=== PATIENT | female | born 1930 | race Caucasian/White ===

== ENCOUNTER 2017-10-27 12:26 | Inpatient (IN) | payer OTHER ==
--- NOTE | 2017-10-27 12:28 | PDOC ---
History of Present Illness <Olive López - Last Filed: 10/27/17 14:45> - General History Source: Patient, Family Exam Limitations: No Limitations - History of Present Illness Initial Comments: 87 yo F history atrial fibrillation, ischemic colitis, chronic abdominal pain for the past few months presents with diarrhea, abd pain. She has been following up with Dr. Velazquez as an outpatient for the pain. She has had poor appetite and weight loss with her symptoms. Denies fever, nausea, vomiting. She had an MRI last week that was reportedly unremarkable. As part of her workup, she was scheduled for CT today, she drank barium contrast last night. She has been having diarrhea since then and was feeling weak, presented to ED. She did not get her study this morning. She has abdominal pain that is consistent with her chronic pain. <Fatoumata Tan - Last Filed: 10/27/17 18:27> - General Chief Complaint: Pain Stated Complaint: ABDOMINAL PAIN Time Seen by Provider: 10/27/17 12:27 Past History <Olive López - Last Filed: 10/27/17 14:45> - Past Medical History Dementia: Yes Diabetes: Yes GI Disorders: (bleeding ulcers) HTN: Yes Hypercholesterolemia: Yes - Surgical History Cholecystectomy: Yes - Suicide/Smoking/Psychosocial Hx Smoking History: Never smoked Hx Alcohol Use: No Drug/Substance Use Hx: No Substance Use Type: Alcohol <Fatoumata Tan - Last Filed: 10/27/17 18:27> - Past Medical History Allergies/Adverse Reactions: Allergies Allergy/AdvReac Type Severity Reaction Status Date / Time No Known Allergies Allergy Verified 10/27/17 12:33 Home Medications: Ambulatory Orders Amlodipine Besylate [Norvasc -] 5 mg PO DAILY #30 tablet 05/19/17 Apixaban [Eliquis -] 2.5 mg PO BID #60 tablet 05/19/17 Atenolol [Tenormin -] 50 mg PO DAILY #30 tablet 05/19/17 Donepezil HCl [Aricept -] 10 mg PO DAILY #30 tablet 05/19/17 Furosemide [Lasix -] 40 mg PO DAILY #30 tablet 05/19/17 Insulin (Levemir) [Levemir Flexpen -] 6 units SQ DAILY #1 pen 05/19/17 Levothyroxine [Synthroid -] 25 mcg PO DAILY@0700 #30 tablet 05/19/17 [place]-3 Acid Ethyl Esters [Lovaza -] 2 gm PO BID@1000,1700 #60 cap 05/19/17 Pantoprazole Sodium [Protonix -] 40 mg PO DAILY@0700 #30 tablet.ec 05/19/17 Insulin Aspart [Novolog Flexpen] 5 unit SQ TID #30 insuln.pen 05/20/17 Lisinopril 10 mg PO DAILY #30 tablet 05/20/17 Nateglinide [Starlix (Nf)] 60 mg PO DAILY 10/27/17 Review of Systems - Review of Systems Able to Perform ROS?: Yes Comments:: GENERAL/CONSTITUTIONAL: No fever or chills. +Weakness. HEAD, EYES, EARS, NOSE AND THROAT: No change in vision. No ear pain or discharge. No sore throat. CARDIOVASCULAR: No chest pain or shortness of breath. RESPIRATORY: No cough, wheezing, or hemoptysis. GASTROINTESTINAL: No nausea, vomiting, or constipation. +Diarrhea. GENITOURINARY: No dysuria, frequency, or change in urination. MUSCULOSKELETAL: No joint or muscle swelling or pain. No neck or back pain. SKIN: No rash NEUROLOGIC: No headache, vertigo, loss of consciousness, or change in strength/ sensation. ENDOCRINE: No increased thirst. No abnormal weight change. HEMATOLOGIC/LYMPHATIC: No anemia, easy bleeding, or history of blood clots. ALLERGIC/IMMUNOLOGIC: No hives or skin allergy. <Fatoumata Tan - Last Filed: 10/27/17 18:27> *Physical Exam - Vital Signs Last Vital Signs Temp Pulse Resp BP Pulse Ox 94.2 F L 118 H 16 124/56 100 10/27/17 13:30 10/27/17 14:31 10/27/17 14:31 10/27/17 14:31 10/27/17 14:31 <Olive López - Last Filed: 10/27/17 14:45> - Physical Exam Comments: GENERAL: Awake, alert, and fully oriented, in no acute distress HEAD: No signs of trauma EYES: PERRLA, EOMI, sclera anicteric, conjunctiva clear ENT: Auricles normal inspection, hearing grossly normal, nares patent, oropharynx clear without exudates. Moist mucosa NECK: Normal ROM, supple, no lymphadenopathy, JVD, or masses LUNGS: Breath sounds equal, clear to auscultation bilaterally. No wheezes, and no crackles HEART: Regular rate and rhythm, normal S1 and S2, no murmurs, rubs or gallops ABDOMEN: Soft, nontender, normoactive bowel sounds. No guarding, no rebound. No masses EXTREMITIES: Normal range of motion, no edema. No clubbing or cyanosis. No cords, erythema, or tenderness NEUROLOGICAL: Cranial nerves II through XII grossly intact. Normal speech, normal gait SKIN: Warm, Dry, normal turgor, no rashes or lesions noted. <Fatoumata Tan - Last Filed: 10/27/17 18:27> ED Treatment Course - LABORATORY CBC & Chemistry Diagram: 10/27/17 13:02 10/27/17 13:02 - ADDITIONAL ORDERS Additional order review: Laboratory Results 10/27/17 10/27/17 10/27/17 14:37 13:02 13:02 PT with INR INR PTT (Actin FS) VBG pH POC VBG pCO2 POC VBG pO2 Mixed VBG HCO3 Sodium Potassium Chloride Carbon Dioxide Anion Gap BUN Creatinine Creat Clearance w eGFR POC Glucometer Random Glucose Lactic Acid Calcium Total Bilirubin AST ALT Alkaline Phosphatase Creatine Kinase 24 L Troponin I < 0.03 Total Protein Albumin Stool Occult Blood Positive 10/27/17 10/27/17 10/27/17 13:02 13:02 13:02 PT with INR INR PTT (Actin FS) VBG pH 7.23 L* POC VBG pCO2 40.3 POC VBG pO2 28.0 Mixed VBG HCO3 16.2 L Sodium 120 L* Potassium 4.5 Chloride 89 L Carbon Dioxide 15 L Anion Gap 16 BUN 74 H Creatinine 2.8 H Creat Clearance w eGFR 16.06 POC Glucometer Random Glucose 344 H* Lactic Acid 2.9 H* Calcium 9.0 Total Bilirubin 0.6 AST 21 ALT 13 Alkaline Phosphatase 56 Creatine Kinase Troponin I Total Protein 7.4 Albumin 3.7 Stool Occult Blood 10/27/17 10/27/17 13:02 12:50 PT with INR 13.4 H INR 1.20 PTT (Actin FS) 30.0 VBG pH POC VBG pCO2 POC VBG pO2 Mixed VBG HCO3 Sodium Potassium Chloride Carbon Dioxide Anion Gap BUN Creatinine Creat Clearance w eGFR POC Glucometer [phone] Random Glucose Lactic Acid Calcium Total Bilirubin AST ALT Alkaline Phosphatase Creatine Kinase Troponin I Total Protein Albumin Stool Occult Blood 10/27/17 10/27/17 13:02 12:50 RBC 3.23 L MCV 87.5 MCHC 35.7 RDW 13.4 MPV 7.7 Neutrophils % 83.9 H Lymphocytes % 13.9 Monocytes % 1.7 L Eosinophils % 0.3 Basophils % 0.2 POC Glucometer [phone] - Medications Given in the ED: ED Medications Discontinued Medications Generic Name Dose Route Start Last Admin Trade Name Fresven PRN Reason Stop Dose Admin Insulin Human Regular 6 units 10/27/17 13:01 10/27/17 13:12 Novolin R Vial *For Ivpush Or Iv Drip Only* SQ 10/27/17 13:02 6 units ONCE ONE Administration <Olive López - Last Filed: 10/27/17 14:45> - LABORATORY CBC & Chemistry Diagram: 10/27/17 17:30 10/27/17 17:30 <Fatoumata Tan - Last Filed: 10/27/17 18:27> Medical Decision Making - Medical Decision Making 10/27/17 14:[address] Velazquez at 2:34pm Documentation prepared by Olive López, acting as medical voucher clerk for Fatoumata Tan MD. <Olive López - Last Filed: 10/27/17 14:45> - Critical Care Time Total Critical Care Time (minutes): 90 Critical Care Statement: The care of this patient involved high complexity decision making to prevent further life threatening deterioration of the patient 's condition and/or to evaluate & treat vital organ system(s) failure or risk of failure. - Medical Decision Making 10/27/17 14:05 Case d/w Dr. Allen, as he has seen patient in the past. She is noted to have hyponatremia on labs, appears fluid depleted. Recommended 1L NSS. 10/27/17 14:29 CT and CMP results d/w family. I will contact Dr. Velazquez for more information, as patient had imaging 1 week ago, not at this hospital. 10/27/17 15:01 Case d/w Dr. Velazquez, recommended consultation with surgery. I will contact surgeon environmental sampler. 10/27/17 15:12 Case d/w Dr. Conde, environmental sampler for surgery. Recommended ICU admission, abx, and IV fluids. If patient does not improve will require laparotomy and possible bowel resection. I discussed with family, who refused transfer to [facility] ICU. They are requesting transfer either to [facility] or [place] at this time. 10/27/17 15:16 Dr. Velazquez called back to discuss with family via phone. 10/27/17 16:36 Multiple conversations with the family, as both hospitals they requested do not accept transfers without an accepting physician. They requested time to discuss amongst themselves again- they were considering C. Nursing equipment maintenance supervisor Katerina came to bedside to discuss with them as well. At this time they accept transfer to [facility]. 10/27/17 18:26 Pt is comfortable in bed, appears better than prior evaluation. Her temp has normalized. Awaiting EMS pickup for ICU transfer. <Fatoumata Tan - Last Filed: 10/27/17 18:27> *DC/Admit/Observation/Transfer <Olive López - Last Filed: 10/27/17 14:45> - Discharge Dispostion Admit: Yes <Fatoumata Tan - Last Filed: 10/27/17 18:27> Diagnosis at time of Disposition: Hyponatremia, Ischemic colitis Sepsis Qualifiers: Sepsis type: sepsis due to unspecified organism Qualified Code(s): A41.9 - Sepsis, unspecified organism - Discharge Dispostion Condition at time of disposition: Critical
[2017-10-27] MEDS ORDERED: INSULIN REGULAR HUMAN 100 UNITS/ML *VIAL SQ ONE (13:01)
[2017-10-27] MEDS ORDERED: INSULIN REGULAR HUMAN 100 UNITS/ML *VIAL ONE (13:08)
[2017-10-27 13:23] LABS: BASO % 0.2 % (0-2.0); EOS % 0.3 % (0-4.5); HEMATOCRIT 28.3 % (32.4-45.2); HEMOGLOBIN 10.1 GM/dl (10.7-15.3); LYMPH % 13.9 % (8-40); MCH 31.2 pg (25.7-33.7); MCHC 35.7 g/dl (32.0-36.0); MEAN CELL VOLUME 87.5 fl (80-96); MEAN PLT VOLUME 7.7 fl (7.5-11.1); MONO % 1.7 % (3.8-10.2); NEUT % 83.9 % (42.8-82.8); PLATELET COUNT 316 K/MM3 (134-434); RBC 3.23 M/mm3 (3.60-5.2); RDW 13.4 % (11.6-15.6); WHITE BLOOD COUNT 8.1 K/mm3 (4.0-10.8)
[2017-10-27 13:38] LABS: ALBUMIN 3.7 g/dl (3.5-5.0); ALK PHOS 56 U/L (32-92); ANION GAP 16 (8-16); BILIRUBIN,TOTAL 0.6 mg/dl (0.2-1.0); BLOOD UREA NITROGEN 74 mg/dl (7-18); CHLORIDE 89 mmol/L (98-107); CO2 15 mmol/L (22-28); CREATININE 2.8 mg/dl (0.6-1.3); POTASSIUM 4.5 mmol/L (3.5-5.1); SGOT/AST 21 U/L (10-42); SGPT/ALT 13 U/L (10-40); TOT PROT 7.4 g/dl (6.4-8.3)
[2017-10-27 13:45] LABS: GLUCOSE,RANDOM 344 mg/dl (74-106)
[2017-10-27 13:46] LABS: SODIUM 120 mmol/L (136-145)
[2017-10-27 14:11] LABS: VENOUS PC02 40.3 mmHg (38-52)
[2017-10-27 14:12] LABS: VENOUS PH 7.23 (7.32-7.42)
[2017-10-27 14:15] LABS: INR 1.2 (0.82-1.09); PROTHROMBIN TIME (PATIENT) 13.4 SEC (10.2-13.0)
[2017-10-27] MEDS ORDERED: SODIUM CHLORIDE 1,000 ML IV SCH ×2 (14:15→22:15)
[2017-10-27] MEDS ORDERED: dilTIAZem HCL 50 MG/10 ML - 10 ML VIAL IVPUSH ONE (14:34)
[2017-10-27] MEDS ORDERED: dilTIAZem HCL 50 MG/10 ML - 10 ML VIAL ONE (14:40)
[2017-10-27] MEDS ORDERED: PIPERACILLIN/TAZOB 3.375 GM 3.375 GM in DEXTROSE 5%-WATER - 50 ML IVPB ONE ×2 (14:42→21:00)
[2017-10-27] MEDS ORDERED: PIPERACILLIN/TAZOBACTAM 3.375 GM VIAL IVPB ONE ×2 (14:49→21:55)
[2017-10-27] MEDS ORDERED: ONDANSETRON 4 MG/2 ML VIAL IVPUSH ONE ×2 (15:21→18:27)
[2017-10-27] MEDS ORDERED: ONDANSETRON 4 MG/2 ML VIAL ONE ×2 (15:29→18:36)
[2017-10-27 17:46] LABS: HEMATOCRIT 28.3 % (32.4-45.2); HEMOGLOBIN 10.1 GM/dl (10.7-15.3); MCH 30.9 pg (25.7-33.7); MCHC 35.6 g/dl (32.0-36.0); MEAN CELL VOLUME 86.9 fl (80-96); MEAN PLT VOLUME 7.2 fl (7.5-11.1); PLATELET COUNT 304 K/MM3 (134-434); RBC 3.26 M/mm3 (3.60-5.2); RDW 13.2 % (11.6-15.6); WHITE BLOOD COUNT 11.9 K/mm3 (4.0-10.8)
[2017-10-27 18:00] LABS: ALBUMIN 3.3 g/dl (3.5-5.0); ALK PHOS 52 U/L (32-92); ANION GAP 11 (8-16); BLOOD UREA NITROGEN 75 mg/dl (7-18); CALCIUM 8.6 mg/dl (8.4-10.2); CHLORIDE 93 mmol/L (98-107); CO2 18 mmol/L (22-28); CREATININE 2.6 mg/dl (0.6-1.3); GLUCOSE,RANDOM 211 mg/dl (74-106); POTASSIUM 4.1 mmol/L (3.5-5.1); SGOT/AST 22 U/L (10-42); SGPT/ALT 14 U/L (10-40); TOT PROT 6.8 g/dl (6.4-8.3)
[2017-10-27 18:03] LABS: SODIUM 122 mmol/L (136-145)
[2017-10-27 18:08] LABS: BILIRUBIN,TOTAL 0.6 mg/dl (0.2-1.0)
[2017-10-27 18:42] LABS: PLATELET ESTIMATE ADEQUATE
--- NOTE | 2017-10-27 19:09 | CONSULT ---
Consult - text type - Consultation Consultation Note: Renal Consult for Hyponatremia and GABY on CKD This is a 87 year old woman with PMhx of CKD Stage 4 (baseline Cr 1.8-2), AFib on Eliquis, Hypertension, Hypothyrodism who presented with complaints of abd pain and diarrhea and found to have possible ischemic colitis and GABY and Na of 122. Pt has been having poor oral intake and abd pain for several weeks. She had loose stools after taking a bowel prep or oral contrast for C T scan. Pt has been on diuretics for management of LE edema. PMhx: as above Allergies: NKDA Famialy Hx: NC social Hx: No T/A/D ROS: NO fever, chills, SOB, chest pain, + N/V Home Medications Medication Instructions Recorded Amlodipine Besylate [Norvasc -] 5 mg PO DAILY #30 tablet 05/19/17 Apixaban [Eliquis -] 2.5 mg PO BID #60 tablet 05/19/17 Atenolol [Tenormin -] 50 mg PO DAILY #30 tablet 05/19/17 Donepezil HCl [Aricept -] 10 mg PO DAILY #30 tablet 05/19/17 Furosemide [Lasix -] 40 mg PO DAILY #30 tablet 05/19/17 Insulin (Levemir) [Levemir Flexpen 6 units SQ DAILY #1 pen 05/19/17 -] Levothyroxine [Synthroid -] 25 mcg PO DAILY@0700 #30 tablet 05/19/17 [place]-3 Acid Ethyl Esters [Lovaza 2 gm PO BID@1000,1700 #60 cap 05/19/17 -] Pantoprazole Sodium [Protonix -] 40 mg PO DAILY@0700 #30 tablet.ec 05/19/17 Insulin Aspart [Novolog Flexpen] 5 unit SQ TID #30 insuln.pen 05/20/17 Lisinopril 10 mg PO DAILY #30 tablet 05/20/17 Nateglinide [Starlix (Nf)] 60 mg PO DAILY 10/27/17 Vital Signs Temperature 98.3 F 10/27/17 18:40 Pulse Rate 107 H 10/27/17 18:40 Respiratory Rate 16 10/27/17 18:40 Blood Pressure 118/76 10/27/17 18:40 O2 Sat by Pulse Oximetry (%) 100 10/27/17 18:40 NAD, awake and alert Dry MM, No JVD, Neck supple RRR, No M/R CTA, no rales or wheeze soft, + tenderness No LE edema, clubbing or cyanosis CBC, BMP 10/27/17 17:30 10/27/17 17:30 Current Medications Sodium Chloride (Normal Saline -) 1,000 mls @ 100 mls/hr IV ASDIR YANN Last Admin: 10/27/17 14:15 Dose: 100 mls/hr Piperacillin Sod/Tazobactam (Sod 3.375 gm/ Dextrose) 50 mls @ 100 mls/hr IVPB ONCE ONE PRN Reason: Protocol Stop: 10/27/17 21:29 87 year old woman with PMhx of CKD Stage 4 (baseline Cr 1.8-2), AFib on Eliquis , Hypertension, Hypothyrodism who presented with complaints of abd pain and diarrhea and found to have possible ischemic colitis and GABY and Na of 122. #Hypovolemic Hyponatremia #GABY on CKD stage 4 #Ischemic Colitis #Metabolic aciodosis/Lactic acidosis #Anemia #Afib on Eliquis no indication for hypertonic saline at this time Continue isotonic saline at 100cc per hour monitor serum Na Q6h with goal of correction less then 10 in 24 hours avoid hypotonic IVF infusions Hold all diuretics at this time Keep MAP> 65 Trend BUN/cr and electrolytes GI and surgical evalulation for ischemic colitis Trend Hgb, no acute indication for transfusion Thank you will follow Refugio Allen DO
[2017-10-27 19:25] LABS: PH,URINE 5.5 (4.5-8); URINE APPEARANCE Clear; URINE BILIRUBIN Negative (NEGATIVE); URINE BLOOD Negative (NEGATIVE); URINE COLOR YELLOW; URINE GLUCOSE (UA) Negative (NEGATIVE); URINE KETONE Negative (NEGATIVE); URINE LEUK ESTERASE 1+ (NEGATIVE); URINE NITRITE Negative (NEGATIVE); URINE PROTEIN 1+ (NEGATIVE); URINE UROBILINOGEN 0.2 (0.2-1.0)
[2017-10-27 19:59] LABS: URINE CREATININE 81.6 mg/dL (20-320)
[2017-10-27] MEDS ORDERED: ONDANSETRON 4 MG/2 ML VIAL IVPUSH PRN (21:26)
--- NOTE | 2017-10-27 21:30 | CONSULT ---
Consult Consult Specialty:: Pulm/CCM Referred by:: Hospitalist Reason for Consultation:: hypovolemic hyponatermia, abd pain, colitis, lactic acidosis - History of Present Illness Chief Complaint: abd pain, nausea, diarrhea History of Present Illness: HPI: This is an 87 yo woman w/ CAD, HTN, hypothyroid, afib on xarelto, DM, CKD ( stage 4) with abdominal pain with associated weight loss and decreased PO intake over the last 3 months who was being worked up by Dr. Velazquez (GI). She had a recent MRI showed moderate abdominal atherosclerotic disease. She was to undergo a CTAP today and drank her barium bowel prep but developed increasing abd pain, nausea and diarrhea. She presented to [place] ED and underwent CTAP showing an extensive amount of air/gas is seen within the peripheral branches of the left and right portal veins with concentric wall thickening involving the length of the transverse colon as well as the ascending colon consistent with colitis. In the ED her labs were notable for hypovolemia hyponatremia, lactic acidosis (2.9) and GABY (SCr: 2.8). Surgery was consulted, no acute surgical intervention. IV fluids given. Zosyn started. Lactate down trending. 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 Cardio/Vascular: Yes: AFIB, HTN, Hyperlipdemia Gastrointestinal: Yes: Peptic Ulcer Disease Endocrine: Yes: Diabetes Mellitus, Hypothyroidism - Past Surgical History Past Surgical History: Yes: Cataract Removal, Cholecystectomy (open) - Alcohol/Substance Use Hx Alcohol Use: No - Smoking History Smoking history: Never smoked Home Medications - Allergies Allergies/Adverse Reactions: Allergies Allergy/AdvReac Type Severity Reaction Status Date / Time No Known Allergies Allergy Verified 10/27/17 12:33 - Home Medications Home Medications: Ambulatory Orders Amlodipine Besylate [Norvasc -] 5 mg PO DAILY #30 tablet 05/19/17 Apixaban [Eliquis -] 2.5 mg PO BID #60 tablet 05/19/17 Atenolol [Tenormin -] 50 mg PO DAILY #30 tablet 05/19/17 Donepezil HCl [Aricept -] 10 mg PO DAILY #30 tablet 05/19/17 Furosemide [Lasix -] 40 mg PO DAILY #30 tablet 05/19/17 Insulin (Levemir) [Levemir Flexpen -] 6 units SQ DAILY #1 pen 05/19/17 Levothyroxine [Synthroid -] 25 mcg PO DAILY@0700 #30 tablet 05/19/17 [place]-3 Acid Ethyl Esters [Lovaza -] 2 gm PO BID@1000,1700 #60 cap 05/19/17 Pantoprazole Sodium [Protonix -] 40 mg PO DAILY@0700 #30 tablet.ec 05/19/17 Insulin Aspart [Novolog Flexpen] 5 unit SQ TID #30 insuln.pen 05/20/17 Lisinopril 10 mg PO DAILY #30 tablet 05/20/17 Nateglinide [Starlix (Nf)] 60 mg PO DAILY 10/27/17 Family Disease History - Family Disease History Family Disease History: Diabetes: Brother (3 brothers, : 1 w/ prostate cancer, 1 w/ complications from asbestosis ), Son (2 sons: healthy), Other: Father ( 80's: unclear cause), Mother ( in 40's: heart problems), Brother, Son, Daughter (1, has hereditary angioedema) Review of Systems - Review of Systems Constitutional: reports: Loss of Appetite, Unintentional Wgt. Loss Gastrointestinal: reports: Abdominal Pain, Bloating, Diarrhea, Indigestion, Nausea Physical Exam Vital Signs: Vital Signs Temperature 98.3 F 10/27/17 18:40 Pulse Rate 107 H 10/27/17 18:40 Respiratory Rate 16 10/27/17 18:40 Blood Pressure 118/76 10/27/17 18:40 O2 Sat by Pulse Oximetry (%) 100 10/27/17 18:40 Constitutional: Yes: No Distress, Calm Eyes: Yes: EOM Intact HENT: Yes: Atraumatic Neck: Yes: Trachea Midline Cardiovascular: Yes: Regular Rate and Rhythm, S1, S2 Respiratory: Yes: CTA Bilaterally Gastrointestinal: Yes: Soft, Tenderness (RUQ tenderness to palp) Edema: No Integumentary: Yes: Tenting Neurological: Yes: Alert Labs: CBC, BMP 10/27/17 17:30 10/27/17 17:30 Stool study: Pending CTAP: Extensive amount of air/gas is seen within the peripheral branches of the left and right portal veins. In comparison to a previous CT study of 05/10/2017 interval note is also made of interval development of concentric wall thickening involving the length of the transverse colon as well as the ascending colon consistent with colitis. There is no definite associated or mural air or air/gas gas within the mesenteric vasculature. No pericolonic edema or fluid accumulation is seen Imaging - Results Chest X-ray: Report Reviewed, Image Reviewed Cat Scan: Report Reviewed, Image Reviewed Problem List - Problems (1) Colitis Code(s): K52.9 - NONINFECTIVE GASTROENTERITIS AND COLITIS, UNSPECIFIED (2) Hyponatremia Code(s): E87.1 - HYPO-OSMOLALITY AND HYPONATREMIA (3) GABY (acute kidney injury) Code(s): N17.9 - ACUTE KIDNEY FAILURE, UNSPECIFIED (4) Acute on chronic kidney failure Code(s): N17.9 - ACUTE KIDNEY FAILURE, UNSPECIFIED; N18.9 - CHRONIC KIDNEY DISEASE, UNSPECIFIED Qualifiers: Chronic kidney disease stage: stage 3 (moderate) (5) CKD (chronic kidney disease) stage 4, GFR 15-29 ml/min Code(s): N18.4 - CHRONIC KIDNEY DISEASE, STAGE 4 (SEVERE) (6) Diarrhea Code(s): R19.7 - DIARRHEA, UNSPECIFIED (7) Type 2 diabetes mellitus Code(s): E11.9 - TYPE 2 DIABETES MELLITUS WITHOUT COMPLICATIONS Qualifiers: Diabetes mellitus terminal operations manager insulin use: without terminal operations manager use Diabetes mellitus complication status: with kidney complications Diabetes mellitus complication detail: with chronic kidney disease Assessment/Plan a/p: 87 yo woman with afib, DM, CKD (stage 4), chronic abdominal pain with nausea, decreased po intake c/f gastroparesis and now with hypovolemic hyponatremia, acute abd pain and colitis c/f low flow state in a elderly woman with dehydrated with known atherosclerotic disease +/- abdominal sepsis. -IV fluids w/ slow correction of Na goal 8-10 Meq over next 24hrs -frequent BMPs -renal following -renal dose medications -trend lactate -surgery to follow -rate control, currently in NSR -GI to follow -glucose control -ABX for abdominal sepsis, c/f GI translocation in setting of colitis -pain control -PPI (renal dose) -zofran for nausea -simethicone for gas -no UFH given xarelto -cont ICU monitoring tonight, if lactate and sodium correct can likely got to floor in AM Jesus ACNP Pulm/CCM CCT: 45m
[2017-10-27] MEDS ORDERED: SIMETHICONE 80 MG TAB.CHEW (FP) PO PRN (21:34)
--- NOTE | 2017-10-27 21:40 | HP ---
CHIEF COMPLAINT: Abdominal Pain, Diarrhea PCP: Dr. Carlie Garay HISTORY OF PRESENT ILLNESS: 87 y/o woman from home PMH Ischemic Colitis, Chronic Abdominal Pain (for the past few months), Dementia, CKD Stage 4, Afib (on Eliquis), HTN, Hypothyroid. Who presents to the [place] ED with diarrhea, abdominal pain, and weakness. She has been following up with Dr. Velazquez as an outpatient for the pain. She has had poor appetite and weight loss with her symptoms. Denies fever, nausea, vomiting. She had an MRI last week that was reportedly unremarkable. As part of her workup, she was scheduled for CT today, she drank barium contrast last night. Patient was transferred to [facility] ICU secondary to Severe Hyponatremia, ? Ischemic Colitis. Patient's son was at bedside, provided the above. ER course was notable for: (1) CTAP- extensive portal venous air/gas accumulation is noted, interval development of colitis involving the transverse and ascending segments of the colon. ? Ischemic etiology given the portal venous air/gas accumulation. (2) Na 120 (3) Lactic Acid 2.9~ 1.3 post fluid resuscitation Recent Travel: None PAST MEDICAL HISTORY: See HPI PAST SURGICAL HISTORY: Cataract Removal Open Cholecystectomy Social History: Smoking: Never Alcohol: None Drugs: None Lives with spouse, daughter 3-family dwelling Family History: Non contributory Allergies No Known Allergies Allergy (Verified 10/27/17 12:33) HOME MEDICATIONS: Home Medications Medication Instructions Recorded Amlodipine Besylate [Norvasc -] 5 mg PO DAILY #30 tablet 05/19/17 Apixaban [Eliquis -] 2.5 mg PO BID #60 tablet 05/19/17 Atenolol [Tenormin -] 50 mg PO DAILY #30 tablet 05/19/17 Donepezil HCl [Aricept -] 10 mg PO DAILY #30 tablet 05/19/17 Furosemide [Lasix -] 40 mg PO DAILY #30 tablet 05/19/17 Insulin (Levemir) [Levemir Flexpen 6 units SQ DAILY #1 pen 05/19/17 -] Levothyroxine [Synthroid -] 25 mcg PO DAILY@0700 #30 tablet 05/19/17 Lisco-3 Acid Ethyl Esters [Lovaza 2 gm PO BID@1000,1700 #60 cap 05/19/17 -] Pantoprazole Sodium [Protonix -] 40 mg PO DAILY@0700 #30 tablet.ec 05/19/17 Insulin Aspart [Novolog Flexpen] 5 unit SQ TID #30 insuln.pen 05/20/17 Lisinopril 10 mg PO DAILY #30 tablet 05/20/17 Nateglinide [Starlix (Nf)] 60 mg PO DAILY 10/27/17 REVIEW OF SYSTEMS CONSTITUTIONAL: Absent: fever, chills, diaphoresis, generalized weakness, malaise, loss of appetite, weight change HEENT: Absent: rhinorrhea, nasal congestion, throat pain, throat swelling, difficulty swallowing, mouth swelling, ear pain, eye pain, visual changes CARDIOVASCULAR: Absent: chest pain, syncope, palpitations, irregular heart rate, lightheadedness , peripheral edema RESPIRATORY: Absent: cough, shortness of breath, dyspnea with exertion, orthopnea, wheezing, stridor, hemoptysis GASTROINTESTINAL: abdominal pain, vomiting, diarrhea Absent: abdominal distension, nausea, constipation, melena, hematochezia GENITOURINARY: Absent: dysuria, frequency, urgency, hesitancy, hematuria, flank pain, genital pain MUSCULOSKELETAL: Absent: myalgia, arthralgia, joint swelling, back pain, neck pain SKIN: Absent: rash, itching, pallor HEMATOLOGIC/IMMUNOLOGIC: Absent: easy bleeding, easy bruising, lymphadenopathy, frequent infections ENDOCRINE: Absent: unexplained weight gain, unexplained weight loss, heat intolerance, cold intolerance NEUROLOGIC: Absent: headache, focal weakness or paresthesias, dizziness, unsteady gait, seizure, mental status changes, bladder or bowel incontinence PSYCHIATRIC: Absent: anxiety, depression, suicidal or homicidal ideation, hallucinations. PHYSICAL EXAMINATION Vital Signs - 24 hr 10/27/17 10/27/17 10/27/17 12:27 13:30 14:31 Temperature 93.7 F L 94.2 F L Pulse Rate 56 L Pulse Rate [ 62 118 H Apical] Respiratory 16 18 16 Rate Blood Pressure 140/52 Blood Pressure 141/39 124/56 [Arm] O2 Sat by Pulse 100 100 100 Oximetry (%) 10/27/17 10/27/17 10/27/17 14:47 15:17 15:37 Temperature 97.3 F L 97.6 F Pulse Rate Pulse Rate [ 78 82 71 Apical] Respiratory 18 Rate Blood Pressure Blood Pressure 136/40 158/69 [Arm] O2 Sat by Pulse 100 100 100 Oximetry (%) 10/27/17 10/27/17 10/27/17 16:19 17:20 18:40 Temperature 98 F 98 F 98.3 F Pulse Rate 75 Pulse Rate [ 61 107 H Apical] Respiratory 16 16 16 Rate Blood Pressure 142/41 Blood Pressure 118/76 [Arm] O2 Sat by Pulse 100 100 Oximetry (%) 10/27/17 21:15 Temperature 98.1 F Pulse Rate 74 Pulse Rate [ Apical] Respiratory 18 Rate Blood Pressure 173/48 Blood Pressure [Arm] O2 Sat by Pulse Oximetry (%) GENERAL: Awake, alert to name, person only, in no acute distress. HEAD: Normal with no signs of trauma. EYES: Pupils equal, round and reactive to light, sclera anicteric, conjunctiva clear. No lid lag. EARS, NOSE, THROAT: Ears normal, nares patent, oropharynx clear without exudates. Dry mucous membranes. NECK: Normal range of motion, supple without lymphadenopathy, JVD, or masses. LUNGS: Breath sounds equal, clear to auscultation bilaterally. No wheezes, and no crackles. No accessory muscle use. HEART: Regular rate and rhythm, normal S1 and S2 without murmur, rub or gallop. ABDOMEN: Soft, +Epigastric tenderness, not distended, hyperactive bowel sounds, no guarding, no rebound, no masses. No hepatomegaly or splenomegaly. MUSCULOSKELETAL: Normal range of motion at all joints. No bony deformities or tenderness. No CVA tenderness. UPPER EXTREMITIES: 2+ pulses, warm, well-perfused. No cyanosis. No clubbing. No peripheral edema. LOWER EXTREMITIES: 2+ pulses, warm, well-perfused. No calf tenderness. No peripheral edema. NEUROLOGICAL: Cranial nerves II-XII intact. Normal speech. Gait not observed. PSYCHIATRIC: Cooperative. Good eye contact. Appropriate mood and affect. SKIN: Warm, dry, normal turgor, no rashes or lesions noted, normal capillary refill. Laboratory Results - last 24 hr 10/27/17 10/27/17 10/27/17 12:50 13:02 13:02 WBC 8.1 RBC 3.23 L Hgb 10.1 L Hct 28.3 L MCV 87.5 MCH 31.2 MCHC 35.7 RDW 13.4 Plt Count 316 MPV 7.7 Neutrophils % 83.9 H Neutrophils % (Manual) Band Neutrophils % Lymphocytes % 13.9 Lymphocytes % (Manual) Monocytes % 1.7 L Eosinophils % 0.3 Basophils % 0.2 Platelet Estimate PT with INR 13.4 H INR 1.20 PTT (Actin FS) 30.0 VBG pH POC VBG pCO2 POC VBG pO2 Mixed VBG HCO3 Sodium Potassium Chloride Carbon Dioxide Anion Gap BUN Creatinine Creat Clearance w eGFR POC Glucometer [phone] Random Glucose Lactic Acid Calcium Total Bilirubin AST ALT Alkaline Phosphatase Creatine Kinase Troponin I Total Protein Albumin TSH Urine Color Urine Appearance Urine pH Ur Specific [place] Urine Protein Urine Glucose (UA) Urine Ketones Urine Blood Urine Nitrite Urine Bilirubin Urine Urobilinogen Ur Leukocyte Esterase Ur Random Sodium Urine Creatinine Stool Occult Blood 10/27/17 10/27/17 10/27/17 13:02 13:02 13:02 WBC RBC Hgb Hct MCV MCH MCHC RDW Plt Count MPV Neutrophils % Neutrophils % (Manual) Band Neutrophils % Lymphocytes % Lymphocytes % (Manual) Monocytes % Eosinophils % Basophils % Platelet Estimate PT with INR INR PTT (Actin FS) VBG pH 7.23 L* POC VBG pCO2 40.3 POC VBG pO2 28.0 Mixed VBG HCO3 16.2 L Sodium 120 L* Potassium 4.5 Chloride 89 L Carbon Dioxide 15 L Anion Gap 16 BUN 74 H Creatinine 2.8 H Creat Clearance w eGFR 16.06 POC Glucometer Random Glucose 344 H* Lactic Acid 2.9 H* Calcium 9.0 Total Bilirubin 0.6 AST 21 ALT 13 Alkaline Phosphatase 56 Creatine Kinase Troponin I Total Protein 7.4 Albumin 3.7 TSH 2.28 Urine Color Urine Appearance Urine pH Ur Specific [place] Urine Protein Urine Glucose (UA) Urine Ketones Urine Blood Urine Nitrite Urine Bilirubin Urine Urobilinogen Ur Leukocyte Esterase Ur Random Sodium Urine Creatinine Stool Occult Blood 10/27/17 10/27/17 10/27/17 13:02 13:02 14:37 WBC RBC Hgb Hct MCV MCH MCHC RDW Plt Count MPV Neutrophils % Neutrophils % (Manual) Band Neutrophils % Lymphocytes % Lymphocytes % (Manual) Monocytes % Eosinophils % Basophils % Platelet Estimate PT with INR INR PTT (Actin FS) VBG pH POC VBG pCO2 POC VBG pO2 Mixed VBG HCO3 Sodium Potassium Chloride Carbon Dioxide Anion Gap BUN Creatinine Creat Clearance w eGFR POC Glucometer Random Glucose Lactic Acid Calcium Total Bilirubin AST ALT Alkaline Phosphatase Creatine Kinase 24 L Troponin I < 0.03 Total Protein Albumin TSH Urine Color Urine Appearance Urine pH Ur Specific [place] Urine Protein Urine Glucose (UA) Urine Ketones Urine Blood Urine Nitrite Urine Bilirubin Urine Urobilinogen Ur Leukocyte Esterase Ur Random Sodium Urine Creatinine Stool Occult Blood Positive 10/27/17 10/27/17 10/27/17 17:30 17:30 17:30 WBC 11.9 H D RBC 3.26 L Hgb 10.1 L Hct 28.3 L MCV 86.9 MCH 30.9 MCHC 35.6 RDW 13.2 Plt Count 304 MPV 7.2 L Neutrophils % No Result Required. Neutrophils % (Manual) 94.0 H* Band Neutrophils % 1.0 Lymphocytes % No Result Required. Lymphocytes % (Manual) 4.0 L Monocytes % Eosinophils % Basophils % Platelet Estimate Adequate PT with INR INR PTT (Actin FS) VBG pH POC VBG pCO2 POC VBG pO2 Mixed VBG HCO3 Sodium 122 L* Potassium 4.1 Chloride 93 L Carbon Dioxide 18 L Anion Gap 11 BUN 75 H Creatinine 2.6 H Creat Clearance w eGFR 17.49 POC Glucometer Random Glucose 211 H D Lactic Acid 1.3 Calcium 8.6 Total Bilirubin 0.6 AST 22 ALT 14 Alkaline Phosphatase 52 Creatine Kinase Troponin I Total Protein 6.8 Albumin 3.3 L TSH Urine Color Urine Appearance Urine pH Ur Specific [place] Urine Protein Urine Glucose (UA) Urine Ketones Urine Blood Urine Nitrite Urine Bilirubin Urine Urobilinogen Ur Leukocyte Esterase Ur Random Sodium Urine Creatinine Stool Occult Blood 10/27/17 10/27/17 18:42 18:42 WBC RBC Hgb Hct MCV MCH MCHC RDW Plt Count MPV Neutrophils % Neutrophils % (Manual) Band Neutrophils % Lymphocytes % Lymphocytes % (Manual) Monocytes % Eosinophils % Basophils % Platelet Estimate PT with INR INR PTT (Actin FS) VBG pH POC VBG pCO2 POC VBG pO2 Mixed VBG HCO3 Sodium Potassium Chloride Carbon Dioxide Anion Gap BUN Creatinine Creat Clearance w eGFR POC Glucometer Random Glucose Lactic Acid Calcium Total Bilirubin AST ALT Alkaline Phosphatase Creatine Kinase Troponin I Total Protein Albumin TSH Urine Color Yellow Urine Appearance Clear Urine pH 5.5 Ur Specific [place] 1.010 Urine Protein 1+ H Urine Glucose (UA) Negative Urine Ketones Negative Urine Blood Negative Urine Nitrite Negative Urine Bilirubin Negative Urine Urobilinogen 0.2 Ur Leukocyte Esterase 1+ H Ur Random Sodium < 12 L Urine Creatinine 81.6 Stool Occult Blood ASSESSMENT/PLAN: 87 y/o woman with PMH CKD Stage 4, afib (on Eliquis), Hypertension, Hypothyroid. Admitted to ICU Severe Hyponatremia, Ischemic Colitis GABY on CKD Stage 4. Problems: 1. Severe Hypovolemic/Hyponatremia 2. Sepsis 3. Ischemic Colitis 4. GABY on CKD Stage 4 5. Metabolic Acidosis 6. Lactic Acidosis 7. Afib 8. Anemia Plan: 1. Severe Hypovolemic/Hyponatremia- Likely secondary to diuretic use vs gastrointestinal losses- NS bolus given in ED, Nephrology following, Continue NS @100ml/hr, Serum Na Q6h, Na goal correct < 10 in 24hrs. Hold diuretics, Maintain MAP > 65, Seizure Precautions, Fall Precautions. Continue cardiac monitoring 2. Severe Sepsis- Likely secondary Ischemic Colitis, Severe Sepsis Criteria met - T- 93.7, P 50, LA 2.9, Martha-83. BUN 74, Blood Cultures-pending, Urine Culture- pending, Zosyn, Flagyl given in ED, will continue Appreciate ID consult, Monitor CBC, BMP, continue cardiac monitoring, monitor urine output 3. Ischemic Colitis- Will admit to ICU, CTAP reviewed, Surgeon consulted by ED, who will follow, Zosyn given in ED, will continue, Appreciate ID consult, NPO, Pain Mgmt, Monitor vitals, Monitor CBC, BMP 4. GABY on CKD Stage 4- Nephrology following, will continue to monitor and treat with interventions accordingly 5. Metabolic Acidosis- likely secondary to GI losses, Continue to replete, monitor vitals, monitor BMP 6. Lactic Acidosis- secondary to Ischemic Colitis, fluid resuscitation given in ED, LA- corrected- 1.3, 7. Afib- given Cardizem in ED, now rate controlled, EKG reviewed 8. Anemia- stable, will transfuse if Hgb < 7.0 9. FEN- NS@100ml/hr, Replete lytes, NPO 10. DVT ppx- Heparin SQ Code Status: Full Code, HCP Dispo: Requires Inpatient Care Problem List - Problem (1) Hyponatremia Code(s): E87.1 - HYPO-OSMOLALITY AND HYPONATREMIA (2) Severe sepsis Code(s): A41.9 - SEPSIS, UNSPECIFIED ORGANISM; R65.20 - SEVERE SEPSIS WITHOUT SEPTIC SHOCK (3) Ischemic colitis Code(s): K55.9 - VASCULAR DISORDER OF INTESTINE, UNSPECIFIED (4) Acute on chronic kidney failure Code(s): N17.9 - ACUTE KIDNEY FAILURE, UNSPECIFIED; N18.9 - CHRONIC KIDNEY DISEASE, UNSPECIFIED Qualifiers: Chronic kidney disease stage: stage 3 (moderate) (5) Anemia Code(s): D64.9 - ANEMIA, UNSPECIFIED Qualifiers: Anemia type: unspecified type Qualified Code(s): D64.9 - Anemia, unspecified (6) CHF (congestive heart failure) Code(s): I50.9 - HEART FAILURE, UNSPECIFIED Qualifiers: Qualified Code(s): I50.33 - Acute on chronic diastolic (congestive) heart failure (7) Dementia Code(s): F03.90 - UNSPECIFIED DEMENTIA WITHOUT BEHAVIORAL DISTURBANCE (8) CKD (chronic kidney disease) stage 4, GFR 15-29 ml/min Code(s): N18.4 - CHRONIC KIDNEY DISEASE, STAGE 4 (SEVERE) (9) Hyperlipidemia Code(s): E78.5 - HYPERLIPIDEMIA, UNSPECIFIED Qualifiers: Hyperlipidemia type: pure hypercholesterolemia Qualified Code(s): E78.00 - Pure hypercholesterolemia, unspecified (10) Hypothyroidism Code(s): E03.9 - HYPOTHYROIDISM, UNSPECIFIED Qualifiers: Hypothyroidism type: unspecified Qualified Code(s): E03.9 - Hypothyroidism , unspecified (11) Microcytic hypochromic anemia Code(s): D50.9 - IRON DEFICIENCY ANEMIA, UNSPECIFIED (12) Type 2 diabetes mellitus Code(s): E11.9 - TYPE 2 DIABETES MELLITUS WITHOUT COMPLICATIONS Qualifiers: 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 - New Patient This patient is new to me today: Yes Date on this admission: 10/27/17 - Critical Care Critical Care patient: Yes Total Critical Care Time (in minutes): 45 Critical Care Statement: The care of this patient involved high complexity decision making to prevent further life threatening deterioration of the patient 's condition and/or to evaluate & treat vital organ system(s) failure or risk of failure. Hospitalist Screening - Colonoscopy Questionnaire Colonoscopy Questionnaire: Colonoscopy Questionnaire - Patient: 50 - 75 years old and never had a screening colonoscopy: Unknown History of colon or rectal polyps, or CA: Unknown History of IBD, Crohn's disease or UC: Unknown History of abdominal radiation therapy as a child: Unknown - Relative: 1 with colon or rectal CA, or polyps at age 60 or younger: Unknown Colon or rectal CA diagnosed at age 45 or younger: Unknown Multiple relatives with colon or rectal CA: Unknown - Outcome: Screening Result: Negative Screen
[2017-10-27] MEDS ORDERED: FAMOTIDINE 20 MG/50 ML IVPB 20 MG/50 ML MG IVPB SCH (21:45)
[2017-10-27] MEDS ORDERED: DEXTROSE 5%-WATER - 50 ML IVPB ONE (21:56)
[2017-10-27 21:59] LABS: ANION GAP 12 (8-16); BLOOD UREA NITROGEN 78 mg/dL (7-18); CALCIUM 8.7 mg/dL (8.5-10.1); CHLORIDE 97 mmol/L (98-107); CO2 18 mmol/L (21-32); CREATININE 2.6 mg/dL (0.55-1.02); GLUCOSE,RANDOM 181 mg/dL (74-106); POTASSIUM 4.5 mmol/L (3.5-5.1); SODIUM 127 mmol/L (136-145)
[2017-10-27 21:59] LABS: URINE PROTEIN 40 mg/dl
[2017-10-27] MEDS ORDERED: CHLORHEXIDINE GLUCONATE 4% CLEANSER FOR DECOLONIZATION TP SCH (22:00)
[2017-10-27] MEDS: MUPIROCIN 2% TOPICAL OINTMENT FOR DECOLONIZATION NS SCH (22:03)
[2017-10-27 22:19] LABS: EPI CELLS FEW /HPF; URINE BACTERIA FEW /hpf (NEGATIVE); URINE RBC 0-2 /hpf (0-3)
[2017-10-27] MEDS ORDERED: ACETAMINOPHEN 1000 MG/100 ML VIAL (NON FORMULARY) IVPB ONE (22:30)
[2017-10-28] MEDS ORDERED: PIPERACILLIN/TAZOBACTAM 2.25 GM VIAL IVPB ONE ×2 (01:08→12:30)
[2017-10-28] MEDS ORDERED: DEXTROSE 5%-WATER - 50 ML IVPB ONE ×2 (01:08→12:30)
[2017-10-28] MEDS ORDERED: PIPERACILLIN/TAZOB 2.25 GM 2.25 GM in DEXTROSE 5%-WATER - 50 ML IVPB ONE (02:00)
[2017-10-28] MEDS ORDERED: PIPERACILLIN/TAZOB 2.25 GM 2.25 GM in DEXTROSE 5%-WATER - 50 ML IVPB SCH ×2 (02:00→11:30)
[2017-10-28 04:23] VITALS: BMI 21.4
[2017-10-28 06:47] LABS: HEMATOCRIT 27.4 % (32.4-45.2); HEMOGLOBIN 9.6 GM/dL (10.7-15.3); MCH 30.6 pg (25.7-33.7); MCHC 35.2 g/dl (32.0-36.0); MEAN PLT VOLUME 8.2 fl (7.5-11.1); PLATELET COUNT 285 K/MM3 (134-434); RBC 3.15 M/mm3 (3.60-5.2); RDW 14.3 % (11.6-15.6); WHITE BLOOD COUNT 20.1 K/mm3 (4.0-10.0)
[2017-10-28 07:44] LABS: CHLORIDE 97 mmol/L (98-107); POTASSIUM 4.5 mmol/L (3.5-5.1); SODIUM 128 mmol/L (136-145)
[2017-10-28 07:53] LABS: ALBUMIN 2.9 g/dl (3.4-5.0); ALK PHOS 53 U/L (45-117); ANION GAP 13 (8-16); BILIRUBIN,TOTAL 0.5 mg/dL (0.2-1.0); BLOOD UREA NITROGEN 71 mg/dL (7-18); CALCIUM 8.2 mg/dL (8.5-10.1); CO2 18 mmol/L (21-32); CREATININE 2.8 mg/dL (0.55-1.02); GLUCOSE,RANDOM 228 mg/dL (74-106); MAGNESIUM 1.8 mg/dL (1.8-2.4); PHOSPHOROUS 5.7 mg/dL (2.5-4.9); SGOT/AST 22 U/L (15-37); SGPT/ALT 15 U/L (12-78); TOT PROT 6.5 g/dl (6.4-8.2)
[2017-10-28 09:38] LABS: LDH 190 U/L (84-246)
[2017-10-28] MEDS: MUPIROCIN 2% TOPICAL OINTMENT FOR DECOLONIZATION NS SCH (10:00)
--- NOTE | 2017-10-28 10:28 | PN ---
Progress Note, Physician Chief Complaint: Events noted Pt examined son at bedside pt looks weak As per son, she has been having chronic abdominal pain -- even since last admission but worse for the last few weeks-- poor po intake has been burping for long time, nausea+ Had seen her GI outpt-- DR Velazquez and had MRI and multiple tests per son which were not remarkable. Diarrhea for about a week. - Current Medication List Current Medications: Active Medications Chlorhexidine Gluconate (Hibiclens For Decolonization -) 1 applic TP HS [facility] Last Admin: 10/27/17 22:03 Dose: 1 applic Famotidine/Sodium Chloride (Pepcid 20 Mg Premixed Ivpb -) 20 mg in 50 mls @ 100 mls/hr IVPB Q2D [facility] Last Admin: 10/27/17 22:02 Dose: 100 mls/hr Piperacillin Sod/Tazobactam (Sod 2.25 gm/ Dextrose) 50 mls @ 100 mls/hr IVPB Q8H-IV YANN PRN Reason: Protocol Sodium Chloride (Normal Saline -) 1,000 mls @ 50 mls/hr IV ASDIR [facility] Last Admin: 10/28/17 05:27 Dose: 50 mls/hr Mupirocin (Bactroban Ointment (For Decolonization) -) 1 applic NS BID [facility] Stop: 11/01/17 21:59 Last Admin: 10/27/17 22:03 Dose: 1 applic Ondansetron HCl (Zofran Injection) 4 mg IVPUSH Q4H PRN PRN Reason: NAUSEA AND/OR VOMITING Last Admin: 10/27/17 22:04 Dose: 4 mg Simethicone (Mylicon -) 80 mg PO Q6H PRN PRN Reason: GAS Last Admin: 10/27/17 22:04 Dose: 80 mg - Objective Vital Signs: Vital Signs Temperature 98.5 F 10/28/17 03:29 Pulse Rate 64 10/28/17 08:00 Respiratory Rate 13 10/28/17 08:00 Blood Pressure 152/38 10/28/17 08:00 O2 Sat by Pulse Oximetry (%) 100 10/28/17 09:00 Constitutional: Yes: Moderate Distress Cardiovascular: Yes: Regular Rate and Rhythm Respiratory: Yes: Diminished Gastrointestinal: Yes: Normal Bowel Sounds, Soft, Tenderness (generalized) Edema: No Psychiatric: Yes: Alert Labs: CBC, BMP 10/28/17 05:45 10/28/17 05:45 INR, PTT INR 1.20 (0.82-1.09) 10/27/17 13:02 Assessment/Plan A/P Ischemic colitis Sepsis Afib Hyponatremia Acute renal failure -- Leucocytosis -- keep NPO -- iv fluids -- Appreciate ID and renal eval -- Surgery eval pending --- iv antibiotics -- pain control with Morphine
[2017-10-28 10:50] LABS: ACANTHOCYTES 0; ANISOCYTOSIS 0; HELMET CELLS 0; HOWELL-JOLLY BODIES 0; MACROCYTOSIS 0; OVALOCYTE 0; PLATELET ESTIMATE NORMAL; ROULEAU 0; SICKELED CELLS 0; TARGET CELLS 0; TEAR DROP CELLS 0; TOXIC GRANULATION 0
--- NOTE | 2017-10-28 11:19 | PN ---
Progress Note (short form) - Note Progress Note: ID Consult dictated Probable ischemic colitis R/O sepsis secondary to GI source Leukocytosis Lactic acidosis Renal failure Hyponatremia Await sepsis workup Empiric zosyn/flagyl/ vancomycin, adjusted for renal failure Surgical evaluation Discussed with son at bedside Prognosis guarded Critical care time 45min
[2017-10-28] MEDS ORDERED: SODIUM CHLORIDE 1,000 ML IV SCH ×2 (11:22→19:08)
--- NOTE | 2017-10-28 11:28 | PN ---
Progress Note (short form) - Note Progress Note: Renal follow up for GABY on CKD Pt seen and examined at the bedside awake and alert continues to have abdominal pain no hypotension making urine on IVF BP stable Vital Signs Temperature 98.3 F 10/28/17 10:00 Pulse Rate 65 10/28/17 10:00 Respiratory Rate 14 10/28/17 10:00 Blood Pressure 152/35 10/28/17 10:00 O2 Sat by Pulse Oximetry (%) 100 10/28/17 09:00 Intake & Output 10/25/17 10/26/17 10/27/17 10/28/17 23:59 23:59 23:59 23:59 Intake Total 500 1000 Output Total 300 Balance 200 1000 Weight 54.431 kg 53.07 kg NAD, awake and alert RRR, No M/R CTA, no rales or wheeze soft, + tenderness No LE edema, clubbing or cyanosis CBC, BMP 10/28/17 05:45 10/28/17 05:45 Current Medications Chlorhexidine Gluconate (Hibiclens For Decolonization -) 1 applic TP HS [facility] Last Admin: 10/27/17 22:03 Dose: 1 applic Famotidine/Sodium Chloride (Pepcid 20 Mg Premixed Ivpb -) 20 mg in 50 mls @ 100 mls/hr IVPB Q2D YANN Last Admin: 10/27/17 22:02 Dose: 100 mls/hr Piperacillin Sod/Tazobactam (Sod 2.25 gm/ Dextrose) 50 mls @ 100 mls/hr IVPB Q8H-IV YANN PRN Reason: Protocol Piperacillin Sod/Tazobactam (Sod 2.25 gm/ Dextrose) 50 mls @ 100 mls/hr IVPB Q8H-IV YANN Stop: 10/29/17 02:29 Sodium Chloride (Normal Saline -) 1,000 mls @ 100 mls/hr IV ASDIR YANN Mupirocin (Bactroban Ointment (For Decolonization) -) 1 applic NS BID [facility] Stop: 11/01/17 21:59 Last Admin: 10/27/17 22:03 Dose: 1 applic Ondansetron HCl (Zofran Injection) 4 mg IVPUSH Q4H PRN PRN Reason: NAUSEA AND/OR VOMITING Last Admin: 10/27/17 22:04 Dose: 4 mg Simethicone (Mylicon -) 80 mg PO Q6H PRN PRN Reason: GAS Last Admin: 10/27/17 22:04 Dose: 80 mg 87 year old woman with PMhx of CKD Stage 4 (baseline Cr 1.8-2), AFib on Eliquis , Hypertension, Hypothyrodism who presented with complaints of abd pain and diarrhea and found to have possible ischemic colitis and GABY and Na of 122. #Hypovolemic Hyponatremia #GABY on CKD stage 4 #Ischemic Colitis/Gas in Portal circulation #Metabolic acidosis/Lactic acidosis #Anemia #Afib on Eliquis #Hyperphosphatemia Serum Na is improving with isotonic saline, goal is to have Na around ~130 Continue isotonic saline with monitoring of respiratory status Renal function essentially unchanged at this time but making urine and no acute indication for [employer] Surgical evalulation Continue Abx as per ID Lactic acidosis is improved, BP stable Trend Phos levels, no indication for binder at this time as pt is NPO Refugio Allen DO
[2017-10-28] MEDS ORDERED: VANCOMYCIN 1,000 MG in DEXTROSE 5%-WATER - 250 ML IVPB ONE (12:00)
--- NOTE | 2017-10-28 12:02 | PN ---
Progress Note (short form) - Note Progress Note: surgery pt seen and examined. full consult dictated. 87f with cad, afib, anticoagulated, ckd, pvd, dm, severe dementia admitted for weight loss, diarrhea , portal venous gas, and colitis of transverse and ascending colon. Pt treated with zosyn abx with normalization of lactic acid and increase in wbc. Pt has remained afebrile with stable vital signs and voiding in a bedside side toilet without output being recorded. on exam the abd is soft, nd, moderate upper abd tenderness Plan- clinically ischemic colitis > infectious colitis. lactic acid resolved and pt appears stable despite expected rise in wbc. Pt is a very poor candidate for surgery and that would entail laparotomy with colectomy and ileostomy. Pt would be at risk of renal failure and failure to thrive. Recommend cont medical management. cont iv abx. maximize cardiac output. record urine output. It patient decompensates can consider surgery but family would also consider comfort measures. Prognosis guarded.
--- NOTE | 2017-10-28 12:09 | CONS ---
DATE OF CONSULTATION: HISTORY: The patient is an 87-year-old female with a history of atrial fibrillation on Xarelto, diabetes mellitus, and dementia on Aricept evaluated for possible sepsis. The patient was admitted to the hospital on October 27, 2017. History was obtained from the chart as well as the patient's son who was present at the time of the examination. She has had complaints of abdominal pain, which has been worsening over the last several days. She had presented to [facility] Emergency Room with complaints of abdominal pain, generalized weakness, anorexia, and diarrhea. She had a weight loss reported in the recent past. She was seen as an outpatient by Dr. Velazquez for her gastrointestinal complaints. According to the son, an MRI of the abdomen was performed as an outpatient and was unremarkable. As part of her workup, she was scheduled for a CAT scan on the abdomen and pelvis on the day of admission. She drank the oral contrast, and symptoms markedly worsened. She was evaluated at [facility] and was transferred to the intensive care unit at the [facility] with worsening abdominal pain. A CAT scan of the abdomen and pelvis revealed thickening of the transverse and ascending colon consistent with ischemic colitis as well as air in the left and right portal veins. Initial evaluation showed a markedly elevated white blood cell count, lactic acidosis, acute renal failure, and hyponatremia. She was empirically treated with Zosyn. At the present time, she is awake. She complains of diffuse abdominal pain. She has been belching. She has had loose bowel movements, which have been reported as guaiac positive. No reports of vomiting or aniceto red blood, hematemesis, aniceto blood per rectum. No reported fever or chills. PAST MEDICAL HISTORY: Positive for atrial fibrillation on Xarelto, history of abdominal pain syndrome, coronary artery disease, peptic ulcer disease, hypertension, hyperlipidemia, chronic kidney disease, diabetes mellitus, dementia, hypothyroidism. PAST SURGICAL HISTORY: Status post cholecystectomy and cataract surgery. ALLERGIES: No known allergies. MEDICATIONS: Lovaza, Protonix, Norvasc, Eliquis, atenolol, Aricept, Lasix, Levemir, Synthroid, lisinopril. SOCIAL HISTORY: She lives at home with family members. She is Malay speaking. Nonsmoker, nondrinker. SYSTEMS REVIEW: Neurologic: No loss of consciousness, seizure activity, focal weakness. Cardiac: Negative chest pain or palpitations. Respiratory: Negative cough or sputum production. Gastrointestinal: As per HPI. Genitourinary: Negative for urinary tract infection. LABORATORY DATA: White count 20.1 with left shift, hematocrit 27.4, platelet count 285, BUN 71, creatinine 2.8 sodium 128. Urinalysis: 10-20 white cells. CAT scan as described. Lactic acid level on admission 2.9. Cultures pending. PHYSICAL EXAMINATION: General: She is awake. She is in no acute distress. Vital Signs: Temperature 98.5, blood pressure 152/58, pulse 64 and regular, respirations 18 per minute. HEENT: Sclerae anicteric. Heart: Sounds S1, S2. No murmur. Lungs: Clear. Diminished breath sounds at the bases. Abdomen: Positive bowel sounds. Abdomen is soft. There is mild, diffuse tenderness more marked on the right paraumbilical area. No mass, rebound, or rigidity. Extremities: Negative for edema. IMPRESSION: 1. Probable ischemic colitis. 2. Possible sepsis secondary to gastrointestinal source. 3. Marked leukocytosis. 4. Lactic acid. 5. Renal failure. 6. Hyponatremia. 7. Diabetes mellitus. PLAN: Await culture results. Empiric antibiotic coverage with Zosyn, Flagyl, and vancomycin adjusted for renal failure. IV fluid hydration. Surgical evaluation. Prognosis is guarded. Case was discussed with the patient's son present at the time of the examination. Critical care time 45 minutes. Thank you for the referral. EV BRIGGS M.D. [id number]
--- NOTE | 2017-10-28 13:29 | PN ---
Physical Exam: SUBJECTIVE: Patient seen and examined in ICU. Patient reports that her pain level is about the same. Denies fevers, chills. Localizes pain on her right side. OBJECTIVE: Vital Signs Period Temp Pulse Resp BP Sys/Thompson Pulse Ox Last 24 Hr 94.2 F-98.5 F 61-118 13-18 118-173/34-76 100-100 GENERAL: The patient is awake, alert, in no acute distress. HEAD: Normal with no signs of trauma. EYES: PERRL, extraocular movements intact, sclera anicteric, conjunctiva clear. No ptosis. NECK: Trachea midline, full range of motion, supple. LUNGS: Breath sounds equal, clear to auscultation bilaterally, no wheezes, no crackles, no accessory muscle use. HEART: Regular rate and rhythm, S1, S2 without murmur, rub or gallop. ABDOMEN: Soft, tender diffusely, more on right EXTREMITIES: 2+ pulses, warm, well-perfused, no edema. NEUROLOGICAL: Cranial nerves II through XII grossly intact. Normal speech SKIN: Warm, dry, normal turgor, no rashes or lesions noted Laboratory Results - last 24 hr 10/27/17 10/27/17 10/27/17 12:50 13:02 13:02 WBC 8.1 RBC 3.23 L Hgb 10.1 L Hct 28.3 L MCV 87.5 MCH 31.2 MCHC 35.7 RDW 13.4 Plt Count 316 MPV 7.7 Neutrophils % 83.9 H Neutrophils % (Manual) Band Neutrophils % Lymphocytes % 13.9 Lymphocytes % (Manual) Monocytes % 1.7 L Monocytes % (Manual) Eosinophils % 0.3 Eosinophils % (Manual) Basophils % 0.2 Basophils % (Manual) Myelocytes % (Man) Promyelocytes % (Man) Blast Cells % (Manual) Nucleated RBC % Metamyelocytes Hypochromia Toxic Granulation Dohle Bodies Platelet Estimate Polychromasia Poikilocytosis Basophilic Stippling Anisocytosis Microcytosis Macrocytosis Spherocytes Sickle Cells Target Cells Tear Drop Cells Ovalocytes Stomatocytes Helmet Cells [place] Bodies [place] Rings [place] Cells Acanthocytes (Spur) Rouleaux Fragmented RBCs Schistocytes PT with INR 13.4 H INR 1.20 PTT (Actin FS) 30.0 VBG pH POC VBG pCO2 POC VBG pO2 Mixed VBG HCO3 Sodium Potassium Chloride Carbon Dioxide Anion Gap BUN Creatinine Creat Clearance w eGFR POC Glucometer [phone] Random Glucose Lactic Acid Calcium Phosphorus Magnesium Total Bilirubin AST ALT Alkaline Phosphatase LD Total Creatine Kinase Troponin I Total Protein Albumin TSH Urine Color Urine Appearance Urine pH Ur Specific [place] Urine Protein Urine Glucose (UA) Urine Ketones Urine Blood Urine Nitrite Urine Bilirubin Urine Urobilinogen Ur Leukocyte Esterase Urine RBC Urine WBC Ur Epithelial Cells Urine Bacteria Ur Random Sodium Urine Creatinine Stool Occult Blood 10/27/17 10/27/17 10/27/17 13:02 13:02 13:02 WBC RBC Hgb Hct MCV MCH MCHC RDW Plt Count MPV Neutrophils % Neutrophils % (Manual) Band Neutrophils % Lymphocytes % Lymphocytes % (Manual) Monocytes % Monocytes % (Manual) Eosinophils % Eosinophils % (Manual) Basophils % Basophils % (Manual) Myelocytes % (Man) Promyelocytes % (Man) Blast Cells % (Manual) Nucleated RBC % Metamyelocytes Hypochromia Toxic Granulation Dohle Bodies Platelet Estimate Polychromasia Poikilocytosis Basophilic Stippling Anisocytosis Microcytosis Macrocytosis Spherocytes Sickle Cells Target Cells Tear Drop Cells Ovalocytes Stomatocytes Helmet Cells [place] Bodies [place] Cells Acanthocytes (Spur) Rouleaux Fragmented RBCs Schistocytes PT with INR INR PTT (Actin FS) VBG pH 7.23 L* POC VBG pCO2 40.3 POC VBG pO2 28.0 Mixed VBG HCO3 16.2 L Sodium 120 L* Potassium 4.5 Chloride 89 L Carbon Dioxide 15 L Anion Gap 16 BUN 74 H Creatinine 2.8 H Creat Clearance w eGFR 16.06 POC Glucometer Random Glucose 344 H* Lactic Acid 2.9 H* Calcium 9.0 Phosphorus Magnesium Total Bilirubin 0.6 AST 21 ALT 13 Alkaline Phosphatase 56 LD Total Creatine Kinase Troponin I Total Protein 7.4 Albumin 3.7 TSH 2.28 Urine Color Urine Appearance Urine pH Ur Specific [place] Urine Protein Urine Glucose (UA) Urine Ketones Urine Blood Urine Nitrite Urine Bilirubin Urine Urobilinogen Ur Leukocyte Esterase Urine RBC Urine WBC Ur Epithelial Cells Urine Bacteria Ur Random Sodium Urine Creatinine Stool Occult Blood 10/27/17 10/27/17 10/27/17 13:02 13:02 14:37 WBC RBC Hgb Hct MCV MCH MCHC RDW Plt Count MPV Neutrophils % Neutrophils % (Manual) Band Neutrophils % Lymphocytes % Lymphocytes % (Manual) Monocytes % Monocytes % (Manual) Eosinophils % Eosinophils % (Manual) Basophils % Basophils % (Manual) Myelocytes % (Man) Promyelocytes % (Man) Blast Cells % (Manual) Nucleated RBC % Metamyelocytes Hypochromia Toxic Granulation Dohle Bodies Platelet Estimate Polychromasia Poikilocytosis Basophilic Stippling Anisocytosis Microcytosis Macrocytosis Spherocytes Sickle Cells Target Cells Tear Drop Cells Ovalocytes Stomatocytes Helmet Cells [place] Bodies [place] Cells Acanthocytes (Spur) Rouleaux Fragmented RBCs Schistocytes PT with INR INR PTT (Actin FS) VBG pH POC VBG pCO2 POC VBG pO2 Mixed VBG HCO3 Sodium Potassium Chloride Carbon Dioxide Anion Gap BUN Creatinine Creat Clearance w eGFR POC Glucometer Random Glucose Lactic Acid Calcium Phosphorus Magnesium Total Bilirubin AST ALT Alkaline Phosphatase LD Total Creatine Kinase 24 L Troponin I < 0.03 Total Protein Albumin TSH Urine Color Urine Appearance Urine pH Ur Specific [place] Urine Protein Urine Glucose (UA) Urine Ketones Urine Blood Urine Nitrite Urine Bilirubin Urine Urobilinogen Ur Leukocyte Esterase Urine RBC Urine WBC Ur Epithelial Cells Urine Bacteria Ur Random Sodium Urine Creatinine Stool Occult Blood Positive 10/27/17 10/27/17 10/27/17 17:30 17:30 17:30 WBC 11.9 H D RBC 3.26 L Hgb 10.1 L Hct 28.3 L MCV 86.9 MCH 30.9 MCHC 35.6 RDW 13.2 Plt Count 304 MPV 7.2 L Neutrophils % No Result Required. Neutrophils % (Manual) 94.0 H* Band Neutrophils % 1.0 Lymphocytes % No Result Required. Lymphocytes % (Manual) 4.0 L Monocytes % Monocytes % (Manual) Eosinophils % Eosinophils % (Manual) Basophils % Basophils % (Manual) Myelocytes % (Man) Promyelocytes % (Man) Blast Cells % (Manual) Nucleated RBC % Metamyelocytes Hypochromia Toxic Granulation Dohle Bodies Platelet Estimate Adequate Polychromasia Poikilocytosis Basophilic Stippling Anisocytosis Microcytosis Macrocytosis Spherocytes Sickle Cells Target Cells Tear Drop Cells Ovalocytes Stomatocytes Helmet Cells [place] Bodies [place] Rings [place] Cells Acanthocytes (Spur) Rouleaux Fragmented RBCs Schistocytes PT with INR INR PTT (Actin FS) VBG pH POC VBG pCO2 POC VBG pO2 Mixed VBG HCO3 Sodium 122 L* Potassium 4.1 Chloride 93 L Carbon Dioxide 18 L Anion Gap 11 BUN 75 H Creatinine 2.6 H Creat Clearance w eGFR 17.49 POC Glucometer Random Glucose 211 H D Lactic Acid 1.3 Calcium 8.6 Phosphorus Magnesium Total Bilirubin 0.6 AST 22 ALT 14 Alkaline Phosphatase 52 LD Total Creatine Kinase Troponin I Total Protein 6.8 Albumin 3.3 L TSH Urine Color Urine Appearance Urine pH Ur Specific [place] Urine Protein Urine Glucose (UA) Urine Ketones Urine Blood Urine Nitrite Urine Bilirubin Urine Urobilinogen Ur Leukocyte Esterase Urine RBC Urine WBC Ur Epithelial Cells Urine Bacteria Ur Random Sodium Urine Creatinine Stool Occult Blood 10/27/17 10/27/17 10/27/17 18:42 18:42 20:45 WBC RBC Hgb Hct MCV MCH MCHC RDW Plt Count MPV Neutrophils % Neutrophils % (Manual) Band Neutrophils % Lymphocytes % Lymphocytes % (Manual) Monocytes % Monocytes % (Manual) Eosinophils % Eosinophils % (Manual) Basophils % Basophils % (Manual) Myelocytes % (Man) Promyelocytes % (Man) Blast Cells % (Manual) Nucleated RBC % Metamyelocytes Hypochromia Toxic Granulation Dohle Bodies Platelet Estimate Polychromasia Poikilocytosis Basophilic Stippling Anisocytosis Microcytosis Macrocytosis Spherocytes Sickle Cells Target Cells Tear Drop Cells Ovalocytes Stomatocytes Helmet Cells [place] Bodies [place] Cells Acanthocytes (Spur) Rouleaux Fragmented RBCs Schistocytes PT with INR INR PTT (Actin FS) VBG pH POC VBG pCO2 POC VBG pO2 Mixed VBG HCO3 Sodium 127 L Potassium 4.5 Chloride 97 L Carbon Dioxide 18 L Anion Gap 12 BUN 78 H Creatinine 2.6 H Creat Clearance w eGFR POC Glucometer Random Glucose 181 H Lactic Acid Calcium 8.7 Phosphorus Magnesium Total Bilirubin AST ALT Alkaline Phosphatase LD Total Creatine Kinase Troponin I Total Protein Albumin TSH Urine Color Yellow Urine Appearance Clear Urine pH 5.5 Ur Specific [place] 1.010 Urine Protein 1+ H 40 Urine Glucose (UA) Negative Urine Ketones Negative Urine Blood Negative Urine Nitrite Negative Urine Bilirubin Negative Urine Urobilinogen 0.2 Ur Leukocyte Esterase 1+ H Urine RBC 0-2 Urine WBC 10-20 Ur Epithelial Cells Few Urine Bacteria Few Ur Random Sodium < 12 L Urine Creatinine 81.6 Stool Occult Blood 10/27/17 10/28/17 10/28/17 20:45 05:45 05:45 WBC 20.1 H D RBC 3.15 L D Hgb 9.6 L Hct 27.4 L MCV 87.0 MCH 30.6 D MCHC 35.2 RDW 14.3 D Plt Count 285 D MPV 8.2 Neutrophils % No Result Required. Neutrophils % (Manual) 86.5 H Band Neutrophils % 7.3 Lymphocytes % No Result Required. Lymphocytes % (Manual) 1.0 L Monocytes % Monocytes % (Manual) 5 Eosinophils % Eosinophils % (Manual) 0.0 Basophils % Basophils % (Manual) 0.0 Myelocytes % (Man) 0 Promyelocytes % (Man) 0 Blast Cells % (Manual) 0 Nucleated RBC % 0 Metamyelocytes 0 Hypochromia 0 Toxic Granulation 0 Dohle Bodies 0 Platelet Estimate Normal Polychromasia 0 Poikilocytosis 0 Basophilic Stippling 0 Anisocytosis 0 Microcytosis 0 Macrocytosis 0 Spherocytes 0 Sickle Cells 0 Target Cells 0 Tear Drop Cells 0 Ovalocytes 0 Stomatocytes 0 Helmet Cells 0 [place] Bodies 0 [place] Rings 0 [place] Cells 0 Acanthocytes (Spur) 0 Rouleaux 0 Fragmented RBCs 0 Schistocytes 0 PT with INR INR PTT (Actin FS) VBG pH POC VBG pCO2 POC VBG pO2 Mixed VBG HCO3 Sodium 128 L Potassium 4.5 Chloride 97 L Carbon Dioxide 18 L Anion Gap 13 BUN 71 H Creatinine 2.8 H Creat Clearance w eGFR 16.06 POC Glucometer Random Glucose 228 H Lactic Acid 1.3 Calcium 8.2 L Phosphorus 5.7 H Magnesium 1.8 Total Bilirubin 0.5 D AST 22 ALT 15 Alkaline Phosphatase 53 LD Total 190 Creatine Kinase 21 L Troponin I Total Protein 6.5 Albumin 2.9 L TSH Urine Color Urine Appearance Urine pH Ur Specific [place] Urine Protein Urine Glucose (UA) Urine Ketones Urine Blood Urine Nitrite Urine Bilirubin Urine Urobilinogen Ur Leukocyte Esterase Urine RBC Urine WBC Ur Epithelial Cells Urine Bacteria Ur Random Sodium Urine Creatinine Stool Occult Blood 10/28/17 10/28/17 10/28/17 05:45 05:45 11:02 WBC RBC Hgb Hct MCV MCH MCHC RDW Plt Count MPV Neutrophils % Neutrophils % (Manual) Band Neutrophils % Lymphocytes % Lymphocytes % (Manual) Monocytes % Monocytes % (Manual) Eosinophils % Eosinophils % (Manual) Basophils % Basophils % (Manual) Myelocytes % (Man) Promyelocytes % (Man) Blast Cells % (Manual) Nucleated RBC % Metamyelocytes Hypochromia Toxic Granulation Dohle Bodies Platelet Estimate Polychromasia Poikilocytosis Basophilic Stippling Anisocytosis Microcytosis Macrocytosis Spherocytes Sickle Cells Target Cells Tear Drop Cells Ovalocytes Stomatocytes Helmet Cells [place] Bodies [place] Rings [place] Cells Acanthocytes (Spur) Rouleaux Fragmented RBCs Schistocytes PT with INR INR PTT (Actin FS) VBG pH POC VBG pCO2 POC VBG pO2 Mixed VBG HCO3 Sodium Potassium Chloride Carbon Dioxide Anion Gap BUN Creatinine Creat Clearance w eGFR POC Glucometer [phone] Random Glucose Lactic Acid 1.8 Calcium Phosphorus Magnesium Total Bilirubin AST ALT Alkaline Phosphatase LD Total Cancelled Creatine Kinase Cancelled Troponin I Total Protein Albumin TSH Urine Color Urine Appearance Urine pH Ur Specific [place] Urine Protein Urine Glucose (UA) Urine Ketones Urine Blood Urine Nitrite Urine Bilirubin Urine Urobilinogen Ur Leukocyte Esterase Urine RBC Urine WBC Ur Epithelial Cells Urine Bacteria Ur Random Sodium Urine Creatinine Stool Occult Blood Active Medications Generic Name Dose Route Start Last Admin Trade Name Freq PRN Reason Stop Dose Admin Chlorhexidine Gluconate 1 applic 10/27/17 22:00 10/27/17 22:03 Hibiclens For Decolonization - TP 1 applic HS YANN Administration Famotidine/Sodium Chloride 20 mg in 50 mls @ 100 mls/hr 10/27/17 21:45 22:02 Pepcid 20 Mg Premixed Ivpb - IVPB 100 mls/hr Q2D YANN Administration Sodium Chloride 1,000 mls @ 100 mls/hr 10/28/17 11:22 10/28/17 12:38 Normal Saline - IV 100 mls/hr ASDIR YANN Administration Piperacillin Sod/Tazobactam 50 mls @ 100 mls/hr 10/28/17 11:30 10/28/17 12:38 Sod 2.25 gm/ Dextrose IVPB 100 mls/hr Q8H-IV YANN Administration Protocol Metronidazole 500 mg in 100 mls @ 100 mls/hr 10/28/17 11:30 10/28/17 12:39 Flagyl 500mg Premixed Ivpb - IVPB 100 mls/hr Q8H-IV YANN Administration Vancomycin HCl 1,000 mg/ 250 mls @ 166.667 mls/hr 04/19/18 12:00 10/28/17 12: 39 Dextrose IVPB 10/28/17 13:29 166.667 mls/hr ONCE ONE Administration Insulin Aspart 1 vial 10/28/17 16:30 Novolog Vial Sliding Scale - SQ TIDAC [facility] Protocol Mupirocin 1 applic 10/27/17 22:00 10/28/17 10:00 Bactroban Ointment (For Decolonization) - NS 11/01/17 21:59 1 applic BID YANN Administration Ondansetron HCl 4 mg 10/27/17 21:26 10/27/17 22:04 Zofran Injection IVPUSH 4 mg Q4H PRN Administration NAUSEA AND/OR VOMITING Simethicone 80 mg 10/27/17 21:34 10/27/17 22:04 Mylicon - PO 80 mg Q6H PRN Administration GAS ASSESSMENT/PLAN: 87F with history of afib on eliquis, ischemic colitis, chronic abdominal pain, hyponatremia here today with ischemic colitis. GI #Ischemic colitis - CT shows colitis with air in portal venous system - Family deferring surgery at this time - Will cover with ABx per ID (Vanc/Zosyn/Flagyl) - Holding anticoagulation - Lactate cleared, white count rising - Surgery/GI on board, not going to OR at this point, poor surgical candidate - NPO, will continue fluids, pain control, zofran - Pepcid Renal #CKD and hypovolemic hyponatremia - Cr 2.6, elevated on prior admissions - Renal on board, appreciate reqs - Goal is sodium 130, continue giving NS Endo #DM - ISS Dispo - Full code - Further ICU monitoring Visit type - Emergency Visit Emergency Visit: Yes ED Registration Date: 10/27/17 Care time: The patient presented to the Emergency Department on the above date and was hospitalized for further evaluation of their emergent condition. - New Patient This patient is new to me today: Yes Date on this admission: 10/28/17 - Critical Care Critical Care patient: Yes Total Critical Care Time (in minutes): 35 Critical Care Statement: The care of this patient involved high complexity decision making to prevent further life threatening deterioration of the patient 's condition and/or to evaluate & treat vital organ system(s) failure or risk of failure.
--- NOTE | 2017-10-28 13:38 | PN ---
Teaching Attending Note Name of Resident: Steve Francisco ATTENDING PHYSICIAN STATEMENT I saw and evaluated the patient. I reviewed the resident's note and discussed the case with the resident. I agree with the resident's findings and plan as documented. SUBJECTIVE: Patient seen and examined in the ICU. Awake and alert. Records some increase in abdominal pain. Denies CP or SOB. No pressors. Intake & Output 10/25/17 10/26/17 10/27/17 10/28/17 23:59 23:59 23:59 23:59 Intake Total 500 1000 Output Total 300 Balance 200 1000 Weight 120 lb 117 lb Last Vital Signs Temp Pulse Resp BP Pulse Ox 98.3 F 65 14 152/35 100 10/28/17 10:00 10/28/17 10:00 10/28/17 10:00 10/28/17 10:00 10/28/17 09:00 Active Medications Chlorhexidine Gluconate (Hibiclens For Decolonization -) 1 applic TP [facility] Last Admin: 10/27/17 22:03 Dose: 1 applic Famotidine/Sodium Chloride (Pepcid 20 Mg Premixed Ivpb -) 20 mg in 50 mls @ 100 mls/hr IVPB Q2D YANN Last Admin: 10/27/17 22:02 Dose: 100 mls/hr Sodium Chloride (Normal Saline -) 1,000 mls @ 100 mls/hr IV ASDIR YANN Last Admin: 10/28/17 12:38 Dose: 100 mls/hr Piperacillin Sod/Tazobactam (Sod 2.25 gm/ Dextrose) 50 mls @ 100 mls/hr IVPB Q8H-IV YANN PRN Reason: Protocol Last Admin: 10/28/17 12:38 Dose: 100 mls/hr Metronidazole (Flagyl 500mg Premixed Ivpb -) 500 mg in 100 mls @ 100 mls/hr IVPB Q8H-IV YANN Last Admin: 10/28/17 12:39 Dose: 100 mls/hr Insulin Aspart (Novolog Vial Sliding Scale -) 1 vial SQ TIDAC YANN PRN Reason: Protocol Mupirocin (Bactroban Ointment (For Decolonization) -) 1 applic NS BID YANN Stop: 11/01/17 21:59 Last Admin: 10/28/17 10:00 Dose: 1 applic Ondansetron HCl (Zofran Injection) 4 mg IVPUSH Q4H PRN PRN Reason: NAUSEA AND/OR VOMITING Last Admin: 10/27/17 22:04 Dose: 4 mg Simethicone (Mylicon -) 80 mg PO Q6H PRN PRN Reason: GAS Last Admin: 10/27/17 22:04 Dose: 80 mg Constitutional: Yes: Mildly uncomfortable due to pain Eyes: Yes: EOM Intact HENT: Yes: Atraumatic Neck: Yes: Trachea Midline Cardiovascular: Yes: Regular Rate and Rhythm, S1, S2 Respiratory: Yes: CTA Bilaterally Gastrointestinal: Yes: Soft, (+) diffuse Tenderness especially in the RUQ Edema: No Integumentary: Yes: Tenting Neurological: Yes: Alert Labs: Laboratory Results - last 24 hr 10/27/17 10/27/17 10/27/17 13:02 13:02 13:02 WBC 8.1 RBC 3.23 L Hgb 10.1 L Hct 28.3 L MCV 87.5 MCH 31.2 MCHC 35.7 RDW 13.4 Plt Count 316 MPV 7.7 Neutrophils % 83.9 H Neutrophils % (Manual) Band Neutrophils % Lymphocytes % 13.9 Lymphocytes % (Manual) Monocytes % 1.7 L Monocytes % (Manual) Eosinophils % 0.3 Eosinophils % (Manual) Basophils % 0.2 Basophils % (Manual) Myelocytes % (Man) Promyelocytes % (Man) Blast Cells % (Manual) Nucleated RBC % Metamyelocytes Hypochromia Toxic Granulation Dohle Bodies Platelet Estimate Polychromasia Poikilocytosis Basophilic Stippling Anisocytosis Microcytosis Macrocytosis Spherocytes Sickle Cells Target Cells Tear Drop Cells Ovalocytes Stomatocytes Helmet Cells Castro-Ignacio Bodies [place] Rings Mora Cells Acanthocytes (Spur) Rouleaux Fragmented RBCs Schistocytes PT with INR 13.4 H INR 1.20 PTT (Actin FS) 30.0 VBG pH 7.23 L* POC VBG pCO2 40.3 POC VBG pO2 28.0 Mixed VBG HCO3 16.2 L Sodium Potassium Chloride Carbon Dioxide Anion Gap BUN Creatinine Creat Clearance w eGFR POC Glucometer Random Glucose Lactic Acid Calcium Phosphorus Magnesium Total Bilirubin AST ALT Alkaline Phosphatase LD Total Creatine Kinase Troponin I Total Protein Albumin TSH Urine Color Urine Appearance Urine pH Ur Specific [place] Urine Protein Urine Glucose (UA) Urine Ketones Urine Blood Urine Nitrite Urine Bilirubin Urine Urobilinogen Ur Leukocyte Esterase Urine RBC Urine WBC Ur Epithelial Cells Urine Bacteria Ur Random Sodium Urine Creatinine Stool Occult Blood 10/27/17 10/27/17 10/27/17 13:02 13:02 13:02 WBC RBC Hgb Hct MCV MCH MCHC RDW Plt Count MPV Neutrophils % Neutrophils % (Manual) Band Neutrophils % Lymphocytes % Lymphocytes % (Manual) Monocytes % Monocytes % (Manual) Eosinophils % Eosinophils % (Manual) Basophils % Basophils % (Manual) Myelocytes % (Man) Promyelocytes % (Man) Blast Cells % (Manual) Nucleated RBC % Metamyelocytes Hypochromia Toxic Granulation Dohle Bodies Platelet Estimate Polychromasia Poikilocytosis Basophilic Stippling Anisocytosis Microcytosis Macrocytosis Spherocytes Sickle Cells Target Cells Tear Drop Cells Ovalocytes Stomatocytes Helmet Cells [place] Bodies [place] Rings Mora Cells Acanthocytes (Spur) Rouleaux Fragmented RBCs Schistocytes PT with INR INR PTT (Actin FS) VBG pH POC VBG pCO2 POC VBG pO2 Mixed VBG HCO3 Sodium 120 L* Potassium 4.5 Chloride 89 L Carbon Dioxide 15 L Anion Gap 16 BUN 74 H Creatinine 2.8 H Creat Clearance w eGFR 16.06 POC Glucometer Random Glucose 344 H* Lactic Acid 2.9 H* Calcium 9.0 Phosphorus Magnesium Total Bilirubin 0.6 AST 21 ALT 13 Alkaline Phosphatase 56 LD Total Creatine Kinase Troponin I < 0.03 Total Protein 7.4 Albumin 3.7 TSH 2.28 Urine Color Urine Appearance Urine pH Ur Specific [place] Urine Protein Urine Glucose (UA) Urine Ketones Urine Blood Urine Nitrite Urine Bilirubin Urine Urobilinogen Ur Leukocyte Esterase Urine RBC Urine WBC Ur Epithelial Cells Urine Bacteria Ur Random Sodium Urine Creatinine Stool Occult Blood 10/27/17 10/27/17 10/27/17 13:02 14:37 17:30 WBC RBC Hgb Hct MCV MCH MCHC RDW Plt Count MPV Neutrophils % Neutrophils % (Manual) Band Neutrophils % Lymphocytes % Lymphocytes % (Manual) Monocytes % Monocytes % (Manual) Eosinophils % Eosinophils % (Manual) Basophils % Basophils % (Manual) Myelocytes % (Man) Promyelocytes % (Man) Blast Cells % (Manual) Nucleated RBC % Metamyelocytes Hypochromia Toxic Granulation Dohle Bodies Platelet Estimate Polychromasia Poikilocytosis Basophilic Stippling Anisocytosis Microcytosis Macrocytosis Spherocytes Sickle Cells Target Cells Tear Drop Cells Ovalocytes Stomatocytes Helmet Cells [place] Bodies [place] Rings Only Cells Acanthocytes (Spur) Rouleaux Fragmented RBCs Schistocytes PT with INR INR PTT (Actin FS) VBG pH POC VBG pCO2 POC VBG pO2 Mixed VBG HCO3 Sodium Potassium Chloride Carbon Dioxide Anion Gap BUN Creatinine Creat Clearance w eGFR POC Glucometer Random Glucose Lactic Acid 1.3 Calcium Phosphorus Magnesium Total Bilirubin AST ALT Alkaline Phosphatase LD Total Creatine Kinase 24 L Troponin I Total Protein Albumin TSH Urine Color Urine Appearance Urine pH Ur Specific [place] Urine Protein Urine Glucose (UA) Urine Ketones Urine Blood Urine Nitrite Urine Bilirubin Urine Urobilinogen Ur Leukocyte Esterase Urine RBC Urine WBC Ur Epithelial Cells Urine Bacteria Ur Random Sodium Urine Creatinine Stool Occult Blood Positive 10/27/17 10/27/17 10/27/17 17:30 17:30 18:42 WBC 11.9 H D RBC 3.26 L Hgb 10.1 L Hct 28.3 L MCV 86.9 MCH 30.9 MCHC 35.6 RDW 13.2 Plt Count 304 MPV 7.2 L Neutrophils % No Result Required. Neutrophils % (Manual) 94.0 H* Band Neutrophils % 1.0 Lymphocytes % No Result Required. Lymphocytes % (Manual) 4.0 L Monocytes % Monocytes % (Manual) Eosinophils % Eosinophils % (Manual) Basophils % Basophils % (Manual) Myelocytes % (Man) Promyelocytes % (Man) Blast Cells % (Manual) Nucleated RBC % Metamyelocytes Hypochromia Toxic Granulation Dohle Bodies Platelet Estimate Adequate Polychromasia Poikilocytosis Basophilic Stippling Anisocytosis Microcytosis Macrocytosis Spherocytes Sickle Cells Target Cells Tear Drop Cells Ovalocytes Stomatocytes Helmet Cells [place] Bodies [place] Rings Only Cells Acanthocytes (Spur) Rouleaux Fragmented RBCs Schistocytes PT with INR INR PTT (Actin FS) VBG pH POC VBG pCO2 POC VBG pO2 Mixed VBG HCO3 Sodium 122 L* Potassium 4.1 Chloride 93 L Carbon Dioxide 18 L Anion Gap 11 BUN 75 H Creatinine 2.6 H Creat Clearance w eGFR 17.49 POC Glucometer Random Glucose 211 H D Lactic Acid Calcium 8.6 Phosphorus Magnesium Total Bilirubin 0.6 AST 22 ALT 14 Alkaline Phosphatase 52 LD Total Creatine Kinase Troponin I Total Protein 6.8 Albumin 3.3 L TSH Urine Color Yellow Urine Appearance Clear Urine pH 5.5 Ur Specific [place] 1.010 Urine Protein 1+ H Urine Glucose (UA) Negative Urine Ketones Negative Urine Blood Negative Urine Nitrite Negative Urine Bilirubin Negative Urine Urobilinogen 0.2 Ur Leukocyte Esterase 1+ H Urine RBC 0-2 Urine WBC 10-20 Ur Epithelial Cells Few Urine Bacteria Few Ur Random Sodium Urine Creatinine Stool Occult Blood 10/27/17 10/27/17 10/27/17 18:42 20:45 20:45 WBC RBC Hgb Hct MCV MCH MCHC RDW Plt Count MPV Neutrophils % Neutrophils % (Manual) Band Neutrophils % Lymphocytes % Lymphocytes % (Manual) Monocytes % Monocytes % (Manual) Eosinophils % Eosinophils % (Manual) Basophils % Basophils % (Manual) Myelocytes % (Man) Promyelocytes % (Man) Blast Cells % (Manual) Nucleated RBC % Metamyelocytes Hypochromia Toxic Granulation Dohle Bodies Platelet Estimate Polychromasia Poikilocytosis Basophilic Stippling Anisocytosis Microcytosis Macrocytosis Spherocytes Sickle Cells Target Cells Tear Drop Cells Ovalocytes Stomatocytes Helmet Cells [place] Bodies [place] Rings Mora Cells Acanthocytes (Spur) Rouleaux Fragmented RBCs Schistocytes PT with INR INR PTT (Actin FS) VBG pH POC VBG pCO2 POC VBG pO2 Mixed VBG HCO3 Sodium 127 L Potassium 4.5 Chloride 97 L Carbon Dioxide 18 L Anion Gap 12 BUN 78 H Creatinine 2.6 H Creat Clearance w eGFR POC Glucometer Random Glucose 181 H Lactic Acid 1.3 Calcium 8.7 Phosphorus Magnesium Total Bilirubin AST ALT Alkaline Phosphatase LD Total Creatine Kinase Troponin I Total Protein Albumin TSH Urine Color Urine Appearance Urine pH Ur Specific [place] Urine Protein 40 Urine Glucose (UA) Urine Ketones Urine Blood Urine Nitrite Urine Bilirubin Urine Urobilinogen Ur Leukocyte Esterase Urine RBC Urine WBC Ur Epithelial Cells Urine Bacteria Ur Random Sodium < 12 L Urine Creatinine 81.6 Stool Occult Blood 10/28/17 10/28/17 10/28/17 05:45 05:45 05:45 WBC 20.1 H D RBC 3.15 L D Hgb 9.6 L Hct 27.4 L MCV 87.0 MCH 30.6 D MCHC 35.2 RDW 14.3 D Plt Count 285 D MPV 8.2 Neutrophils % No Result Required. Neutrophils % (Manual) 86.5 H Band Neutrophils % 7.3 Lymphocytes % No Result Required. Lymphocytes % (Manual) 1.0 L Monocytes % Monocytes % (Manual) 5 Eosinophils % Eosinophils % (Manual) 0.0 Basophils % Basophils % (Manual) 0.0 Myelocytes % (Man) 0 Promyelocytes % (Man) 0 Blast Cells % (Manual) 0 Nucleated RBC % 0 Metamyelocytes 0 Hypochromia 0 Toxic Granulation 0 Dohle Bodies 0 Platelet Estimate Normal Polychromasia 0 Poikilocytosis 0 Basophilic Stippling 0 Anisocytosis 0 Microcytosis 0 Macrocytosis 0 Spherocytes 0 Sickle Cells 0 Target Cells 0 Tear Drop Cells 0 Ovalocytes 0 Stomatocytes 0 Helmet Cells 0 [place] Bodies 0 [place] Rings 0 Only Cells 0 Acanthocytes (Spur) 0 Rouleaux 0 Fragmented RBCs 0 Schistocytes 0 PT with INR INR PTT (Actin FS) VBG pH POC VBG pCO2 POC VBG pO2 Mixed VBG HCO3 Sodium 128 L Potassium 4.5 Chloride 97 L Carbon Dioxide 18 L Anion Gap 13 BUN 71 H Creatinine 2.8 H Creat Clearance w eGFR 16.06 POC Glucometer Random Glucose 228 H Lactic Acid 1.8 Calcium 8.2 L Phosphorus 5.7 H Magnesium 1.8 Total Bilirubin 0.5 D AST 22 ALT 15 Alkaline Phosphatase 53 LD Total 190 Creatine Kinase 21 L Troponin I Total Protein 6.5 Albumin 2.9 L TSH Urine Color Urine Appearance Urine pH Ur Specific [place] Urine Protein Urine Glucose (UA) Urine Ketones Urine Blood Urine Nitrite Urine Bilirubin Urine Urobilinogen Ur Leukocyte Esterase Urine RBC Urine WBC Ur Epithelial Cells Urine Bacteria Ur Random Sodium Urine Creatinine Stool Occult Blood 10/28/17 10/28/17 05:45 11:02 WBC RBC Hgb Hct MCV MCH MCHC RDW Plt Count MPV Neutrophils % Neutrophils % (Manual) Band Neutrophils % Lymphocytes % Lymphocytes % (Manual) Monocytes % Monocytes % (Manual) Eosinophils % Eosinophils % (Manual) Basophils % Basophils % (Manual) Myelocytes % (Man) Promyelocytes % (Man) Blast Cells % (Manual) Nucleated RBC % Metamyelocytes Hypochromia Toxic Granulation Dohle Bodies Platelet Estimate Polychromasia Poikilocytosis Basophilic Stippling Anisocytosis Microcytosis Macrocytosis Spherocytes Sickle Cells Target Cells Tear Drop Cells Ovalocytes Stomatocytes Helmet Cells [place] Bodies [place] Rings [place] Cells Acanthocytes (Spur) Rouleaux Fragmented RBCs Schistocytes PT with INR INR PTT (Actin FS) VBG pH POC VBG pCO2 POC VBG pO2 Mixed VBG HCO3 Sodium Potassium Chloride Carbon Dioxide Anion Gap BUN Creatinine Creat Clearance w eGFR POC Glucometer [phone] Random Glucose Lactic Acid Calcium Phosphorus Magnesium Total Bilirubin AST ALT Alkaline Phosphatase LD Total Cancelled Creatine Kinase Cancelled Troponin I Total Protein Albumin TSH Urine Color Urine Appearance Urine pH Ur Specific [place] Urine Protein Urine Glucose (UA) Urine Ketones Urine Blood Urine Nitrite Urine Bilirubin Urine Urobilinogen Ur Leukocyte Esterase Urine RBC Urine WBC Ur Epithelial Cells Urine Bacteria Ur Random Sodium Urine Creatinine Stool Occult Blood Problem List - Problems (1) Colitis Code(s): K52.9 - NONINFECTIVE GASTROENTERITIS AND COLITIS, UNSPECIFIED (2) Hyponatremia Code(s): E87.1 - HYPO-OSMOLALITY AND HYPONATREMIA (3) GABY (acute kidney injury) Code(s): N17.9 - ACUTE KIDNEY FAILURE, UNSPECIFIED (4) Acute on chronic kidney failure Code(s): N17.9 - ACUTE KIDNEY FAILURE, UNSPECIFIED; N18.9 - CHRONIC KIDNEY DISEASE, UNSPECIFIED Qualifiers: Chronic kidney disease stage: stage 3 (moderate) (5) CKD (chronic kidney disease) stage 4, GFR 15-29 ml/min Code(s): N18.4 - CHRONIC KIDNEY DISEASE, STAGE 4 (SEVERE) (6) Diarrhea Code(s): R19.7 - DIARRHEA, UNSPECIFIED (7) Type 2 diabetes mellitus Code(s): E11.9 - TYPE 2 DIABETES MELLITUS WITHOUT COMPLICATIONS Qualifiers: Diabetes mellitus exterminator insulin use: without intermediate use Diabetes mellitus complication status: with kidney complications Diabetes mellitus complication detail: with chronic kidney disease Assessment/Plan IV fluids w/ slow correction of Na goal 8-10 Meq over next 24hrs Surgical evaluation noted O2 as needed Pain control ABX coverage Hold NOAC and can use IV Heparin if needed Family still deciding on GOC Dr Harper Critical care time spent in reviewing chart, evaluating patient and formulating plan - 36 minutes.
[2017-10-28 15:24] LABS: ANION GAP 13 (8-16); BLOOD UREA NITROGEN 65 mg/dL (7-18); CALCIUM 8.6 mg/dL (8.5-10.1); CHLORIDE 102 mmol/L (98-107); CO2 18 mmol/L (21-32); CREATININE 2.6 mg/dL (0.55-1.02); GLUCOSE,RANDOM 208 mg/dL (74-106); SODIUM 133 mmol/L (136-145)
--- NOTE | 2017-10-28 15:52 | CONS ---
DATE OF CONSULTATION: 10/28/2017 REQUESTED PHYSICIAN: Emergency room physician. The patient was subsequently transferred from the [place] Emergency Room to the [facility] Intensive Care Unit. REASON FOR CONSULTATION: Ischemic colitis and portal venous gas. BRIEF HISTORY: This is an 87-year-old female with multiple medical problems including coronary artery disease, atrial fibrillation on full anticoagulation, diabetes, chronic kidney disease, peripheral vascular disease, and hyperlipidemia. She presents with weight loss, diarrhea of several months, and decreased p.o. intake. She was noted to be lethargic with a low-grade fever and had a CAT scan of her abdomen and pelvis, which showed portal venous gas and likely ischemic colitis of the ascending and transverse colon. She had a minimally evaluated lactic acid, which returned to normal with IV hydration. She was admitted to the intensive care unit, started on IV antibiotics, and hydrated. Overnight, she has remained atrial fibrillation with normal vitals. Her urine output has not been recorded, but she is voiding into a bedside toilet. She still complains of abdominal pain. She has continued to have diarrhea as well. Her white blood cell count has climbed overnight from 11.9 to 20.1. PAST MEDICAL HISTORY: As stated in HPI. PAST SURGICAL HISTORY: Includes an open cholecystectomy and cataract surgery. SOCIAL HISTORY: Negative for alcohol. Negative for tobacco. ALLERGIES: She has no known drug allergies. FAMILY HISTORY: Significant for a brother with prostate cancer. MEDICATIONS: Her medications at home have been reviewed. They include Protonix, lisinopril, Norvasc, Tenormin, Aricept, Lasix, and Xarelto. REVIEW OF SYSTEMS: Difficult to obtain because of her dementia. General: She denies fatigue. Cardiac: She denies chest pain. Respiratory: Denies shortness of breath. Gastrointestinal: Admits to pain. Genitourinary: Denies dysuria. Musculoskeletal: Denies joint pain. Psychiatric: Denies anxiety or depression. PHYSICAL EXAMINATION: General: This is a thin 87-year-old female in no distress. Vital Signs: She is afebrile. Her heart rate is 65. Her blood pressure is 152/35. Her oxygen saturation is 100%. HEENT: Her head is normocephalic. Sclerae anicteric. Neck: Supple. Chest: Clear. Abdomen: Soft. It is nondistended. She has well-healed surgical scars. She has no obvious hernias. She has moderate tenderness in the upper abdomen; however, there is no guarding. Extremities: Trace edema. LABORATORY DATA: White blood cell count 20.1. Her coagulation profile is normal, but she is anticoagulated on Eliquis. Her lactic acid is normal. Her sodium is low at 128. Her BUN 71, creatinine 2.8. Stool cultures are pending. IMAGING: As stated in HPI. ASSESSMENT: This is an 87-year-old female with advanced dementia and multiple medical problems including cardiac and renal disease who presents with abdominal pain, diarrhea, portal venous gas, and likely colitis of her right and transverse colon. Clinically, I suspect this is ischemic colitis with likely a low-flow state on top of pre-existing atherosclerotic disease. PLAN: She is currently being managed medically with IV antibiotic and hydration. Would maximize the hydration. Would record urine output. Her ejection fraction has been reviewed and is over 60%. She also has mild pulmonary hypertension as well as lead aortic stenosis, but she should be able to tolerate more fluid. At this point, she does not have peritoneal findings, and she appears to be relatively clinically stable. Operative management would include a laparotomy, a partial colectomy with an ileostomy. The patient will likely have a very poor outcome from this surgery as this would likely push her into full renal failure requiring dialysis. She also would need to be likely managed in a alf for her ostomy. Since the patient has multiple medical problems and advanced dementia, the family is currently considering how aggressive they would wish to be. At this point, the medical management appears to be reasonable and with some success as her lactic acid has come down to normal, and her vitals are stable, and she has no fever. If she decompensates, however, and if she is felt to be a candidate for surgery, we will then further address this with the family. At this point, would treated medically for ischemic colitis, which usually has a good outcome. Overall, her prognosis is guarded. DO ARNOLDO YOUNGBLOOD/[id number]
[2017-10-28] MEDS ORDERED: INSULIN SLIDING SCALE (NOVOLOG) 1 VIAL SQ SCH (16:30)
[2017-10-28] MEDS ORDERED: ONDANSETRON 4 MG/2 ML VIAL IVPUSH PRN (21:19)
[2017-10-28] MEDS: SODIUM CHLORIDE 1,000 ML IV SCH (21:30)
[2017-10-28] MEDS ORDERED: MUPIROCIN 2% TOPICAL OINTMENT FOR DECOLONIZATION NS SCH (22:00)
[2017-10-28] MEDS: SIMETHICONE 80 MG TAB.CHEW (FP) PO PRN (22:11)
--- NOTE | 2017-10-28 22:11 | CON.GI ---
Consult Consult Specialty:: Gastroenterology Referred by:: Dr. Radha Aguilar Reason for Consultation:: Colitis - History of Present Illness Chief Complaint: Abdominal pain and diarrhea History of Present Illness: 87F is admitted after drinking CT contrast which aggravated her pain and diarrhea. Her CT scan revealed gas in the portal vein. She had lactic acidosis and has a rising WBC. Her pain has sunsided since she has been kept NPO. She is known to our team for her 04/27 admission when I did a colonoscopy on 05/17/17 which revealed universal diverticulosis and ischemic appearing colitis in the distal transverse colon. Biopsies did not support ischemic colitis. C diff and stool cultures were negative. Renal insufficiency precluded angiography. She is on Eliquis for atrial fibrillation. Echo revealed good LV function. MRI in revealed pancreatic cysts and the possibility of IPMNs. Her daughters informs me that Swathi has chronic abdominal pain, flatulence and belching aggravated by eating. She also has chronic loose stools but no bleeding. She has been eating minimally due to the pain and has been losing weight. She is followed by Dr. Velazquez who ordered the CT scan that ked to this hospitalization. - History Source History Provided By: Patient, Family Member Limitations to Obtaining History: Language Barrier - Past Medical History PEDIATRIC PHYSICAL THERAPIST: Yes: Dementia Cardio/Vascular: Yes: AFIB, HTN, Hyperlipdemia, Mitral Insufficiency, Pulmonary Hypertension Gastrointestinal: Yes: Diverticulosis, GERD, Peptic Ulcer Disease, Other ( ischemic colitis 04/27) Hepatobiliary: Yes: Cholecystitis (s/p open cholecystectomy) Renal/: Yes: Renal Inusuff Heme/Onc: Yes: Anemia Endocrine: Yes: Diabetes Mellitus, Hypothyroidism - Past Surgical History Past Surgical History: Yes: Cataract Removal, Cholecystectomy (open), Colonoscopy - Alcohol/Substance Use Hx Alcohol Use: No - Smoking History Smoking history: Never smoked - Social History Usual Living Arrangement: With Child ADL: Family Assistance Place of : Other ([place]) History of Recent Travel: Yes ([place] 11/25) Home Medications - Allergies Allergies/Adverse Reactions: Allergies Allergy/AdvReac Type Severity Reaction Status Date / Time No Known Allergies Allergy Verified 10/27/17 12:33 - Home Medications Home Medications: Ambulatory Orders Amlodipine Besylate [Norvasc -] 5 mg PO DAILY #30 tablet 05/19/17 Apixaban [Eliquis -] 2.5 mg PO BID #60 tablet 05/19/17 Atenolol [Tenormin -] 50 mg PO DAILY #30 tablet 05/19/17 Donepezil HCl [Aricept -] 10 mg PO DAILY #30 tablet 05/19/17 Furosemide [Lasix -] 40 mg PO DAILY #30 tablet 05/19/17 Insulin (Levemir) [Levemir Flexpen -] 6 units SQ DAILY #1 pen 05/19/17 Levothyroxine [Synthroid -] 25 mcg PO DAILY@0700 #30 tablet 05/19/17 Avoca-3 Acid Ethyl Esters [Lovaza -] 2 gm PO BID@1000,1700 #60 cap 05/19/17 Pantoprazole Sodium [Protonix -] 40 mg PO DAILY@0700 #30 tablet.ec 05/19/17 Insulin Aspart [Novolog Flexpen] 5 unit SQ TID #30 insuln.pen 05/20/17 Lisinopril 10 mg PO DAILY #30 tablet 05/20/17 Nateglinide [Starlix (Nf)] 60 mg PO DAILY 10/27/17 Family Disease History - Family Disease History Family Disease History: Diabetes: Brother (3 brothers, : 1 w/ prostate cancer, 1 w/ complications from asbestosis ), Son (2 sons: healthy), Other: Father ( 80's: unclear cause), Mother ( in 40's: heart problems), Brother, Son, Daughter (1, has hereditary angioedema) Review of Systems Unable to obtain ROS, reason: language barrier Physical Exam-GI Vital Signs: Vital Signs Temperature 98.8 F 10/28/17 19:56 Pulse Rate 71 10/28/17 19:56 Respiratory Rate 20 10/28/17 20:03 Blood Pressure 128/76 10/28/17 19:56 O2 Sat by Pulse Oximetry (%) 100 10/28/17 20:03 CBC,CMP WBC 20.1 K/mm3 (4.0-10.0) H D 10/28/17 05:45 RBC 3.15 M/mm3 (3.60-5.2) L D 10/28/17 05:45 Hgb 9.6 GM/dL (10.7-15.3) L 10/28/17 05:45 Hct 27.4 % (32.4-45.2) L 10/28/17 05:45 MCV 87.0 fl (80-96) 10/28/17 05:45 MCH 30.6 pg (25.7-33.7) D 10/28/17 05:45 MCHC 35.2 g/dl (32.0-36.0) 10/28/17 05:45 RDW 14.3 % (11.6-15.6) D 10/28/17 05:45 Plt Count 285 K/MM3 (134-434) D 10/28/17 05:45 MPV 8.2 fl (7.5-11.1) 10/28/17 05:45 Neutrophils % No Result Required. 10/28/17 05:45 Neutrophils % (Manual) 86.5 % (42.8-82.8) H 10/28/17 05:45 Band Neutrophils % 7.3 % 10/28/17 05:45 Lymphocytes % No Result Required. 10/28/17 05:45 Lymphocytes % (Manual) 1.0 % (8-40) L 10/28/17 05:45 Monocytes % 1.7 % (3.8-10.2) L 10/27/17 13:02 Monocytes % (Manual) 5 % (3.8-10.2) 10/28/17 05:45 Eosinophils % 0.3 % (0-4.5) 10/27/17 13:02 Eosinophils % (Manual) 0.0 % (0-4.5) 10/28/17 05:45 Basophils % 0.2 % (0-2.0) 10/27/17 13:02 Basophils % (Manual) 0.0 % (0-2.0) 10/28/17 05:45 Myelocytes % (Man) 0 % (0-2) 10/28/17 05:45 Promyelocytes % (Man) 0 % (0-2) 10/28/17 05:45 Blast Cells % (Manual) 0 % (0-0) 10/28/17 05:45 Nucleated RBC % 0 % (0-0) 10/28/17 05:45 Metamyelocytes 0 % (0-2) 10/28/17 05:45 Hypochromia 0 10/28/17 05:45 Toxic Granulation 0 10/28/17 05:45 Dohle Bodies 0 10/28/17 05:45 Platelet Estimate Normal 10/28/17 05:45 Polychromasia 0 10/28/17 05:45 Poikilocytosis 0 10/28/17 05:45 Basophilic Stippling 0 10/28/17 05:45 Anisocytosis 0 10/28/17 05:45 Microcytosis 0 10/28/17 05:45 Macrocytosis 0 10/28/17 05:45 Spherocytes 0 10/28/17 05:45 Sickle Cells 0 10/28/17 05:45 Target Cells 0 10/28/17 05:45 Tear Drop Cells 0 10/28/17 05:45 Ovalocytes 0 10/28/17 05:45 Stomatocytes 0 10/28/17 05:45 Helmet Cells 0 10/28/17 05:45 [place] Bodies 0 10/28/17 05:45 [place] Rings 0 10/28/17 05:45 [place] Cells 0 10/28/17 05:45 Acanthocytes (Spur) 0 10/28/17 05:45 Rouleaux 0 10/28/17 05:45 Fragmented RBCs 0 10/28/17 05:45 Schistocytes 0 10/28/17 05:45 Sodium 133 mmol/L (136-145) L 10/28/17 14:15 Potassium 4.0 mmol/L (3.5-5.1) 10/28/17 14:15 Chloride 102 mmol/L (98-107) 10/28/17 14:15 Carbon Dioxide 18 mmol/L (21-32) L 10/28/17 14:15 Anion Gap 13 (8-16) 10/28/17 14:15 BUN 65 mg/dL (7-18) H 10/28/17 14:15 Creatinine 2.6 mg/dL (0.55-1.02) H 10/28/17 14:15 Creat Clearance w eGFR 16.06 (>60) 10/28/17 05:45 POC Glucometer 281.02629 UNITS (80-120) 10/28/17 15:34 Random Glucose 208 mg/dL (74-106) H 10/28/17 14:15 Lactic Acid 1.8 mmol/L (0.0-2.0) 10/28/17 05:45 Calcium 8.6 mg/dL (8.5-10.1) 10/28/17 14:15 Phosphorus 5.7 mg/dL (2.5-4.9) H 10/28/17 05:45 Magnesium 1.8 mg/dL (1.8-2.4) 10/28/17 05:45 Total Bilirubin 0.5 mg/dL (0.2-1.0) D 10/28/17 05:45 AST 22 U/L (15-37) 10/28/17 05:45 ALT 15 U/L (12-78) 10/28/17 05:45 Alkaline Phosphatase 53 U/L (45-117) 10/28/17 05:45 LD Total 190 U/L (84-246) 10/28/17 05:45 Creatine Kinase 21 IU/L (26-192) L 10/28/17 05:45 Troponin I < 0.03 ng/ml (0.00-0.06) 10/27/17 13:02 Total Protein 6.5 g/dl (6.4-8.2) 10/28/17 05:45 Albumin 2.9 g/dl (3.4-5.0) L 10/28/17 05:45 TSH 2.28 uIU/ml (0.358-3.74) 10/27/17 13:02 Current Medications Generic Name Dose Route Start Last Admin Trade Name Freq PRN Reason Stop Dose Admin Metronidazole 500 mg in 100 mls @ 100 mls/hr 10/29/17 02:00 Flagyl 500mg Premixed Ivpb - IVPB Q8H-IV YANN Famotidine/Sodium Chloride 20 mg in 50 mls @ 100 mls/hr 10/29/17 10:00 Pepcid 20 Mg Premixed Ivpb - IVPB Q2D YANN Sodium Chloride 1,000 mls @ 75 mls/hr 10/28/17 21:19 Normal Saline - IV ASDIR YANN Piperacillin Sod/Tazobactam 50 mls @ 100 mls/hr 10/29/17 02:00 Sod 2.25 gm/ Dextrose IVPB Q8H-IV YANN Protocol Insulin Aspart 1 vial 10/29/17 07:00 Novolog Vial Sliding Scale - SQ TIDAC [facility] Protocol Ondansetron HCl 4 mg 10/28/17 21:19 Zofran Injection IVPUSH Q4H PRN NAUSEA AND/OR VOMITING Simethicone 80 mg 10/28/17 21:19 10/28/17 22:11 Mylicon - PO 80 mg Q6H PRN Administration GAS Constitutional: Yes: Calm Eyes: Yes: Conjunctiva Clear HENT: Yes: Atraumatic Neck: Yes: Trachea Midline Cardiovascular: Yes: Regular Rate and Rhythm Respiratory: Yes: CTA Bilaterally Gastrointestinal Inspection: Yes: Scars (healed oblique RUQ incision) ...Auscultate: Yes: Hypoactive Bowel Sounds ...Palpate: Yes: Soft, Tenderness (right and periumbilical tenderness but no rebound) ...Percussion: Yes: Tympanitic ...Rectal Exam: Yes: Guaiac Positive (loose brown guaiaic positive stool) Edema: No Neurological: Yes: Lethargy Labs: CBC, BMP 10/28/17 05:45 10/28/17 14:15 INR, PTT INR 1.20 (0.82-1.09) 10/27/17 13:02 Imaging - Results Cat Scan: Report Reviewed ( Study Date: 27-Oct-2017 13:49 Rylan Newell Name: SWATHI HAMLIN DEPARTMENT OF RADIOLOGY Phys: Fatoumata Tan MD : [id number] Age: 87 Sex: F [facility] Acct: [id number] Loc: [address] Exam Date: 10/27/17 Status: [facility] [place] [address] Unit Number: [id number] EXAM#: TYPE/EXAM: RESULT: [id number] CT/ ABDOMEN PELVIS CT W/O CONTR Abdomen and pelvis CT (without contrast) CLINICAL INFORMATION: abdominal pain Multiplanar imaging was performed. Intravenous contrast was not administered. Oral contrast was administered. Extensive amount of air/gas is seen within the peripheral branches of the left and right portal veins. In comparison to a previous CT study of 05/10/2017 interval note is also made of interval development of concentric wall thickening involving the length of the transverse colon as well as the ascending colon consistent with colitis. There is no definite associated or mural air or air/ gas gas within the mesenteric vasculature. No pericolonic edema or fluid accumulation is seen. No evidence of pneumoperitoneum, free intraperitoneal fluid, abscess or bowel obstruction. Colonic diverticulosis is seen without evidence of acute diverticulitis. The appendix is visualized and demonstrates no discrete abnormality. No gross small bowel pathology is identified. Status post cholecystectomy as on the prior study. There is slight common bile duct dilatation with a 0.7 cm also without definite interval change. No gross intraductal calculus is visualized. 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 Stable bilateral adrenal gland enlargement which may be on the basis of nodular hyperplasia versus subcentimeter adenomas. The spleen , pancreas, and kidneys demonstrate no obvious noncontrast pathology. There is no aortic aneurysm. Small to moderate hiatal hernia. No definite pelvic pathology is identified. In comparison to the 2017 CT study interval resolution of a very small amount of free fluid is seen within the abdomen and pelvis as well as interval resolution of small bilateral pleural effusions and bilateral flank subcutaneous edema. Cardiomegaly is again noted. The visualized osseous structures demonstrate no obvious CT evidence of acute abnormality. Diffuse osteoporosis. IMPRESSION: Extensive portal venous air/gas accumulation is noted. Also, in comparison to a prior CT study of 05/10/2017, interval development of colitis is seen involving the transverse and ascending segments of the colon - ? ischemic etiology given the described portal venous air/gas accumulation. The remainder of the study demonstrates no definite interval change with multiple chronic findings as discussed above. 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 This is occurring despite Eliquis. There may also be a component of autonomic neuropathy causing diabetic gastroparesis and perhaps diabetic diarrhea. I have discussed this with the daughter and advised multiple small meals in the future, perhaps initially with baby food and/or Ensure. 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 Agree with empiric acid blockade as she is at risk for stress gastritis bleeding. Code(s): R10.9 - UNSPECIFIED ABDOMINAL PAIN (2) Ischemic colitis Assessment/Plan: Given the previous episode of ischemic colitis and now the appearance of portal venous gas and right half of the colon CT changes ischemic colitis appears to be the most likely possibility. C diff colitis has already been excluded. I agree with Dr Conde's position that surgery would be done as a last resort given Swathi's condition and discussed this with her daughter. Continue antibiotics and bowel rest Code(s): K55.9 - VASCULAR DISORDER OF INTESTINE, UNSPECIFIED
[2017-10-29] MEDS ORDERED: PIPERACILLIN/TAZOBACTAM 2.25 GM VIAL IVPB ONE ×3 (00:58→18:46)
[2017-10-29] MEDS ORDERED: DEXTROSE 5%-WATER - 50 ML IVPB ONE ×3 (00:58→18:46)
[2017-10-29] MEDS: PIPERACILLIN/TAZOB 2.25 GM 2.25 GM in DEXTROSE 5%-WATER - 50 ML IVPB SCH ×3 (01:18→18:49)
[2017-10-29] MEDS: INSULIN SLIDING SCALE (NOVOLOG) 1 VIAL SQ SCH ×3 (06:42→16:31)
[2017-10-29 08:34] LABS: BASO % 0.2 % (0-2.0); HEMATOCRIT 22.6 % (32.4-45.2); HEMOGLOBIN 7.9 GM/dL (10.7-15.3); LYMPH % 5.8 % (8-40); MCH 30.4 pg (25.7-33.7); MEAN CELL VOLUME 86.9 fl (80-96); MEAN PLT VOLUME 7.8 fl (7.5-11.1); MONO % 2.8 % (3.8-10.2); NEUT % 91.2 % (42.8-82.8); PLATELET COUNT 214 K/MM3 (134-434); RDW 14.6 % (11.6-15.6); WHITE BLOOD COUNT 17.4 K/mm3 (4.0-10.0)
[2017-10-29 09:10] LABS: ALBUMIN 2.4 g/dl (3.4-5.0); ANION GAP 13 (8-16); BLOOD UREA NITROGEN 61 mg/dL (7-18); CALCIUM 8.2 mg/dL (8.5-10.1); CHLORIDE 105 mmol/L (98-107); CO2 18 mmol/L (21-32); CREATININE 2.5 mg/dL (0.55-1.02); GLUCOSE,RANDOM 160 mg/dL (74-106); MAGNESIUM 2.1 mg/dL (1.8-2.4); PHOSPHOROUS 3.6 mg/dL (2.5-4.9); POTASSIUM 3.6 mmol/L (3.5-5.1); SGOT/AST 15 U/L (15-37); SGPT/ALT 13 U/L (12-78); SODIUM 136 mmol/L (136-145)
[2017-10-29 09:12] LABS: ALK PHOS 48 U/L (45-117); BILIRUBIN,TOTAL 0.5 mg/dL (0.2-1.0); TOT PROT 5.7 g/dl (6.4-8.2)
[2017-10-29] MEDS ORDERED: FAMOTIDINE 20 MG/50 ML IVPB 20 MG/50 ML MG IVPB SCH (10:00)
[2017-10-29] MEDS ORDERED: PIPERACILLIN/TAZOB 2.25 GM 2.25 GM in DEXTROSE 5%-WATER - 50 ML IVPB SCH (10:00)
[2017-10-29] MEDS: PANTOPRAZOLE 40 MG TABLET (FP) PO SCH ×2 (10:13→22:43)
--- NOTE | 2017-10-29 10:27 | PN ---
Physical Exam: SUBJECTIVE: Patient seen and examined at the bedside. Spoke to patient's daughter in detail about the POC, labs and goals. Reassured daughter as she appears to be overwhelmed with her mother in the hospital. She reports that her mother is usually independent, and lives upstairs from her. Her mother often c/o of dizziness and is checked on frequently by her family. I reviewed why her mom was here, the specialist group who is caring for her mom and the current lab work. Daughter verbalized understanding and I encouraged her to reach out to either me or the primary RN for any concerns she may have. Family wants to be made aware and updated of any and all tests, treatments, labs and further POC daily. OBJECTIVE: h/h trending down, may be dilutional but will recheck with a.m. labs. NPO since 10/27/2017, may need IV nutrition if remains NPO Vital Signs Period Temp Pulse Resp BP Sys/Thompson Pulse Ox Last 24 Hr 98.1 F-98.8 F 62-72 18-20 111-160/40-76 98-100 GENERAL: The patient slept throughout the entire exam, arousable to tactile stimuli, reacted when i touched her abdomen HEAD: Normal with no signs of trauma. EYES: PERRL, extraocular movements intact, sclera anicteric, conjunctiva clear. No ptosis. ENT: Ears normal, nares patent, oropharynx clear without exudates, moist mucous membranes. NECK: Trachea midline, full range of motion, supple. LUNGS: Breath sounds equal anteriorly HEART: Regular rate and rhythm, hx of afib, on eliquis ABDOMEN: soft, tender on light palpation, remains NPO EXTREMITIES: 2+ pulses, warm, well-perfused, no edema. NEUROLOGICAL: Cranial nerves II through XII grossly intact. Normal speech, gait not observed. PSYCH: Normal mood, normal affect. SKIN: Warm, dry, normal turgor, no rashes or lesions noted Laboratory Results - last 24 hr 10/28/17 10/28/17 10/28/17 05:45 11:02 14:15 WBC RBC Hgb Hct MCV MCH MCHC RDW Plt Count MPV Neutrophils % Neutrophils % (Manual) 86.5 H Band Neutrophils % 7.3 Lymphocytes % Lymphocytes % (Manual) 1.0 L Monocytes % Monocytes % (Manual) 5 Eosinophils % Eosinophils % (Manual) 0.0 Basophils % Basophils % (Manual) 0.0 Myelocytes % (Man) 0 Promyelocytes % (Man) 0 Blast Cells % (Manual) 0 Nucleated RBC % 0 Metamyelocytes 0 Hypochromia 0 Toxic Granulation 0 Dohle Bodies 0 Platelet Estimate Normal Polychromasia 0 Poikilocytosis 0 Basophilic Stippling 0 Anisocytosis 0 Microcytosis 0 Macrocytosis 0 Spherocytes 0 Sickle Cells 0 Target Cells 0 Tear Drop Cells 0 Ovalocytes 0 Stomatocytes 0 Helmet Cells 0 [place] Bodies 0 [place] Rings 0 [place] Cells 0 Acanthocytes (Spur) 0 Rouleaux 0 Fragmented RBCs 0 Schistocytes 0 Retic Count Sodium 133 L Potassium 4.0 Chloride 102 Carbon Dioxide 18 L Anion Gap 13 BUN 65 H Creatinine 2.6 H Creat Clearance w eGFR POC Glucometer 252.26044 Random Glucose 208 H Lactic Acid Calcium 8.6 Phosphorus Magnesium Ferritin Total Bilirubin AST ALT Alkaline Phosphatase C-Reactive Protein Total Protein Albumin Total Amylase Lipase 10/28/17 10/29/17 10/29/17 15:34 05:16 07:47 WBC 17.4 H RBC 2.60 L Hgb 7.9 L D Hct 22.6 L D MCV 86.9 MCH 30.4 MCHC 35.0 RDW 14.6 Plt Count 214 D MPV 7.8 Neutrophils % 91.2 H Neutrophils % (Manual) Band Neutrophils % Lymphocytes % 5.8 L D Lymphocytes % (Manual) Monocytes % 2.8 L Monocytes % (Manual) Eosinophils % 0.0 D Eosinophils % (Manual) Basophils % 0.2 Basophils % (Manual) Myelocytes % (Man) Promyelocytes % (Man) Blast Cells % (Manual) Nucleated RBC % Metamyelocytes Hypochromia Toxic Granulation [place]oh[place] Bodies Platelet Estimate Polychromasia Poikilocytosis Basophilic Stippling Anisocytosis Microcytosis Macrocytosis Spherocytes Sickle Cells Target Cells Tear Drop Cells Ovalocytes Stomatocytes Helmet Cells [place] Bodies [place] Rings [place] Cells Acanthocytes (Spur) Rouleaux Fragmented RBCs Schistocytes Retic Count Sodium Potassium Chloride Carbon Dioxide Anion Gap BUN Creatinine Creat Clearance w eGFR POC Glucometer 281.87527 167 Random Glucose Lactic Acid Calcium Phosphorus Magnesium Ferritin Total Bilirubin AST ALT Alkaline Phosphatase C-Reactive Protein Total Protein Albumin Total Amylase Lipase 10/29/17 10/29/17 10/29/17 07:47 07:47 07:47 WBC RBC Hgb Hct MCV MCH MCHC RDW Plt Count MPV Neutrophils % Neutrophils % (Manual) Band Neutrophils % Lymphocytes % Lymphocytes % (Manual) Monocytes % Monocytes % (Manual) Eosinophils % Eosinophils % (Manual) Basophils % Basophils % (Manual) Myelocytes % (Man) Promyelocytes % (Man) Blast Cells % (Manual) Nucleated RBC % Metamyelocytes Hypochromia Toxic Granulation [place]ohle Bodies Platelet Estimate Polychromasia Poikilocytosis Basophilic Stippling Anisocytosis Microcytosis Macrocytosis Spherocytes Sickle Cells Target Cells Tear Drop Cells Ovalocytes Stomatocytes Helmet Cells [place] Bodies [place] Rings [place] Cells Acanthocytes (Spur) Rouleaux Fragmented RBCs Schistocytes Retic Count Sodium 136 Potassium 3.6 Chloride 105 Carbon Dioxide 18 L Anion Gap 13 BUN 61 H Creatinine 2.5 H Creat Clearance w eGFR 18.30 POC Glucometer Random Glucose 160 H Lactic Acid 0.9 Calcium 8.2 L Phosphorus 3.6 Magnesium 2.1 Ferritin 136.642 Total Bilirubin 0.5 AST 15 ALT 13 Alkaline Phosphatase 48 C-Reactive Protein 21.5 H Total Protein 5.7 L Albumin 2.4 L Total Amylase 85 Lipase 95 10/29/17 07:47 WBC RBC Hgb Hct MCV MCH MCHC RDW Plt Count MPV Neutrophils % Neutrophils % (Manual) Band Neutrophils % Lymphocytes % Lymphocytes % (Manual) Monocytes % Monocytes % (Manual) Eosinophils % Eosinophils % (Manual) Basophils % Basophils % (Manual) Myelocytes % (Man) Promyelocytes % (Man) Blast Cells % (Manual) Nucleated RBC % Metamyelocytes Hypochromia Toxic Granulation [place]oh[place] Bodies Platelet Estimate Polychromasia Poikilocytosis Basophilic Stippling Anisocytosis Microcytosis Macrocytosis Spherocytes Sickle Cells Target Cells Tear Drop Cells Ovalocytes Stomatocytes Helmet Cells [place] Bodies [place] Rings [place] Cells Acanthocytes (Spur) Rouleaux Fragmented RBCs Schistocytes Retic Count 1.73 H Sodium Potassium Chloride Carbon Dioxide Anion Gap BUN Creatinine Creat Clearance w eGFR POC Glucometer Random Glucose Lactic Acid Calcium Phosphorus Magnesium Ferritin Total Bilirubin AST ALT Alkaline Phosphatase C-Reactive Protein Total Protein Albumin Total Amylase Lipase Active Medications Generic Name Dose Route Start Last Admin Trade Name Freq PRN Reason Stop Dose Admin Metronidazole 500 mg in 100 mls @ 100 mls/hr 10/29/17 02:00 10/29/17 10:11 Flagyl 500mg Premixed Ivpb - IVPB 100 mls/hr Q8H-IV YANN Administration Sodium Chloride 1,000 mls @ 75 mls/hr 10/28/17 21:19 10/28/17 21:30 Normal Saline - IV 75 mls/hr ASDIR YANN Administration Piperacillin Sod/Tazobactam 50 mls @ 100 mls/hr 10/29/17 02:00 10/29/17 01:18 Sod 2.25 gm/ Dextrose IVPB 100 mls/hr Q8H-IV YANN Administration Protocol Insulin Aspart 1 vial 10/29/17 07:00 10/29/17 06:42 Novolog Vial Sliding Scale - SQ Not Given TIDAC YANN Protocol Ondansetron HCl 4 mg 10/28/17 21:19 Zofran Injection IVPUSH Q4H PRN NAUSEA AND/OR VOMITING Pantoprazole Sodium 40 mg 10/29/17 10:00 10/29/17 10:13 Protonix - PO 40 mg BID YANN Administration Simethicone 80 mg 10/28/17 21:19 10/28/17 22:11 Mylicon - PO 80 mg Q6H PRN Administration GAS ASSESSMENT/PLAN: Patient is a 87 year old niuean speaking female with a significant past medical history of ischemic colitis, chronic abdominal pain, dementia, CKD Stage 4, atril fibrilation (on Eliquis), hypertension and hyypothyroidism. Patient was transferred to [place] from [place] for severe hyponatremia and ischemic colitis. GI: Ischemic colitis Bowel rest On Flagyl IV, Zosyn q8 GI following Chronic abdominal pain, improving RUQ pain persists, but overall feels better started on clears by GI Neuro: Dementia, chronic At baseline Renal: CKD Stage 4 Followed by renal during hospitalization Renal dose meds Avoid nephrotoxins Monitor intake and output Hyponatremia, resolved Improved with IVF 120>136 Renal following Card: Atril fibrilation (on Eliquis) Patient is rate controlled with Atenolol Hypertension, chronic Controlled on Norvasc Hyypothyroidism, chronic Anemia Iron studies pending Monitor CBC F.E.N. Fludis: NS @ 75cc/hr Electrolytes: monitor with daily labs Nutrition: clears, advance as per GI: Prophy: GI: Protonix BID DVT: On Eliquis Visit type - Emergency Visit Emergency Visit: Yes ED Registration Date: 10/27/17 Care time: The patient presented to the Emergency Department on the above date and was hospitalized for further evaluation of their emergent condition. - New Patient This patient is new to me today: Yes Date on this admission: 10/30/17 - Critical Care Critical Care patient: No - Discharge Referral Referred to [facility] Med P.C.: No
--- NOTE | 2017-10-29 12:27 | CON.CARD ---
Consult Consult Specialty:: Cardiology Referred by:: Hospitalist Medicine Reason for Consultation:: Pre-operative cardiovascular exam - History of Present Illness Chief Complaint: Abd pain History of Present Illness: 87-year-old female with h/o DM, chol, HTN, hypothyroidism, PUD, dementia, rate- controlled afib, CKD, PAD admitted for weight loss, diarrhea, portal venous gas , and colitis of transverse and ascending colon likely ischemic etiology. Pt treated with zosyn abx with normalization of lactic acid and ileukocytosis, relative reports abd pain with food ingestion suspicious of intestinal angina. 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: Dementia Cardio/Vascular: Yes: AFIB, HTN, Hyperlipdemia, Mitral Insufficiency, Pulmonary Hypertension Gastrointestinal: Yes: Diverticulosis, GERD, Peptic Ulcer Disease, Other ( ischemic colitis 04/27) Hepatobiliary: Yes: Cholecystitis (s/p open cholecystectomy) Renal/: Yes: Renal Inusuff Endocrine: Yes: Diabetes Mellitus, Hypothyroidism - Past Surgical History Past Surgical History: Yes: Cataract Removal, Cholecystectomy (open), Colonoscopy - Alcohol/Substance Use Hx Alcohol Use: No - Smoking History Smoking history: Never smoked - Social History Usual Living Arrangement: With Child ADL: Family Assistance History of Recent Travel: Yes ([place] 11/25) Home Medications - Allergies Allergies/Adverse Reactions: Allergies Allergy/AdvReac Type Severity Reaction Status Date / Time No Known Allergies Allergy Verified 10/27/17 12:33 - Home Medications Home Medications: Ambulatory Orders Amlodipine Besylate [Norvasc -] 5 mg PO DAILY #30 tablet 05/19/17 Apixaban [Eliquis -] 2.5 mg PO BID #60 tablet 05/19/17 Atenolol [Tenormin -] 50 mg PO DAILY #30 tablet 05/19/17 Donepezil HCl [Aricept -] 10 mg PO DAILY #30 tablet 05/19/17 Furosemide [Lasix -] 40 mg PO DAILY #30 tablet 05/19/17 Insulin (Levemir) [Levemir Flexpen -] 6 units SQ DAILY #1 pen 05/19/17 Levothyroxine [Synthroid -] 25 mcg PO DAILY@0700 #30 tablet 05/19/17 Burdick-3 Acid Ethyl Esters [Lovaza -] 2 gm PO BID@1000,1700 #60 cap 05/19/17 Pantoprazole Sodium [Protonix -] 40 mg PO DAILY@0700 #30 tablet.ec 05/19/17 Insulin Aspart [Novolog Flexpen] 5 unit SQ TID #30 insuln.pen 05/20/17 Lisinopril 10 mg PO DAILY #30 tablet 05/20/17 Nateglinide [Starlix (Nf)] 60 mg PO DAILY 10/27/17 Family Disease History - Family Disease History Family Disease History: Diabetes: Brother (3 brothers, : 1 w/ prostate cancer, 1 w/ complications from asbestosis ), Son (2 sons: healthy), Other: Father ( 80's: unclear cause), Mother ( in 40's: heart problems), Brother, Son, Daughter (1, has hereditary angioedema) Vital Signs: Vital Signs Temperature 98.7 F 10/29/17 10:00 Pulse Rate 62 10/29/17 10:00 Respiratory Rate 18 10/29/17 10:00 Blood Pressure 111/46 10/29/17 10:00 O2 Sat by Pulse Oximetry (%) 97 10/29/17 09:00 - Other Data Labs, Other Data: CBC, BMP 10/29/17 07:47 10/29/17 07:47 INR, PTT INR 1.20 (0.82-1.09) 10/27/17 13:02 Imaging - Results Cat Scan: Report Reviewed ( ( Study Date: 27-Oct-2017 13:49 Rylan Newell Name: [facility] OF RADIOLOGY Phys: Fatoumata Tan MD : [id number] Age: 87 Sex: F [facility] Acct: [id number] Loc: [address] Exam Date: 10/27/17 Status: REG [place] [id number] Unit Number: [id number] EXAM#: TYPE/EXAM: RESULT: [id number] CT/ ABDOMEN PELVIS CT W/O CONTR Abdomen and pelvis CT (without contrast) CLINICAL INFORMATION: abdominal pain Multiplanar imaging was performed. Intravenous contrast was not administered. Oral contrast was administered. Extensive amount of air/gas is seen within the peripheral branches of the left and right portal veins. In comparison to a previous CT study of 05/10/2017 interval note is also made of interval development of concentric wall thickening involving the length of the transverse colon as well as the ascending colon consistent with colitis. There is no definite associated or mural air or air/ gas gas within the mesenteric vasculature. No pericolonic edema or fluid accumulation is seen. No evidence of pneumoperitoneum, free intraperitoneal fluid, abscess or bowel obstruction. Colonic diverticulosis is seen without evidence of acute diverticulitis. The appendix is visualized and demonstrates no discrete abnormality. No gross small bowel pathology is identified. Status post cholecystectomy as on the prior study. There is slight common bile duct dilatation with a 0.7 cm also without definite interval change. No gross intraductal calculus is visualized. 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 Stable bilateral adrenal gland enlargement which may be on the basis of nodular hyperplasia versus subcentimeter adenomas. The spleen , pancreas, and kidneys demonstrate no obvious noncontrast pathology. There is no aortic aneurysm. Small to moderate hiatal hernia. No definite pelvic pathology is identified. In comparison to the 2017 CT study interval resolution of a very small amount of free fluid is seen within the abdomen and pelvis as well as interval resolution of small bilateral pleural effusions and bilateral flank subcutaneous edema. Cardiomegaly is again noted. The visualized osseous structures demonstrate no obvious CT evidence of acute abnormality. Diffuse osteoporosis. IMPRESSION: Extensive portal venous air/gas accumulation is noted. Also, in comparison to a prior CT study of 05/10/2017, interval development of colitis is seen involving the transverse and ascending segments of the colon - ? ischemic etiology given the described portal venous air/gas accumulation. The remainder of the study demonstrates no definite interval change with multiple chronic findings as discussed above. Reported By: Brenden Lou MD 10/27/17 1518 Fatoumata Tan Technologist: Wei Landry Transcribed Date/Time: 1518 Manager Program Management: Brenden Lou Printed Date/Time: By: Signed by: Brenden Lou Signed on: 27-Oct-2017 15:20)) Assessment/Plan 05/11/2017 Echo: Normal LV size and fxn, mod MR, TR, mild AR 1. Ischemic colitis, mesenteric ischemia with intestinal angina 2. Persistent atrial fibrillation on A/C with NOAC's/Eliquis [id number] score of 5, rate controlled 2. 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 Diastolic LV dysfunction with chronic class I-II NYHA classification LV failure, compensated/euvolemic 4. HTN/HCVD 5. DM 6. Hypercholesterolemia 7. Hypothyroidism 8. Dementia/Organic brain syndrome 9. Gastroenteritis resolved, history of PUD 10. Acute on chronic kidney injury improved 11. Hyponatremia, improved 12. Abnormal LFT's, improving 13. Anemia PLAN: 1. GI and surgery input appreciated, plan for conservative management with bowel rest, hydration, antibiotics, eventual oral resumption with small frequent meals Continue Atenolol 50 qd and titrate dosage for rate control 2. Continue Norvasc 5 qd and Lovaza 2 bid 3. Continue lisinopril 20 qd given renal function recovery 4. Continue to hold statin pending LFT recovery 5. Continue Eliquis 2.5 bid (age > 80 and Creatinine > 1.5) and GI prophylaxis 6. Lasix 40 qd with caution and close monitoring of renal function and electrolytes Amlodipine Besylate [Norvasc -] 5 mg PO DAILY #30 tablet 05/19/17 Apixaban [Eliquis -] 2.5 mg PO BID #60 tablet 05/19/17 Atenolol [Tenormin -] 50 mg PO DAILY #30 tablet 05/19/17 Donepezil HCl [Aricept -] 10 mg PO DAILY #30 tablet 05/19/17 Furosemide [Lasix -] 40 mg PO DAILY #30 tablet 05/19/17 Insulin (Levemir) [Levemir Flexpen -] 6 units SQ DAILY #1 pen 05/19/17 Levothyroxine [Synthroid -] 25 mcg PO DAILY@0700 #30 tablet 05/19/17 Burdick-3 Acid Ethyl Esters [Lovaza -] 2 gm PO BID@1000,1700 #60 cap 05/19/17 Pantoprazole Sodium [Protonix -] 40 mg PO DAILY@0700 #30 tablet.ec 05/19/17 Insulin Aspart [Novolog Flexpen] 5 unit SQ TID #30 insuln.pen 05/20/17 Lisinopril 10 mg PO DAILY #30 tablet 05/20/17 Nateglinide [Starlix (Nf)] 60 mg PO DAILY 10/27/17 on exam the abd is soft, nd, moderate upper abd tenderness Plan- clinically ischemic colitis > infectious colitis. lactic acid resolved and pt appears stable despite expected rise in wbc. Pt is a very poor candidate for surgery and that would entail laparotomy with colectomy and ileostomy. Pt would be at risk of renal failure and failure to thrive. Recommend cont medical management. cont iv abx. maximize cardiac output. record urine output. It patient decompensates can consider surgery but family would also consider comfort measures. Prognosis guarded.
[2017-10-29] MEDS: SODIUM CHLORIDE 1,000 ML IV SCH (16:08)
--- NOTE | 2017-10-29 16:22 | PN ---
GI Progress Note Subjective: GI NOte: Swathi's sons are at her bedside. They served as my interpreters. She has less pain today and it is concentrated in the RUQ. A greenish diarrhea persists. Her Hb is down to 7.9. IV access is a problem. No vomiting. Has very dry mouth. - Objective Vital Signs: Vital Signs Temperature 97.9 F 10/29/17 15:08 Pulse Rate 82 10/29/17 15:08 Respiratory Rate 18 10/29/17 15:08 Blood Pressure 115/41 10/29/17 15:08 O2 Sat by Pulse Oximetry (%) 97 10/29/17 09:00 Laboratory Tests 10/29/17 10/29/17 07:47 07:47 WBC 17.4 H Hgb 7.9 L D Hct 22.6 L D Retic Count 1.73 H Constitutional: Calm Gastrointestinal Inspection: Yes: Distention ...Auscultate: Yes: Hypoactive Bowel Sounds ...Palpate: Yes: Soft, Tenderness (RUQ tenderness, nontender other areas, no peritoneal signs) Labs: CBC, BMP 10/29/17 07:47 10/29/17 07:47 INR, PTT INR 1.20 (0.82-1.09) 10/27/17 13:02 Problem List - Problems (1) Abdominal pain Code(s): R10.9 - UNSPECIFIED ABDOMINAL PAIN (2) Ischemic colitis Assessment/Plan: WBC has come down a bit. Will try clear liquids. I explained to her sons that Swathi is still critically ill and will need a more sophisticated IV access. Case discussed with Dr. Ragland. Code(s): K55.9 - VASCULAR DISORDER OF INTESTINE, UNSPECIFIED
--- NOTE | 2017-10-29 16:29 | PN ---
Progress Note (short form) - Note Progress Note: awake and alert nonbloody greenyellow no blood- 2 small bms denies abdominal pain Vital Signs Period Temp Pulse Resp BP Sys/Thmopson Pulse Ox Last 24 Hr 97.9 F-98.8 F 62-82 18-20 111-128/40-76 97-100 cor-rrr lungs clear abd soft, right sided abdominal pain to palpation ext no edema CBC, BMP 10/29/17 07:47 10/29/17 07:47 Current Medications Metronidazole (Flagyl 500mg Premixed Ivpb -) 500 mg in 100 mls @ 100 mls/hr IVPB Q8H-IV YANN Last Admin: 10/29/17 10:11 Dose: 100 mls/hr Sodium Chloride (Normal Saline -) 1,000 mls @ 75 mls/hr IV ASDIR YANN Last Admin: 10/29/17 16:08 Dose: 75 mls/hr Piperacillin Sod/Tazobactam (Sod 2.25 gm/ Dextrose) 50 mls @ 100 mls/hr IVPB Q8H-IV YANN PRN Reason: Protocol Last Admin: 10/29/17 11:05 Dose: 100 mls/hr Insulin Aspart (Novolog Vial Sliding Scale -) 1 vial SQ TIDAC YANN PRN Reason: Protocol Last Admin: 10/29/17 11:53 Dose: Not Given Ondansetron HCl (Zofran Injection) 4 mg IVPUSH Q4H PRN PRN Reason: NAUSEA AND/OR VOMITING Pantoprazole Sodium (Protonix -) 40 mg PO BID YANN Last Admin: 10/29/17 10:13 Dose: 40 mg Simethicone (Mylicon -) 80 mg PO Q6H PRN PRN Reason: GAS Last Admin: 10/28/17 22:11 Dose: 80 mg Microbiology 10/27/17 13:02 Blood - Peripheral Venous Blood Culture - Preliminary NO GROWTH OBTAINED AFTER 48 HOURS, INCUBATION TO CONTINUE FOR 3 DAYS. 10/27/17 13:02 Blood - Peripheral Venous Blood Culture - Preliminary NO GROWTH OBTAINED AFTER 48 HOURS, INCUBATION TO CONTINUE FOR 3 DAYS. 10/27/17 14:37 Stool Salmonella/Shigella Culture - Preliminary NO ENTERIC PATHOGENS, 24 HOURS, ON PRIMARY PLATES 10/27/17 14:37 Stool Yersinia Culture - Preliminary NO ENTERIC PATHOGENS, 24 HOURS, ON PRIMARY PLATES 10/27/17 14:37 Stool Vibrio Culture - Final NO GROWTH OF VIBRIO SPECIES OBTAINED 10/27/17 14:37 Stool Escherichia coli 0157 Culture - Final NO GROWTH OF E COLI 0157 OBTAINED 10/27/17 18:42 Urine - Urine Clean Catch Urine Culture - Final NO GROWTH OBTAINED 10/28/17 08:30 Stool Clostridium difficile Antigen (LUCIANO) - Final 10/28/17 08:30 Stool Clostridium difficile Toxin Assay - Final a/p abdominal pain/icemic colitis continue zosyn/flagyl CKD overall prognosis poor
[2017-10-29] MEDS ORDERED: PT OWN MED DRAWER 7, Y5N ONE ×2 (19:02→21:02)
[2017-10-29] MEDS: APIXABAN 2.5 MG TABLET PO SCH (22:43)
[2017-10-30] MEDS ORDERED: PT OWN MED DRAWER 7, Y5N ONE ×3 (02:32→21:13)
[2017-10-30] MEDS: PIPERACILLIN/TAZOB 2.25 GM 2.25 GM in DEXTROSE 5%-WATER - 50 ML IVPB SCH ×3 (03:40→17:16)
[2017-10-30] MEDS: INSULIN SLIDING SCALE (NOVOLOG) 1 VIAL SQ SCH ×3 (07:00→17:19)
[2017-10-30] MEDS: LEVOTHYROXINE NA 25 MCG TABLET (FP) PO SCH (07:00)
[2017-10-30 08:16] LABS: BASO % 0.3 % (0-2.0); EOS % 0.3 % (0-4.5); HEMATOCRIT 21.3 % (32.4-45.2); HEMOGLOBIN 7.4 GM/dL (10.7-15.3); LYMPH % 11.2 % (8-40); MCH 30.5 pg (25.7-33.7); MCHC 34.9 g/dl (32.0-36.0); MEAN CELL VOLUME 87.4 fl (80-96); MEAN PLT VOLUME 7.7 fl (7.5-11.1); MONO % 3.2 % (3.8-10.2); PLATELET COUNT 189 K/MM3 (134-434); RBC 2.44 M/mm3 (3.60-5.2); RDW 14.9 % (11.6-15.6); WHITE BLOOD COUNT 13.1 K/mm3 (4.0-10.0)
[2017-10-30 08:19] LABS: SERUM IRON SATURATION 5 % (15-55); TOTAL IRON BINDING CAPACITY 219 ug/dL (250-450); UIBC 209 ug/dL (118-369)
--- NOTE | 2017-10-30 08:50 | EKG ---
Test Reason : Blood Pressure : / mmHG Vent. Rate : 057 BPM Atrial Rate : 057 BPM P-R Int : 270 ms QRS Dur : 104 ms QT Int : 512 ms P-R-T Axes : 051 -03 008 degrees QTc Int : 498 ms SINUS BRADYCARDIA WITH 1ST DEGREE A-V BLOCK NONSPECIFIC ST ABNORMALITY PROLONGED QT ABNORMAL ECG WHEN COMPARED WITH ECG OF 08-MAY-2017 15:45, SINUS RHYTHM HAS REPLACED ATRIAL FIBRILLATION T WAVE INVERSION LESS EVIDENT IN INFERIOR LEADS T WAVE INVERSION LESS EVIDENT IN ANTEROLATERAL LEADS Confirmed by CHAVO CURTIS, CATY ([id number]) on 10/30/2017 8:50:22 AM Referred By: DAYANNA BARAJAS Confirmed By:CATY TONY MD
--- NOTE | 2017-10-30 09:13 | PN ---
Progress Note (short form) - Note Progress Note: awake and alert oob in chair feels comfortable reports less abdominal pain +bm this am- no gross blood noted Vital Signs Period Temp Pulse Resp BP Sys/Thompson Pulse Ox Last 24 Hr 97.6 F-98.7 F 62-82 18-19 111-138/41-66 97-100 cor-rrr lungs decreased bs at bases abd soft,nt-minimal abd pain to palpation +BS ext no edema CBC, BMP 10/30/17 07:45 chemistries pending Microbiology 10/27/17 13:02 Blood - Peripheral Venous Blood Culture - Preliminary NO GROWTH OBTAINED AFTER 48 HOURS, INCUBATION TO CONTINUE FOR 3 DAYS. 10/27/17 13:02 Blood - Peripheral Venous Blood Culture - Preliminary NO GROWTH OBTAINED AFTER 48 HOURS, INCUBATION TO CONTINUE FOR 3 DAYS. 10/27/17 14:37 Stool Salmonella/Shigella Culture - Preliminary NO ENTERIC PATHOGENS, 24 HOURS, ON PRIMARY PLATES 10/27/17 14:37 Stool Yersinia Culture - Preliminary NO ENTERIC PATHOGENS, 24 HOURS, ON PRIMARY PLATES 10/27/17 14:37 Stool Vibrio Culture - Final NO GROWTH OF VIBRIO SPECIES OBTAINED 10/27/17 14:37 Stool Escherichia coli 0157 Culture - Final NO GROWTH OF E COLI 0157 OBTAINED 10/27/17 18:42 Urine - Urine Clean Catch Urine Culture - Final NO GROWTH OBTAINED 10/28/17 08:30 Stool Clostridium difficile Antigen (LUCIANO) - Final 10/28/17 08:30 Stool Clostridium difficile Toxin Assay - Final cdiff negative a/p abdominal pain/ischemic colitis continue zosyn/flagyl CKD d/w family at bedside overall prognosis poor
[2017-10-30 09:29] LABS: ALBUMIN 2.2 g/dl (3.4-5.0); ALK PHOS 42 U/L (45-117); ANION GAP 13 (8-16); BILIRUBIN,TOTAL 0.4 mg/dL (0.2-1.0); BLOOD UREA NITROGEN 57 mg/dL (7-18); CALCIUM 7.9 mg/dL (8.5-10.1); CHLORIDE 114 mmol/L (98-107); CO2 15 mmol/L (21-32); CREATININE 2.4 mg/dL (0.55-1.02); GLUCOSE,RANDOM 128 mg/dL (74-106); MAGNESIUM 2.2 mg/dL (1.8-2.4); POTASSIUM 3.4 mmol/L (3.5-5.1); SGOT/AST 11 U/L (15-37); SGPT/ALT 9 U/L (12-78); SODIUM 142 mmol/L (136-145); TOT PROT 5.3 g/dl (6.4-8.2)
[2017-10-30] MEDS ORDERED: LISINOPRIL 10 MG TABLET (FP) PO SCH (10:00)
[2017-10-30] MEDS: SODIUM CHLORIDE 1,000 ML IV SCH (10:04)
[2017-10-30] MEDS ORDERED: PIPERACILLIN/TAZOBACTAM 2.25 GM VIAL IVPB ONE ×2 (10:20→16:57)
[2017-10-30] MEDS ORDERED: DEXTROSE 5%-WATER - 50 ML IVPB ONE ×2 (10:20→16:58)
[2017-10-30] MEDS: amLODIPine BESYLATE 5 MG TABLET (FP) PO SCH (10:24)
[2017-10-30] MEDS: MULTIVITAMINS (DAILY MVI) TABLET (FP) PO SCH (10:24)
[2017-10-30] MEDS: ATENOLOL 25 MG TABLET (FP) PO SCH (10:24)
[2017-10-30] MEDS: OMEGA-3 ACID ETHYL ESTERS (FATTY-ACIDS) 1 GM CAPSULE (FP) PO SCH ×2 (10:24→17:15)
[2017-10-30] MEDS: APIXABAN 2.5 MG TABLET PO SCH ×2 (10:24→21:54)
[2017-10-30] MEDS: PANTOPRAZOLE 40 MG TABLET (FP) PO SCH ×2 (10:24→21:54)
[2017-10-30] MEDS: SODIUM BICARBONATE 650 MG TABLET PO SCH ×2 (10:45→21:54)
--- NOTE | 2017-10-30 11:02 | PN ---
Progress Note (short form) - Note Progress Note: Renal follow up for GABY on CKD Pt seen and examined at the bedside no acute complaints no sob, chest pain had a loose BM but no blood Vital Signs Temperature 97.9 F 10/30/17 08:00 Pulse Rate 66 10/30/17 08:00 Respiratory Rate 18 10/30/17 08:00 Blood Pressure 133/46 10/30/17 08:00 O2 Sat by Pulse Oximetry (%) 100 10/30/17 08:36 Intake & Output 10/27/17 10/28/17 10/29/17 10/30/17 23:59 23:59 23:59 23:59 Intake Total 500 2650 2150 1050 Output Total 300 Balance 200 2650 2150 1050 Weight 54.431 kg 53.07 kg NAD, awake and alert RRR, No M/R CTA, no rales or wheeze soft, + tenderness No LE edema, clubbing or cyanosis CBC, BMP 10/30/17 07:45 10/30/17 07:45 Current Medications Amlodipine Besylate (Norvasc -) 5 mg PO DAILY [facility] Last Admin: 10/30/17 10:24 Dose: 5 mg Apixaban (Eliquis -) 2.5 mg PO BID [facility] Last Admin: 10/30/17 10:24 Dose: 2.5 mg Atenolol (Tenormin -) 25 mg PO DAILY [facility] Last Admin: 10/30/17 10:24 Dose: 25 mg Donepezil HCl (Aricept -) 10 mg PO [facility] Metronidazole (Flagyl 500mg Premixed Ivpb -) 500 mg in 100 mls @ 100 mls/hr IVPB Q8H-IV YANN Last Admin: 10/30/17 10:23 Dose: 100 mls/hr Piperacillin Sod/Tazobactam (Sod 2.25 gm/ Dextrose) 50 mls @ 100 mls/hr IVPB Q8H-IV YANN PRN Reason: Protocol Last Admin: 10/30/17 10:23 Dose: 100 mls/hr Dextrose/Sodium Chloride (D5-1/2ns+40 Meq Kcl -) 40 meq in 1,000 mls @ 60 mls/ hr IV ASDIR [facility] Insulin Aspart (Novolog Vial Sliding Scale -) 1 vial SQ TIDAC [facility] PRN Reason: Protocol Last Admin: 10/30/17 07:00 Dose: Not Given Levothyroxine Sodium (Synthroid -) 25 mcg PO DAILY@0700 [facility] Last Admin: 10/30/17 07:00 Dose: 25 mcg Multivitamins/Minerals/Vitamin C (Tab-A-Vit -) 1 tab PO DAILY [facility] Last Admin: 10/30/17 10:24 Dose: 1 tab Adhlb-2-Wpji Ethyl Esters (Lovaza -) 2 gm PO BID@1000,1700 [facility] Last Admin: 10/30/17 10:24 Dose: 2 gm Ondansetron HCl (Zofran Injection) 4 mg IVPUSH Q4H PRN PRN Reason: NAUSEA AND/OR VOMITING Pantoprazole Sodium (Protonix -) 40 mg PO BID [facility] Last Admin: 10/30/17 10:24 Dose: 40 mg Simethicone (Mylicon -) 80 mg PO Q6H PRN PRN Reason: GAS Last Admin: 10/28/17 22:11 Dose: 80 mg Sodium Bicarbonate (Sodium Bicarbonate -) 650 mg PO BID [facility] Last Admin: 10/30/17 10:45 Dose: 650 mg 87 year old woman with PMhx of CKD Stage 4 (baseline Cr 1.8-2), AFib on Eliquis , Hypertension, Hypothyrodism who presented with complaints of abd pain and diarrhea and found to have possible ischemic colitis and GABY and Na of 122. #Hypovolemic Hyponatremia #GABY on CKD stage 4 #Ischemic Colitis/Gas in Portal circulation #Metabolic acidosis/Lactic acidosis #Anemia #Afib on Eliquis #Hyperphosphatemia Renal function slowly improving toward baseline serum na is improved and stable Change IVF to D5 1/2 NS with KCL as pt with worsening metabolic acidosis and serum na is now > 140 start sodium bicarbonate PO BID lactic acidosis is resolved continue Abx as per ID conservative care as per GI and General Surgery Refugio Allen DO
--- NOTE | 2017-10-30 11:05 | PN ---
Physical Exam: SUBJECTIVE: Patient seen and examined with her family in attendance. Patient is belarusian speaking only and tells me that she feels better today. She is sitting in the chair and is more comfortable. Slept the entire night. 3 loose brown BMs today Patient, son and daughter are in agreement on receiving 1 unit of prbc. She has received a unit of blood 05/2017 and tolerated it well. Advised family that it would be a good idea, if patient sees a dry wall sprayer for her anemia, they are in agreement. Tolerating her clear liquid diet, no nausea or vomiting, abdomen less tender. OBJECTIVE: for 1 unit of prbc today, continue PT and close monitoring of intake and output Vital Signs Period Temp Pulse Resp BP Sys/Thompson Pulse Ox Last 24 Hr 97.6 F-98.1 F 63-82 18-19 111-138/41-66 97-100 GENERAL: Awake and alert, sitting in recliner, smiling. states she feels better , and her abdominal pain is improved. Having mild pain on LLQ, RUQ pain no longer there. HEAD: Normal with no signs of trauma. EYES: PERRL, extraocular movements intact, sclera anicteric, conjunctiva clear. No ptosis. ENT: Ears normal, nares patent, oropharynx clear without exudates, moist mucous membranes. NECK: Trachea midline, full range of motion, supple. LUNGS: Breath sounds equal anteriorly, clear HEART: Regular rate and rhythm, hx of afib, on eliquis ABDOMEN: soft, tender on light palpation, now on clears EXTREMITIES:no edema. NEUROLOGICAL: Normal speech, gait not observed. PSYCH: Normal mood, normal affect. SKIN: Warm, dry, normal turgor, no rashes or lesions noted Laboratory Results - last 24 hr 10/27/17 10/29/17 10/30/17 15:40 07:47 06:53 WBC RBC Hgb Hct MCV MCH MCHC RDW Plt Count MPV Neutrophils % Lymphocytes % Monocytes % Eosinophils % Basophils % Sodium Potassium Chloride Carbon Dioxide Anion Gap BUN Creatinine Creat Clearance w eGFR POC Glucometer 137 Random Glucose Calcium Magnesium Iron 10 L TIBC 219 L Iron Saturation 5 L Total Bilirubin AST ALT Alkaline Phosphatase C-Reactive Protein Total Protein Albumin Stool Pancreat Elastase Cancelled Stool O & P Wet [place] Permanent Slide Final report Crossmatch 10/30/17 10/30/17 10/30/17 07:45 07:45 07:45 WBC 13.1 H RBC 2.44 L Hgb 7.4 L Hct 21.3 L MCV 87.4 MCH 30.5 MCHC 34.9 RDW 14.9 Plt Count 189 MPV 7.7 Neutrophils % 85.0 H Lymphocytes % 11.2 D Monocytes % 3.2 L Eosinophils % 0.3 D Basophils % 0.3 Sodium 142 Potassium 3.4 L Chloride 114 H Carbon Dioxide 15 L Anion Gap 13 BUN 57 H Creatinine 2.4 H Creat Clearance w eGFR 19.19 POC Glucometer Random Glucose 128 H Calcium 7.9 L Magnesium 2.2 Cancelled Iron TIBC Iron Saturation Total Bilirubin 0.4 AST 11 L ALT 9 L Alkaline Phosphatase 42 L C-Reactive Protein 17.8 H Total Protein 5.3 L Albumin 2.2 L Stool Pancreat Elastase Stool O & P Wet [place] Permanent Slide Crossmatch 10/30/17 10:35 WBC RBC Hgb Hct MCV MCH MCHC RDW Plt Count MPV Neutrophils % Lymphocytes % Monocytes % Eosinophils % Basophils % Sodium Potassium Chloride Carbon Dioxide Anion Gap BUN Creatinine Creat Clearance w eGFR POC Glucometer Random Glucose Calcium Magnesium Iron TIBC Iron Saturation Total Bilirubin AST ALT Alkaline Phosphatase C-Reactive Protein Total Protein Albumin Stool Pancreat Elastase Stool O & P Wet [place] Permanent Slide Crossmatch See Detail Active Medications Generic Name Dose Route Start Last Admin Trade Name Freq PRN Reason Stop Dose Admin Amlodipine Besylate 5 mg 10/30/17 10:00 10/30/17 10:24 Norvasc - PO 5 mg DAILY YANN Administration Apixaban 2.5 mg 10/29/17 22:00 10/30/17 10:24 Eliquis - PO 2.5 mg BID YANN Administration Atenolol 25 mg 10/30/17 10:00 10/30/17 10:24 Tenormin - PO 25 mg DAILY YANN Administration Donepezil HCl 10 mg 10/30/17 22:00 Aricept - PO HS YANN Metronidazole 500 mg in 100 mls @ 100 mls/hr 10/29/17 02:00 10/30/17 10:23 Flagyl 500mg Premixed Ivpb - IVPB 100 mls/hr Q8H-IV YANN Administration Piperacillin Sod/Tazobactam 50 mls @ 100 mls/hr 10/29/17 02:00 10/30/17 10:23 Sod 2.25 gm/ Dextrose IVPB 100 mls/hr Q8H-IV YANN Administration Protocol Dextrose/Sodium Chloride 40 meq in 1,000 mls @ 60 mls/hr 10/30/17 10:30 D5-1/2ns+40 Meq Kcl - IV ASDIR YANN Insulin Aspart 1 vial 10/29/17 07:00 10/30/17 07:00 Novolog Vial Sliding Scale - SQ Not Given TIDAC [facility] Protocol Levothyroxine Sodium 25 mcg 10/30/17 07:00 10/30/17 07:00 Synthroid - PO 25 mcg DAILY@0700 YANN Administration Multivitamins/Minerals/Vitamin C 1 tab 10/30/17 10:00 10/30/17 10:24 Tab-A-Vit - PO 1 tab DAILY YANN Administration Javyv-0-Ipgh Ethyl Esters 2 gm 10/30/17 10:00 10/30/17 10:24 Lovaza - PO 2 gm BID@1000,1700 YANN Administration Ondansetron HCl 4 mg 10/28/17 21:19 Zofran Injection IVPUSH Q4H PRN NAUSEA AND/OR VOMITING Pantoprazole Sodium 40 mg 10/29/17 10:00 10/30/17 10:24 Protonix - PO 40 mg BID YANN Administration Simethicone 80 mg 10/28/17 21:19 10/28/17 22:11 Mylicon - PO 80 mg Q6H PRN Administration GAS Sodium Bicarbonate 650 mg 10/30/17 10:30 10/30/17 10:45 Sodium Bicarbonate - PO 650 mg BID YANN Administration ASSESSMENT/PLAN: Patient is a 87 year old belarusian speaking female with a significant past medical history of ischemic colitis, chronic abdominal pain, dementia, CKD Stage 4, atrial fibrillation (on Eliquis), hypertension and hyypothyroidism. Patient was transferred to [place] from [place] for severe hyponatremia and probable ischemic colitis. GI: Ischemic colitis On Flagyl IV, Zosyn q8 Started on clears Seen by surgery, no surgical interventions planned GI following Chronic abdominal pain, improving RUQ no longer present, mild LLQ pain started on clears by GI and she seems to be tolerating it Neuro: Dementia, chronic On Aricept At baseline Renal: CKD Stage 4 Followed by renal during hospitalization Renal dose meds Avoid nephrotoxins Monitor intake and output Hyponatremia, resolved Improved with IVF 120>142 Renal following, IVF changed Mild hypokalemia @ 3.4 Will monitor counts, repeat tomorrow On d5 1/2 with 40meq Card: Atril fibrilation (on Eliquis) Patient is rate controlled with Atenolol On Eliquis Hypertension, chronic Controlled on Norvasc, atenolol Hyypothyroidism, chronic On Synthroid Heme: Anemia of chronic disease Iron studies reviewed For 1 unit of prbc today, repeat blood work tomorrow hematology consult beneficial and has seen patient on prior admission On discharge will need referral Patient states she feels mildly weak but has improved F.E.N. Fludis: NS @ 75cc/hr Electrolytes: monitor with daily labs Nutrition: clears, advance as per GI: Prophy: GI: Protonix BID DVT: On Eliquis Visit type - Emergency Visit Emergency Visit: Yes ED Registration Date: 10/27/17 Care time: The patient presented to the Emergency Department on the above date and was hospitalized for further evaluation of their emergent condition. - New Patient This patient is new to me today: No - Critical Care Critical Care patient: No - Discharge Referral Referred to [facility] Med P.C.: No
[2017-10-30] MEDS: D5-1/2NS+40 MEQ KCL - 40 MEQ/1,000 ML INFUS.BAG IV SCH (11:37)
--- NOTE | 2017-10-30 13:31 | PN ---
Progress Note (short form) - Note Progress Note: Chief Complaint: Events noted, notes reviewed, sitting in a recliner, continues to report persistent abdominal pain, denies any chest pain or dyspnea History of Present Illness: Seen and examined. Events noted, notes reviewed, sitting in a recliner, continues to report persistent abdominal pain, denies any chest pain or dyspnea Echocardiography 05/11/2017 revealed normal LV systolic function, left atrial dilatation, moderate MR and TR with RVSP between 30-40 mmHg - Current Medication List Current Medications Amlodipine Besylate (Norvasc -) 5 mg PO DAILY [facility] Last Admin: 10/30/17 10:24 Dose: 5 mg Apixaban (Eliquis -) 2.5 mg PO BID [facility] Last Admin: 10/30/17 10:24 Dose: 2.5 mg Atenolol (Tenormin -) 25 mg PO DAILY [facility] Last Admin: 10/30/17 10:24 Dose: 25 mg Donepezil HCl (Aricept -) 10 mg PO [facility] Metronidazole (Flagyl 500mg Premixed Ivpb -) 500 mg in 100 mls @ 100 mls/hr IVPB Q8H-IV [facility] Last Admin: 10/30/17 10:23 Dose: 100 mls/hr Piperacillin Sod/Tazobactam (Sod 2.25 gm/ Dextrose) 50 mls @ 100 mls/hr IVPB Q8H-IV [facility] PRN Reason: Protocol Last Admin: 10/30/17 10:23 Dose: 100 mls/hr Dextrose/Sodium Chloride (D5-1/2ns+40 Meq Kcl -) 40 meq in 1,000 mls @ 60 mls/ hr IV ASDIR [facility] Last Admin: 10/30/17 11:37 Dose: 60 mls/hr Insulin Aspart (Novolog Vial Sliding Scale -) 1 vial SQ TIDAC [facility] PRN Reason: Protocol Last Admin: 10/30/17 11:25 Dose: 8 unit Levothyroxine Sodium (Synthroid -) 25 mcg PO DAILY@0700 [facility] Last Admin: 10/30/17 07:00 Dose: 25 mcg Multivitamins/Minerals/Vitamin C (Tab-A-Vit -) 1 tab PO DAILY [facility] Last Admin: 10/30/17 10:24 Dose: 1 tab Ahzsu-9-Dabt Ethyl Esters (Lovaza -) 2 gm PO BID@1000,1700 [facility] Last Admin: 10/30/17 10:24 Dose: 2 gm Ondansetron HCl (Zofran Injection) 4 mg IVPUSH Q4H PRN PRN Reason: NAUSEA AND/OR VOMITING Pantoprazole Sodium (Protonix -) 40 mg PO BID [facility] Last Admin: 10/30/17 10:24 Dose: 40 mg Simethicone (Mylicon -) 80 mg PO Q6H PRN PRN Reason: GAS Last Admin: 10/28/17 22:11 Dose: 80 mg Sodium Bicarbonate (Sodium Bicarbonate -) 650 mg PO BID [facility] Last Admin: 10/30/17 10:45 Dose: 650 mg - Objective Vital Signs: Last Vital Signs Temp Pulse Resp BP Pulse Ox 97.9 F 66 18 133/46 100 10/30/17 08:00 10/30/17 08:00 10/30/17 08:00 10/30/17 08:00 10/30/17 08:36 Intake & Output 10/27/17 10/28/17 10/29/17 10/30/17 23:59 23:59 23:59 23:59 Intake Total 500 2650 2150 1050 Output Total 300 Balance 200 2650 2150 1050 Weight 120 lb 117 lb Neck: Supple Negative JVD No Bruit Cardiovascular: S1 S2 Irregularly Irregular Grade 1-2/6 Systolic Ejection Murmur Respiratory: Diminished at the Bases Gastrointestinal: Soft Tenderness Diffuse Normal Bowel Sounds Ext: No Edema Labs: CBC, BMP 10/30/17 07:45 10/30/17 07:45 Hepatic Panel Total Bilirubin 0.4 mg/dL (0.2-1.0) 10/30/17 07:45 AST 11 U/L (15-37) L 10/30/17 07:45 ALT 9 U/L (12-78) L 10/30/17 07:45 Alkaline Phosphatase 42 U/L (45-117) L 10/30/17 07:45 Albumin 2.2 g/dl (3.4-5.0) L 10/30/17 07:45 Assessment/Plan ASSESSMENT: 1. Ischemic colitis, mesenteric ischemia with intestinal angina for conseravitve medical management 2. Persistent atrial fibrillation on A/C with NOAC's/Eliquis [id number] score of 5, rate controlled 3. 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 Diastolic LV dysfunction with chronic class I-II NYHA classification LV failure, compensated/euvolemic 5. HTN/HCVD 6. DM 7. Hypercholesterolemia 8. Hypothyroidism 9. Dementia/Organic brain syndrome 10. Acute on chronic kidney injury 11. Hypokalemia 12. Anemia PLAN: 1. Continue Atenolol 2. Continue Norvasc 3. Recommend resumption of ACEI/ARBS if not contraindicated, pending renal function recovery 4. Continue Eliquis at the above noted dosage (age > 80 and Creatinine > 1.5) 5. Antibiotics as per the primary team 6. Transfusion to maintain hemoglobin equal or greater than 8.0 German Miranda M.D.
[2017-10-30] MEDS: ACETAMINOPHEN 325 MG TABLET (FP) PO PRN (17:15)
[2017-10-30] MEDS: DONEPEZIL HCL 10 MG TABLET (FP) PO SCH (21:54)
[2017-10-31] MEDS ORDERED: PIPERACILLIN/TAZOBACTAM 2.25 GM VIAL IVPB ONE ×3 (01:16→17:54)
[2017-10-31] MEDS ORDERED: DEXTROSE 5%-WATER - 50 ML IVPB ONE ×3 (01:17→17:55)
[2017-10-31] MEDS: PIPERACILLIN/TAZOB 2.25 GM 2.25 GM in DEXTROSE 5%-WATER - 50 ML IVPB SCH ×3 (01:21→18:04)
[2017-10-31] MEDS: ACETAMINOPHEN 325 MG TABLET (FP) PO PRN ×2 (02:12→20:34)
[2017-10-31] MEDS ORDERED: PT OWN MED DRAWER 7, Y5N ONE ×4 (06:01→21:07)
[2017-10-31] MEDS: INSULIN SLIDING SCALE (NOVOLOG) 1 VIAL SQ SCH ×3 (06:30→17:02)
[2017-10-31] MEDS: LEVOTHYROXINE NA 25 MCG TABLET (FP) PO SCH (06:33)
[2017-10-31 08:08] LABS: BASO % 0.5 % (0-2.0); EOS % 1.1 % (0-4.5); HEMATOCRIT 25.5 % (32.4-45.2); LYMPH % 14.2 % (8-40); MCH 30.7 pg (25.7-33.7); MCHC 35.5 g/dl (32.0-36.0); MEAN CELL VOLUME 86.5 fl (80-96); NEUT % 81.2 % (42.8-82.8); PLATELET COUNT 209 K/MM3 (134-434); RBC 2.94 M/mm3 (3.60-5.2); RDW 14.2 % (11.6-15.6); WHITE BLOOD COUNT 9.8 K/mm3 (4.0-10.0)
[2017-10-31] MEDS: SIMETHICONE 80 MG TAB.CHEW (FP) PO PRN ×2 (08:39→18:07)
[2017-10-31 08:40] LABS: ALBUMIN 2.1 g/dl (3.4-5.0); ANION GAP 11 (8-16); BLOOD UREA NITROGEN 39 mg/dL (7-18); CALCIUM 7.5 mg/dL (8.5-10.1); CHLORIDE 111 mmol/L (98-107); CO2 15 mmol/L (21-32); GLUCOSE,RANDOM 217 mg/dL (74-106); MAGNESIUM 1.9 mg/dL (1.8-2.4); POTASSIUM 3.2 mmol/L (3.5-5.1); SODIUM 137 mmol/L (136-145)
[2017-10-31 08:44] LABS: ALK PHOS 39 U/L (45-117); BILIRUBIN,TOTAL 0.4 mg/dL (0.2-1.0); CREATININE 2.1 mg/dL (0.55-1.02); PHOSPHOROUS 1.3 mg/dL (2.5-4.9); SGOT/AST 8 U/L (15-37); SGPT/ALT 7 U/L (12-78)
[2017-10-31] MEDS ORDERED: POTASSIUM PHOSPHATE 30 MM in DEXTROSE 5%-WATER - 500 ML IVPB ONE (09:22)
[2017-10-31] MEDS: ATENOLOL 25 MG TABLET (FP) PO SCH (09:56)
[2017-10-31] MEDS: APIXABAN 2.5 MG TABLET PO SCH ×2 (09:56→21:12)
[2017-10-31] MEDS: PANTOPRAZOLE 40 MG TABLET (FP) PO SCH ×2 (09:56→21:12)
[2017-10-31] MEDS: amLODIPine BESYLATE 5 MG TABLET (FP) PO SCH (09:56)
[2017-10-31] MEDS: OMEGA-3 ACID ETHYL ESTERS (FATTY-ACIDS) 1 GM CAPSULE (FP) PO SCH ×2 (09:56→17:02)
[2017-10-31] MEDS: SODIUM BICARBONATE 650 MG TABLET PO SCH ×2 (09:56→21:12)
[2017-10-31] MEDS: MULTIVITAMINS (DAILY MVI) TABLET (FP) PO SCH (09:56)
[2017-10-31] MEDS: D5-1/2NS+40 MEQ KCL - 40 MEQ/1,000 ML INFUS.BAG IV SCH (09:57)
--- NOTE | 2017-10-31 10:35 | PN ---
Progress Note (short form) - Note Progress Note: Chief Complaint: Events noted, notes reviewed, sitting in a recliner, continues to report persistent abdominal pain and belching, denies any chest pain or dyspnea History of Present Illness: Seen and examined. Events noted, notes reviewed, sitting in a recliner, continues to report persistent abdominal pain and belching, denies any chest pain or dyspnea Echocardiography 05/11/2017 revealed normal LV systolic function, left atrial dilatation, moderate MR and TR with RVSP between 30-40 mmHg - Current Medication List Current Medications Acetaminophen (Tylenol -) 650 mg PO Q6H PRN PRN Reason: PAIN LEVEL 6-10 Last Admin: 10/31/17 02:12 Dose: 650 mg Amlodipine Besylate (Norvasc -) 5 mg PO DAILY [facility] Last Admin: 10/31/17 09:56 Dose: 5 mg Apixaban (Eliquis -) 2.5 mg PO BID [facility] Last Admin: 10/31/17 09:56 Dose: 2.5 mg Atenolol (Tenormin -) 25 mg PO DAILY [facility] Last Admin: 10/31/17 09:56 Dose: 25 mg Donepezil HCl (Aricept -) 10 mg PO HS [facility] Last Admin: 10/30/17 21:54 Dose: 10 mg Metronidazole (Flagyl 500mg Premixed Ivpb -) 500 mg in 100 mls @ 100 mls/hr IVPB Q8H-IV YANN Last Admin: 10/31/17 09:56 Dose: 100 mls/hr Piperacillin Sod/Tazobactam (Sod 2.25 gm/ Dextrose) 50 mls @ 100 mls/hr IVPB Q8H-IV YANN PRN Reason: Protocol Last Admin: 10/31/17 01:21 Dose: 100 mls/hr Dextrose/Sodium Chloride (D5-1/2ns+40 Meq Kcl -) 40 meq in 1,000 mls @ 60 mls/ hr IV ASDIR [facility] Last Admin: 10/31/17 09:57 Dose: 60 mls/hr Potassium Phosphate 30 mm/ (Dextrose) 510 mls @ 85 mls/hr IVPB ONCE ONE Stop: 10/31/17 15:21 Insulin Aspart (Novolog Vial Sliding Scale -) 1 vial SQ TIDAC [facility] PRN Reason: Protocol Last Admin: 10/31/17 06:30 Dose: 4 unit Levothyroxine Sodium (Synthroid -) 25 mcg PO DAILY@0700 [facility] Last Admin: 10/31/17 06:33 Dose: 25 mcg Multivitamins/Minerals/Vitamin C (Tab-A-Vit -) 1 tab PO DAILY [facility] Last Admin: 10/31/17 09:56 Dose: 1 tab Evmwk-3-Zgza Ethyl Esters (Lovaza -) 2 gm PO BID@1000,1700 [facility] Last Admin: 10/31/17 09:56 Dose: 2 gm Ondansetron HCl (Zofran Injection) 4 mg IVPUSH Q4H PRN PRN Reason: NAUSEA AND/OR VOMITING Pantoprazole Sodium (Protonix -) 40 mg PO BID [facility] Last Admin: 10/31/17 09:56 Dose: 40 mg Simethicone (Mylicon -) 80 mg PO Q6H PRN PRN Reason: GAS Last Admin: 10/31/17 08:39 Dose: 80 mg Sodium Bicarbonate (Sodium Bicarbonate -) 650 mg PO BID [facility] Last Admin: 10/31/17 09:56 Dose: 650 mg - Objective Vital Signs: Last Vital Signs Temp Pulse Resp BP Pulse Ox 97.3 F L 71 18 136/78 100 10/31/17 08:00 10/31/17 08:00 10/31/17 08:00 10/31/17 08:00 10/30/17 21:00 Intake & Output 10/28/17 10/29/17 10/30/17 10/31/17 23:59 23:59 23:59 23:59 Intake Total 2650 2150 3185 870 Balance 2650 2150 3185 870 Weight 117 lb Neck: Supple Negative JVD No Bruit Cardiovascular: S1 S2 Irregularly Irregular Grade 1-2/6 Systolic Ejection Murmur Respiratory: Diminished at the Bases Gastrointestinal: Soft Tenderness Diffuse Normal Bowel Sounds Ext: No Edema Labs: CBC, BMP 10/31/17 07:15 10/31/17 07:15 Hepatic Panel Total Bilirubin 0.4 mg/dL (0.2-1.0) 10/31/17 07:15 AST 8 U/L (15-37) L 10/31/17 07:15 ALT 7 U/L (12-78) L 10/31/17 07:15 Alkaline Phosphatase 39 U/L (45-117) L 10/31/17 07:15 Albumin 2.1 g/dl (3.4-5.0) L 10/31/17 07:15 INR, PTT INR 1.20 (0.82-1.09) 10/27/17 13:02 Assessment/Plan ASSESSMENT: 1. Ischemic colitis, mesenteric ischemia with intestinal angina for conservative medical management 2. Persistent atrial fibrillation on A/C with NOAC's/Eliquis [id number] score of 5, rate controlled 3. 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 Diastolic LV dysfunction with chronic class I-II NYHA classification LV failure, compensated/euvolemic 5. HTN/HCVD 6. DM 7. Hypercholesterolemia 8. Hypothyroidism 9. Dementia/Organic brain syndrome 10. Acute on chronic kidney injury 11. Hypokalemia 12. Anemia PLAN: 1. Continue Atenolol 2. Continue Norvasc 3. As outlined recommend resumption of ACEI/ARBS if not contraindicated, pending renal function recovery 4. Continue Eliquis at the above noted dosage (age > 80 and Creatinine > 1.5) 5. Antibiotics as per the primary team 6. Transfusion to maintain hemoglobin equal or greater than 8.0 Care was discussed in detail with patient's daughter who was at the bedside German Miranda M.D.
[2017-10-31] MEDS ORDERED: INSULIN (NOVOLOG) ASPART 100 UNITS/ML 10ML VIAL ONE (11:12)
--- NOTE | 2017-10-31 13:14 | PN ---
Physical Exam: SUBJECTIVE: Patient seen and examined OBJECTIVE: Vital Signs Period Temp Pulse Resp BP Sys/Thompson Pulse Ox Last 24 Hr 97.3 F-98.2 F 63-71 18-20 128-148/49-89 100 GENERAL: The patient is awake, alert, and fully oriented, in no acute distress. HEAD: Normal with no signs of trauma. EYES: PERRL, extraocular movements intact, sclera anicteric, conjunctiva clear. No ptosis. ENT: Ears normal, nares patent, oropharynx clear without exudates, moist mucous membranes. NECK: Trachea midline, full range of motion, supple. LUNGS: Breath sounds equal, clear to auscultation bilaterally, no wheezes, no crackles, no accessory muscle use. HEART: Regular rate and rhythm, S1, S2 without murmur, rub or gallop. ABDOMEN: Soft, nontender, nondistended, normoactive bowel sounds, no guarding, no rebound, no hepatosplenomegaly, no masses. EXTREMITIES: 2+ pulses, warm, well-perfused, no edema. NEUROLOGICAL: Cranial nerves II through XII grossly intact. Normal speech, gait not observed. PSYCH: Normal mood, normal affect. SKIN: Warm, dry, normal turgor, no rashes or lesions noted Laboratory Results - last 24 hr 10/30/17 10/31/17 10/31/17 17:18 06:29 07:15 WBC 9.8 RBC 2.94 L D Hgb 9.0 L D Hct 25.5 L D MCV 86.5 MCH 30.7 MCHC 35.5 RDW 14.2 Plt Count 209 MPV 8.0 Neutrophils % 81.2 Lymphocytes % 14.2 D Monocytes % 3.0 L Eosinophils % 1.1 D Basophils % 0.5 Sodium Potassium Chloride Carbon Dioxide Anion Gap BUN Creatinine Creat Clearance w eGFR POC Glucometer 194 246 Random Glucose Calcium Phosphorus Magnesium Total Bilirubin AST ALT Alkaline Phosphatase Total Protein Albumin 10/31/17 10/31/17 07:15 11:46 WBC RBC Hgb Hct MCV MCH MCHC RDW Plt Count MPV Neutrophils % Lymphocytes % Monocytes % Eosinophils % Basophils % Sodium 137 Potassium 3.2 L Chloride 111 H Carbon Dioxide 15 L Anion Gap 11 BUN 39 H Creatinine 2.1 H Creat Clearance w eGFR 22.38 POC Glucometer 254 Random Glucose 217 H Calcium 7.5 L Phosphorus 1.3 L Magnesium 1.9 Total Bilirubin 0.4 AST 8 L ALT 7 L Alkaline Phosphatase 39 L Total Protein 5.0 L Albumin 2.1 L Active Medications Generic Name Dose Route Start Last Admin Trade Name Antolin PRN Reason Stop Dose Admin Acetaminophen 650 mg 10/30/17 16:15 10/31/17 02:12 Tylenol - PO 650 mg Q6H PRN Administration PAIN LEVEL 6-10 Amlodipine Besylate 5 mg 10/30/17 10:00 10/31/17 09:56 Norvasc - PO 5 mg DAILY YANN Administration Apixaban 2.5 mg 10/29/17 22:00 10/31/17 09:56 Eliquis - PO 2.5 mg BID YANN Administration Atenolol 25 mg 10/30/17 10:00 10/31/17 09:56 Tenormin - PO 25 mg DAILY YANN Administration Donepezil HCl 10 mg 10/30/17 22:00 10/30/17 21:54 Aricept - PO 10 mg HS YANN Administration Metronidazole 500 mg in 100 mls @ 100 mls/hr 10/29/17 02:00 10/31/17 09:56 Flagyl 500mg Premixed Ivpb - IVPB 100 mls/hr Q8H-IV YANN Administration Piperacillin Sod/Tazobactam 50 mls @ 100 mls/hr 10/29/17 02:00 10/31/17 11:00 Sod 2.25 gm/ Dextrose IVPB 100 mls/hr Q8H-IV YANN Administration Protocol Dextrose/Sodium Chloride 40 meq in 1,000 mls @ 60 mls/hr 10/30/17 10:30 10/31 09:57 D5-1/2ns+40 Meq Kcl - IV 60 mls/hr ASDIR YANN Administration Potassium Phosphate 30 mm/ 510 mls @ 85 mls/hr 10/31/17 09:22 10/31/17 11:49 Dextrose IVPB 10/31/17 15:21 85 mls/hr ONCE ONE Administration Insulin Aspart 1 vial 10/29/17 07:00 10/31/17 11:49 Novolog Vial Sliding Scale - SQ 6 unit TIDAC YANN Administration Protocol Levothyroxine Sodium 25 mcg 10/30/17 07:00 10/31/17 06:33 Synthroid - PO 25 mcg DAILY@0700 YANN Administration Multivitamins/Minerals/Vitamin C 1 tab 10/30/17 10:00 10/31/17 09:56 Tab-A-Vit - PO 1 tab DAILY [facility]NN Administration Eznan-6-Wxbq Ethyl Esters 2 gm 10/30/17 10:00 10/31/17 09:56 Lovaza - PO 2 gm BID@1000,1700 YANN Administration Ondansetron HCl 4 mg 10/28/17 21:19 Zofran Injection IVPUSH Q4H PRN NAUSEA AND/OR VOMITING Pantoprazole Sodium 40 mg 10/29/17 10:00 10/31/17 09:56 Protonix - PO 40 mg BID YANN Administration Simethicone 80 mg 10/28/17 21:19 10/31/17 08:39 Mylicon - PO 80 mg Q6H PRN Administration GAS Sodium Bicarbonate 650 mg 10/30/17 10:30 10/31/17 09:56 Sodium Bicarbonate - PO 650 mg BID YANN Administration ASSESSMENT/PLAN:
--- NOTE | 2017-10-31 13:21 | PN ---
Physical Exam: SUBJECTIVE: Patient seen and examined at the bedside. OBJECTIVE: Feels better today, family at bedside. Sitting in recliner s/p 1 unit of prbc Vital Signs Period Temp Pulse Resp BP Sys/Thompson Pulse Ox Last 24 Hr 97.3 F-98.2 F 63-71 18-20 128-148/49-89 100 GENERAL: Awake and alert, sitting in recliner, smiling. states she feels better , and her abdominal pain is improved. Having mild pain on LLQ, RUQ pain no longer there. HEAD: Normal with no signs of trauma. EYES: PERRL, extraocular movements intact, sclera anicteric, conjunctiva clear. No ptosis. ENT: Ears normal, nares patent, oropharynx clear without exudates, moist mucous membranes. NECK: Trachea midline, full range of motion, supple. LUNGS: Breath sounds equal anteriorly, clear HEART: Regular rate and rhythm, hx of afib, on eliquis ABDOMEN: soft, tender on light palpation, now on clears EXTREMITIES:no edema. NEUROLOGICAL: Normal speech, gait not observed. PSYCH: Normal mood, normal affect. SKIN: Warm, dry, normal turgor, no rashes or lesions noted Laboratory Results - last 24 hr 10/30/17 10/31/17 10/31/17 17:18 06:29 07:15 WBC 9.8 RBC 2.94 L D Hgb 9.0 L D Hct 25.5 L D MCV 86.5 MCH 30.7 MCHC 35.5 RDW 14.2 Plt Count 209 MPV 8.0 Neutrophils % 81.2 Lymphocytes % 14.2 D Monocytes % 3.0 L Eosinophils % 1.1 D Basophils % 0.5 Sodium Potassium Chloride Carbon Dioxide Anion Gap BUN Creatinine Creat Clearance w eGFR POC Glucometer 194 246 Random Glucose Calcium Phosphorus Magnesium Total Bilirubin AST ALT Alkaline Phosphatase Total Protein Albumin 10/31/17 10/31/17 07:15 11:46 WBC RBC Hgb Hct MCV MCH MCHC RDW Plt Count MPV Neutrophils % Lymphocytes % Monocytes % Eosinophils % Basophils % Sodium 137 Potassium 3.2 L Chloride 111 H Carbon Dioxide 15 L Anion Gap 11 BUN 39 H Creatinine 2.1 H Creat Clearance w eGFR 22.38 POC Glucometer 254 Random Glucose 217 H Calcium 7.5 L Phosphorus 1.3 L Magnesium 1.9 Total Bilirubin 0.4 AST 8 L ALT 7 L Alkaline Phosphatase 39 L Total Protein 5.0 L Albumin 2.1 L Active Medications Generic Name Dose Route Start Last Admin Trade Name Freq PRN Reason Stop Dose Admin Acetaminophen 650 mg 10/30/17 16:15 10/31/17 02:12 Tylenol - PO 650 mg Q6H PRN Administration PAIN LEVEL 6-10 Amlodipine Besylate 5 mg 10/30/17 10:00 10/31/17 09:56 Norvasc - PO 5 mg DAILY YANN Administration Apixaban 2.5 mg 10/29/17 22:00 10/31/17 09:56 Eliquis - PO 2.5 mg BID YANN Administration Atenolol 25 mg 10/30/17 10:00 10/31/17 09:56 Tenormin - PO 25 mg DAILY YANN Administration Donepezil HCl 10 mg 10/30/17 22:00 10/30/17 21:54 Aricept - PO 10 mg HS YANN Administration Metronidazole 500 mg in 100 mls @ 100 mls/hr 10/29/17 02:00 10/31/17 09:56 Flagyl 500mg Premixed Ivpb - IVPB 100 mls/hr Q8H-IV YANN Administration Piperacillin Sod/Tazobactam 50 mls @ 100 mls/hr 10/29/17 02:00 10/31/17 11:00 Sod 2.25 gm/ Dextrose IVPB 100 mls/hr Q8H-IV YANN Administration Protocol Dextrose/Sodium Chloride 40 meq in 1,000 mls @ 60 mls/hr 10/30/17 10:30 10/31 09:57 D5-1/2ns+40 Meq Kcl - IV 60 mls/hr ASDIR YANN Administration Potassium Phosphate 30 mm/ 510 mls @ 85 mls/hr 10/31/17 09:22 10/31/17 11:49 Dextrose IVPB 10/31/17 15:21 85 mls/hr ONCE ONE Administration Insulin Aspart 1 vial 10/29/17 07:00 10/31/17 11:49 Novolog Vial Sliding Scale - SQ 6 unit TIDAC YANN Administration Protocol Levothyroxine Sodium 25 mcg 10/30/17 07:00 10/31/17 06:33 Synthroid - PO 25 mcg DAILY@0700 YANN Administration Multivitamins/Minerals/Vitamin C 1 tab 10/30/17 10:00 04/22/18 09:56 Tab-A-Vit - PO 1 tab DAILY YANN Administration [id number]-8-[id number] Ethyl Esters 2 gm 10/30/17 10:00 10/31/17 09:56 Lovaza - PO 2 gm BID@1000,1700 YANN Administration Ondansetron HCl 4 mg 10/28/17 21:19 Zofran Injection IVPUSH Q4H PRN NAUSEA AND/OR VOMITING Pantoprazole Sodium 40 mg 10/29/17 10:00 10/31/17 09:56 Protonix - PO 40 mg BID YANN Administration Simethicone 80 mg 10/28/17 21:19 10/31/17 08:39 Mylicon - PO 80 mg Q6H PRN Administration GAS Sodium Bicarbonate 650 mg 10/30/17 10:30 10/31/17 09:56 Sodium Bicarbonate - PO 650 mg BID YANN Administration ASSESSMENT/PLAN: Patient is a 87 year old kyrgyz speaking female with a significant past medical history of ischemic colitis, chronic abdominal pain, dementia, CKD Stage 4, atrial fibrillation (on Eliquis), hypertension and hyypothyroidism. Patient was transferred to [place] from [place] for severe hyponatremia and probable ischemic colitis. GI: Ischemic colitis, likely as per GI On Flagyl IV, Zosyn q8 per ID Started on clears, tolerating it, but does not like the bland food Seen by surgery, no surgical interventions planned, family aware GI following Chronic abdominal pain, improving RUQ no longer present, mild LLQ pain started on clears by GI and she seems to be tolerating it + loose stools Neuro: Dementia, chronic On Aricept, At baseline Renal: CKD Stage 4 Followed by renal during hospitalization Renal dose meds Avoid nephrotoxins Monitor intake and output Hyponatremia, resolved Mild hypokalemia @ 3.4 Will monitor counts, repeat tomorrow On d5 07/13 with 40meq Card: Atril fibrilation (on Eliquis) Patient is rate controlled with Atenolol Hypertension, chronic Controlled on Norvasc, atenolol Hyypothyroidism, chronic On Synthroid HLD, on Lovaza Heme: Anemia of chronic disease Iron studies reviewed s/p 1 unit of prbc on 10/30 with with good improvement Heme consulted for continued care Patient states she feels mildly weak but has improved since admission F.E.N. Fludis: d5 1/2 with 40meq Electrolytes: monitor with daily labs Nutrition: clears, advance as per GI: Prophy: GI: Protonix BID DVT: On Eliquis Visit type - Emergency Visit Emergency Visit: Yes ED Registration Date: 10/27/17 Care time: The patient presented to the Emergency Department on the above date and was hospitalized for further evaluation of their emergent condition. - New Patient This patient is new to me today: No - Critical Care Critical Care patient: No - Discharge Referral Referred to [facility] Med P.C.: No
--- NOTE | 2017-10-31 14:54 | PN ---
Progress Note, Physician History of Present Illness: OOB in chair Still with intermittant abdominal pain No c/o fever/ chills + loose BMs WBC improved Blood, stool c/s (-) - Current Medication List Current Medications: Active Medications Acetaminophen (Tylenol -) 650 mg PO Q6H PRN PRN Reason: PAIN LEVEL 6-10 Last Admin: 10/31/17 02:12 Dose: 650 mg Amlodipine Besylate (Norvasc -) 5 mg PO DAILY [facility] [place] [place] Last Admin: 10/31/17 09:56 Dose: 5 mg Apixaban (Eliquis -) 2.5 mg PO BID [facility] Last Admin: 10/31/17 09:56 Dose: 2.5 mg Atenolol (Tenormin -) 25 mg PO DAILY [facility] Last Admin: 10/31/17 09:56 Dose: 25 mg Donepezil HCl (Aricept -) 10 mg PO HS [facility] [place] Last Admin: 10/30/17 21:54 Dose: 10 mg Metronidazole (Flagyl 500mg Premixed Ivpb -) 500 mg in 100 mls @ 100 mls/hr IVPB Q8H-IV [facility] [place] Last Admin: 10/31/17 09:56 Dose: 100 mls/hr Piperacillin Sod/Tazobactam (Sod 2.25 gm/ Dextrose) 50 mls @ 100 mls/hr IVPB Q8H-IV [facility] [place] PRN Reason: Protocol Last Admin: 10/31/17 11:00 Dose: 100 mls/hr Dextrose/Sodium Chloride (D5-1/2ns+40 Meq Kcl -) 40 meq in 1,000 mls @ 60 mls/ hr IV ASDIR [facility] [place] Last Admin: 10/31/17 09:57 Dose: 60 mls/hr Potassium Phosphate 30 mm/ (Dextrose) 510 mls @ 85 mls/hr IVPB ONCE ONE Stop: 10/31/17 15:21 Last Admin: 10/31/17 11:49 Dose: 85 mls/hr Insulin Aspart (Novolog Vial Sliding Scale -) 1 vial SQ TIDAC [facility] [place] PRN Reason: Protocol Last Admin: 10/31/17 11:49 Dose: 6 unit Levothyroxine Sodium (Synthroid -) 25 mcg PO DAILY@0700 [facility] [place] Last Admin: 10/31/17 06:33 Dose: 25 mcg Multivitamins/Minerals/Vitamin C (Tab-A-Vit -) 1 tab PO DAILY [facility] [place] [place] Last Admin: 10/31/17 09:56 Dose: 1 tab [id number]-[id number] Ethyl Esters (Lovaza -) 2 gm PO BID@1000,1700 [facility] [place] [place] Last Admin: 10/31/17 09:56 Dose: 2 gm Ondansetron HCl (Zofran Injection) 4 mg IVPUSH Q4H PRN PRN Reason: NAUSEA AND/OR VOMITING Pantoprazole Sodium (Protonix -) 40 mg PO BID [facility] [place] [place] Last Admin: 10/31/17 09:56 Dose: 40 mg Simethicone (Mylicon -) 80 mg PO Q6H PRN PRN Reason: GAS Last Admin: 10/31/17 08:39 Dose: 80 mg Sodium Bicarbonate (Sodium Bicarbonate -) 650 mg PO BID [facility] [place] [place] Last Admin: 10/31/17 09:56 Dose: 650 mg - Objective Vital Signs: Vital Signs Temperature 97.9 F 10/31/17 14:00 Pulse Rate 61 10/31/17 14:00 Respiratory Rate 17 10/31/17 14:00 Blood Pressure 138/50 10/31/17 14:00 O2 Sat by Pulse Oximetry (%) 100 10/30/17 21:00 Constitutional: Yes: No Distress Cardiovascular: Yes: Regular Rate and Rhythm, S1, S2 Respiratory: Yes: Diminished Gastrointestinal: Yes: Normal Bowel Sounds, Soft, Tenderness, Other (+ L sided abdominal tenderness) Labs: CBC, BMP 10/31/17 07:15 10/31/17 07:15 INR, PTT INR 1.20 (0.82-1.09) 10/27/17 13:02 Assessment/Plan Ischemic colitis Leukocytosis- improved Azotemia- improved Continue empiric zosyn/ flagyl
--- NOTE | 2017-10-31 17:10 | PN ---
GI Progress Note Subjective: GI F/U FOR DR ALMANZA PT IS MUCH IMPROVED STILL SOME SLIGHT HYPOGASTRIC PAIN TOLERATING LIQUIDS NO N/V/F/C/S HAVING SOME LOOSE STOOLS NO BLEEDING/ NO BRBPR SHE IS OOB----> IN CHAIR - Objective Vital Signs: Vital Signs Temperature 97.9 F 10/31/17 14:00 Pulse Rate 61 10/31/17 14:00 Respiratory Rate 17 10/31/17 14:00 Blood Pressure 138/50 10/31/17 14:00 O2 Sat by Pulse Oximetry (%) 100 10/30/17 21:00 Constitutional: No Distress, Calm Eyes: Yes: WNL (+BS HEARD; SLIGHTLY HYPOACTIVE MILD DIFFUSE TENDERNESS TO DEEP PALPATION NOT HARD AND NOT VERY DISTENDED) Labs: CBC, BMP 10/31/17 07:15 10/31/17 07:15 INR, PTT INR 1.20 (0.82-1.09) 10/27/17 13:02 Assessment/Plan 87F ADMIT WITH ISCHEMIC COLITIS APPEARS TO BE RESPONDING TO CONSERVATIVE ABX RX CLINICALLY AND BIOCHEMICALLY ON ABX TOLERAITNG LIQUID DIET ADVANCE DIET SLOWLY TOLERATED F/U LABS SUPPORTIVE CARE
[2017-10-31] MEDS: DONEPEZIL HCL 10 MG TABLET (FP) PO SCH (21:12)
[2017-11-01] MEDS ORDERED: ACETAMINOPHEN 325 MG TABLET (FP) PO ONE (00:11)
[2017-11-01] MEDS: SIMETHICONE 80 MG TAB.CHEW (FP) PO PRN ×2 (00:19→06:54)
[2017-11-01] MEDS ORDERED: DEXTROSE 5%-WATER - 50 ML IVPB ONE ×3 (00:59→17:07)
[2017-11-01] MEDS ORDERED: PIPERACILLIN/TAZOBACTAM 2.25 GM VIAL IVPB ONE ×3 (00:59→17:06)
[2017-11-01] MEDS: PIPERACILLIN/TAZOB 2.25 GM 2.25 GM in DEXTROSE 5%-WATER - 50 ML IVPB SCH ×3 (01:06→17:32)
[2017-11-01] MEDS: LEVOTHYROXINE NA 25 MCG TABLET (FP) PO SCH (06:35)
[2017-11-01] MEDS: INSULIN SLIDING SCALE (NOVOLOG) 1 VIAL SQ SCH ×4 (06:35→21:24)
[2017-11-01] MEDS ORDERED: INSULIN (NOVOLOG) ASPART 100 UNITS/ML 10ML VIAL ONE (07:01)
[2017-11-01] MEDS: ACETAMINOPHEN 325 MG TABLET (FP) PO PRN (09:01)
[2017-11-01] MEDS: D5-1/2NS+40 MEQ KCL - 40 MEQ/1,000 ML INFUS.BAG IV SCH ×2 (10:00→17:58)
[2017-11-01] MEDS ORDERED: PT OWN MED DRAWER 7, Y5N ONE ×2 (10:04→20:42)
[2017-11-01 10:09] LABS: BASO % 0.4 % (0-2.0); EOS % 0.8 % (0-4.5); HEMATOCRIT 30.8 % (32.4-45.2); HEMOGLOBIN 10.6 GM/dL (10.7-15.3); LYMPH % 8.5 % (8-40); MCH 30.1 pg (25.7-33.7); MCHC 34.5 g/dl (32.0-36.0); MEAN CELL VOLUME 87.3 fl (80-96); MEAN PLT VOLUME 7.8 fl (7.5-11.1); MONO % 4.8 % (3.8-10.2); NEUT % 85.5 % (42.8-82.8); PLATELET COUNT 252 K/MM3 (134-434); RBC 3.52 M/mm3 (3.60-5.2); RDW 14.9 % (11.6-15.6); WHITE BLOOD COUNT 11.2 K/mm3 (4.0-10.0)
[2017-11-01] MEDS: ATENOLOL 25 MG TABLET (FP) PO SCH (10:13)
[2017-11-01] MEDS: APIXABAN 2.5 MG TABLET PO SCH ×2 (10:13→21:00)
[2017-11-01] MEDS: OMEGA-3 ACID ETHYL ESTERS (FATTY-ACIDS) 1 GM CAPSULE (FP) PO SCH ×2 (10:13→17:31)
[2017-11-01] MEDS: SODIUM BICARBONATE 650 MG TABLET PO SCH ×2 (10:13→21:00)
[2017-11-01] MEDS: PANTOPRAZOLE 40 MG TABLET (FP) PO SCH ×2 (10:13→21:00)
[2017-11-01] MEDS: MULTIVITAMINS (DAILY MVI) TABLET (FP) PO SCH (10:13)
[2017-11-01] MEDS: amLODIPine BESYLATE 5 MG TABLET (FP) PO SCH (10:13)
[2017-11-01 10:36] LABS: ALBUMIN 2.1 g/dl (3.4-5.0); ALK PHOS 40 U/L (45-117); ANION GAP 7 (8-16); BILIRUBIN,TOTAL 0.4 mg/dL (0.2-1.0); BLOOD UREA NITROGEN 29 mg/dL (7-18); CALCIUM 7.3 mg/dL (8.5-10.1); CHLORIDE 109 mmol/L (98-107); CO2 19 mmol/L (21-32); CREATININE 1.9 mg/dL (0.55-1.02); GLUCOSE,RANDOM 194 mg/dL (74-106); MAGNESIUM 1.5 mg/dL (1.8-2.4); POTASSIUM 3.6 mmol/L (3.5-5.1); SGOT/AST 8 U/L (15-37); SGPT/ALT 7 U/L (12-78); SODIUM 135 mmol/L (136-145); TOT PROT 5.1 g/dl (6.4-8.2)
[2017-11-01] MEDS ORDERED: MAGNESIUM SULF 50% (8.12 MEQ/2 ML-1 GM VIAL) IVPB ONE (10:42)
--- NOTE | 2017-11-01 11:57 | PN ---
Progress Note, Physician History of Present Illness: Abd pain improving, tolerating clear liquid diet, denies hematochezia. - Current Medication List Current Medications: Active Medications Acetaminophen (Tylenol -) 650 mg PO Q6H PRN PRN Reason: PAIN LEVEL 6-10 Last Admin: 11/01/17 09:01 Dose: 650 mg Amlodipine Besylate (Norvasc -) 5 mg PO DAILY [facility] Last Admin: 11/01/17 10:13 Dose: 5 mg Apixaban (Eliquis -) 2.5 mg PO BID [facility] Last Admin: 11/01/17 10:13 Dose: 2.5 mg Atenolol (Tenormin -) 25 mg PO DAILY [facility] Last Admin: 11/01/17 10:13 Dose: 25 mg Donepezil HCl (Aricept -) 10 mg PO HS [facility] Last Admin: 10/31/17 21:12 Dose: 10 mg Metronidazole (Flagyl 500mg Premixed Ivpb -) 500 mg in 100 mls @ 100 mls/hr IVPB Q8H-IV [facility] Last Admin: 11/01/17 10:12 Dose: 100 mls/hr Piperacillin Sod/Tazobactam (Sod 2.25 gm/ Dextrose) 50 mls @ 100 mls/hr IVPB Q8H-IV YANN PRN Reason: Protocol Last Admin: 11/01/17 10:12 Dose: 100 mls/hr Dextrose/Sodium Chloride (D5-1/2ns+40 Meq Kcl -) 40 meq in 1,000 mls @ 60 mls/ hr IV ASDIR [facility] Last Admin: 10/31/17 09:57 Dose: 60 mls/hr Magnesium Sulfate (Magnesium Sulf 2 G/50 Ml Bag) 2 gm in 50 mls @ 50 mls/hr IVPB ONCE ONE Stop: 11/01/17 12:59 Insulin Aspart (Novolog Vial Sliding Scale -) 1 vial SQ TIDAC [facility] PRN Reason: Protocol Last Admin: 11/01/17 06:35 Dose: 4 unit Levothyroxine Sodium (Synthroid -) 25 mcg PO DAILY@0700 [facility] Last Admin: 11/01/17 06:35 Dose: 25 mcg Multivitamins/Minerals/Vitamin C (Tab-A-Vit -) 1 tab PO DAILY [facility] Last Admin: 11/01/17 10:13 Dose: 1 tab Pvfkz-2-Oxez Ethyl Esters (Lovaza -) 2 gm PO BID@1000,1700 [facility] Last Admin: 11/01/17 10:13 Dose: 2 gm Ondansetron HCl (Zofran Injection) 4 mg IVPUSH Q4H PRN PRN Reason: NAUSEA AND/OR VOMITING Pantoprazole Sodium (Protonix -) 40 mg PO BID [facility] Last Admin: 11/01/17 10:13 Dose: 40 mg Simethicone (Mylicon -) 80 mg PO Q6H PRN PRN Reason: GAS Last Admin: 11/01/17 06:54 Dose: 80 mg Sodium Bicarbonate (Sodium Bicarbonate -) 650 mg PO BID [facility] Last Admin: 11/01/17 10:13 Dose: 650 mg - Objective Vital Signs: Vital Signs Temperature 97.6 F 11/01/17 08:00 Pulse Rate 73 11/01/17 08:00 Respiratory Rate 18 11/01/17 08:00 Blood Pressure 145/55 11/01/17 08:00 O2 Sat by Pulse Oximetry (%) 100 10/31/17 20:05 Constitutional: Yes: No Distress, Calm, Thin Neck: Yes: Supple Cardiovascular: Yes: Pulse Irregular Respiratory: Yes: Regular, Diminished Gastrointestinal: Yes: Soft, Hypoactive Bowel Sounds Edema: No Labs: CBC, BMP 11/01/17 10:00 11/01/17 10:00 INR, PTT INR 1.20 (0.82-1.09) 10/27/17 13:02 Problem List - Problems (1) Ischemic colitis Code(s): K55.9 - VASCULAR DISORDER OF INTESTINE, UNSPECIFIED (2) Acute on chronic kidney failure Code(s): N17.9 - ACUTE KIDNEY FAILURE, UNSPECIFIED; N18.9 - CHRONIC KIDNEY DISEASE, UNSPECIFIED Qualifiers: Chronic kidney disease stage: stage 3 (moderate) (3) Anemia due to GI blood loss Code(s): D50.0 - IRON DEFICIENCY ANEMIA SECONDARY TO BLOOD LOSS (CHRONIC) (4) Hyperlipidemia Code(s): E78.5 - HYPERLIPIDEMIA, UNSPECIFIED Qualifiers: Hyperlipidemia type: pure hypercholesterolemia Qualified Code(s): E78.00 - Pure hypercholesterolemia, unspecified (5) Hypertensive cardiomegaly without heart failure Code(s): I11.9 - HYPERTENSIVE HEART DISEASE WITHOUT HEART FAILURE (6) Hypothyroidism Code(s): E03.9 - HYPOTHYROIDISM, UNSPECIFIED Qualifiers: Hypothyroidism type: unspecified Qualified Code(s): E03.9 - Hypothyroidism , unspecified (7) New onset a-fib Code(s): I48.91 - UNSPECIFIED ATRIAL FIBRILLATION (8) Type 2 diabetes mellitus Code(s): E11.9 - TYPE 2 DIABETES MELLITUS WITHOUT COMPLICATIONS Qualifiers: Diabetes mellitus termite control service representative insulin use: without termite control service representative use Diabetes mellitus complication status: with kidney complications Diabetes mellitus complication detail: with chronic kidney disease Assessment/Plan 05/11/2017 Echo: Normal LV size and fxn, mod MR, TR, mild AR 1. Ischemic colitis, mesenteric ischemia with intestinal angina for conservative medical management 2. Persistent atrial fibrillation on A/C with NOAC's/Eliquis [id number] score of 5, rate controlled 3. 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 Diastolic LV dysfunction with chronic class I-II NYHA classification LV failure, compensated/euvolemic 5. HTN/HCVD 6. DM 7. Hypercholesterolemia 8. Hypothyroidism 9. Dementia/Organic brain syndrome 10. Acute on chronic kidney injury 11. Anemia PLAN: 1. Continue Atenolol 25 qd, Norvasc 5 qd and Lovaza 2 bid 2. As outlined recommend resumption of ACEI/ARBS if not contraindicated, pending renal function recovery 3. Continue Eliquis 2.5 bid at the above noted dosage (age > 80 and Creatinine > 1.5) 4. Empiric zosyn/ flagyl course as per ID, slowly advance diet as tolerated 5. Transfusion to maintain hemoglobin equal or greater than 8.0
[2017-11-01] MEDS ORDERED: MAGNESIUM SULFATE IN WATER 2 GM/50 ML IVPB IVPB ONE (12:00)
--- NOTE | 2017-11-01 13:56 | PN ---
Physical Exam: SUBJECTIVE: Patient seen and examined. Both sons at the bedside. OBJECTIVE: On discharge patient will need Visiting Nurse Service to continue monitoring patient's (1) intake and output (2) provide physical therapy and encourage ambulation (3) routine weekly bloodwork at least for 2 weeks until patient is able to see her PCP. Will advance diet to full liquids with zofran before meals. Still having LLQ discomfort after meals. Will schedule tylenol to see if it helps Vital Signs Period Temp Pulse Resp BP Sys/Thompson Pulse Ox Last 24 Hr 97.6 F-98.5 F 61-73 17-20 129-146/50-58 99-100 GENERAL: Awake and alert, sitting in recliner, smiling. states she feels better , and her abdominal pain is improved - but intermittent LLQ pain Having mild pain on LLQ, RUQ pain no longer there. HEAD: Normal with no signs of trauma. EYES: PERRL, extraocular movements intact, sclera anicteric, conjunctiva clear. No ptosis. ENT: Ears normal, nares patent, oropharynx clear without exudates, moist mucous membranes. NECK: Trachea midline, full range of motion, supple. LUNGS: Breath sounds equal anteriorly, clear HEART: Regular rate and rhythm, hx of afib, on eliquis ABDOMEN: soft, tender on light palpation, now on clears EXTREMITIES:no edema. NEUROLOGICAL: Normal speech, gait not observed. PSYCH: Normal mood, normal affect. SKIN: Warm, dry, normal turgor, no rashes or lesions noted Laboratory Results - last 24 hr 10/31/17 11/01/17 11/01/17 17:04 05:48 10:00 WBC 11.2 H RBC 3.52 L Hgb 10.6 L D Hct 30.8 L D MCV 87.3 MCH 30.1 MCHC 34.5 RDW 14.9 Plt Count 252 D MPV 7.8 Neutrophils % 85.5 H Lymphocytes % 8.5 D Monocytes % 4.8 Eosinophils % 0.8 Basophils % 0.4 Sodium Potassium Chloride Carbon Dioxide Anion Gap BUN Creatinine Creat Clearance w eGFR POC Glucometer 221 222 Random Glucose Calcium Magnesium Total Bilirubin AST ALT Alkaline Phosphatase Total Protein Albumin 11/01/17 11/01/17 10:00 11:57 WBC RBC Hgb Hct MCV MCH MCHC RDW Plt Count MPV Neutrophils % Lymphocytes % Monocytes % Eosinophils % Basophils % Sodium 135 L Potassium 3.6 Chloride 109 H Carbon Dioxide 19 L Anion Gap 7 L BUN 29 H Creatinine 1.9 H Creat Clearance w eGFR 25.12 POC Glucometer 209 Random Glucose 194 H Calcium 7.3 L Magnesium 1.5 L Total Bilirubin 0.4 AST 8 L ALT 7 L Alkaline Phosphatase 40 L Total Protein 5.1 L Albumin 2.1 L Active Medications Generic Name Dose Route Start Last Admin Trade Name Freq PRN Reason Stop Dose Admin Acetaminophen 650 mg 10/30/17 16:15 11/01/17 09:01 Tylenol - PO 650 mg Q6H PRN Administration PAIN LEVEL 6-10 Amlodipine Besylate 5 mg 10/30/17 10:00 11/01/17 10:13 Norvasc - PO 5 mg DAILY YANN Administration Apixaban 2.5 mg 10/29/17 22:00 11/01/17 10:13 Eliquis - PO 2.5 mg BID YANN Administration Atenolol 25 mg 10/30/17 10:00 11/01/17 10:13 Tenormin - PO 25 mg DAILY YANN Administration Donepezil HCl 10 mg 10/30/17 22:00 10/31/17 21:12 Aricept - PO 10 mg HS YANN Administration Metronidazole 500 mg in 100 mls @ 100 mls/hr 10/29/17 02:00 11/01/17 10:12 Flagyl 500mg Premixed Ivpb - IVPB 100 mls/hr Q8H-IV YANN Administration Piperacillin Sod/Tazobactam 50 mls @ 100 mls/hr 10/29/17 02:00 11/01/17 10:12 Sod 2.25 gm/ Dextrose IVPB 100 mls/hr Q8H-IV YANN Administration Protocol Dextrose/Sodium Chloride 40 meq in 1,000 mls @ 60 mls/hr 10/30/17 10:30 10/31 09:57 D5-1/2ns+40 Meq Kcl - IV 60 mls/hr ASDIR YANN Administration Insulin Aspart 1 vial 11/01/17 16:30 Novolog Vial Sliding Scale - SQ ACHS YANN Protocol Levothyroxine Sodium 25 mcg 10/30/17 07:00 11/01/17 06:35 Synthroid - PO 25 mcg DAILY@0700 YANN Administration Multivitamins/Minerals/Vitamin C 1 tab 10/30/17 10:00 11/01/17 10:13 Tab-A-Vit - PO 1 tab DAILY YANN Administration [id number]-[id number] Ethyl Esters 2 gm 10/30/17 10:00 11/01/17 10:13 Lovaza - PO 2 gm BID@1000,1700 YANN Administration Ondansetron HCl 4 mg 10/28/17 21:19 Zofran Injection IVPUSH Q4H PRN NAUSEA AND/OR VOMITING Pantoprazole Sodium 40 mg 10/29/17 10:00 11/01/17 10:13 Protonix - PO 40 mg BID YANN Administration Simethicone 80 mg 10/28/17 21:19 11/01/17 06:54 Mylicon - PO 80 mg Q6H PRN Administration GAS Sodium Bicarbonate 650 mg 10/30/17 10:30 11/01/17 10:13 Sodium Bicarbonate - PO 650 mg BID YANN Administration ASSESSMENT/PLAN: Patient is a 87 year old cambodian speaking female with a significant past medical history of ischemic colitis, chronic abdominal pain, dementia, CKD Stage 4, atrial fibrillation (on Eliquis), hypertension and hyypothyroidism. Patient was transferred to [place] from [place] for severe hyponatremia and probable ischemic colitis. GI: Ischemic colitis, likely as per GI On Flagyl IV, Zosyn q8 per ID Will advance diet today to full liquids and monitor Zofran prior to meals Scheduled Tylenol Started on clears, tolerating it, but does not like the bland food Seen by surgery, no surgical interventions planned, family aware GI following Chronic abdominal pain, improving RUQ no longer present, mild LLQ pain started on clears by GI and she seems to be tolerating it, advance slowly - try full liquids today + loose stools Neuro: Dementia, chronic On Aricept, At baseline Renal: CKD Stage 4 Followed by renal during hospitalization Renal dose meds Avoid nephrotoxins Monitor intake and output Hyponatremia, resolved Mild hypokalemia @ 3.4 Will monitor counts, repeat tomorrow On d5 1/2 with 40meq Card: Atril fibrilation (on Eliquis) Patient is rate controlled with Atenolol Hypertension, chronic Controlled on Norvasc, atenolol Hyypothyroidism, chronic On Synthroid HLD, on Lovaza Heme: Anemia of chronic disease Iron studies reviewed s/p 1 unit of prbc on 10/30 with with good improvement Heme consulted for continued care - can follow outpatient Patient states she feels mildly weak but has improved since admission Yany Fludis: d5 07/13 with 40meq Electrolytes: monitor with daily labs Nutrition: full liquid Prophy: GI: Protonix BID DVT: On Eliquis Visit type - Emergency Visit Emergency Visit: Yes ED Registration Date: 10/27/17 Care time: The patient presented to the Emergency Department on the above date and was hospitalized for further evaluation of their emergent condition. - New Patient This patient is new to me today: No - Critical Care Critical Care patient: No - Discharge Referral Referred to [facility] No
--- NOTE | 2017-11-01 14:18 | PN ---
Progress Note, Physician History of Present Illness: OOB in chair C/O L >R mid-abdominal pain No c/o fever/ chills + loose BMs on liquid diet Blood, stool c/s (-) - Current Medication List Current Medications: Active Medications Acetaminophen (Tylenol -) 650 mg PO Q6H PRN PRN Reason: PAIN LEVEL 6-10 Last Admin: 11/01/17 09:01 Dose: 650 mg Amlodipine Besylate (Norvasc -) 5 mg PO DAILY [facility] Last Admin: 11/01/17 10:13 Dose: 5 mg Apixaban (Eliquis -) 2.5 mg PO BID [facility] Last Admin: 11/01/17 10:13 Dose: 2.5 mg Atenolol (Tenormin -) 25 mg PO DAILY [facility] Last Admin: 11/01/17 10:13 Dose: 25 mg Donepezil HCl (Aricept -) 10 mg PO HS [facility] Last Admin: 10/31/17 21:12 Dose: 10 mg Metronidazole (Flagyl 500mg Premixed Ivpb -) 500 mg in 100 mls @ 100 mls/hr IVPB Q8H-IV [facility] Last Admin: 11/01/17 10:12 Dose: 100 mls/hr Piperacillin Sod/Tazobactam (Sod 2.25 gm/ Dextrose) 50 mls @ 100 mls/hr IVPB Q8H-IV [facility] PRN Reason: Protocol Last Admin: 11/01/17 10:12 Dose: 100 mls/hr Dextrose/Sodium Chloride (D5-1/2ns+40 Meq Kcl -) 40 meq in 1,000 mls @ 60 mls/ hr IV ASDIR [facility] Last Admin: 10/31/17 09:57 Dose: 60 mls/hr Insulin Aspart (Novolog Vial Sliding Scale -) 1 vial SQ ACHS [facility] PRN Reason: Protocol Levothyroxine Sodium (Synthroid -) 25 mcg PO DAILY@0700 [facility] Last Admin: 11/01/17 06:35 Dose: 25 mcg Multivitamins/Minerals/Vitamin C (Tab-A-Vit -) 1 tab PO DAILY [facility] Last Admin: 11/01/17 10:13 Dose: 1 tab [id number] Ethyl Esters (Lovaza -) 2 gm PO BID@1000,1700 [facility] Last Admin: 11/01/17 10:13 Dose: 2 gm Ondansetron HCl (Zofran Injection) 4 mg IVPUSH Q4H PRN PRN Reason: NAUSEA AND/OR VOMITING Pantoprazole Sodium (Protonix -) 40 mg PO BID [facility] Last Admin: 11/01/17 10:13 Dose: 40 mg Simethicone (Mylicon -) 80 mg PO Q6H PRN PRN Reason: GAS Last Admin: 11/01/17 06:54 Dose: 80 mg Sodium Bicarbonate (Sodium Bicarbonate -) 650 mg PO BID [facility] Last Admin: 11/01/17 10:13 Dose: 650 mg - Objective Vital Signs: Vital Signs Temperature 97.6 F 11/01/17 08:00 Pulse Rate 73 11/01/17 08:00 Respiratory Rate 18 11/01/17 08:00 Blood Pressure 145/55 11/01/17 08:00 O2 Sat by Pulse Oximetry (%) 99 11/01/17 09:00 Constitutional: Yes: No Distress, Obese Eyes: Yes: Conjunctiva Clear Cardiovascular: Yes: Regular Rate and Rhythm, S1, S2 Respiratory: Yes: CTA Bilaterally Gastrointestinal: Yes: Normal Bowel Sounds, Soft, Tenderness, Other (L sided tenderness to deep palp) Edema: Yes Labs: CBC, BMP 11/01/17 10:00 11/01/17 10:00 INR, PTT INR 1.20 (0.82-1.09) 10/27/17 13:02 Assessment/Plan Ischemic colitis Leukocytosis- Azotemia- improved Continue empiric zosyn/ flagyl Advance diet per GI / surgery Probiotic
[2017-11-01] MEDS: LACTOBACILLUS ACIDOPHILUS 1 TABLET PO SCH (15:26)
[2017-11-01] MEDS: ACETAMINOPHEN 500 MG TABLET (FP) PO SCH ×3 (15:26→23:54)
[2017-11-01] MEDS: ONDANSETRON *ODT* 4 MG TABLET SL SCH ×2 (16:36→21:03)
[2017-11-01] MEDS: DONEPEZIL HCL 10 MG TABLET (FP) PO SCH (21:02)
--- NOTE | 2017-11-01 21:31 | CONSULT ---
Consult - text type - Consultation Consultation Note: This is an 87-year-old female with h/o T2DM fpr 30 years, Hyperlipidemia, HTN, hypothyroidism, PUD, CKD,CAD, Afib on eliquis, anemia , cholecystectomy and dementia with short term memory loss who presented on 10/27 with abdominal pain and diarrhea following a CT study. she was seen by us in 05/28 for anemia. she had a colonoscopy which revelaed diverticulosis and colitis. 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: Dementia Cardio/Vascular: Yes: AFIB, HTN, Hyperlipdemia Gastrointestinal: Yes: Peptic Ulcer Disease Endocrine: Yes: Diabetes Mellitus, Hypothyroidism - Past Surgical History Past Surgical History: Yes: Cataract Removal, Cholecystectomy (open) Additional Surgical History: Knee arthroscopy - Smoking History Smoking history: Never smoked Home Medications - Allergies Allergies/Adverse Reactions: Allergies Allergy/AdvReac Type Severity Reaction Status Date / Time No Known Allergies Allergy Verified 05/08/17 13:41 - Home Medications Home Medications: Ambulatory Orders Atenolol [Tenormin] 50 mg PO ASDIR 05/08/17 Donepezil HCl [Aricept] 10 mg PO ASDIR 05/08/17 Glimepiride 2 mg PO ASDIR 05/08/17 Levothyroxine [Synthroid -] 25 mcg PO ASDIR 05/08/17 Lisinopril/Hydrochlorothiazide [Lisinopril-Hctz 20-25 mg Tab] 1 each PO ASDIR Preston-3 Fatty Acids [Preston-3] 0 mg PO ASDIR 05/08/17 Omeprazole 40 mg PO ASDIR 05/08/17 Pioglitazone HCl 15 mg PO ASDIR 05/08/17 Simvastatin [Zocor -] 20 mg PO ASDIR 05/08/17 Sitagliptin Phos/Metformin HCl [Janumet 50-1,000 mg Tablet] 1 each PO ASDIR Sitagliptin Phosphate [Januvia] 50 mg PO ASDIR 05/08/17 Family Disease History - Family Disease History Family Disease History: Diabetes: Brother (3 brothers, : 1 w/ prostate cancer, 1 w/ complications from asbestosis ), Son (2 sons: healthy), Other: Father ( 80's: unclear cause), Mother ( in 40's: heart problems), Brother, Son, Daughter (1, has hereditary angioedema) Physical Exam Vital Signs: AFVSS Neck: Yes: Supple, Trachea Midline Cardiovascular: Yes: no murmur/rub/gallop Respiratory: Yes: Regular, Other (Basal crackles) Gastrointestinal: Yes: Normal Bowel Sounds, Soft Edema: LLE: Trace, RLE: Trace Abnormal Lab Results 11/01/17 11/01/17 10:00 10:00 WBC 11.2 H RBC 3.52 L Hgb 10.6 L D Hct 30.8 L D Neutrophils % 85.5 H Sodium 135 L Chloride 109 H Carbon Dioxide 19 L Anion Gap 7 L BUN 29 H Creatinine 1.9 H Random Glucose 194 H Calcium 7.3 L Magnesium 1.5 L AST 8 L ALT 7 L Alkaline Phosphatase 40 L Total Protein 5.1 L Albumin 2.1 L Active Medications Acetaminophen (Tylenol -) 500 mg PO Q6HPO COUNT [facility]CLUDES [facility] Last Admin: 11/02/17 05:44 Dose: 500 mg Amlodipine Besylate (Norvasc -) 5 mg PO DAILY [facility] Last Admin: 11/01/17 10:13 Dose: 5 mg Apixaban (Eliquis -) 2.5 mg PO BID [facility] Last Admin: 11/01/17 21:00 Dose: 2.5 mg Atenolol (Tenormin -) 25 mg PO DAILY [facility] Last Admin: 11/01/17 10:13 Dose: 25 mg Donepezil HCl (Aricept -) 10 mg PO HS [facility] Last Admin: 11/01/17 21:02 Dose: 10 mg Metronidazole (Flagyl 500mg Premixed Ivpb -) 500 mg in 100 mls @ 100 mls/hr IVPB Q8H-IV [facility] Last Admin: 11/02/17 01:44 Dose: 100 mls/hr Piperacillin Sod/Tazobactam (Sod 2.25 gm/ Dextrose) 50 mls @ 100 mls/hr IVPB Q8H-IV [facility] PRN Reason: Protocol Last Admin: 11/02/17 01:02 Dose: 100 mls/hr Dextrose/Sodium Chloride (D5-1/2ns+40 Meq Kcl -) 40 meq in 1,000 mls @ 60 mls/ hr IV ASDIR [facility] Last Admin: 11/01/17 17:58 Dose: 60 mls/hr Iron Sucrose 100 mg/ Sodium (Chloride) 100 mls @ 200 mls/hr IVPB ONCE ONE Stop: 11/02/17 10:29 Insulin Aspart (Novolog Vial Sliding Scale -) 1 vial SQ ACHS [facility] PRN Reason: Protocol Last Admin: 11/02/17 06:29 Dose: 4 unit Lactobacillus Acidophilus (Bacid -) 1 tab PO DAILY [facility] Last Admin: 11/01/17 15:26 Dose: 1 tab Levothyroxine Sodium (Synthroid -) 25 mcg PO DAILY@0700 [facility] Last Admin: 11/02/17 06:30 Dose: 25 mcg Multivitamins/Minerals/Vitamin C (Tab-A-Vit -) 1 tab PO DAILY [facility] Last Admin: 11/01/17 10:13 Dose: 1 tab [id number] Ethyl Esters (Lovaza -) 2 gm PO BID@1000,1700 [facility] Last Admin: 11/01/17 17:31 Dose: 2 gm Ondansetron HCl (Zofran Odt -) 4 mg SL TID [facility] Stop: 11/04/17 16:59 Last Admin: 11/02/17 05:45 Dose: 4 mg Pantoprazole Sodium (Protonix -) 40 mg PO BID [facility] Last Admin: 11/01/17 21:00 Dose: 40 mg Simethicone (Mylicon -) 80 mg PO Q6H PRN PRN Reason: GAS Last Admin: 11/02/17 02:17 Dose: 80 mg Sodium Bicarbonate (Sodium Bicarbonate -) 650 mg PO BID [facility] Last Admin: 11/01/17 21:00 Dose: 650 mg A/P This is an 87-year-old female with h/o T2DM for 30 years, Hyperlipidemia, HTN, hypothyroidism, PUD, CKD,CAD, Afib on eliquis, anemia , cholecystectomy and dementia with short term memory loss who presented on 10/27 with abdominal pain and diarrhea following a CT study. she was seen by us in 05/28 for anemia. she had a colonoscopy which revelaed diverticulosis and colitis. she is being treated for ischemic colitis , which is gradually improving on conservative management and empiric antibiotics She is on eliquis 2.5mg bid and protonix Anemia---multifactorial chronic disease due to CKD = iron deficiency Iron sat --5% s/p PRBCs 10/30/17 Colonoscopy--05/28--diverticulosis/colitis Discussed this with patients daughter in detail will replete IV iron --venofer 200mg 11/02 discussed that she could get injectafer for 2 doses a week apart as outpatient discussed that rarely there could be potentially life threatening allergic reactions discussed about considering aranesp for anemia of CKD Due to her overall performance status /dementia, patients daughter unable to get her back and forth for frequent appointments and is preferrring conservative management
[2017-11-02] MEDS ORDERED: PIPERACILLIN/TAZOBACTAM 2.25 GM VIAL IVPB ONE ×3 (00:53→16:54)
[2017-11-02] MEDS ORDERED: DEXTROSE 5%-WATER - 50 ML IVPB ONE ×3 (00:54→16:55)
[2017-11-02] MEDS: PIPERACILLIN/TAZOB 2.25 GM 2.25 GM in DEXTROSE 5%-WATER - 50 ML IVPB SCH ×3 (01:02→17:25)
[2017-11-02] MEDS: SIMETHICONE 80 MG TAB.CHEW (FP) PO PRN (02:17)
[2017-11-02] MEDS: ACETAMINOPHEN 500 MG TABLET (FP) PO SCH ×4 (05:44→23:56)
[2017-11-02] MEDS: ONDANSETRON *ODT* 4 MG TABLET SL SCH ×3 (05:45→21:50)
[2017-11-02] MEDS: INSULIN SLIDING SCALE (NOVOLOG) 1 VIAL SQ SCH ×4 (06:29→21:51)
[2017-11-02] MEDS: LEVOTHYROXINE NA 25 MCG TABLET (FP) PO SCH (06:30)
[2017-11-02] MEDS ORDERED: INSULIN (NOVOLOG) ASPART 100 UNITS/ML 10ML VIAL ONE ×2 (06:35→11:53)
[2017-11-02] MEDS ORDERED: IRON SUCROSE INJECTION 200 MG in SODIUM CHLORIDE 240 ML IVPB ONE (07:50)
[2017-11-02] MEDS ORDERED: IRON SUCROSE INJECTION 200 MG in SODIUM CHLORIDE 100 ML IVPB ONE (08:00)
[2017-11-02] MEDS ORDERED: traMADol HCL 50 MG TABLET PO ONE (08:37)
[2017-11-02] MEDS ORDERED: PT OWN MED DRAWER 7, Y5N ONE ×3 (09:15→21:42)
[2017-11-02 09:17] LABS: BASO % 0.3 % (0-2.0); HEMATOCRIT 29.9 % (32.4-45.2); HEMOGLOBIN 10.4 GM/dL (10.7-15.3); LYMPH % 9.9 % (8-40); MCH 30.1 pg (25.7-33.7); MCHC 34.7 g/dl (32.0-36.0); MEAN CELL VOLUME 86.8 fl (80-96); MEAN PLT VOLUME 8.1 fl (7.5-11.1); MONO % 5.2 % (3.8-10.2); NEUT % 83.6 % (42.8-82.8); PLATELET COUNT 264 K/MM3 (134-434); RBC 3.45 M/mm3 (3.60-5.2); RDW 14.9 % (11.6-15.6); WHITE BLOOD COUNT 13.2 K/mm3 (4.0-10.0)
[2017-11-02 09:47] LABS: ALBUMIN 2.1 g/dl (3.4-5.0); ANION GAP 8 (8-16); BLOOD UREA NITROGEN 27 mg/dL (7-18); CALCIUM 7.5 mg/dL (8.5-10.1); CHLORIDE 110 mmol/L (98-107); CO2 16 mmol/L (21-32); POTASSIUM 4.3 mmol/L (3.5-5.1); SODIUM 134 mmol/L (136-145)
[2017-11-02 09:52] LABS: ALK PHOS 38 U/L (45-117); BILIRUBIN,TOTAL 0.3 mg/dL (0.2-1.0); CREATININE 1.9 mg/dL (0.55-1.02); GLUCOSE,RANDOM 202 mg/dL (74-106); MAGNESIUM 2.1 mg/dL (1.8-2.4); SGOT/AST 13 U/L (15-37); SGPT/ALT 7 U/L (12-78)
[2017-11-02] MEDS ORDERED: IRON SUCROSE INJECTION 100 MG in SODIUM CHLORIDE 95 ML IVPB ONE (10:00)
[2017-11-02] MEDS: LACTOBACILLUS ACIDOPHILUS 1 TABLET PO SCH (10:03)
[2017-11-02] MEDS: amLODIPine BESYLATE 5 MG TABLET (FP) PO SCH (10:03)
[2017-11-02] MEDS: APIXABAN 2.5 MG TABLET PO SCH ×2 (10:03→21:50)
[2017-11-02] MEDS: OMEGA-3 ACID ETHYL ESTERS (FATTY-ACIDS) 1 GM CAPSULE (FP) PO SCH ×2 (10:03→17:25)
[2017-11-02] MEDS: PANTOPRAZOLE 40 MG TABLET (FP) PO SCH ×2 (10:03→21:50)
[2017-11-02] MEDS: SODIUM BICARBONATE 650 MG TABLET PO SCH ×2 (10:04→21:50)
[2017-11-02] MEDS: ATENOLOL 25 MG TABLET (FP) PO SCH (10:04)
[2017-11-02] MEDS: MULTIVITAMINS (DAILY MVI) TABLET (FP) PO SCH (10:04)
[2017-11-02] MEDS ORDERED: traMADol HCL 50 MG TABLET PO PRN (11:35)
--- NOTE | 2017-11-02 15:45 | PN ---
GI Progress Note Subjective: GI NOte: I have explained to Swathi through her son that her ischemic colitis should be resolving and that we need to determine whether or not she is able to eat enough to sustain herself in the face of suspected intestinal angina. Unfortunately her renal function precludes an MRA documentation. By phone I also got her daughter involved in this discussion. I explained that Swathi will need to consume her calories in multiple small meals. I will order a chopped diet and asked for the daughter to arrive to feed Swathi slowly for dinner. I will order Reglan before meals and stop any narcotics that can aggravate her nausea and gaseous bloating. I discussed the risks of sepsis associated with the alternative of TPN with all 3. - Objective Vital Signs: Vital Signs Temperature 97.8 F 11/02/17 15:05 Pulse Rate 66 11/02/17 15:05 Respiratory Rate 20 11/02/17 10:00 Blood Pressure 126/46 11/02/17 15:05 O2 Sat by Pulse Oximetry (%) 99 11/02/17 09:00 Laboratory Tests 10/30/17 10/31/17 11/01/17 07:45 07:15 10:00 WBC 13.1 H 9.8 11.2 H Creatinine Creat Clearance w eGFR 11/02/17 11/02/17 08:35 08:35 WBC 13.2 H Creatinine 1.9 H Creat Clearance w eGFR 25.12 Constitutional: Calm ...Auscultate: Yes: Hypoactive Bowel Sounds ...Palpate: Yes: Soft, Other (nontender) ...Percussion: Yes: Tympanitic Labs: CBC, BMP 11/02/17 08:35 11/02/17 08:35 INR, PTT INR 1.20 (0.82-1.09) 10/27/17 13:02 Problem List - Problems (1) Abdominal pain Assessment/Plan: 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 Will try chopped diet. Code(s): R10.9 - UNSPECIFIED ABDOMINAL PAIN (2) Ischemic colitis Code(s): K55.9 - VASCULAR DISORDER OF INTESTINE, UNSPECIFIED
[2017-11-02] MEDS ORDERED: METOCLOPRAMIDE HCL INJECTION 10 MG/2 ML VIAL IVPUSH PRN (15:50)
--- NOTE | 2017-11-02 16:25 | PN ---
Physical Exam: SUBJECTIVE: Patient seen and examined. She reports a pain scale 7/10, LUQ. Given Ultram 25mg x 1 with good results OBJECTIVE: GI notes reviewed - Ultram has been stopped per GI Vital Signs Period Temp Pulse Resp BP Sys/Thompson Pulse Ox Last 24 Hr 97.5 F-98.4 F 66-79 18-20 126-153/46-71 99-99 GENERAL: Awake and alert, sitting in recliner, smiling. states she feels better , and her abdominal pain is improved - but intermittent LLQ pain Having mild pain on LLQ, RUQ pain no longer there. HEAD: Normal with no signs of trauma. EYES: PERRL, extraocular movements intact, sclera anicteric, conjunctiva clear. No ptosis. ENT: Ears normal, nares patent, oropharynx clear without exudates, moist mucous membranes. NECK: Trachea midline, full range of motion, supple. LUNGS: Breath sounds equal anteriorly, clear HEART: Regular rate and rhythm, hx of afib, on eliquis ABDOMEN: soft, tender on light palpation, now on full liquids EXTREMITIES:no edema. NEUROLOGICAL: Normal speech, gait not observed. PSYCH: Normal mood, normal affect. SKIN: Warm, dry, normal turgor, no rashes or lesions noted Laboratory Results - last 24 hr 10/30/17 11/01/17 11/01/17 10:35 16:39 20:45 WBC RBC Hgb Hct MCV MCH MCHC RDW Plt Count MPV Neutrophils % Lymphocytes % Monocytes % Eosinophils % Basophils % Sodium Potassium Chloride Carbon Dioxide Anion Gap BUN Creatinine Creat Clearance w eGFR POC Glucometer 301 230 Random Glucose Calcium Magnesium Total Bilirubin AST ALT Alkaline Phosphatase Total Protein Albumin Blood Type O POSITIVE Antibody Screen Negative Crossmatch See Detail 11/02/17 11/02/17 11/02/17 05:50 08:35 08:35 WBC 13.2 H RBC 3.45 L Hgb 10.4 L Hct 29.9 L MCV 86.8 MCH 30.1 MCHC 34.7 RDW 14.9 Plt Count 264 MPV 8.1 Neutrophils % 83.6 H Lymphocytes % 9.9 Monocytes % 5.2 Eosinophils % 1.0 Basophils % 0.3 Sodium 134 L Potassium 4.3 Chloride 110 H Carbon Dioxide 16 L Anion Gap 8 BUN 27 H Creatinine 1.9 H Creat Clearance w eGFR 25.12 POC Glucometer 206 Random Glucose 202 H Calcium 7.5 L Magnesium 2.1 Total Bilirubin 0.3 D AST 13 L ALT 7 L Alkaline Phosphatase 38 L Total Protein 5.0 L Albumin 2.1 L Blood Type Antibody Screen Crossmatch 11/02/17 11:57 WBC RBC Hgb Hct MCV MCH MCHC RDW Plt Count MPV Neutrophils % Lymphocytes % Monocytes % Eosinophils % Basophils % Sodium Potassium Chloride Carbon Dioxide Anion Gap BUN Creatinine Creat Clearance w eGFR POC Glucometer 226 Random Glucose Calcium Magnesium Total Bilirubin AST ALT Alkaline Phosphatase Total Protein Albumin Blood Type Antibody Screen Crossmatch Active Medications Generic Name Dose Route Start Last Admin Trade Name Freq PRN Reason Stop Dose Admin Acetaminophen 500 mg 11/01/17 14:45 11/02/17 11:57 Tylenol - PO 500 mg Q6HPO [facility] Administration Amlodipine Besylate 5 mg 10/30/17 10:00 11/02/17 10:03 Norvasc - PO 5 mg DAILY [facility] Administration Apixaban 2.5 mg 10/29/17 22:00 11/02/17 10:03 Eliquis - PO 2.5 mg BID Y[facility] Administration Atenolol 25 mg 10/30/17 10:00 11/02/17 10:04 Tenormin - PO 25 mg DAILY [facility] Administration Donepezil HCl 10 mg 10/30/17 22:00 11/01/17 21:02 Aricept - PO 10 mg HS [facility] Administration Metronidazole 500 mg in 100 mls @ 100 mls/hr 10/29/17 02:00 11/02/17 10:04 Flagyl 500mg Premixed Ivpb - IVPB 100 mls/hr Q8H-IV [facility] Administration Piperacillin Sod/Tazobactam 50 mls @ 100 mls/hr 10/29/17 02:00 11/02/17 10:05 Sod 2.25 gm/ Dextrose IVPB 100 mls/hr Q8H-IV [facility] Administration Protocol Dextrose/Sodium Chloride 40 meq in 1,000 mls @ 60 mls/hr 10/30/17 10:30 11/01 17:58 D5-1/2ns+40 Meq Kcl - IV 60 mls/hr ASDIR [facility] Administration Insulin Aspart 1 vial 11/01/17 16:30 11/02/17 11:58 Novolog Vial Sliding Scale - SQ 4 unit ACHS [facility] Administration Protocol Lactobacillus Acidophilus 1 tab 11/01/17 14:30 11/02/17 10:03 Bacid - PO 1 tab DAILY [facility] Administration Levothyroxine Sodium 25 mcg 10/30/17 07:00 11/02/17 06:30 Synthroid - PO 25 mcg DAILY@0700 [facility] Administration Metoclopramide HCl 10 mg 11/02/17 21:00 Reglan Injection - IVPUSH Q6H-IV [facility] Multivitamins/Minerals/Vitamin C 1 tab 10/30/17 10:00 11/02/17 10:04 Tab-A-Vit - PO 1 tab DAILY [facility] Administration [id number] Ethyl Esters 2 gm 10/30/17 10:00 11/02/17 10:03 Lovaza - PO 2 gm BID@1000,1700 [facility] Administration Ondansetron HCl 4 mg 11/01/17 17:00 11/02/17 13:49 Zofran Odt - SL 11/04/17 16:59 4 mg TID [facility] Administration Pancrelipase 1 cap 11/02/17 17:30 Dory Hay 36,000 Units Capsule PO TIDCM [facility]ANN Pantoprazole Sodium 40 mg 10/29/17 10:00 11/02/17 10:03 Protonix - PO 40 mg BID [facility] Administration Simethicone 80 mg 10/28/17 21:19 11/02/17 02:17 Mylicon - PO 80 mg Q6H PRN Administration GAS Sodium Bicarbonate 650 mg 10/30/17 10:30 11/02/17 10:04 Sodium Bicarbonate - PO 650 mg BID [facility] Administration ASSESSMENT/PLAN: Patient is a 87 year old thai speaking female with a significant past medical history of ischemic colitis, chronic abdominal pain, dementia, CKD Stage 4, atrial fibrillation (on Eliquis), hypertension and hyypothyroidism. On admission, patient was initially at [facility] but transferred here after she was found to have an elevated lactic acid. rising WBC and hyponatremia. She had a colonscopy on 05/2017 which showed universal diverticulosis and ischemic appearing colitis in the distal transverse colon. Due to her CKD, an angiography was unable to be performed. At home, patient has chronic abdominal pain, belching and chronic loose stools. She is reported to have a poor appetite at home and has been eating minimally because of this. She has also been losing weight. Family has refused any surgical interventions and we are currently managing her symptoms initially with bowel rest and advancing her diet as tolerated. She is also on antibiotic therapy. GI: Ischemic colitis, likely as per GI On Flagyl IV, Zosyn q8 per ID Her diet has been advanced from clears to fulls, today GI ordered a chopped diet for dinner Monitor her pain levels. Ultram discontinued by GI Cheryle ETIENNE prior to meals Tylenol for pain Seen by surgery, no surgical interventions planned, family aware GI following Chronic abdominal pain with belching, improving RUQ no longer present, mild LLQ pain, + loose stools Neuro: Dementia, chronic On Aricept, At baseline Renal: CKD Stage 4 Followed by renal during hospitalization Renal dose meds, Avoid nephrotoxins Monitor intake and output Her creat today is 1.9 Electrolytes: Hyponatremia, monitor with daily labs Hypokalemia, resolved On d5 1/2 with 40meq Card: Atril fibrilation (on Eliquis) Patient is rate controlled with Atenolol Hypertension, chronic Controlled on Norvasc, atenolol Hyypothyroidism, chronic On Synthroid HLD, on Lovaza Heme: Anemia of chronic disease Iron studies reviewed, s/p 1 unit of prbc on 10/30 with with good improvement, given IV Venofer today Heme consulted for continued care - can follow outpatient F.E.N. Fludis: d5 1/2 with 40meq Electrolytes: monitor with daily labs Nutrition: advance as per GI Prophy: GI: Protonix BID DVT: On Eliquis Disposition: On discharge patient will need Visiting Nurse Service to continue monitoring patient's (1) diet and intake and output (2) provide physical therapy and encourage ambulation (3) routine weekly bloodwork at least for 2 weeks until patient is able to see her PCP (SW aware) Visit type - Emergency Visit Emergency Visit: Yes ED Registration Date: 10/27/17 Care time: The patient presented to the Emergency Department on the above date and was hospitalized for further evaluation of their emergent condition. - New Patient This patient is new to me today: No - Critical Care Critical Care patient: No - Discharge Referral Referred to [facility] Med P.C.: No
[2017-11-02] MEDS: LIPASE/PROTEASE/AMYLASE 36,000 UNIT CAPSULE PO SCH (17:24)
[2017-11-02] MEDS: D5-1/2NS+40 MEQ KCL - 40 MEQ/1,000 ML INFUS.BAG IV SCH (17:30)
[2017-11-02] MEDS: METOCLOPRAMIDE HCL INJECTION 10 MG/2 ML VIAL IVPUSH SCH (21:50)
[2017-11-02] MEDS: DONEPEZIL HCL 10 MG TABLET (FP) PO SCH (21:50)
[2017-11-03] MEDS: METOCLOPRAMIDE HCL INJECTION 10 MG/2 ML VIAL IVPUSH SCH ×4 (02:05→22:01)
[2017-11-03] MEDS ORDERED: PIPERACILLIN/TAZOBACTAM 2.25 GM VIAL IVPB ONE ×3 (02:05→16:36)
[2017-11-03] MEDS ORDERED: DEXTROSE 5%-WATER - 50 ML IVPB ONE ×3 (02:05→16:36)
[2017-11-03] MEDS: PIPERACILLIN/TAZOB 2.25 GM 2.25 GM in DEXTROSE 5%-WATER - 50 ML IVPB SCH ×3 (02:06→17:34)
[2017-11-03] MEDS ORDERED: PT OWN MED DRAWER 7, Y5N ONE ×4 (05:44→21:11)
[2017-11-03] MEDS: LEVOTHYROXINE NA 25 MCG TABLET (FP) PO SCH (06:03)
[2017-11-03] MEDS: ONDANSETRON *ODT* 4 MG TABLET SL SCH (06:03)
[2017-11-03] MEDS: ACETAMINOPHEN 500 MG TABLET (FP) PO SCH ×4 (06:03→18:09)
[2017-11-03] MEDS: INSULIN SLIDING SCALE (NOVOLOG) 1 VIAL SQ SCH ×4 (06:07→22:17)
[2017-11-03 07:56] LABS: BASO % 0.6 % (0-2.0); HEMATOCRIT 27.6 % (32.4-45.2); HEMOGLOBIN 9.5 GM/dL (10.7-15.3); LYMPH % 18.3 % (8-40); MCHC 34.3 g/dl (32.0-36.0); MEAN CELL VOLUME 87.5 fl (80-96); MEAN PLT VOLUME 7.7 fl (7.5-11.1); MONO % 7.2 % (3.8-10.2); NEUT % 69.9 % (42.8-82.8); PLATELET COUNT 257 K/MM3 (134-434); RBC 3.16 M/mm3 (3.60-5.2); RDW 15.2 % (11.6-15.6); WHITE BLOOD COUNT 7.6 K/mm3 (4.0-10.0)
[2017-11-03 08:29] LABS: ALBUMIN 1.9 g/dl (3.4-5.0); ALK PHOS 34 U/L (45-117); ANION GAP 8 (8-16); BILIRUBIN,TOTAL 0.3 mg/dL (0.2-1.0); BLOOD UREA NITROGEN 26 mg/dL (7-18); CALCIUM 7.4 mg/dL (8.5-10.1); CHLORIDE 113 mmol/L (98-107); CO2 16 mmol/L (21-32); GLUCOSE,RANDOM 150 mg/dL (74-106); MAGNESIUM 2.1 mg/dL (1.8-2.4); POTASSIUM 4.2 mmol/L (3.5-5.1); SGOT/AST 12 U/L (15-37); SGPT/ALT 8 U/L (12-78); SODIUM 137 mmol/L (136-145); TOT PROT 4.7 g/dl (6.4-8.2)
[2017-11-03] MEDS: LIPASE/PROTEASE/AMYLASE 36,000 UNIT CAPSULE PO SCH ×3 (08:52→16:55)
[2017-11-03] MEDS ORDERED: IRON SUCROSE INJECTION 100 MG in SODIUM CHLORIDE 95 ML IVPB ONE (10:00)
[2017-11-03] MEDS: LACTOBACILLUS ACIDOPHILUS 1 TABLET PO SCH (10:35)
[2017-11-03] MEDS: amLODIPine BESYLATE 5 MG TABLET (FP) PO SCH (10:36)
[2017-11-03] MEDS: APIXABAN 2.5 MG TABLET PO SCH ×2 (10:36→22:01)
[2017-11-03] MEDS: PANTOPRAZOLE 40 MG TABLET (FP) PO SCH ×2 (10:36→22:00)
[2017-11-03] MEDS: SODIUM BICARBONATE 650 MG TABLET PO SCH ×3 (10:36→22:00)
[2017-11-03] MEDS: OMEGA-3 ACID ETHYL ESTERS (FATTY-ACIDS) 1 GM CAPSULE (FP) PO SCH ×2 (10:36→16:55)
[2017-11-03] MEDS: ATENOLOL 25 MG TABLET (FP) PO SCH (10:36)
[2017-11-03] MEDS: MULTIVITAMINS (DAILY MVI) TABLET (FP) PO SCH (10:36)
[2017-11-03] MEDS: D5-1/2NS+40 MEQ KCL - 40 MEQ/1,000 ML INFUS.BAG IV SCH (10:38)
--- NOTE | 2017-11-03 11:28 | PN ---
Physical Exam: SUBJECTIVE: Patient seen and examined oob to chair. Son present. Has abdominal pain, chronic, at baseline. Tolerating chopped diet, no vomiting. OBJECTIVE: Vital Signs Period Temp Pulse Resp BP Sys/Thompson Pulse Ox Last 24 Hr 97.6 F-98.0 F 63-72 20-21 126-144/46-57 98 GENERAL: The patient is awake, alert, in no acute distress. LUNGS: Breath sounds equal, clear to auscultation HEART: Regular rate and rhythm, S1, S2 ABDOMEN: Soft, nontender, nondistended EXTREMITIES: 2+ pulses, warm, well-perfused, no edema. NEUROLOGICAL: Cranial nerves II through XII grossly intact. Normal speech Laboratory Results - last 24 hr 10/29/17 10/30/17 11/02/17 07:47 10:35 11:57 WBC RBC Hgb Hct MCV MCH MCHC RDW Plt Count MPV Neutrophils % Lymphocytes % Monocytes % Eosinophils % Basophils % Sodium Potassium Chloride Carbon Dioxide Anion Gap BUN Creatinine Creat Clearance w eGFR POC Glucometer 226 Random Glucose Calcium Magnesium Total Bilirubin AST ALT Alkaline Phosphatase C-Reactive Protein Total Protein Total Protein (PEP) 5.6 L Albumin Albumin (PEP) 2.7 L Globulin 2.9 Albumin/Globulin Ratio 0.9 Beta Globulins 0.8 CHARLES M-Shad Blood Type O POSITIVE Antibody Screen Negative Crossmatch See Detail 11/02/17 11/02/17 11/03/17 16:49 20:55 06:06 WBC RBC Hgb Hct MCV MCH MCHC RDW Plt Count MPV Neutrophils % Lymphocytes % Monocytes % Eosinophils % Basophils % Sodium Potassium Chloride Carbon Dioxide Anion Gap BUN Creatinine Creat Clearance w eGFR POC Glucometer 178 220 175 Random Glucose Calcium Magnesium Total Bilirubin AST ALT Alkaline Phosphatase C-Reactive Protein Total Protein Total Protein (PEP) Albumin Albumin (PEP) Globulin Albumin/Globulin Ratio Beta Globulins CHARLES M-Shad Blood Type Antibody Screen Crossmatch 11/03/17 11/03/17 11/03/17 07:40 07:40 11:09 WBC 7.6 D RBC 3.16 L Hgb 9.5 L Hct 27.6 L MCV 87.5 MCH 30.0 MCHC 34.3 RDW 15.2 Plt Count 257 MPV 7.7 Neutrophils % 69.9 Lymphocytes % 18.3 D Monocytes % 7.2 Eosinophils % 4.0 D Basophils % 0.6 Sodium 137 Potassium 4.2 Chloride 113 H Carbon Dioxide 16 L Anion Gap 8 BUN 26 H Creatinine 2.0 H Creat Clearance w eGFR 23.68 POC Glucometer 210 Random Glucose 150 H Calcium 7.4 L Magnesium 2.1 Total Bilirubin 0.3 AST 12 L ALT 8 L Alkaline Phosphatase 34 L C-Reactive Protein 3.2 H Total Protein 4.7 L Total Protein (PEP) Albumin 1.9 L Albumin (PEP) Globulin Albumin/Globulin Ratio Beta Globulins CHARLES M-Shad Blood Type Antibody Screen Crossmatch Active Medications Generic Name Dose Route Start Last Admin Trade Name Freq PRN Reason Stop Dose Admin Acetaminophen 500 mg 11/01/17 14:45 11/03/17 06:03 Tylenol - PO Not Given Q6HPO YANN Amlodipine Besylate 5 mg 10/30/17 10:00 11/03/17 10:36 Norvasc - PO 5 mg DAILY YANN Administration Apixaban 2.5 mg 10/29/17 22:00 11/03/17 10:36 Eliquis - PO 2.5 mg BID YANN Administration Atenolol 25 mg 10/30/17 10:00 11/03/17 10:36 Tenormin - PO 25 mg DAILY YANN Administration Donepezil HCl 10 mg 10/30/17 22:00 11/02/17 21:50 Aricept - PO 10 mg HS YANN Administration Metronidazole 500 mg in 100 mls @ 100 mls/hr 10/29/17 02:00 11/03/17 10:04 Flagyl 500mg Premixed Ivpb - IVPB 100 mls/hr Q8H-IV YANN Administration Piperacillin Sod/Tazobactam 50 mls @ 100 mls/hr 10/29/17 02:00 11/03/17 10:38 Sod 2.25 gm/ Dextrose IVPB 100 mls/hr Q8H-IV YANN Administration Protocol Dextrose/Sodium Chloride 40 meq in 1,000 mls @ 60 mls/hr 10/30/17 10:30 11/03 10:38 D5-1/2ns+40 Meq Kcl - IV 60 mls/hr ASDIR YANN Administration Insulin Aspart 1 vial 11/01/17 16:30 11/03/17 06:07 Novolog Vial Sliding Scale - SQ 2 unit ACHS YANN Administration Protocol Lactobacillus Acidophilus 1 tab 11/01/17 14:30 11/03/17 10:35 Bacid - PO 1 tab DAILY YANN Administration Levothyroxine Sodium 25 mcg 10/30/17 07:00 11/03/17 06:03 Synthroid - PO 25 mcg DAILY@0700 YANN Administration Metoclopramide HCl 10 mg 11/02/17 21:00 11/03/17 08:52 Reglan Injection - IVPUSH 10 mg Q6H-IV YANN Administration Multivitamins/Minerals/Vitamin C 1 tab 10/30/17 10:00 11/03/17 10:36 Tab-A-Vit - PO 1 tab DAILY YANN Administration [id number]-[id number] Ethyl Esters 2 gm 10/30/17 10:00 11/03/17 10:36 Lovaza - PO 2 gm BID@1000,1700 YANN Administration Ondansetron HCl 4 mg 11/01/17 17:00 11/03/17 06:03 Zofran Odt - SL 11/04/17 16:59 4 mg TID YANN Administration Pancrelipase 1 cap 11/02/17 17:30 11/03/17 08:52 Dory Hay 36,000 Units Capsule PO 1 cap TIDCM YANN Administration Pantoprazole Sodium 40 mg 10/29/17 10:00 11/03/17 10:36 Protonix - PO 40 mg BID YANN Administration Simethicone 80 mg 10/28/17 21:19 11/02/17 02:17 Mylicon - PO 80 mg Q6H PRN Administration GAS Sodium Bicarbonate 650 mg 10/30/17 10:30 11/03/17 10:36 Sodium Bicarbonate - PO 650 mg BID YANN Administration ASSESSMENT/PLAN Ischemic colitis --continue Zosyn, IV metronidazole --tolerating chopped diet --d/c Zofran for prolonged QTc; continue Reglan PRN --Tylenol PRN; no opiates Dementia, chronic --continue Aricept, at baseline CKD Stage 4 --Cr 2.0 ~ baseline Hyponatremia --resolved Hypokalemia --resolved Atrial fibrillation --rate controlled, continue atenolol, amlodipine --continue Eliquis 2.5mg BID (age >80, Cr >1.5) Hypertension --continue atenolol, amlodipine Hyypothyroidism --continue levothyroxine Hyperlipidemia --continue Lovaza Anemia of chronic disease --last transfused 10/30 --venofer given 11/02 --h/h stable FEN Fluids: PO intake adequate Electrolytes: replete as indicated Nutrition: chopped diet DVT prophylaxis: on Eliquis Physical therapy Dispo: continues to require inpatient care. Full code. Plan to hopefully discharge to home with VNS tomorrow morning. Visit type - Emergency Visit Emergency Visit: Yes ED Registration Date: 10/27/17 Care time: The patient presented to the Emergency Department on the above date and was hospitalized for further evaluation of their emergent condition. - New Patient This patient is new to me today: Yes Date on this admission: 11/03/17 - Critical Care Critical Care patient: No
[2017-11-03 11:29] LABS: RETICULOCYTES 1.45 % (0.5-1.5)
--- NOTE | 2017-11-03 12:59 | PN ---
Progress Note, Physician History of Present Illness: Abd pain improving, tolerating chopped diet, denies hematochezia. - Current Medication List Current Medications: Active Medications Acetaminophen (Tylenol -) 500 mg PO Q6HPO [facility] Last Admin: 11/03/17 12:02 Dose: Not Given Amlodipine Besylate (Norvasc -) 5 mg PO DAILY [facility] Last Admin: 11/03/17 10:36 Dose: 5 mg Apixaban (Eliquis -) 2.5 mg PO BID [facility] Last Admin: 11/03/17 10:36 Dose: 2.5 mg Atenolol (Tenormin -) 25 mg PO DAILY [facility] Last Admin: 11/03/17 10:36 Dose: 25 mg Donepezil HCl (Aricept -) 10 mg PO HS [facility] Last Admin: 11/02/17 21:50 Dose: 10 mg Metronidazole (Flagyl 500mg Premixed Ivpb -) 500 mg in 100 mls @ 100 mls/hr IVPB Q8H-IV YANN Last Admin: 11/03/17 10:04 Dose: 100 mls/hr Piperacillin Sod/Tazobactam (Sod 2.25 gm/ Dextrose) 50 mls @ 100 mls/hr IVPB Q8H-IV YANN PRN Reason: Protocol Last Admin: 11/03/17 10:38 Dose: 100 mls/hr Dextrose/Sodium Chloride (D5-1/2ns+40 Meq Kcl -) 40 meq in 1,000 mls @ 60 mls/ hr IV ASDIR [facility] Last Admin: 11/03/17 10:38 Dose: 60 mls/hr Insulin Aspart (Novolog Vial Sliding Scale -) 1 vial SQ ACHS [facility] PRN Reason: Protocol Last Admin: 11/03/17 12:02 Dose: 4 unit Lactobacillus Acidophilus (Bacid -) 1 tab PO DAILY [facility] Last Admin: 11/03/17 10:35 Dose: 1 tab Levothyroxine Sodium (Synthroid -) 25 mcg PO DAILY@0700 [facility] Last Admin: 11/03/17 06:03 Dose: 25 mcg Metoclopramide HCl (Reglan Injection -) 10 mg IVPUSH Q6H-IV [facility] Last Admin: 11/03/17 08:52 Dose: 10 mg Multivitamins/Minerals/Vitamin C (Tab-A-Vit -) 1 tab PO DAILY [facility] Last Admin: 11/03/17 10:36 Dose: 1 tab Cucgi-1-Pyju Ethyl Esters (Lovaza -) 2 gm PO BID@1000,1700 [facility] Last Admin: 11/03/17 10:36 Dose: 2 gm Ondansetron HCl (Zofran Odt -) 4 mg SL TID [facility] Stop: 11/04/17 16:59 Last Admin: 11/03/17 06:03 Dose: 4 mg Pancrelipase (Creon Dr 36,000 Units Capsule) 1 cap PO TIDCM [facility] Last Admin: 11/03/17 12:02 Dose: 1 cap Pantoprazole Sodium (Protonix -) 40 mg PO BID [facility] Last Admin: 11/03/17 10:36 Dose: 40 mg Simethicone (Mylicon -) 80 mg PO Q6H PRN PRN Reason: GAS Last Admin: 11/02/17 02:17 Dose: 80 mg Sodium Bicarbonate (Sodium Bicarbonate -) 650 mg PO TID [facility] - Objective Vital Signs: Vital Signs Temperature 98.0 F 11/03/17 06:00 Pulse Rate 72 11/03/17 10:00 Respiratory Rate 20 11/03/17 10:00 Blood Pressure 124/50 11/03/17 10:00 O2 Sat by Pulse Oximetry (%) 98 11/03/17 09:00 Constitutional: Yes: No Distress, Calm, Thin Neck: Yes: Supple Cardiovascular: Yes: Regular Rate and Rhythm Respiratory: Yes: Regular, Diminished Gastrointestinal: Yes: Normal Bowel Sounds, Soft Edema: No Labs: CBC, BMP 11/03/17 07:40 11/03/17 07:40 INR, PTT INR 1.20 (0.82-1.09) 10/27/17 13:02 Problem List - Problems (1) Ischemic colitis Code(s): K55.9 - VASCULAR DISORDER OF INTESTINE, UNSPECIFIED (2) Acute on chronic kidney failure Code(s): N17.9 - ACUTE KIDNEY FAILURE, UNSPECIFIED; N18.9 - CHRONIC KIDNEY DISEASE, UNSPECIFIED Qualifiers: Chronic kidney disease stage: stage 3 (moderate) (3) Anemia due to GI blood loss Code(s): D50.0 - IRON DEFICIENCY ANEMIA SECONDARY TO BLOOD LOSS (CHRONIC) (4) Hyperlipidemia Code(s): E78.5 - HYPERLIPIDEMIA, UNSPECIFIED Qualifiers: Hyperlipidemia type: pure hypercholesterolemia Qualified Code(s): E78.00 - Pure hypercholesterolemia, unspecified (5) Hypertensive cardiomegaly without heart failure Code(s): I11.9 - HYPERTENSIVE HEART DISEASE WITHOUT HEART FAILURE (6) Hypothyroidism Code(s): E03.9 - HYPOTHYROIDISM, UNSPECIFIED Qualifiers: Hypothyroidism type: unspecified Qualified Code(s): E03.9 - Hypothyroidism , unspecified (7) New onset a-fib Code(s): I48.91 - UNSPECIFIED ATRIAL FIBRILLATION (8) Type 2 diabetes mellitus Code(s): E11.9 - TYPE 2 DIABETES MELLITUS WITHOUT COMPLICATIONS Qualifiers: Diabetes mellitus usp insulin use: without manager intermediate use Diabetes mellitus complication status: with kidney complications Diabetes mellitus complication detail: with chronic kidney disease Assessment/Plan 05/11/2017 Echo: Normal LV size and fxn, mod MR, TR, mild AR 1. Ischemic colitis, mesenteric ischemia with intestinal angina for conservative medical management 2. Persistent atrial fibrillation on A/C with NOAC's/Eliquis [id number] score of 5, rate controlled 3. 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 Diastolic LV dysfunction with chronic class I-II NYHA classification LV failure, compensated/euvolemic 5. HTN/HCVD 6. DM 7. Hypercholesterolemia 8. Hypothyroidism 9. Dementia/Organic brain syndrome 10. Acute on chronic kidney injury 11. Anemia PLAN: 1. Continue Atenolol 25 qd, Norvasc 5 qd and Lovaza 2 bid 2. As outlined recommend resumption of ACEI/ARBS if not contraindicated, pending renal function recovery 3. Continue Eliquis 2.5 bid at the above noted dosage (age > 80 and Creatinine > 1.5) 4. Empiric zosyn/ flagyl course as per ID, slowly advance diet as tolerated 5. Transfusion to maintain hemoglobin equal or greater than 8.0
[2017-11-03 14:21] LABS: VASOACTIVE INTEST, POLYPEPTIDE 60.5 pg/mL (0.0-58.8)
--- NOTE | 2017-11-03 19:20 | PN ---
Progress Note (short form) - Note Progress Note: Renal follow up for GABY on CKD Pt seen and examined at the bedside no acute complaints no abd pain no sob, chest pain having loose stools but improving oral intake is improving Vital Signs Temperature 98.7 F 11/03/17 18:20 Pulse Rate 80 11/03/17 18:20 Respiratory Rate 20 11/03/17 18:20 Blood Pressure 130/70 11/03/17 18:20 O2 Sat by Pulse Oximetry (%) 98 11/03/17 09:00 Intake & Output 10/31/17 11/01/17 11/02/17 11/03/17 23:59 23:59 23:59 23:59 Intake Total 2720 2007 1330 2840 Balance 2720 2007 1330 2840 NAD, awake and alert RRR, No M/R CTA, no rales or wheeze soft, + tenderness No LE edema, clubbing or cyanosis CBC, BMP 11/03/17 07:40 11/03/17 07:40 Current Medications Acetaminophen (Tylenol -) 500 mg PO Q6HPO [facility] Last Admin: 11/03/17 18:09 Dose: 500 mg Amlodipine Besylate (Norvasc -) 5 mg PO DAILY [facility] Last Admin: 11/03/17 10:36 Dose: 5 mg Apixaban (Eliquis -) 2.5 mg PO BID [facility] Last Admin: 11/03/17 10:36 Dose: 2.5 mg Atenolol (Tenormin -) 25 mg PO DAILY [facility] Last Admin: 11/03/17 10:36 Dose: 25 mg Donepezil HCl (Aricept -) 10 mg PO HS [facility] Last Admin: 11/02/17 21:50 Dose: 10 mg Metronidazole (Flagyl 500mg Premixed Ivpb -) 500 mg in 100 mls @ 100 mls/hr IVPB Q8H-IV YANN Last Admin: 11/03/17 17:33 Dose: 100 mls/hr Piperacillin Sod/Tazobactam (Sod 2.25 gm/ Dextrose) 50 mls @ 100 mls/hr IVPB Q8H-IV YANN PRN Reason: Protocol Last Admin: 11/03/17 17:34 Dose: 100 mls/hr Insulin Aspart (Novolog Vial Sliding Scale -) 1 vial SQ ACHS YANN PRN Reason: Protocol Last Admin: 11/03/17 16:54 Dose: 6 unit Lactobacillus Acidophilus (Bacid -) 1 tab PO DAILY [facility] Last Admin: 11/03/17 10:35 Dose: 1 tab Levothyroxine Sodium (Synthroid -) 25 mcg PO DAILY@0700 [facility] Last Admin: 11/03/17 06:03 Dose: 25 mcg Metoclopramide HCl (Reglan Injection -) 10 mg IVPUSH Q6H-IV [facility] Last Admin: 11/03/17 16:54 Dose: 10 mg Multivitamins/Minerals/Vitamin C (Tab-A-Vit -) 1 tab PO DAILY [facility] Last Admin: 11/03/17 10:36 Dose: 1 tab [id number]-[id number] Ethyl Esters (Lovaza -) 2 gm PO BID@1000,1700 [facility] Last Admin: 11/03/17 16:55 Dose: 2 gm Pancrelipase (Creon Dr 36,000 Units Capsule) 1 cap PO TIDCM [facility] Last Admin: 11/03/17 16:55 Dose: 1 cap Pantoprazole Sodium (Protonix -) 40 mg PO BID [facility] Last Admin: 11/03/17 10:36 Dose: 40 mg Simethicone (Mylicon -) 80 mg PO Q6H PRN PRN Reason: GAS Last Admin: 11/02/17 02:17 Dose: 80 mg Sodium Bicarbonate (Sodium Bicarbonate -) 650 mg PO TID [facility] Last Admin: 11/03/17 13:41 Dose: 650 mg 87 year old woman with PMhx of CKD Stage 4 (baseline Cr 1.8-2), AFib on Eliquis , Hypertension, Hypothyrodism who presented with complaints of abd pain and diarrhea and found to have possible ischemic colitis and GABY and Na of 122. #Hypovolemic Hyponatremia #GABY on CKD stage 4 #Ischemic Colitis/Gas in Portal circulation #Metabolic acidosis/Lactic acidosis #Anemia #Afib on Eliquis #Hyperphosphatemia Renal function stable continue sodium bicarb as pt with GI loss of bicarb Trend renal function and electrolytes advance diet as per GI/Sx Trend H/H, transfuse as needed check iron profile Trend jennifer Allen DO
[2017-11-03] MEDS: DONEPEZIL HCL 10 MG TABLET (FP) PO SCH (22:01)
[2017-11-04] MEDS ORDERED: DEXTROSE 5%-WATER - 50 ML IVPB ONE ×2 (01:52→10:42)
[2017-11-04] MEDS ORDERED: PIPERACILLIN/TAZOBACTAM 2.25 GM VIAL IVPB ONE ×2 (01:52→10:42)
[2017-11-04] MEDS: PIPERACILLIN/TAZOB 2.25 GM 2.25 GM in DEXTROSE 5%-WATER - 50 ML IVPB SCH ×2 (01:54→11:19)
[2017-11-04] MEDS: ACETAMINOPHEN 500 MG TABLET (FP) PO SCH ×4 (01:55→18:30)
[2017-11-04] MEDS: METOCLOPRAMIDE HCL INJECTION 10 MG/2 ML VIAL IVPUSH SCH ×4 (02:56→21:53)
[2017-11-04] MEDS: SODIUM BICARBONATE 650 MG TABLET PO SCH ×3 (06:10→22:02)
[2017-11-04] MEDS: LEVOTHYROXINE NA 25 MCG TABLET (FP) PO SCH (06:10)
[2017-11-04] MEDS: INSULIN SLIDING SCALE (NOVOLOG) 1 VIAL SQ SCH ×4 (06:11→21:54)
[2017-11-04 07:17] LABS: BASO % 0.5 % (0-2.0); EOS % 1.9 % (0-4.5); HEMATOCRIT 25.3 % (32.4-45.2); HEMOGLOBIN 8.8 GM/dL (10.7-15.3); LYMPH % 15.8 % (8-40); MCH 30.4 pg (25.7-33.7); MEAN CELL VOLUME 86.9 fl (80-96); MEAN PLT VOLUME 7.7 fl (7.5-11.1); MONO % 6.9 % (3.8-10.2); NEUT % 74.9 % (42.8-82.8); PLATELET COUNT 261 K/MM3 (134-434); RBC 2.91 M/mm3 (3.60-5.2); RDW 15.2 % (11.6-15.6); WHITE BLOOD COUNT 8.9 K/mm3 (4.0-10.0)
[2017-11-04 07:40] LABS: ANION GAP 8 (8-16); BLOOD UREA NITROGEN 21 mg/dL (7-18); CHLORIDE 114 mmol/L (98-107); CO2 17 mmol/L (21-32); CREATININE 1.7 mg/dL (0.55-1.02); GLUCOSE,RANDOM 125 mg/dL (74-106); MAGNESIUM 1.6 mg/dL (1.8-2.4); PHOSPHOROUS 1.5 mg/dL (2.5-4.9); POTASSIUM 4.2 mmol/L (3.5-5.1); SODIUM 139 mmol/L (136-145)
[2017-11-04] MEDS ORDERED: NAPH,MB-DB/K PH,MBDB POWDER PACKET PO ONE (08:16)
[2017-11-04] MEDS ORDERED: MAGNESIUM OXIDE 400 MG TABLET (FP) PO ONE ×2 (08:16→14:23)
[2017-11-04] MEDS: LIPASE/PROTEASE/AMYLASE 36,000 UNIT CAPSULE PO SCH ×3 (09:05→18:21)
--- NOTE | 2017-11-04 10:54 | PN ---
Progress Note, Physician Chief Complaint: Events noted Appears comfortable History of Present Illness: Patient was seen and examined. Awake and alert. Chart was reviewed Discussed with her son by bedside Patient continues with diarrhea, but denies abdominal pain at the moment Denies chest pain, shortness of breath or palpitations - Current Medication List Current Medications: Active Medications Acetaminophen (Tylenol -) 500 mg PO Q6HPO [facility] Last Admin: 11/04/17 06:10 Dose: 500 mg Amlodipine Besylate (Norvasc -) 5 mg PO DAILY [facility] Last Admin: 11/03/17 10:36 Dose: 5 mg Apixaban (Eliquis -) 2.5 mg PO BID [facility] Last Admin: 11/03/17 22:01 Dose: 2.5 mg Atenolol (Tenormin -) 25 mg PO DAILY [facility] Last Admin: 11/03/17 10:36 Dose: 25 mg Donepezil HCl (Aricept -) 10 mg PO HS [facility] Last Admin: 11/03/17 22:01 Dose: 10 mg Metronidazole (Flagyl 500mg Premixed Ivpb -) 500 mg in 100 mls @ 100 mls/hr IVPB Q8H-IV [facility] Last Admin: 11/04/17 01:54 Dose: 100 mls/hr Piperacillin Sod/Tazobactam (Sod 2.25 gm/ Dextrose) 50 mls @ 100 mls/hr IVPB Q8H-IV YANN PRN Reason: Protocol Last Admin: 11/04/17 01:54 Dose: 100 mls/hr Insulin Aspart (Novolog Vial Sliding Scale -) 1 vial SQ ACHS [facility] PRN Reason: Protocol Last Admin: 11/04/17 06:11 Dose: Not Given Lactobacillus Acidophilus (Bacid -) 1 tab PO DAILY [facility] Last Admin: 11/03/17 10:35 Dose: 1 tab Levothyroxine Sodium (Synthroid -) 25 mcg PO DAILY@0700 [facility] Last Admin: 11/04/17 06:10 Dose: 25 mcg Metoclopramide HCl (Reglan Injection -) 10 mg IVPUSH Q6H-IV [facility] Last Admin: 11/04/17 09:05 Dose: 10 mg Multivitamins/Minerals/Vitamin C (Tab-A-Vit -) 1 tab PO DAILY [facility] Last Admin: 11/03/17 10:36 Dose: 1 tab [id number] Ethyl Esters (Lovaza -) 2 gm PO BID@1000,1700 [facility] Last Admin: 11/03/17 16:55 Dose: 2 gm Pancrelipase (Creon Dr 36,000 Units Capsule) 1 cap PO TIDCM [facility] Last Admin: 11/04/17 09:05 Dose: 1 cap Pantoprazole Sodium (Protonix -) 40 mg PO BID [facility] Last Admin: 11/03/17 22:00 Dose: 40 mg Simethicone (Mylicon -) 80 mg PO Q6H PRN PRN Reason: GAS Last Admin: 11/02/17 02:17 Dose: 80 mg Sodium Bicarbonate (Sodium Bicarbonate -) 650 mg PO TID [facility] Last Admin: 11/04/17 06:10 Dose: 650 mg - Objective Vital Signs: Vital Signs Temperature 97.8 F 11/04/17 02:00 Pulse Rate 84 11/04/17 02:00 Respiratory Rate 20 11/04/17 02:00 Blood Pressure 127/50 11/04/17 02:00 O2 Sat by Pulse Oximetry (%) 97 11/03/17 22:00 Cardiovascular: Yes: Regular Rate and Rhythm, S1, S2 Respiratory: Yes: CTA Bilaterally Gastrointestinal: Yes: Normal Bowel Sounds, Soft. No: Tenderness Edema: No Labs: CBC, BMP 11/04/17 06:55 11/04/17 06:55 Problem List - Problems (1) Paroxysmal atrial fibrillation Code(s): I48.0 - PAROXYSMAL ATRIAL FIBRILLATION (2) Abdominal pain Code(s): R10.9 - UNSPECIFIED ABDOMINAL PAIN Qualifiers: Abdominal location: generalized Qualified Code(s): R10.84 - Generalized abdominal pain (3) Dementia Code(s): F03.90 - UNSPECIFIED DEMENTIA WITHOUT BEHAVIORAL DISTURBANCE Qualifiers: Dementia type: unspecified type Dementia behavioral disturbance: without behavioral disturbance Qualified Code(s): F03.90 - Unspecified dementia without behavioral disturbance (4) Hyponatremia Code(s): E87.1 - HYPO-OSMOLALITY AND HYPONATREMIA (5) Ischemic colitis Code(s): K55.9 - VASCULAR DISORDER OF INTESTINE, UNSPECIFIED (6) Sepsis Code(s): A41.9 - SEPSIS, UNSPECIFIED ORGANISM Qualifiers: Sepsis type: sepsis due to unspecified organism Qualified Code(s): A41.9 - Sepsis, unspecified organism (7) Acute on chronic kidney failure Code(s): N17.9 - ACUTE KIDNEY FAILURE, UNSPECIFIED; N18.9 - CHRONIC KIDNEY DISEASE, UNSPECIFIED Qualifiers: Chronic kidney disease stage: stage 3 (moderate) (8) Anemia Code(s): D64.9 - ANEMIA, UNSPECIFIED Qualifiers: Anemia type: unspecified type Qualified Code(s): D64.9 - Anemia, unspecified (9) Diarrhea Code(s): R19.7 - DIARRHEA, UNSPECIFIED Qualifiers: Diarrhea type: unspecified type Qualified Code(s): R19.7 - Diarrhea, unspecified (10) Hyperlipidemia Code(s): E78.5 - HYPERLIPIDEMIA, UNSPECIFIED Qualifiers: Hyperlipidemia type: pure hypercholesterolemia Qualified Code(s): E78.00 - Pure hypercholesterolemia, unspecified (11) Hypothyroidism Code(s): E03.9 - HYPOTHYROIDISM, UNSPECIFIED Qualifiers: Hypothyroidism type: unspecified Qualified Code(s): E03.9 - Hypothyroidism , unspecified (12) Type 2 diabetes mellitus Code(s): E11.9 - TYPE 2 DIABETES MELLITUS WITHOUT COMPLICATIONS Qualifiers: Diabetes mellitus terminal carman insulin use: without terminal carman use Diabetes mellitus complication status: with kidney complications Diabetes mellitus complication detail: with chronic kidney disease Assessment/Plan 1. Ischemic colitis, mesenteric ischemia with intestinal angina for conservative medical management 2. Paroxysmal atrial fibrillation on A/C with NOAC/Eliquis [id number] score of 5, rate controlled 3. 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 Diastolic LV dysfunction with chronic class I-II NYHA classification LV failure, compensated/euvolemic 5. HTN/HCVD 6. DM 7. Hypercholesterolemia 8. Hypothyroidism 9. Dementia/Organic brain syndrome 10. Acute on chronic kidney injury 11. Anemia PLAN: 1. Continue Atenolol 25 qd, Norvasc 5 qd and Lovaza 2 bid 2. ACEI/ARB when renal function improves 3. Continue Eliquis 2.5 bid at the above noted dosage (age > 80 and Creatinine > 1.5) 4. Empiric antibiotic course as per ID 5. Transfusion to maintain hemoglobin equal or greater than 8.0 Continue conservative therapy as per family wishes Deejay Sandra MD
[2017-11-04] MEDS: PANTOPRAZOLE 40 MG TABLET (FP) PO SCH ×2 (11:13→21:53)
[2017-11-04] MEDS: APIXABAN 2.5 MG TABLET PO SCH ×2 (11:13→21:54)
[2017-11-04] MEDS: LACTOBACILLUS ACIDOPHILUS 1 TABLET PO SCH (11:13)
[2017-11-04] MEDS: MULTIVITAMINS (DAILY MVI) TABLET (FP) PO SCH (11:13)
[2017-11-04] MEDS: amLODIPine BESYLATE 5 MG TABLET (FP) PO SCH (11:13)
[2017-11-04] MEDS: ATENOLOL 25 MG TABLET (FP) PO SCH (11:13)
[2017-11-04] MEDS ORDERED: POTASSIUM PHOSPHATE 15 MM in DEXTROSE 5%-WATER - 250 ML IVPB ONE (11:24)
[2017-11-04] MEDS ORDERED: MAGNESIUM 2GM/50ML STERILE WATER IVPB IVPB ONE (11:25)
[2017-11-04] MEDS ORDERED: INSULIN (NOVOLOG) ASPART 100 UNITS/ML 10ML VIAL ONE ×2 (11:43→17:36)
[2017-11-04] MEDS: OMEGA-3 ACID ETHYL ESTERS (FATTY-ACIDS) 1 GM CAPSULE (FP) PO SCH ×2 (11:50→19:34)
[2017-11-04 13:51] LABS: HEMATOCRIT 27.5 % (32.4-45.2); HEMOGLOBIN 9.7 GM/dL (10.7-15.3); MCH 31.1 pg (25.7-33.7); MCHC 35.2 g/dl (32.0-36.0); MEAN CELL VOLUME 88.4 fl (80-96); MEAN PLT VOLUME 8.1 fl (7.5-11.1); PLATELET COUNT 308 K/MM3 (134-434); RBC 3.11 M/mm3 (3.60-5.2); RDW 15.5 % (11.6-15.6); WHITE BLOOD COUNT 10.6 K/mm3 (4.0-10.0)
[2017-11-04 14:20] LABS: MAGNESIUM 1.7 mg/dL (1.8-2.4); PHOSPHOROUS 1.3 mg/dL (2.5-4.9)
--- NOTE | 2017-11-04 14:39 | PN ---
Progress Note (short form) - Note Progress Note: Subjective: The patient was seen at the bedside, she has no complaints at this time. Current Medications Generic Name Dose Route Start Last Admin Trade Name Antolin PRN Reason Stop Dose Admin Acetaminophen 500 mg 11/01/17 14:45 11/04/17 06:10 Tylenol - PO 500 mg Q6HPO YANN Administration Amlodipine Besylate 5 mg 10/30/17 10:00 11/04/17 11:13 Norvasc - PO 5 mg DAILY YANN Administration Apixaban 2.5 mg 10/29/17 22:00 11/04/17 11:13 Eliquis - PO 2.5 mg BID YANN Administration Atenolol 25 mg 10/30/17 10:00 11/04/17 11:13 Tenormin - PO 25 mg DAILY YANN Administration Donepezil HCl 10 mg 10/30/17 22:00 11/03/17 22:01 Aricept - PO 10 mg HS YANN Administration Metronidazole 500 mg in 100 mls @ 100 mls/hr 10/29/17 02:00 11/04/17 11:13 Flagyl 500mg Premixed Ivpb - IVPB 100 mls/hr Q8H-IV YANN Administration Piperacillin Sod/Tazobactam 50 mls @ 100 mls/hr 10/29/17 02:00 11/04/17 11:19 Sod 2.25 gm/ Dextrose IVPB 100 mls/hr Q8H-IV YANN Administration Protocol Potassium Phosphate 15 mm/ 255 mls @ 62.5 mls/hr 11/04/17 11:24 11/04/17 12: 49 Dextrose IVPB 11/04/17 15:28 62.5 mls/hr ONCE ONE Administration Insulin Aspart 1 vial 11/01/17 16:30 11/04/17 11:50 Novolog Vial Sliding Scale - SQ 6 unit ACHS YANN Administration Protocol Lactobacillus Acidophilus 1 tab 11/01/17 14:30 11/04/17 11:13 Bacid - PO 1 tab DAILY YANN Administration Levothyroxine Sodium 25 mcg 10/30/17 07:00 11/04/17 06:10 Synthroid - PO 25 mcg DAILY@0700 YANN Administration Metoclopramide HCl 10 mg 11/02/17 21:00 11/04/17 09:05 Reglan Injection - IVPUSH 10 mg Q6H-IV YANN Administration Multivitamins/Minerals/Vitamin C 1 tab 10/30/17 10:00 11/04/17 11:13 Tab-A-Vit - PO 1 tab DAILY YANN Administration Ehzzg-1-Mivg Ethyl Esters 2 gm 10/30/17 10:00 11/04/17 11:50 Lovaza - PO 2 gm BID@1000,1700 YANN Administration Pancrelipase 1 cap 11/02/17 17:30 11/04/17 12:[address] 36,000 Units Capsule PO 1 cap TIDCM YANN Administration Pantoprazole Sodium 40 mg 10/29/17 10:00 11/04/17 11:13 Protonix - PO 40 mg BID YANN Administration Potassium Phos/Sodium Phos 1 packet 11/04/17 14:00 Phos-Nak Packet - PO 11/05/17 06:01 TID YANN Simethicone 80 mg 10/28/17 21:19 11/02/17 02:17 Mylicon - PO 80 mg Q6H PRN Administration GAS Sodium Bicarbonate 650 mg 11/03/17 14:00 11/04/17 06:10 Sodium Bicarbonate - PO 650 mg TID YANN Administration Objective: Vital Signs Period Temp Pulse Resp BP Sys/Thompson Pulse Ox Last 24 Hr 97.6 F-98.7 F 76-84 20-20 127-148/50-70 97 Physical Exam: Patient refused CBCD WBC 10.6 K/mm3 (4.0-10.0) H 11/04/17 13:05 RBC 3.11 M/mm3 (3.60-5.2) L 11/04/17 13:05 Hgb 9.7 GM/dL (10.7-15.3) L D 11/04/17 13:05 Hct 27.5 % (32.4-45.2) L 11/04/17 13:05 MCV 88.4 fl (80-96) 11/04/17 13:05 MCHC 35.2 g/dl (32.0-36.0) 11/04/17 13:05 RDW 15.5 % (11.6-15.6) 11/04/17 13:05 Plt Count 308 K/MM3 (134-434) 11/04/17 13:05 MPV 8.1 fl (7.5-11.1) 11/04/17 13:05 CMP Sodium 139 mmol/L (136-145) 11/04/17 06:55 Potassium 4.2 mmol/L (3.5-5.1) 11/04/17 06:55 Chloride 114 mmol/L (98-107) H 11/04/17 06:55 Carbon Dioxide 17 mmol/L (21-32) L 11/04/17 06:55 Anion Gap 8 (8-16) 11/04/17 06:55 BUN 21 mg/dL (7-18) H 11/04/17 06:55 Creatinine 1.7 mg/dL (0.55-1.02) H 11/04/17 06:55 Creat Clearance w eGFR 23.68 (>60) 11/03/17 07:40 Random Glucose 125 mg/dL (74-106) H 11/04/17 06:55 Calcium 7.0 mg/dL (8.5-10.1) L 11/04/17 06:55 Total Bilirubin 0.3 mg/dL (0.2-1.0) 11/03/17 07:40 AST 12 U/L (15-37) L 11/03/17 07:40 ALT 8 U/L (12-78) L 11/03/17 07:40 Alkaline Phosphatase 34 U/L (45-117) L 11/03/17 07:40 Total Protein 4.7 g/dl (6.4-8.2) L 11/03/17 07:40 Albumin 1.9 g/dl (3.4-5.0) L 11/03/17 07:40 CARDIAC ENZYMES Creatine Kinase 21 IU/L (26-192) L 10/28/17 05:45 Troponin I < 0.03 ng/ml (0.00-0.06) 10/27/17 13:02 Microbiology 10/27/17 13:02 Blood - Peripheral Venous Blood Culture - Final NO GROWTH AFTER 5 DAYS INCUBATION 10/27/17 13:02 Blood - Peripheral Venous Blood Culture - Final NO GROWTH AFTER 5 DAYS INCUBATION 10/27/17 14:37 Stool Salmonella/Shigella Culture - Final NO GROWTH OF SALMONELLA OR SHIGELLA SPECIES OBTAINED 10/27/17 14:37 Stool Campylobacter Culture - Final NO GROWTH OF CAMPYLOBACTER SPECIES OBTAINED 10/27/17 14:37 Stool Yersinia Culture - Final NO GROWTH OF YERSINIA SPECIES OBTAINED 10/27/17 14:37 Stool Vibrio Culture - Final NO GROWTH OF VIBRIO SPECIES OBTAINED 10/27/17 14:37 Stool Escherichia coli 0157 Culture - Final NO GROWTH OF E COLI 0157 OBTAINED 10/27/17 18:42 Urine - Urine Clean Catch Urine Culture - Final NO GROWTH OBTAINED 10/28/17 08:30 Stool Clostridium difficile Antigen (LUCIANO) - Final 10/28/17 08:30 Stool Clostridium difficile Toxin Assay - Final Assessment:
--- NOTE | 2017-11-04 15:15 | PN ---
Progress Note (short form) - Note Progress Note: Renal follow up for GABY on CKD Pt seen and examined at the bedside no acute complaints tolerating a small amount of her oral diet making urine Vital Signs Temperature 97.6 F 11/04/17 14:22 Pulse Rate 76 11/04/17 14:22 Respiratory Rate 18 11/04/17 10:00 Blood Pressure 148/64 11/04/17 14:22 O2 Sat by Pulse Oximetry (%) 97 11/04/17 09:00 Intake & Output 11/01/17 11/02/17 11/03/17 11/04/17 23:59 23:59 23:59 23:59 Intake Total 2007 1330 2840 600 Output Total 2 Balance 2007 1330 2840 598 NAD, awake and alert RRR, No M/R CTA, no rales or wheeze soft, + tenderness No LE edema, clubbing or cyanosis CBC, BMP 11/04/17 13:05 11/04/17 06:55 Current Medications Acetaminophen (Tylenol -) 500 mg PO Q6HPO [facility] Last Admin: 11/04/17 06:10 Dose: 500 mg Amlodipine Besylate (Norvasc -) 5 mg PO DAILY [facility] Last Admin: 11/04/17 11:13 Dose: 5 mg Amoxicillin/Clavulanate Potassium (Augmentin - 500mg Tablet) 1 tab PO BID@0800, 1730 [facility] Apixaban (Eliquis -) 2.5 mg PO BID [facility] Last Admin: 11/04/17 11:13 Dose: 2.5 mg Atenolol (Tenormin -) 25 mg PO DAILY [facility] Last Admin: 11/04/17 11:13 Dose: 25 mg Donepezil HCl (Aricept -) 10 mg PO HS [facility] Last Admin: 11/03/17 22:01 Dose: 10 mg Potassium Phosphate 15 mm/ (Dextrose) 255 mls @ 62.5 mls/hr IVPB ONCE ONE Stop: 11/04/17 15:28 Last Admin: 11/04/17 12:49 Dose: 62.5 mls/hr Insulin Aspart (Novolog Vial Sliding Scale -) 1 vial SQ ACHS [facility] PRN Reason: Protocol Last Admin: 11/04/17 11:50 Dose: 6 unit Lactobacillus Acidophilus (Bacid -) 1 tab PO DAILY [facility] Last Admin: 11/04/17 11:13 Dose: 1 tab Levothyroxine Sodium (Synthroid -) 25 mcg PO DAILY@0700 [facility] Last Admin: 11/04/17 06:10 Dose: 25 mcg Metoclopramide HCl (Reglan Injection -) 10 mg IVPUSH Q6H-IV [facility] Last Admin: 11/04/17 09:05 Dose: 10 mg Metronidazole (Flagyl -) 500 mg PO TID [facility] Multivitamins/Minerals/Vitamin C (Tab-A-Vit -) 1 tab PO DAILY [facility] Last Admin: 11/04/17 11:13 Dose: 1 tab Njtni-9-Laji Ethyl Esters (Lovaza -) 2 gm PO BID@1000,1700 [facility] Last Admin: 11/04/17 11:50 Dose: 2 gm Pancrelipase (Creon Dr 36,000 Units Capsule) 1 cap PO TIDCM [facility] Last Admin: 11/04/17 12:50 Dose: 1 cap Pantoprazole Sodium (Protonix -) 40 mg PO BID [facility] Last Admin: 11/04/17 11:13 Dose: 40 mg Potassium Phos/Sodium Phos (Phos-Nak Packet -) 1 packet PO TID [facility] Stop: 11/05/17 06:01 Simethicone (Mylicon -) 80 mg PO Q6H PRN PRN Reason: GAS Last Admin: 11/02/17 02:17 Dose: 80 mg Sodium Bicarbonate (Sodium Bicarbonate -) 650 mg PO TID [facility] Last Admin: 11/04/17 06:10 Dose: 650 mg 87 year old woman with PMhx of CKD Stage 4 (baseline Cr 1.8-2), AFib on Eliquis , Hypertension, Hypothyrodism who presented with complaints of abd pain and diarrhea and found to have possible ischemic colitis and GABY and Na of 122. #Hypovolemic Hyponatremia #GABY on CKD stage 4 #Ischemic Colitis/Gas in Portal circulation #Metabolic acidosis/Lactic acidosis #Anemia #Afib on Eliquis #Hypophosphatemia #Hypomagnesemai Renal function improved to baseline Supplement K, Mg, PHos Advance diet as per GI Trend renal function and electrolytes Refugio Allen DO
[2017-11-04] MEDS: NAPH,MB-DB/K PH,MBDB POWDER PACKET PO SCH ×2 (15:32→21:53)
[2017-11-04] MEDS: metroNIDAZOLE 250 MG TABLET PO SCH ×2 (15:34→21:54)
[2017-11-04] MEDS: AMOX TR/POT CLAV 500MG/125MG TABLETS (FP) PO SCH (18:20)
[2017-11-04] MEDS ORDERED: PT OWN MED DRAWER 7, Y5N ONE (21:08)
[2017-11-04] MEDS: DONEPEZIL HCL 10 MG TABLET (FP) PO SCH (21:54)
[2017-11-05] MEDS: ACETAMINOPHEN 500 MG TABLET (FP) PO SCH ×5 (00:15→17:45)
[2017-11-05] MEDS: METOCLOPRAMIDE HCL INJECTION 10 MG/2 ML VIAL IVPUSH SCH ×3 (03:26→15:25)
[2017-11-05] MEDS: metroNIDAZOLE 250 MG TABLET PO SCH ×3 (06:38→21:44)
[2017-11-05] MEDS: SODIUM BICARBONATE 650 MG TABLET PO SCH ×3 (06:38→21:44)
[2017-11-05] MEDS: NAPH,MB-DB/K PH,MBDB POWDER PACKET PO SCH (06:38)
[2017-11-05] MEDS: LEVOTHYROXINE NA 25 MCG TABLET (FP) PO SCH (06:39)
[2017-11-05] MEDS: INSULIN SLIDING SCALE (NOVOLOG) 1 VIAL SQ SCH ×4 (06:39→21:47)
[2017-11-05] MEDS: AMOX TR/POT CLAV 500MG/125MG TABLETS (FP) PO SCH ×2 (08:12→17:37)
[2017-11-05 08:52] LABS: BASO % 0.5 % (0-2.0); EOS % 1.5 % (0-4.5); HEMATOCRIT 28.9 % (32.4-45.2); HEMOGLOBIN 10.1 GM/dL (10.7-15.3); LYMPH % 12.4 % (8-40); MCH 30.6 pg (25.7-33.7); MEAN CELL VOLUME 87.6 fl (80-96); MEAN PLT VOLUME 7.7 fl (7.5-11.1); MONO % 5.1 % (3.8-10.2); NEUT % 80.5 % (42.8-82.8); PLATELET COUNT 366 K/MM3 (134-434); WHITE BLOOD COUNT 12.7 K/mm3 (4.0-10.0)
[2017-11-05 09:23] LABS: ANION GAP 10 (8-16); BLOOD UREA NITROGEN 20 mg/dL (7-18); CALCIUM 8.1 mg/dL (8.5-10.1); CHLORIDE 110 mmol/L (98-107); CO2 17 mmol/L (21-32); CREATININE 1.7 mg/dL (0.55-1.02); GLUCOSE,RANDOM 189 mg/dL (74-106); MAGNESIUM 2.1 mg/dL (1.8-2.4); PHOSPHOROUS 1.8 mg/dL (2.5-4.9); POTASSIUM 4.5 mmol/L (3.5-5.1); SODIUM 137 mmol/L (136-145)
[2017-11-05] MEDS ORDERED: POTASSIUM PHOSPHATE 15 MM in DEXTROSE 5%-WATER - 250 ML IVPB ONE (09:24)
[2017-11-05] MEDS ORDERED: PT OWN MED DRAWER 7, Y5N ONE ×3 (09:30→21:28)
[2017-11-05] MEDS: MULTIVITAMINS (DAILY MVI) TABLET (FP) PO SCH (09:36)
[2017-11-05] MEDS: amLODIPine BESYLATE 5 MG TABLET (FP) PO SCH (09:36)
[2017-11-05] MEDS: LIPASE/PROTEASE/AMYLASE 36,000 UNIT CAPSULE PO SCH ×3 (09:36→17:39)
[2017-11-05] MEDS: PANTOPRAZOLE 40 MG TABLET (FP) PO SCH ×2 (09:36→21:45)
[2017-11-05] MEDS: LACTOBACILLUS ACIDOPHILUS 1 TABLET PO SCH (09:36)
[2017-11-05] MEDS: ATENOLOL 25 MG TABLET (FP) PO SCH (09:36)
[2017-11-05] MEDS: APIXABAN 2.5 MG TABLET PO SCH ×2 (09:37→21:44)
[2017-11-05] MEDS: OMEGA-3 ACID ETHYL ESTERS (FATTY-ACIDS) 1 GM CAPSULE (FP) PO SCH ×2 (09:37→17:37)
[2017-11-05] MEDS ORDERED: INSULIN (NOVOLOG) ASPART 100 UNITS/ML 10ML VIAL ONE ×3 (11:04→21:31)
--- NOTE | 2017-11-05 12:51 | PN ---
Progress Note (short form) - Note Progress Note: Subjective: The patient was seen at the bedside, she has no complaints at this time. Phos and Mg repleted yesterday, remain low. Will replete today and recheck this afternoon. Son aware of plan Current Medications Generic Name Dose Route Start Last Admin Trade Name Antolin PRN Reason Stop Dose Admin Acetaminophen 500 mg 11/01/17 14:45 11/05/17 06:38 Tylenol - PO 500 mg Q6HPO YANN Administration Amlodipine Besylate 5 mg 10/30/17 10:00 11/05/17 09:36 Norvasc - PO 5 mg DAILY YANN Administration Amoxicillin/Clavulanate Potassium 1 tab 11/04/17 17:30 11/05/17 08:12 Augmentin - 500mg Tablet PO 1 tab BID@0800,1730 YANN Administration Apixaban 2.5 mg 10/29/17 22:00 11/05/17 09:37 Eliquis - PO 2.5 mg BID YANN Administration Atenolol 25 mg 10/30/17 10:00 11/05/17 09:36 Tenormin - PO 25 mg DAILY YANN Administration Donepezil HCl 10 mg 10/30/17 22:00 11/04/17 21:54 Aricept - PO 10 mg HS YANN Administration Potassium Phosphate 15 mm/ 255 mls @ 62.5 mls/hr 11/05/17 09:24 11/05/17 11: 09 Dextrose IVPB 11/05/17 13:28 62.5 mls/hr ONCE ONE Administration Iron Sucrose 200 mg/ Sodium 110 mls @ 110 mls/hr 11/06/17 10:00 Chloride IVPB 11/06/17 10:59 ONCE ONE Insulin Aspart 1 vial 11/01/17 16:30 11/05/17 11:20 Novolog Vial Sliding Scale - SQ 4 unit ACHS YANN Administration Protocol Lactobacillus Acidophilus 1 tab 11/01/17 14:30 11/05/17 09:36 Bacid - PO 1 tab DAILY YANN Administration Levothyroxine Sodium 25 mcg 10/30/17 07:00 11/05/17 06:39 Synthroid - PO 25 mcg DAILY@0700 YANN Administration Metoclopramide HCl 10 mg 11/02/17 21:00 11/05/17 09:43 Reglan Injection - IVPUSH 10 mg Q6H-IV YANN Administration Metronidazole 500 mg 11/04/17 15:00 11/05/17 06:38 Flagyl - PO 500 mg TID YANN Administration Multivitamins/Minerals/Vitamin C 1 tab 10/30/17 10:00 11/05/17 09:36 Tab-A-Vit - PO 1 tab DAILY YANN Administration Cvjeb-6-Ztat Ethyl Esters 2 gm 10/30/17 10:00 11/05/17 09:37 Lovaza - PO 2 gm BID@1000,1700 YANN Administration Pancrelipase 1 cap 11/02/17 17:30 11/05/17 09:36 Dory Hay 36,000 Units Capsule PO 1 cap TIDCM YANN Administration Pantoprazole Sodium 40 mg 10/29/17 10:00 11/05/17 09:36 Protonix - PO 40 mg BID YANN Administration Simethicone 80 mg 10/28/17 21:19 11/02/17 02:17 Mylicon - PO 80 mg Q6H PRN Administration GAS Sodium Bicarbonate 650 mg 11/03/17 14:00 11/05/17 06:38 Sodium Bicarbonate - PO 650 mg TID YANN Administration Objective: Vital Signs Period Temp Pulse Resp BP Sys/Thompson Pulse Ox Last 24 Hr 97.6 F-98.4 F 76-85 18-20 130-149/51-70 98-98 Physical Exam: General: NAD Lungs: CTA bilaterally CBCD WBC 12.7 K/mm3 (4.0-10.0) H 11/05/17 08:00 RBC 3.30 M/mm3 (3.60-5.2) L 11/05/17 08:00 Hgb 10.1 GM/dL (10.7-15.3) L 11/05/17 08:00 Hct 28.9 % (32.4-45.2) L 11/05/17 08:00 MCV 87.6 fl (80-96) 11/05/17 08:00 MCHC 35.0 g/dl (32.0-36.0) 11/05/17 08:00 RDW 16.0 % (11.6-15.6) H 11/05/17 08:00 Plt Count 366 K/MM3 (134-434) 11/05/17 08:00 MPV 7.7 fl (7.5-11.1) 11/05/17 08:00 CMP Sodium 137 mmol/L (136-145) 11/05/17 08:00 Potassium 4.5 mmol/L (3.5-5.1) 11/05/17 08:00 Chloride 110 mmol/L (98-107) H 11/05/17 08:00 Carbon Dioxide 17 mmol/L (21-32) L 11/05/17 08:00 Anion Gap 10 (8-16) 11/05/17 08:00 BUN 20 mg/dL (7-18) H 11/05/17 08:00 Creatinine 1.7 mg/dL (0.55-1.02) H 11/05/17 08:00 Creat Clearance w eGFR 23.68 (>60) 11/03/17 07:40 Random Glucose 189 mg/dL (74-106) H 11/05/17 08:00 Calcium 8.1 mg/dL (8.5-10.1) L 11/05/17 08:00 Total Bilirubin 0.3 mg/dL (0.2-1.0) 11/03/17 07:40 AST 12 U/L (15-37) L 11/03/17 07:40 ALT 8 U/L (12-78) L 11/03/17 07:40 Alkaline Phosphatase 34 U/L (45-117) L 11/03/17 07:40 Total Protein 4.7 g/dl (6.4-8.2) L 11/03/17 07:40 Albumin 1.9 g/dl (3.4-5.0) L 11/03/17 07:40 CARDIAC ENZYMES Creatine Kinase 21 IU/L (26-192) L 10/28/17 05:45 Troponin I < 0.03 ng/ml (0.00-0.06) 10/27/17 13:02 Microbiology 10/27/17 13:02 Blood - Peripheral Venous Blood Culture - Final NO GROWTH AFTER 5 DAYS INCUBATION 10/27/17 13:02 Blood - Peripheral Venous Blood Culture - Final NO GROWTH AFTER 5 DAYS INCUBATION 10/27/17 14:37 Stool Salmonella/Shigella Culture - Final NO GROWTH OF SALMONELLA OR SHIGELLA SPECIES OBTAINED 10/27/17 14:37 Stool Campylobacter Culture - Final NO GROWTH OF CAMPYLOBACTER SPECIES OBTAINED 10/27/17 14:37 Stool Yersinia Culture - Final NO GROWTH OF YERSINIA SPECIES OBTAINED 10/27/17 14:37 Stool Vibrio Culture - Final NO GROWTH OF VIBRIO SPECIES OBTAINED 10/27/17 14:37 Stool Escherichia coli 0157 Culture - Final NO GROWTH OF E COLI 0157 OBTAINED 10/27/17 18:42 Urine - Urine Clean Catch Urine Culture - Final NO GROWTH OBTAINED 10/28/17 08:30 Stool Clostridium difficile Antigen (LUCIANO) - Final 10/28/17 08:30 Stool Clostridium difficile Toxin Assay - Final Assessment:
--- NOTE | 2017-11-05 12:52 | PN ---
Progress Note (short form) - Note Progress Note: Patient seen and examined Offers no complaints Last Vital Signs Temp Pulse Resp BP Pulse Ox 98.4 F 85 20 138/51 98 11/05/17 08:00 11/05/17 08:00 11/05/17 08:00 11/05/17 08:00 11/05/17 08:00 HEENT: MYA, EOM Intact Oropharynx: No thrush, No mucositis Cor: AF Lungs: Clear to P&A Abd: Soft, Normal bowel sounds, No organomegaly Ext:No significant edema Skin: No rashes, Integument intact CBC, BMP 11/05/17 08:00 11/05/17 08:00 Current Medications Generic Name Dose Route Start Last Admin Trade Name Freq PRN Reason Stop Dose Admin Acetaminophen 500 mg 11/01/17 14:45 11/05/17 06:38 Tylenol - PO 500 mg Q6HPO YANN Administration Amlodipine Besylate 5 mg 10/30/17 10:00 11/05/17 09:36 Norvasc - PO 5 mg DAILY YANN Administration Amoxicillin/Clavulanate Potassium 1 tab 11/04/17 17:30 11/05/17 08:12 Augmentin - 500mg Tablet PO 1 tab BID@0800,1730 YANN Administration Apixaban 2.5 mg 10/29/17 22:00 11/05/17 09:37 Eliquis - PO 2.5 mg BID YANN Administration Atenolol 25 mg 10/30/17 10:00 11/05/17 09:36 Tenormin - PO 25 mg DAILY YANN Administration Donepezil HCl 10 mg 10/30/17 22:00 11/04/17 21:54 Aricept - PO 10 mg HS YANN Administration Potassium Phosphate 15 mm/ 255 mls @ 62.5 mls/hr 11/05/17 09:24 11/05/17 11: 09 Dextrose IVPB 11/05/17 13:28 62.5 mls/hr ONCE ONE Administration Insulin Aspart 1 vial 11/01/17 16:30 11/05/17 11:20 Novolog Vial Sliding Scale - SQ 4 unit ACHS YANN Administration Protocol Lactobacillus Acidophilus 1 tab 11/01/17 14:30 11/05/17 09:36 Bacid - PO 1 tab DAILY YANN Administration Levothyroxine Sodium 25 mcg 10/30/17 07:00 11/05/17 06:39 Synthroid - PO 25 mcg DAILY@0700 YANN Administration Metoclopramide HCl 10 mg 11/02/17 21:00 11/05/17 09:43 Reglan Injection - IVPUSH 10 mg Q6H-IV YANN Administration Metronidazole 500 mg 11/04/17 15:00 11/05/17 06:38 Flagyl - PO 500 mg TID YANN Administration Multivitamins/Minerals/Vitamin C 1 tab 10/30/17 10:00 11/05/17 09:36 Tab-A-Vit - PO 1 tab DAILY YANN Administration Tcebp-9-Wqfy Ethyl Esters 2 gm 10/30/17 10:00 11/05/17 09:37 Lovaza - PO 2 gm BID@1000,1700 YANN Administration Pancrelipase 1 cap 11/02/17 17:30 11/05/17 09:36 Creatul Hay 36,000 Units Capsule PO 1 cap TIDCM YANN Administration Pantoprazole Sodium 40 mg 10/29/17 10:00 11/05/17 09:36 Protonix - PO 40 mg BID YANN Administration Simethicone 80 mg 10/28/17 21:19 11/02/17 02:17 Mylicon - PO 80 mg Q6H PRN Administration GAS Sodium Bicarbonate 650 mg 11/03/17 14:00 11/05/17 06:38 Sodium Bicarbonate - PO 650 mg TID YANN Administration Impression: Ischemic colitis GABY/CKD Anemia- multi-factorialifection - Fe++ deficient, renal insufficiency, AF A/C HLD HBP Plan: Fe+ infusion of Venofer on 11/06
--- NOTE | 2017-11-05 12:56 | PN ---
Progress Note (short form) - Note Progress Note: Renal follow up for GABY on CKD Pt seen and examined at the bedside reports that she continues to have diarrhea no abd pain oral intake is improving making urine Vital Signs Temperature 98.4 F 11/05/17 08:00 Pulse Rate 85 11/05/17 08:00 Respiratory Rate 20 11/05/17 08:00 Blood Pressure 138/51 11/05/17 08:00 O2 Sat by Pulse Oximetry (%) 98 11/05/17 08:00 Intake & Output 11/02/17 11/03/17 11/04/17 11/05/17 23:59 23:59 23:59 23:59 Intake Total 1330 2840 1150 Output Total 2 Balance 1330 2840 1148 NAD, awake and alert RRR, No M/R CTA, no rales or wheeze soft, + tenderness No LE edema, clubbing or cyanosis CBC, BMP 11/05/17 08:00 11/05/17 08:00 Laboratory Tests 10/28/17 11/05/17 05:45 08:00 Calcium 8.2 L 8.1 L Phosphorus 5.7 H 1.8 L Magnesium 2.1 Albumin 2.9 L Current Medications Acetaminophen (Tylenol -) 500 mg PO Q6HPO [facility] Last Admin: 11/05/17 06:38 Dose: 500 mg Amlodipine Besylate (Norvasc -) 5 mg PO DAILY [facility] Last Admin: 11/05/17 09:36 Dose: 5 mg Amoxicillin/Clavulanate Potassium (Augmentin - 500mg Tablet) 1 tab PO BID@0800, 1730 [facility] Last Admin: 11/05/17 08:12 Dose: 1 tab Apixaban (Eliquis -) 2.5 mg PO BID [facility] Last Admin: 11/05/17 09:37 Dose: 2.5 mg Atenolol (Tenormin -) 25 mg PO DAILY [facility] Last Admin: 11/05/17 09:36 Dose: 25 mg Donepezil HCl (Aricept -) 10 mg PO HS [facility] Last Admin: 11/04/17 21:54 Dose: 10 mg Potassium Phosphate 15 mm/ (Dextrose) 255 mls @ 62.5 mls/hr IVPB ONCE ONE Stop: 11/05/17 13:28 Last Admin: 11/05/17 11:09 Dose: 62.5 mls/hr Insulin Aspart (Novolog Vial Sliding Scale -) 1 vial SQ ACHS [facility] PRN Reason: Protocol Last Admin: 11/05/17 11:20 Dose: 4 unit Lactobacillus Acidophilus (Bacid -) 1 tab PO DAILY [facility] Last Admin: 11/05/17 09:36 Dose: 1 tab Levothyroxine Sodium (Synthroid -) 25 mcg PO DAILY@0700 [facility] Last Admin: 11/05/17 06:39 Dose: 25 mcg Metoclopramide HCl (Reglan Injection -) 10 mg IVPUSH Q6H-IV [facility] Last Admin: 11/05/17 09:43 Dose: 10 mg Metronidazole (Flagyl -) 500 mg PO TID [facility] Last Admin: 11/05/17 06:38 Dose: 500 mg Multivitamins/Minerals/Vitamin C (Tab-A-Vit -) 1 tab PO DAILY [facility] Last Admin: 11/05/17 09:36 Dose: 1 tab Rtauh-4-Vtaq Ethyl Esters (Lovaza -) 2 gm PO BID@1000,1700 [facility] Last Admin: 11/05/17 09:37 Dose: 2 gm Pancrelipase (Creon Dr 36,000 Units Capsule) 1 cap PO TIDCM [facility] Last Admin: 11/05/17 09:36 Dose: 1 cap Pantoprazole Sodium (Protonix -) 40 mg PO BID [facility] Last Admin: 11/05/17 09:36 Dose: 40 mg Simethicone (Mylicon -) 80 mg PO Q6H PRN PRN Reason: GAS Last Admin: 11/02/17 02:17 Dose: 80 mg Sodium Bicarbonate (Sodium Bicarbonate -) 650 mg PO TID [facility] Last Admin: 11/05/17 06:38 Dose: 650 mg 87 year old woman with PMhx of CKD Stage 4 (baseline Cr 1.8-2), AFib on Eliquis , Hypertension, Hypothyrodism who presented with complaints of abd pain and diarrhea and found to have possible ischemic colitis and GABY and Na of 122. #Hypovolemic Hyponatremia (now resolved) #GABY on CKD stage 4 (now at baseline) #Ischemic Colitis/Gas in Portal circulation #Metabolic acidosis/Lactic acidosis #Anemia #Afib on Eliquis #Hypophosphatemia #Hypomagnesemia Renal function stable at baseline tolerating oral diet continue sodium bicarb TID for metabolic acidosis (likely from diarrhea) GI and surgical follow up To supplament with IV K-phos today Refugio Allen DO
[2017-11-05] MEDS ORDERED: LOPERAMIDE HCL 2 MG CAPSULE PO PRN (15:26)
--- NOTE | 2017-11-05 15:26 | PN ---
GI Progress Note Subjective: GI Note: Phosphorus being repleted. Still having diarrhea. Had 8 BMs today. Eating small amounts according to her son but is tolerating feedings. - Objective Vital Signs: Vital Signs Temperature 98.4 F 11/05/17 08:00 Pulse Rate 85 11/05/17 08:00 Respiratory Rate 20 11/05/17 08:00 Blood Pressure 138/51 11/05/17 08:00 O2 Sat by Pulse Oximetry (%) 98 11/05/17 08:00 Laboratory Tests 11/04/17 11/04/17 11/05/17 06:55 13:05 08:00 WBC 8.9 10.6 H 12.7 H Constitutional: Calm ...Auscultate: Yes: Normoactive Bowel Sounds ...Palpate: Yes: Soft Labs: CBC, BMP 11/05/17 08:00 11/05/17 08:00 INR, PTT INR 1.20 (0.82-1.09) 10/27/17 13:02 Assessment/Plan Slowly resolving ischemic colitis. Will order Imodium to slow the diarrhea. Continue present feedings Problem List - Problems (1) Abdominal pain Code(s): R10.9 - UNSPECIFIED ABDOMINAL PAIN Qualifiers: Abdominal location: generalized Qualified Code(s): R10.84 - Generalized abdominal pain (2) Ischemic colitis Code(s): K55.9 - VASCULAR DISORDER OF INTESTINE, UNSPECIFIED
[2017-11-05] MEDS: METOCLOPRAMIDE HCL 10 MG TABLET (FP) PO SCH (17:38)
[2017-11-05] MEDS: DONEPEZIL HCL 10 MG TABLET (FP) PO SCH (21:45)
[2017-11-06] MEDS: ACETAMINOPHEN 500 MG TABLET (FP) PO SCH ×2 (00:44→06:21)
[2017-11-06] MEDS: SODIUM BICARBONATE 650 MG TABLET PO SCH (06:20)
[2017-11-06] MEDS: metroNIDAZOLE 250 MG TABLET PO SCH (06:21)
[2017-11-06] MEDS: LEVOTHYROXINE NA 25 MCG TABLET (FP) PO SCH (06:21)
[2017-11-06] MEDS: METOCLOPRAMIDE HCL 10 MG TABLET (FP) PO SCH (06:21)
[2017-11-06] MEDS: INSULIN SLIDING SCALE (NOVOLOG) 1 VIAL SQ SCH (06:21)
[2017-11-06 06:31] VITALS: TEMP 98.1
[2017-11-06] MEDS ORDERED: PT OWN MED DRAWER 7, Y5N ONE (08:58)
[2017-11-06] MEDS: AMOX TR/POT CLAV 500MG/125MG TABLETS (FP) PO SCH (09:02)
[2017-11-06] MEDS: ATENOLOL 25 MG TABLET (FP) PO SCH (09:02)
[2017-11-06] MEDS: PANTOPRAZOLE 40 MG TABLET (FP) PO SCH (09:02)
[2017-11-06] MEDS: LACTOBACILLUS ACIDOPHILUS 1 TABLET PO SCH (09:02)
[2017-11-06] MEDS: MULTIVITAMINS (DAILY MVI) TABLET (FP) PO SCH (09:02)
[2017-11-06] MEDS: LIPASE/PROTEASE/AMYLASE 36,000 UNIT CAPSULE PO SCH (09:03)
[2017-11-06] MEDS: APIXABAN 2.5 MG TABLET PO SCH (09:03)
[2017-11-06] MEDS: amLODIPine BESYLATE 5 MG TABLET (FP) PO SCH (09:03)
[2017-11-06] MEDS: OMEGA-3 ACID ETHYL ESTERS (FATTY-ACIDS) 1 GM CAPSULE (FP) PO SCH (09:03)
--- NOTE | 2017-11-06 09:25 | DS ---
Physical Examination Vital Signs: Vital Signs Temperature 98.1 F 11/06/17 06:00 Pulse Rate 94 H 11/06/17 06:00 Respiratory Rate 18 11/06/17 06:00 Blood Pressure 112/50 11/06/17 06:00 O2 Sat by Pulse Oximetry (%) 97 11/05/17 22:00 Labs: CBC, BMP 11/05/17 08:00 11/05/17 08:00 Discharge Summary Reason For Visit: HYPONATREMIA; ISCHEMIC COLITIS Current Active Problems Abdominal pain (Acute) DVT prophylaxis (Acute) Dementia (Acute) Hyponatremia (Acute) Ischemic colitis (Acute) Paroxysmal atrial fibrillation (Acute) Sepsis (Acute) Severe sepsis (Acute) Condition: Improved - Instructions Diet, Activity, Other Instructions: Please return to the ED with new, persistent, or worsening symptoms. Please follow-up with providers as indicated Please complete the full course of antibiotics as prescribed. Referrals: Davie Bucio MD [Staff Physician] - (Please follow-up with your primary care provider on WednesdayNovember 08 to have your white blood cell count, phosphorous, and magnesium levels checked ) Juan Shea MD [Staff Physician] - Olya Moses MD [Staff Physician] - (Please follow-up with Dr. Moses ( gastrointestinal doctor) within 3-5 days for further management of your resolving ischemic colitis) Kalee Rodriguez MD [Staff Physician] - (Please follow-up with hematology on Wednesday for ther management of your iron deficiency anemia and to arrange your last two iron infusions. You will need to get the next two infusions withing the next 10 days. ) Refugio Allen MD [Staff Physician] - (Please follow-up with nephrology on Wednesday 11/08 for further management of your chronic kidney disease and to schedule repeat labs to check your electrolytes.) Everett Lobato MD, MD [Staff Physician] - 1 Week Disposition: [facility]NS/HOME HEALTH CARE - Home Medications Comprehensive Discharge Medication List: Ambulatory Orders Amlodipine Besylate [Norvasc -] 5 mg PO DAILY #30 tablet 05/19/17 Apixaban [Eliquis -] 2.5 mg PO BID #60 tablet 05/19/17 Donepezil HCl [Aricept -] 10 mg PO DAILY #30 tablet 05/19/17 Levothyroxine [Synthroid -] 25 mcg PO DAILY@0700 #30 tablet 05/19/17 [place]-3 Acid Ethyl Esters [Lovaza -] 2 gm PO BID@1000,1700 #60 cap 05/19/17 Amox-Tr/K Cl [Augmentin 500-125mg Tablet -] 1 tab PO BID@0800,1730 #8 tablet Atenolol [Tenormin -] 25 mg PO DAILY #30 tablet 11/05/17 Insulin Sliding Scale [Novolog Vial Sliding Scale -] 1 vial SQ ACHS #1 vial Lactobacillus Acidophilus [Bacid -] 1 tab PO DAILY #30 tab 11/05/17 Lipase/Protease/Amylase [Dory Hay 36,000 Units Capsule] 1 cap PO TIDCM #90 capsule. 11/05/17 Loperamide HCl [Imodium -] 2 mg PO Q8H PRN capsule 11/05/17 Metoclopramide HCl [Reglan -] 10 mg PO TIDAC #30 tablet 11/05/17 Multivitamins [Multivit ([facility] Formulary)] 1 tab PO DAILY #30 tab 11/05/17 Pantoprazole Sodium [Protonix -] 40 mg PO BID #60 tablet.ec 11/05/17 Simethicone [Mylicon -] 80 mg PO Q6H PRN tab.chew 11/05/17 Sodium Bicarbonate - 650 mg PO TID #30 tablet 11/05/17 metroNIDAZOLE [Flagyl -] 500 mg PO TID #12 tablet 11/05/17 Wheelchair 1 unit NR ASDIR #1 unit 11/06/17 - Discharge Referral Referred to [facility] No
[2017-11-06] MEDS ORDERED: IRON SUCROSE INJECTION 200 MG in SODIUM CHLORIDE 100 ML IVPB ONE (10:00)
[2017-11-06 11:41] VITALS: BP 146/54; PULSE 80
== END 2017-11-06 11:09 | disposition home health service (06) | DRG 872 ==
LOC: FER 12:26 → JICU 19:50 → J6S 10-28 20:36
PROVIDERS: ADMIT Internal Medicine; ATTEND Registered Nurse
PROC: 30233N1 Transfusion of Nonautologous Red Blood Cells into Peripheral Vein, Percutaneous Approach (ICD-10-PCS; principal; 2017-10-30)
DX: A41.9 Sepsis, unspecified organism (principal); N17.9 Acute kidney failure, unspecified; N18.4 Chronic kidney disease, stage 4 (severe); E87.1 Hypo-osmolality and hyponatremia; K55.9 Vascular disorder of intestine, unspecified; E87.2 Acidosis; I13.0 Hypertensive heart and chronic kidney disease with heart failure and stage 1 through stage 4 chronic kidney disease, or unspecified chronic kidney disease; I50.32 Chronic diastolic (congestive) heart failure; A09 Infectious gastroenteritis and colitis, unspecified; F03.90 Unspecified dementia, unspecified severity, without behavioral disturbance, psychotic disturbance, mood disturbance, and anxiety; E78.5 Hyperlipidemia, unspecified; E03.9 Hypothyroidism, unspecified; E11.22 Type 2 diabetes mellitus with diabetic chronic kidney disease; I48.0 Paroxysmal atrial fibrillation; E83.39 Other disorders of phosphorus metabolism; E83.42 Hypomagnesemia; I25.119 Atherosclerotic heart disease of native coronary artery with unspecified angina pectoris; F09 Unspecified mental disorder due to known physiological condition; E87.6 Hypokalemia; E11.43 Type 2 diabetes mellitus with diabetic autonomic (poly)neuropathy; E86.1 Hypovolemia; D64.9 Anemia, unspecified
CPT/HCPCS: 36415; 36430; 71045-TC-FY; 74176-TC; 80048; 80053; 81003; 81015; 82150; 82272; 82550; 82570; 82656; 82728; 82803; 82962; 83540; 83550; 83605; 83615; 83690; 83735; 84100; 84155; 84156; 84165; 84300; 84443; 84484; 84586; 85025; 85027; 85044; 85610; 85730; 86140; 86850; 86900; 86901; 86922; 87040; 87045; 87046; 87086; 87177; 87209; 87324; 87449; 93005; 97116-GP; 97161-GP; 99284-25; J0131; J1756; J7030; P9038; P9058; Q0162

== ENCOUNTER 2017-11-11 13:19 | Day surgery (SDC) | payer OTHER ==
--- NOTE | 2017-11-11 13:56 | HP ---
[facility] - Chief Complaint History of Present Illness: 87-year-old female with h/o T2DM for 30 years, Hyperlipidemia, HTN, hypothyroidism, PUD, CKD,CAD, Afib on eliquis, anemia , cholecystectomy and dementia with short term memory loss who presented on 10/27 with abdominal pain and diarrhea following a CT study. She is on eliquis 2.5mg bid and protonix. Anemia---multifactorial. chronic disease due to CKD = iron deficiency. Iron sat --5%. s/p PRBCs 10/30/17. Colonoscopy--05/28-- diverticulosis/colitis. 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 Cardiovascular: Yes: AFIB, HTN, Hyperlipdemia, Mitral Insufficiency, Pulmonary Hypertension Gastrointestinal: Yes: Diverticulosis, GERD, Peptic Ulcer Disease, Other ( ischemic colitis 04/27) Hepatobiliary: Yes: Cholecystitis (s/p open cholecystectomy) Renal/: Yes: Renal Inusuff Heme/Onc: Yes: Anemia Endocrine: Yes: Diabetes Mellitus, Hypothyroidism - Current Medications Current Medications: Home Medications Medication Instructions Recorded Amlodipine Besylate [Norvasc -] 5 mg PO DAILY #30 tablet 05/19/17 Apixaban [Eliquis -] 2.5 mg PO BID #60 tablet 05/19/17 Donepezil HCl [Aricept -] 10 mg PO DAILY #30 tablet 05/19/17 Levothyroxine [Synthroid -] 25 mcg PO DAILY@0700 #30 tablet 05/19/17 [place]-3 Acid Ethyl Esters [Lovaza 2 gm PO BID@1000,1700 #60 cap 05/19/17 -] Amox-Tr/K Cl [Augmentin 500-125mg 1 tab PO BID@0800,1730 #8 tablet 11/05/17 Tablet -] Atenolol [Tenormin -] 25 mg PO DAILY #30 tablet 11/05/17 Insulin Sliding Scale [Novolog 1 vial SQ ACHS #1 vial 11/05/17 Vial Sliding Scale -] Lactobacillus Acidophilus [Bacid -] 1 tab PO DAILY #30 tab 11/05/17 Lipase/Protease/Amylase [Creon Dr 1 cap PO TIDCM #90 capsule.dr 11/05/17 36,000 Units Capsule] Loperamide HCl [Imodium -] 2 mg PO Q8H PRN capsule 11/05/17 Metoclopramide HCl [Reglan -] 10 mg PO TIDAC #30 tablet 11/05/17 Multivitamins [Multivit ([facility] 1 tab PO DAILY #30 tab 11/05/17 Formulary)] Pantoprazole Sodium [Protonix -] 40 mg PO BID #60 tablet.ec 11/05/17 Simethicone [Mylicon -] 80 mg PO Q6H PRN tab.chew 11/05/17 Sodium Bicarbonate - 650 mg PO TID #30 tablet 11/05/17 metroNIDAZOLE [Flagyl -] 500 mg PO TID #12 tablet 11/05/17 Iron Sucrose Complex [Venofer] 200 mg IV ASDIR #2 ml 11/06/17 Iron Sucrose Complex [Venofer] 200 mg IV ASDIR #2 vial 11/06/17 Iron Sucrose Injection [Venofer] 100 mg IV ASDIR #2 vial 11/06/17 Wheelchair 1 unit NR ASDIR #1 unit 11/06/17 Satellite Physical Exam - Physical Examination General Appearance: Calm ENT: No Discharge Lung: Clear to auscultation Heart: Regular rate & rhythm Breasts: Soft Abdomen: Soft Neurological: Alert Satellite Impression/Plan - Impression/Plan Impression: Fe Def Anemia. for venofer. Return to [facility] on 11/16 for Venofer and labs. d/w daughter and RN in detail
[2017-11-11] MEDS ORDERED: IRON SUCROSE INJECTION 200 MG in SODIUM CHLORIDE 100 ML IVPB ONE (15:00)
[2017-11-11 16:49] VITALS: BP 126/84; PULSE 83; TEMP 99.2
== END 2017-11-11 15:15 | disposition home or self-care (01) ==
LOC: JONCNONCHE 13:19 → J7W 13:20 → JONCNONCHE 15:15
PROVIDERS: ATTEND Internal Medicine Hematology & Oncology
PROC: 3E033GC Introduction of Other Therapeutic Substance into Peripheral Vein, Percutaneous Approach (ICD-10-PCS; principal; 2017-11-11)
DX: D50.9 Iron deficiency anemia, unspecified (principal)
CPT/HCPCS: 96365; J1756

== ENCOUNTER 2017-11-18 07:25 | Day surgery (SDC) | payer OTHER ==
[2017-11-18] MEDS ORDERED: IRON SUCROSE INJECTION 200 MG in SODIUM CHLORIDE 100 ML IVPB ONE (10:00)
[2017-11-18 12:00] LABS: EOS % 0.5 % (0-4.5); HEMATOCRIT 27.1 % (32.4-45.2); HEMOGLOBIN 9.7 GM/dL (10.7-15.3); MCH 31.1 pg (25.7-33.7); MCHC 35.6 g/dl (32.0-36.0); MEAN CELL VOLUME 87.3 fl (80-96); MEAN PLT VOLUME 7.5 fl (7.5-11.1); MONO % 7.9 % (3.8-10.2); NEUT % 69.6 % (42.8-82.8); PLATELET COUNT 365 K/MM3 (134-434); RDW 15.4 % (11.6-15.6); WHITE BLOOD COUNT 4.5 K/mm3 (4.0-10.0)
[2017-11-18 12:24] LABS: ALBUMIN 2.3 g/dl (3.4-5.0); ALK PHOS 57 U/L (45-117); BILIRUBIN,DIRECT < 0.2 mg/dL (0.0-0.2); BILIRUBIN,TOTAL 0.3 mg/dL (0.2-1.0); MAGNESIUM 1.5 mg/dL (1.8-2.4); SGOT/AST 32 U/L (15-37); SGPT/ALT 22 U/L (12-78); TOT PROT 5.7 g/dl (6.4-8.2)
[2017-11-18 12:25] LABS: ALBUMIN 2.3 g/dl (3.4-5.0); ANION GAP 8 (8-16); BLOOD UREA NITROGEN 17 mg/dL (7-18); CALCIUM 7.9 mg/dL (8.5-10.1); CHLORIDE 97 mmol/L (98-107); CO2 25 mmol/L (21-32); GLUCOSE,RANDOM 150 mg/dL (74-106); POTASSIUM 4.1 mmol/L (3.5-5.1); SODIUM 130 mmol/L (136-145)
[2017-11-18 12:31] LABS: ALK PHOS 56 U/L (45-117); BILIRUBIN,TOTAL 0.5 mg/dL (0.2-1.0); CREATININE 1.4 mg/dL (0.55-1.02); PHOSPHOROUS 2.8 mg/dL (2.5-4.9); SGOT/AST 33 U/L (15-37); SGPT/ALT 24 U/L (12-78); TOT PROT 5.6 g/dl (6.4-8.2)
[2017-11-18] MEDS ORDERED: MAGNESIUM OXIDE 400 MG TABLET (FP) PO ONE (13:04)
[2017-11-18] MEDS ORDERED: MAGNESIUM 2GM/50ML STERILE WATER IVPB IVPB ONE (13:57)
[2017-11-18 16:12] VITALS: PULSE 58
[2017-11-18 16:20] VITALS: BP 120/53
[2017-11-18 16:21] VITALS: TEMP 97.8
[2017-11-20 06:07] LABS: SERUM IRON SATURATION 19 % (15-55); TOTAL IRON BINDING CAPACITY 154 ug/dL (250-450); UIBC 125 ug/dL (118-369)
== END 2017-11-18 15:20 | disposition home or self-care (01) ==
LOC: JONCNONCHE 07:25 → J7W 12:47 → JONCNONCHE 15:20
PROVIDERS: ATTEND Internal Medicine Hematology & Oncology
PROC: 3E033GC Introduction of Other Therapeutic Substance into Peripheral Vein, Percutaneous Approach (ICD-10-PCS; principal; 2017-11-18)
DX: D64.9 Anemia, unspecified (principal)
CPT/HCPCS: 36415; 80053; 80076; 82728; 83540; 83550; 83735; 84100; 85025; 96365; 96375; J1756

== ENCOUNTER 2017-12-21 07:34 | Day surgery (SDC) | payer OTHER ==
[~2017-12-21 07:34] MED LIST: IRON SUCROSE INJECTION 200 MG in SODIUM CHLORIDE 100 ML IVPB ONE
[2017-12-21] MEDS ORDERED: IRON SUCROSE INJECTION 200 MG in SODIUM CHLORIDE 100 ML IVPB ONE (10:00)
[2017-12-21 11:21] LABS: BASO % 1.2 % (0-2.0); HEMATOCRIT 36.1 % (32.4-45.2); HEMOGLOBIN 12.2 GM/dL (10.7-15.3); LYMPH % 45.6 % (8-40); MCHC 33.9 g/dl (32.0-36.0); MEAN CELL VOLUME 88.8 fl (80-96); MEAN PLT VOLUME 7.5 fl (7.5-11.1); MONO % 7.9 % (3.8-10.2); NEUT % 43.3 % (42.8-82.8); PLATELET COUNT 254 K/MM3 (134-434); RBC 4.07 M/mm3 (3.60-5.2); RDW 14.7 % (11.6-15.6)
[2017-12-21 11:50] LABS: ALBUMIN 2.8 g/dl (3.4-5.0); ANION GAP 8 (8-16); BILIRUBIN,DIRECT < 0.2 mg/dL (0.0-0.2); CALCIUM 8.7 mg/dL (8.5-10.1); CHLORIDE 98 mmol/L (98-107); CO2 28 mmol/L (21-32); CREATININE 1.9 mg/dL (0.55-1.02); GLUCOSE,RANDOM 213 mg/dL (74-106); POTASSIUM 4.3 mmol/L (3.5-5.1); SGOT/AST 19 U/L (15-37); SGPT/ALT 21 U/L (12-78); SODIUM 134 mmol/L (136-145)
[2017-12-21 12:32] LABS: ALK PHOS 73 U/L (45-117); BILIRUBIN,TOTAL 0.4 mg/dL (0.2-1.0); BLOOD UREA NITROGEN 47 mg/dL (7-18); TOT PROT 6.7 g/dl (6.4-8.2)
[2017-12-21 14:10] VITALS: BP 141/65; PULSE 65; TEMP 97.7
[2017-12-22 08:07] LABS: SERUM IRON SATURATION 27 % (15-55); TOTAL IRON BINDING CAPACITY 231 ug/dL (250-450); UIBC 168 ug/dL (118-369)
--- NOTE | 2017-12-23 19:11 | PN ---
Progress Note (short form) - Note Progress Note: called patients daughter and discussed iron test results.Discussed about her mothers chronic illnesses causing anemia. Iron studies now reflective of anemia of chronic disease. F/u in 1 month for CBC/iron studies.
== END 2017-12-21 14:00 | disposition home or self-care (01) ==
LOC: JONCNONCHE 07:34 → J7W 12:25 → JONCNONCHE 14:00
PROVIDERS: ATTEND Internal Medicine Hematology & Oncology
PROC: 3E033GC Introduction of Other Therapeutic Substance into Peripheral Vein, Percutaneous Approach (ICD-10-PCS; principal; 2017-12-21)
DX: D50.9 Iron deficiency anemia, unspecified (principal); E11.9 Type 2 diabetes mellitus without complications; I10 Essential (primary) hypertension; F03.90 Unspecified dementia, unspecified severity, without behavioral disturbance, psychotic disturbance, mood disturbance, and anxiety
CPT/HCPCS: 36415; 80048; 80076; 83540; 83550; 83735; 85025; 96365; J1756

== ENCOUNTER 2018-05-11 11:12 | Day surgery (SDC) | payer OTHER ==
[2018-05-11 11:52] LABS: BASO % 1.2 % (0-2.0); EOS % 4.2 % (0-4.5); HEMATOCRIT 24.1 % (32.4-45.2); HEMOGLOBIN 8.2 GM/dL (10.7-15.3); LYMPH % 19.1 % (8-40); MCH 29.1 pg (25.7-33.7); MCHC 33.9 g/dl (32.0-36.0); MEAN PLT VOLUME 7.6 fl (7.5-11.1); MONO % 6.3 % (3.8-10.2); NEUT % 69.2 % (42.8-82.8); PLATELET COUNT 255 K/MM3 (134-434); RDW 13.2 % (11.6-15.6); WHITE BLOOD COUNT 5.5 K/mm3 (4.0-10.0)
[2018-05-11 12:26] LABS: ALBUMIN 3.4 g/dl (3.4-5.0); ALK PHOS 68 U/L (45-117); ANION GAP 12 MMOL/L (8-16); BILIRUBIN,TOTAL 0.4 mg/dL (0.2-1); BLOOD UREA NITROGEN 60 mg/dL (7-18); CALCIUM 8.5 mg/dL (8.5-10.1); CHLORIDE 92 mmol/L (98-107); CO2 21 mmol/L (21-32); CREATININE 1.9 mg/dL (0.55-1.3); GLUCOSE,RANDOM 141 mg/dL (74-106); POTASSIUM 4.4 mmol/L (3.5-5.1); SGOT/AST 13 U/L (15-37); SGPT/ALT 18 U/L (13-61); SODIUM 126 mmol/L (136-145)
[2018-05-11 12:27] LABS: ALBUMIN 3.4 g/dl (3.4-5.0); BILIRUBIN,DIRECT 0.2 mg/dL (0.0-0.2); BILIRUBIN,TOTAL 0.4 mg/dL (0.2-1); MAGNESIUM 2.1 mg/dL (1.8-2.4); TOT PROT 6.8 g/dl (6.4-8.2)
[2018-05-11 14:59] VITALS: BP 150/74; PULSE 84; TEMP 97.8
[2018-05-12 06:09] LABS: SERUM IRON SATURATION 13 % (15-55); TOTAL IRON BINDING CAPACITY 268 ug/dL (250-450); UIBC 233 ug/dL (118-369)
== END 2018-05-11 18:22 | disposition home or self-care (01) ==
LOC: JLAB 11:12 → JONCBLOOD 11:12 → EDSTATUS 13:32 → J7W 14:10 → JONCBLOOD 18:22
PROVIDERS: ATTEND Internal Medicine Hematology & Oncology
PROC: 30233N1 Transfusion of Nonautologous Red Blood Cells into Peripheral Vein, Percutaneous Approach (ICD-10-PCS; principal; 2018-05-11)
DX: D64.9 Anemia, unspecified (principal); I48.91 Unspecified atrial fibrillation; Z79.01 Long term (current) use of anticoagulants
CPT/HCPCS: 36415; 36430; 80053; 80076; 82728; 83540; 83550; 83735; 85025; 86850; 86900; 86901; 86922; P9038; P9058

== ENCOUNTER 2018-05-27 11:42 | Day surgery (SDC) | payer OTHER ==
[2018-05-27 11:26] LABS: BASO % 1.2 % (0-2.0); HEMATOCRIT 29.7 % (32.4-45.2); LYMPH % 21.8 % (8-40); MCH 29.1 pg (25.7-33.7); MCHC 33.7 g/dl (32.0-36.0); MEAN CELL VOLUME 86.3 fl (80-96); MEAN PLT VOLUME 7.8 fl (7.5-11.1); MONO % 8.4 % (3.8-10.2); NEUT % 63.6 % (42.8-82.8); PLATELET COUNT 239 K/MM3 (134-434); RBC 3.44 M/mm3 (3.60-5.2); RDW 13.3 % (11.6-15.6); WHITE BLOOD COUNT 5.2 K/mm3 (4.0-10.0)
[2018-05-27 11:52] LABS: ALBUMIN 3.6 g/dl (3.4-5.0); ALK PHOS 72 U/L (45-117); ANION GAP 10 MMOL/L (8-16); BILIRUBIN,DIRECT 0.1 mg/dL (0.0-0.2); BILIRUBIN,TOTAL 0.4 mg/dL (0.2-1); BLOOD UREA NITROGEN 82 mg/dL (7-18); CALCIUM 8.7 mg/dL (8.5-10.1); CHLORIDE 100 mmol/L (98-107); CO2 22 mmol/L (21-32); CREATININE 2.4 mg/dL (0.55-1.3); GLUCOSE,RANDOM 182 mg/dL (74-106); MAGNESIUM 2.2 mg/dL (1.8-2.4); POTASSIUM 4.3 mmol/L (3.5-5.1); SGOT/AST 15 U/L (15-37); SGPT/ALT 19 U/L (13-61); SODIUM 133 mmol/L (136-145); TOT PROT 7.3 g/dl (6.4-8.2)
[2018-05-27] MEDS ORDERED: IRON SUCROSE INJECTION 200 MG in SODIUM CHLORIDE 90 ML IVPB ONE (12:00)
[2018-05-27 13:39] VITALS: BP 162/56; PULSE 73; TEMP 98.4
== END 2018-05-27 13:55 | disposition home or self-care (01) ==
LOC: JONCNONCHE 11:42 → EDSTATUS 11:44 → J7W 12:23 → JONCNONCHE 13:55
PROVIDERS: ATTEND Internal Medicine Hematology & Oncology
PROC: 3E033GC Introduction of Other Therapeutic Substance into Peripheral Vein, Percutaneous Approach (ICD-10-PCS; principal; 2018-05-27)
DX: D50.9 Iron deficiency anemia, unspecified (principal); F03.90 Unspecified dementia, unspecified severity, without behavioral disturbance, psychotic disturbance, mood disturbance, and anxiety; I48.91 Unspecified atrial fibrillation; Z79.01 Long term (current) use of anticoagulants
CPT/HCPCS: 36415; 80053; 80076; 83735; 85025; 86850; 86900; 86901; 96365; J1756

== ENCOUNTER 2018-07-01 10:20 | Day surgery (SDC) | payer OTHER ==
[2018-07-01 11:03] LABS: BASO % 1.4 % (0-2.0); EOS % 3.8 % (0-4.5); HEMATOCRIT 25.3 % (32.4-45.2); HEMOGLOBIN 8.8 GM/dL (10.7-15.3); LYMPH % 27.4 % (8-40); MCH 29.6 pg (25.7-33.7); MCHC 34.6 g/dl (32.0-36.0); MEAN CELL VOLUME 85.3 fl (80-96); MEAN PLT VOLUME 8.1 fl (7.5-11.1); MONO % 6.3 % (3.8-10.2); NEUT % 61.1 % (42.8-82.8); PLATELET COUNT 254 K/MM3 (134-434); RBC 2.96 M/mm3 (3.60-5.2); RDW 14.3 % (11.6-15.6); WHITE BLOOD COUNT 5.3 K/mm3 (4.0-10.0)
[2018-07-01 11:51] LABS: ALBUMIN 3.5 g/dl (3.4-5.0); ALK PHOS 60 U/L (45-117); ANION GAP 10 MMOL/L (8-16); BILIRUBIN,DIRECT 0.1 mg/dL (0.0-0.2); BILIRUBIN,TOTAL 0.4 mg/dL (0.2-1); BLOOD UREA NITROGEN 61 mg/dL (7-18); CALCIUM 8.8 mg/dL (8.5-10.1); CHLORIDE 99 mmol/L (98-107); CO2 25 mmol/L (21-32); CREATININE 2.4 mg/dL (0.55-1.3); GLUCOSE,RANDOM 103 mg/dL (74-106); MAGNESIUM 2.5 mg/dL (1.8-2.4); POTASSIUM 4.4 mmol/L (3.5-5.1); SGOT/AST 19 U/L (15-37); SGPT/ALT 17 U/L (13-61); SODIUM 134 mmol/L (136-145); TOT PROT 7.1 g/dl (6.4-8.2)
[2018-07-01] MEDS ORDERED: IRON SUCROSE INJECTION 200 MG in SODIUM CHLORIDE 100 ML IVPB ONE (12:00)
[2018-07-01 12:51] LABS: URINE APPEARANCE CLEAR; URINE BILIRUBIN NEGATIVE (<2.0 mg/dL); URINE COLOR LTYELLOW; URINE GLUCOSE (UA) NEGATIVE (NEGATIVE); URINE KETONE NEGATIVE (NEGATIVE); URINE LEUK ESTERASE 1+ (NEGATIVE); URINE NITRITE NEGATIVE (NEGATIVE); URINE PROTEIN NEGATIVE (NEGATIVE); URINE UROBILINOGEN NEGATIVE mg/dL (0.2-1.0)
[2018-07-01 13:29] LABS: EPI CELLS RARE /HPF (FEW)
[2018-07-01 15:07] VITALS: TEMP 97.6
[2018-07-01 15:08] VITALS: BP 136/54; PULSE 64
[2018-07-02 04:17] LABS: SERUM IRON SATURATION 13 % (15-55); TOTAL IRON BINDING CAPACITY 253 ug/dL (250-450); UIBC 220 ug/dL (118-369)
[2018-07-02 11:14] LABS: MICROALBUMIN/CREATININE RATIO 355.1 mg/g creat (0.0-30.0)
== END 2018-07-01 13:30 | disposition home or self-care (01) ==
LOC: JONCNONCHE 10:20 → EDSTATUS 10:57 → J7W 11:41 → JONCNONCHE 13:30
PROVIDERS: ATTEND Internal Medicine Hematology & Oncology
PROC: 3E033GC Introduction of Other Therapeutic Substance into Peripheral Vein, Percutaneous Approach (ICD-10-PCS; principal; 2018-07-01)
DX: D50.9 Iron deficiency anemia, unspecified (principal)
CPT/HCPCS: 36415; 80053; 80076; 81003; 81015; 82043; 82306; 82570; 82728; 83036; 83540; 83550; 83735; 84439; 84443; 84481; 85025; 86850; 86900; 86901; 96365

== ENCOUNTER 2018-07-15 11:40 | Day surgery (SDC) | payer OTHER ==
[2018-07-15 12:11] LABS: BASO % 1.1 % (0-2.0); EOS % 3.4 % (0-4.5); HEMATOCRIT 24.8 % (32.4-45.2); HEMOGLOBIN 8.8 GM/dL (10.7-15.3); LYMPH % 27.6 % (8-40); MCH 30.4 pg (25.7-33.7); MCHC 35.7 g/dl (32.0-36.0); MEAN CELL VOLUME 85.2 fl (80-96); MEAN PLT VOLUME 7.4 fl (7.5-11.1); MONO % 9.5 % (3.8-10.2); NEUT % 58.4 % (42.8-82.8); PLATELET COUNT 248 K/MM3 (134-434); RBC 2.91 M/mm3 (3.60-5.2); RDW 14.6 % (11.6-15.6); WHITE BLOOD COUNT 4.9 K/mm3 (4.0-10.0)
[2018-07-15] MEDS ORDERED: IRON SUCROSE INJECTION 200 MG in SODIUM CHLORIDE 90 ML IVPB ONE (12:38)
[2018-07-15 12:43] LABS: ANION GAP 8 MMOL/L (8-16); BLOOD UREA NITROGEN 74 mg/dL (7-18); CALCIUM 8.2 mg/dL (8.5-10.1); CHLORIDE 95 mmol/L (98-107); CO2 24 mmol/L (21-32); CREATININE 2.5 mg/dL (0.55-1.3); GLUCOSE,RANDOM 160 mg/dL (74-106); POTASSIUM 4.7 mmol/L (3.5-5.1); SODIUM 128 mmol/L (136-145)
[2018-07-15 17:26] VITALS: BP 162/50; PULSE 60; TEMP 97.9
[2018-07-16 04:16] LABS: SERUM IRON SATURATION 14 % (15-55); TOTAL IRON BINDING CAPACITY 237 ug/dL (250-450); UIBC 203 ug/dL (118-369)
== END 2018-07-15 15:30 | disposition home or self-care (01) ==
LOC: JONCNONCHE 11:40 → J7W 13:56 → JONCNONCHE 15:30
PROVIDERS: ATTEND Internal Medicine Hematology & Oncology
PROC: 3E033GC Introduction of Other Therapeutic Substance into Peripheral Vein, Percutaneous Approach (ICD-10-PCS; principal; 2018-07-15)
DX: D50.9 Iron deficiency anemia, unspecified (principal)
CPT/HCPCS: 36415; 80048; 83540; 83550; 85025; 86850; 86900; 86901; 96365; J1756

== ENCOUNTER → 2018-08-05 | Day surgery (SDC) | payer OTHER ==
[2018-08-05 12:19] LABS: BASO % 1.1 % (0-2.0); EOS % 3.6 % (0-4.5); HEMOGLOBIN 10.4 GM/dL (10.7-15.3); LYMPH % 28.2 % (8-40); MCH 31.4 pg (25.7-33.7); MCHC 35.9 g/dl (32.0-36.0); MEAN CELL VOLUME 87.5 fl (80-96); MEAN PLT VOLUME 7.4 fl (7.5-11.1); MONO % 7.6 % (3.8-10.2); NEUT % 59.5 % (42.8-82.8); PLATELET COUNT 233 K/MM3 (134-434); RBC 3.32 M/mm3 (3.60-5.2); RDW 15.1 % (11.6-15.6); WHITE BLOOD COUNT 5.2 K/mm3 (4.0-10.0)
[2018-08-05 12:45] LABS: ALBUMIN 3.3 g/dl (3.4-5.0); ALK PHOS 65 U/L (45-117); ANION GAP 8 MMOL/L (8-16); BILIRUBIN,DIRECT 0.1 mg/dL (0.0-0.2); BILIRUBIN,TOTAL 0.3 mg/dL (0.2-1); BLOOD UREA NITROGEN 66 mg/dL (7-18); CALCIUM 8.2 mg/dL (8.5-10.1); CHLORIDE 102 mmol/L (98-107); CO2 26 mmol/L (21-32); CREATININE 2.4 mg/dL (0.55-1.3); GLUCOSE,RANDOM 100 mg/dL (74-106); MAGNESIUM 2.1 mg/dL (1.8-2.4); POTASSIUM 4.4 mmol/L (3.5-5.1); SGOT/AST 14 U/L (15-37); SGPT/ALT 17 U/L (13-61); SODIUM 137 mmol/L (136-145); TOT PROT 7.1 g/dl (6.4-8.2)
== END | disposition home or self-care (01) ==
LOC: JONCNONCHE 06:37
PROVIDERS: ATTEND Internal Medicine Hematology & Oncology
PROC: 3E013GC Introduction of Other Therapeutic Substance into Subcutaneous Tissue, Percutaneous Approach (ICD-10-PCS; principal; 2018-08-05)
DX: Z53.8 Procedure and treatment not carried out for other reasons (principal)
CPT/HCPCS: 36415; 80048; 80076; 83735; 85025

== ENCOUNTER → 2018-09-02 | Day surgery (SDC) | payer OTHER ==
[2018-09-02 12:09] VITALS: BP 189/67; PULSE 62; TEMP 98.4
[2018-09-02 12:25] LABS: BASO % 1.3 % (0-2.0); EOS % 6.3 % (0-4.5); HEMATOCRIT 32.8 % (32.4-45.2); HEMOGLOBIN 11.3 GM/dL (10.7-15.3); LYMPH % 25.1 % (8-40); MCH 30.6 pg (25.7-33.7); MCHC 34.4 g/dl (32.0-36.0); MEAN PLT VOLUME 7.2 fl (7.5-11.1); NEUT % 60.3 % (42.8-82.8); PLATELET COUNT 239 K/MM3 (134-434); RBC 3.69 M/mm3 (3.60-5.2); RDW 15.6 % (11.6-15.6); WHITE BLOOD COUNT 5.4 K/mm3 (4.0-10.0)
[2018-09-02 12:55] LABS: ALBUMIN 3.8 g/dl (3.4-5.0); ALK PHOS 77 U/L (45-117); ANION GAP 8 MMOL/L (8-16); BILIRUBIN,TOTAL 0.4 mg/dL (0.2-1); BLOOD UREA NITROGEN 52 mg/dL (7-18); CALCIUM 8.7 mg/dL (8.5-10.1); CHLORIDE 100 mmol/L (98-107); CO2 25 mmol/L (21-32); CREATININE 2.5 mg/dL (0.55-1.3); GLUCOSE,RANDOM 185 mg/dL (74-106); POTASSIUM 4.6 mmol/L (3.5-5.1); SGOT/AST 17 U/L (15-37); SGPT/ALT 20 U/L (13-61); SODIUM 133 mmol/L (136-145); TOT PROT 7.8 g/dl (6.4-8.2)
[2018-09-02 13:04] LABS: ALBUMIN 3.8 g/dl (3.4-5.0); BILIRUBIN,DIRECT 0.2 mg/dL (0.0-0.2); BILIRUBIN,TOTAL 0.6 mg/dL (0.2-1); MAGNESIUM 2.2 mg/dL (1.8-2.4); TOT PROT 7.8 g/dl (6.4-8.2)
== END | disposition home or self-care (01) ==
LOC: JONCNONCHE 07:08
PROVIDERS: ATTEND Internal Medicine Hematology & Oncology
DX: Z53.8 Procedure and treatment not carried out for other reasons (principal)
CPT/HCPCS: 36415; 80053; 80076; 82728; 83540; 83735; 84439; 84443; 85025; 86850; 86900; 86901

== ENCOUNTER → 2018-10-21 | Day surgery (SDC) | payer OTHER ==
[2018-10-21 12:26] LABS: BASO % 1.2 % (0-2.0); EOS % 4.3 % (0-4.5); HEMATOCRIT 28.7 % (32.4-45.2); HEMOGLOBIN 9.8 GM/dL (10.7-15.3); LYMPH % 19.4 % (8-40); MCH 29.7 pg (25.7-33.7); MCHC 34.3 g/dl (32.0-36.0); MEAN CELL VOLUME 86.6 fl (80-96); MEAN PLT VOLUME 7.1 fl (7.5-11.1); NEUT % 69.1 % (42.8-82.8); PLATELET COUNT 277 K/MM3 (134-434); RBC 3.31 M/mm3 (3.60-5.2); RDW 15.6 % (11.6-15.6); WHITE BLOOD COUNT 4.9 K/mm3 (4.0-10.0)
[2018-10-22 04:12] LABS: SERUM IRON SATURATION 15 % (15-55); TOTAL IRON BINDING CAPACITY 258 ug/dL (250-450); UIBC 220 ug/dL (118-369)
--- NOTE | 2018-10-24 16:51 | PN ---
Progress Note (short form) - Note Progress Note: discussed iron test results with patients family goal tsat >/=25% venofer 200mg x 5 doses
== END | disposition home or self-care (01) ==
LOC: JONCNONCHE 07:08
PROVIDERS: ATTEND Internal Medicine Hematology & Oncology
DX: Z53.8 Procedure and treatment not carried out for other reasons (principal)
CPT/HCPCS: 36415; 82728; 83540; 83550; 85025; 86850; 86900; 86901

== ENCOUNTER 2018-10-28 07:02 | Day surgery (SDC) | payer OTHER ==
[2018-10-28] MEDS ORDERED: IRON SUCROSE INJECTION 200 MG in SODIUM CHLORIDE 100 ML IVPB ONE (12:00)
[2018-10-28 14:46] VITALS: BP 156/68; PULSE 66; TEMP 98.3
== END 2018-10-28 13:30 | disposition home or self-care (01) ==
LOC: JONCNONCHE 07:02 → J7W 12:09 → JONCNONCHE 13:30
PROVIDERS: ATTEND Internal Medicine Hematology & Oncology
PROC: 3E033GC Introduction of Other Therapeutic Substance into Peripheral Vein, Percutaneous Approach (ICD-10-PCS; principal; 2018-10-28)
DX: E61.1 Iron deficiency (principal)
CPT/HCPCS: 96365; J1756

== ENCOUNTER 2018-11-04 07:36 | Day surgery (SDC) | payer OTHER ==
[2018-11-04] MEDS ORDERED: IRON SUCROSE INJECTION 200 MG in SODIUM CHLORIDE 100 ML IVPB ONE (12:00)
[2018-11-04 13:28] VITALS: TEMP 97.6
[2018-11-04 13:31] VITALS: BP 153/47; PULSE 58
== END 2018-11-04 13:20 | disposition home or self-care (01) ==
LOC: JONCNONCHE 07:36 → J7W 11:53 → JONCNONCHE 13:20
PROVIDERS: ATTEND Internal Medicine Hematology & Oncology
PROC: 3E033GC Introduction of Other Therapeutic Substance into Peripheral Vein, Percutaneous Approach (ICD-10-PCS; principal; 2018-11-04)
DX: E61.1 Iron deficiency (principal)
CPT/HCPCS: 96365; J1756

== ENCOUNTER 2018-11-11 07:02 | Day surgery (SDC) | payer OTHER ==
[2018-11-11] MEDS ORDERED: IRON SUCROSE INJECTION 200 MG in SODIUM CHLORIDE 100 ML IVPB ONE (12:00)
[2018-11-11 13:35] VITALS: TEMP 98.4
[2018-11-11 13:38] VITALS: BP 144/77; PULSE 60
[2018-11-11 17:23] LABS: BASO % 1.2 % (0-2.0); EOS % 3.6 % (0-4.5); HEMATOCRIT 30.1 % (32.4-45.2); LYMPH % 25.2 % (8-40); MCH 29.4 pg (25.7-33.7); MCHC 33.3 g/dl (32.0-36.0); MEAN CELL VOLUME 88.2 fl (80-96); MEAN PLT VOLUME 8.8 fl (7.5-11.1); MONO % 7.6 % (3.8-10.2); NEUT % 62.4 % (42.8-82.8); PLATELET COUNT 269 K/MM3 (134-434); RBC 3.41 M/mm3 (3.60-5.2); RDW 16.2 % (11.6-15.6); WHITE BLOOD COUNT 4.9 K/mm3 (4.0-10.0)
[2018-11-13 04:08] LABS: SERUM IRON SATURATION 22 % (15-55); TOTAL IRON BINDING CAPACITY 169 ug/dL (250-450); UIBC 132 ug/dL (118-369)
== END 2018-11-11 13:20 | disposition home or self-care (01) ==
LOC: JONCNONCHE 07:02
PROVIDERS: ATTEND Internal Medicine Hematology & Oncology
PROC: 3E033GC Introduction of Other Therapeutic Substance into Peripheral Vein, Percutaneous Approach (ICD-10-PCS; principal; 2018-11-11)
DX: E61.1 Iron deficiency (principal)
CPT/HCPCS: 36415; 82728; 83540; 83550; 85025; 96365; J1756

== ENCOUNTER 2018-11-18 07:10 | Day surgery (SDC) | payer OTHER ==
[2018-11-18] MEDS ORDERED: IRON SUCROSE INJECTION 200 MG in SODIUM CHLORIDE 100 ML IVPB ONE (12:00)
[2018-11-18 13:03] VITALS: TEMP 97.9
[2018-11-18 13:18] VITALS: BP 134/74; PULSE 88
== END 2018-11-18 13:18 | disposition home or self-care (01) ==
LOC: JONCNONCHE 07:10 → J7W 11:51 → JONCNONCHE 13:18
PROVIDERS: ATTEND Internal Medicine Hematology & Oncology
PROC: 3E033GC Introduction of Other Therapeutic Substance into Peripheral Vein, Percutaneous Approach (ICD-10-PCS; principal; 2018-11-18)
DX: D50.9 Iron deficiency anemia, unspecified (principal); E11.9 Type 2 diabetes mellitus without complications; I10 Essential (primary) hypertension; F03.90 Unspecified dementia, unspecified severity, without behavioral disturbance, psychotic disturbance, mood disturbance, and anxiety
CPT/HCPCS: 96365; J1756

== ENCOUNTER 2018-12-02 07:08 | Day surgery (SDC) | payer OTHER | END 2018-12-02 14:02 | disposition home or self-care (01) | LOC: JONCCHEMO 07:08 → J7W 12:05 → JONCNONCHE 14:02 ==

== ENCOUNTER 2018-12-30 06:42 | Day surgery (SDC) | payer OTHER ==
[2018-12-30] MEDS ORDERED: IRON SUCROSE INJECTION 200 MG in SODIUM CHLORIDE 100 ML IVPB ONE (10:00)
[2018-12-30 13:47] LABS: BASO % 0.3 % (0-2.0); EOS % 0.1 % (0-4.5); HEMATOCRIT 26.3 % (32.4-45.2); HEMOGLOBIN 9.1 GM/dL (10.7-15.3); LYMPH % 4.3 % (8-40); MCHC 34.5 g/dl (32.0-36.0); MEAN CELL VOLUME 87.1 fl (80-96); MEAN PLT VOLUME 8.4 fl (7.5-11.1); MONO % 5.2 % (3.8-10.2); NEUT % 90.1 % (42.8-82.8); PLATELET COUNT 263 K/MM3 (134-434); RBC 3.02 M/mm3 (3.60-5.2); RDW 15.5 % (11.6-15.6); WHITE BLOOD COUNT 8.1 K/mm3 (4.0-10.0)
[2018-12-30 14:27] LABS: POTASSIUM 4.9 mmol/L (3.5-5.1)
[2018-12-30 14:30] VITALS: TEMP 98.6
[2018-12-30 14:32] VITALS: BP 158/72; PULSE 71
[2018-12-30 14:55] LABS: ALBUMIN 3.5 g/dl (3.4-5.0); BLOOD UREA NITROGEN 81.7 mg/dL (7-18); CALCIUM 8.3 mg/dL (8.5-10.1); CREATININE 2.8 mg/dL (0.55-1.3); MAGNESIUM 2.5 mg/dL (1.8-2.4); TOT PROT 7.2 g/dl (6.4-8.2)
--- NOTE | 2018-12-30 19:14 | CONSULT ---
Consult - text type - Consultation Consultation Note: Patient seen and examined 88 year-old female with h/o T2DM for 30 years, Hyperlipidemia, HTN, hypothyroidism, PUD, CKD,CAD, Afib on eliquis, anemia , cholecystectomy and dementia with short term memory loss who presents for elective iron infusion. Per family patients had viral gastroenteritis and she herself vomited yeterday and has had poor pO intake Serum Na--117 Denies fever/chills HAS RUQ abdominal pain Last Vital Signs Temp Pulse Resp BP Pulse Ox 98.6 F 71 16 158/72 12/30/18 12:31 12/30/18 12:31 12/30/18 12:31 12/30/18 12:31 Cor: RSR, No murmurs, No gallops Lungs: Clear to P&A Abd: Soft, Normal bowel sounds, No organomegaly Ext:No significant edema Abnormal Lab Results 12/30/18 12/30/18 13:15 13:15 RBC 3.02 L Hgb 9.1 L Hct 26.3 L Neutrophils % 90.1 H Lymphocytes % 4.3 L D Sodium 117 L* Chloride 82 L BUN 81.7 H Creatinine 2.8 H Random Glucose 205 H Calcium 8.3 L Magnesium 2.5 H Ferritin 1165.1 H Free T4 1.77 H A/P 88 year-old female with h/o T2DM for 30 years, Hyperlipidemia, HTN, hypothyroidism, PUD, CKD,CAD, Afib on eliquis, anemia , cholecystectomy and dementia with short term memory loss who presents for elective iron infusion. Per family patients had viral gastroenteritis and she herself vomited yeterday and has had poor pO intake Serum Na--117 ? dehydration Will consult renal Hgb --9 --chronic disease from CKD +/- iron deficiency Monitor will follow
== END 2018-12-30 14:45 | disposition home or self-care (01) ==
LOC: JONCNONCHE 06:42 → J7W 12:19 → JONCNONCHE 14:45
PROVIDERS: ATTEND Internal Medicine Hematology & Oncology
PROC: 3E033GC Introduction of Other Therapeutic Substance into Peripheral Vein, Percutaneous Approach (ICD-10-PCS; principal; 2018-12-30)
DX: D50.9 Iron deficiency anemia, unspecified (principal)
CPT/HCPCS: 36415; 80053; 82728; 82962; 83540; 83550; 83735; 84100; 84439; 84443; 84480; 85025; 87040; 96365; J1756

== ENCOUNTER 2018-12-30 14:46 | Inpatient (IN) | payer OTHER ==
--- NOTE | 2018-12-30 14:55 | PDOC ---
Rapid Medical Evaluation Time Seen by Provider: 12/30/18 14:51 Medical Evaluation: Allergies Allergy/AdvReac Type Severity Reaction Status Date / Time No Known Allergies Allergy Verified 10/27/17 12:33 12/30/18 14:53 I have performed a brief in-person evaluation of this patient. The patient presents with a chief complaint of:Sent in for NA of 117 on blood work today. Was upstairs getting iron transfusion when labs were sent. Pt c/o weakness and nausea. H/o DAVE, dementia, DM, hypothyroid, HTN, on eliquis for unclear reason Pertinent physical exam findings:stable I have ordered the following:labs The patient will proceed to the ED for further evaluation. 12/30/18 15:02 Discharge Disposition - Diagnosis Hyponatremia - Referrals Referrals: Evens Chun MD [Primary Care Provider] - - Patient Instructions - Post Discharge Activity
--- NOTE | 2018-12-30 16:07 | PDOC ---
Attending Attestation - Resident Resident Name: Clifton Morrison - ED Attending Attestation I have performed the following: I have examined & evaluated the patient, The case was reviewed & discussed with the resident, I agree w/resident's findings & plan, Exceptions are as noted - HPI HPI: 88 yo F history CKD, mild dementia, afib on eliquis, anemia due to GIB, diverticulitis sent to the ED by Dr. Rodriguez for serum sodium of 117. She has history of ischemic colitis in the past for which surgery was recommended, however, family decided against it due to multiple medical comorbidities. She was considering hospice care, but started to improve. She presents with abdominal pain for the past few days, vomiting yesterday. She was following up with Dr. Rodriguez today for iron infusion and her labs showed hyponatremia. As per family, a family member gave her oxycodone for abdominal pain prior to arrival. - Physicial Exam PE: GENERAL: Awake, alert, and fully oriented. +Mod tachypnea HEAD: No signs of trauma EYES: PERRLA, EOMI, sclera anicteric, conjunctiva clear ENT: Auricles normal inspection, hearing grossly normal, nares patent, oropharynx clear without exudates. Moist mucosa NECK: Normal ROM, supple, no lymphadenopathy, JVD, or masses LUNGS: Good air entry B/L. +Diffuse crackles B/L, worse on L side HEART: Regular rate and rhythm, normal S1 and S2, no murmurs, rubs or gallops ABDOMEN: Soft, diffusely tender, normoactive bowel sounds. No guarding, no rebound. No masses. +Abdominal retractions EXTREMITIES: Normal range of motion, 1+ pitting edema to BLE. No clubbing or cyanosis. No cords, erythema, or tenderness NEUROLOGICAL: Cranial nerves II through XII grossly intact. Normal speech. Motor and sensation intact SKIN: Warm, Dry, normal turgor, no rashes or lesions noted. - Medical Decision Making Pt with multiple medical comorbidities, presenting with SOB, abd pain, found to have sodium 117. Pt is hypervolemic on exam. Labs were obtained in heme/onc clinic upstairs. Will obtain UA/urine lytes. Will consult with renal and GI regarding imaging and management.
--- NOTE | 2018-12-30 16:25 | PDOC ---
History of Present Illness - General History Source: Patient, Family Exam Limitations: No Limitations - History of Present Illness Initial Comments: 12/30/18 16:02 88F with a PMH of Ischemic Colitis, Chronic Abdominal Pain, Dementia, CKD Stage 4, Afib (on Eliquis), HTN, Hypothyroid who presents to the ER from the transfusion floor for sodium of 117. Pt had labs drawn today that show a sodium of 117. The patient and family state that the patient has had abdominal pain in her LLQ for the past 4-5 days. The abdominal pain is associated with nausea and vomiting but without diarrhea, fevers, or chills. <Clifton Morrison - Last Filed: 12/31/18 08:14> <Fatoumata Tan - Last Filed: 12/31/18 09:31> - General Chief Complaint: Revisit, Lab Variance Stated Complaint: ABNORMAL LABS Time Seen by Provider: 12/30/18 14:51 Past History - Past Medical History CVA: No COPD: No Dementia: Yes Diabetes: Yes GI Disorders: (bleeding ulcers) HTN: Yes Hypercholesterolemia: Yes Other medical history: Iron infusions - Surgical History Cholecystectomy: Yes - Suicide/Smoking/Psychosocial Hx Smoking History: Never smoked Hx Alcohol Use: No Drug/Substance Use Hx: No Substance Use Type: Alcohol <Clifton Morrison - Last Filed: 12/31/18 08:14> <Fatoumata Tan - Last Filed: 12/31/18 09:31> - Past Medical History Allergies/Adverse Reactions: Allergies Allergy/AdvReac Type Severity Reaction Status Date / Time No Known Allergies Allergy Verified 12/30/18 15:02 Home Medications: Ambulatory Orders Amlodipine Besylate [Norvasc -] 5 mg PO DAILY #30 tablet 05/19/17 Apixaban [Eliquis -] 2.5 mg PO BID #60 tablet 05/19/17 Donepezil HCl [Aricept -] 10 mg PO DAILY #30 tablet 05/19/17 Levothyroxine [Synthroid -] 25 mcg PO DAILY@0700 #30 tablet 05/19/17 [place]-3 Acid Ethyl Esters [Lovaza -] 2 gm PO BID@1000,1700 #60 cap 05/19/17 Atenolol [Tenormin -] 25 mg PO DAILY #30 tablet 11/05/17 Insulin Sliding Scale [Novolog Vial Sliding Scale -] 1 vial SQ ACHS #1 vial Lactobacillus Acidophilus [Bacid -] 1 tab PO DAILY #30 tab 11/05/17 Lipase/Protease/Amylase [Dory Hay 36,000 Units Capsule] 1 cap PO TIDCM #90 capsule. 11/05/17 Loperamide HCl [Imodium -] 2 mg PO Q8H PRN capsule 11/05/17 Multivitamins [Multivit ([facility] Formulary)] 1 tab PO DAILY #30 tab 11/05/17 Pantoprazole Sodium [Protonix -] 40 mg PO BID #60 tablet.ec 11/05/17 Simethicone [Mylicon -] 80 mg PO Q6H PRN tab.chew 11/05/17 Sodium Bicarbonate - 650 mg PO TID #30 tablet 11/05/17 Iron Sucrose Injection [Venofer] 100 mg IV ASDIR #2 vial 11/06/17 Review of Systems - Review of Systems Able to Perform ROS?: Yes Comments:: 12/30/18 16:25 GENERAL/CONSTITUTIONAL: No fever or chills. No weakness. HEAD, EYES, EARS, NOSE AND THROAT: No change in vision. No ear pain or discharge. No sore throat. CARDIOVASCULAR: No chest pain, palpitations, or lightheadedness. RESPIRATORY: No cough, wheezing, shortness of breath, or hemoptysis. GASTROINTESTINAL: + for abdominal pain, nausea, and vomiting. No diarrhea or constipation. GENITOURINARY: No dysuria, frequency, hematuria, or change in urination. MUSCULOSKELETAL: No joint or muscle swelling or pain. No neck or back pain. SKIN: No rash or lesions. NEUROLOGIC: No headache, numbness, tingling, focal weakness, loss of consciousness, or change in strength/sensation. Is the patient limited Polish proficient: No <Clifton Morrison - Last Filed: 12/31/18 08:14> *Physical Exam - Vital Signs Last Vital Signs Temp Pulse Resp BP Pulse Ox 97.8 F 67 18 150/56 L 99 12/30/18 15:01 12/30/18 15:01 12/30/18 15:01 12/30/18 15:01 12/30/18 15:01 - Physical Exam Comments: 12/30/18 16:26 GENERAL: Well developed, well nourished. Awake and alert. No acute distress. HEENT: Normocephalic, atraumatic. Hearing grossly normal. Moist mucous membranes. PERRLA, EOMI. No conjunctival pallor. Sclera are non-icteric. NECK: Supple. Full ROM. No JVD. CARDIOVASCULAR: Regular rate and rhythm. No murmurs, rubs, or gallops. PULMONARY: No evidence of respiratory distress. Diffuse rales, L > R. ABDOMINAL: Soft. Diffusely tender, mostly in LLQ. Non-distended. No rebound or guarding. MUSCULOSKELETAL: Normal range of motion at all joints. No bony deformities or tenderness. EXTREMITIES: No cyanosis. No clubbing. 1+ pitting edema in b/l LE. No calf tenderness or swelling. SKIN: Warm and dry. Normal capillary refill. No rashes. No jaundice. NEUROLOGICAL: Alert, awake, appropriate. Cranial nerves 2-12 grossly intact. Normal speech. PSYCHIATRIC: Cooperative. Good eye contact. Appropriate mood and affect. <Clifton Morrison - Last Filed: 12/31/18 08:14> - Vital Signs Last Vital Signs Temp Pulse Resp BP Pulse Ox 98 F 64 15 145/41 L 99 12/31/18 06:32 12/31/18 08:00 12/31/18 08:00 12/31/18 08:00 12/30/18 21:00 <Fatoumata Tan - Last Filed: 12/31/18 09:31> ED Treatment Course - LABORATORY CBC & Chemistry Diagram: 12/31/18 06:05 12/31/18 06:05 <Clifton Morrison - Last Filed: 12/31/18 08:14> - LABORATORY CBC & Chemistry Diagram: 12/31/18 06:05 12/31/18 06:05 - Medications Given in the ED: ED Medications Discontinued Medications Generic Name Dose Route Start Last Admin Trade Name Antolin PRN Reason Stop Dose Admin Amlodipine Besylate 5 mg 12/30/18 20:55 12/30/18 22:29 Norvasc - PO 12/30/18 20:56 5 mg ONCE ONE Administration Furosemide 40 mg 12/30/18 16:30 12/30/18 16:50 Lasix Injection - IVPUSH 12/30/18 16:31 40 mg ONCE ONE Administration Furosemide 80 mg 12/30/18 20:52 12/30/18 21:19 Lasix Injection - IVPUSH 12/30/18 20:53 80 mg ONCE ONE Administration <Fatoumata Tan - Last Filed: 12/31/18 09:31> Medical Decision Making - Medical Decision Making 12/30/18 16:32 88F with MMP who presents with hyponatremia, hypervolemia. CXR shows cephalization L>R. Case d/w Dr. Allen who recommends giving 40 of lasix to diurese. Pt noted to become hypoxic to 80's. Bipap called and pt informed. Pt endorsed to Dr. Luna for admission to ICU. <Clifton Morrison - Last Filed: 12/31/18 08:14> - Critical Care Time Total Critical Care Time (minutes): 45 Critical Care Statement: The care of this patient involved high complexity decision making to prevent further life threatening deterioration of the patient 's condition and/or to evaluate & treat vital organ system(s) failure or risk of failure. - Medical Decision Making Pt presented with hypervolemic hyponatremia. Noted to have diffuse crackles on initial lung exam with abdominal retractions, +pulmonary edema on CXR. Pt initially with normal O2 Sat, however, she started desatting during her ED stay , placed on NRB while BiPAP was en route. She responded well to BiPAP. Case was discussed with renal to determine whether emergent dialysis was needed for fluid overload. Recommended lasix for now. Urine and lytes pending for further eval of the hyponatremia. In addition, she has abdominal pain with vomiting yesterday, which is concerning in light of her prior history of ischemic colitis. Will discuss with GI, as she is not a candidate for a CT with contrast at present (and in the past, family has elected not to have surgery to treat it) . Discussed extensively at bedside with family, who would prefer to keep all interventions non-invasive at this point. If anything invasive is required, in terms of HD or central line placement, will discuss with them again. They are amenable to medical treatment and BiPAP at present. ICU consulted for admission. <Fatoumata Tan - Last Filed: 12/31/18 09:31> *DC/Admit/Observation/Transfer - Discharge Dispostion Decision to Admit order: Yes <Clifton Morrison - Last Filed: 12/31/18 08:14> <Fatoumata Tan - Last Filed: 12/31/18 09:31> Diagnosis at time of Disposition: Hyponatremia CHF (congestive heart failure) Qualifiers: Heart failure type: diastolic Heart failure chronicity: acute on chronic Qualified Code(s): I50.33 - Acute on chronic diastolic (congestive) heart failure Abdominal pain Qualifiers: Abdominal location: generalized Qualified Code(s): R10.84 - Generalized abdominal pain - Discharge Dispostion Condition at time of disposition: Critical
[2018-12-30] MEDS ORDERED: FUROSEMIDE 40 MG/4 ML INJECTABLE VIAL IVPUSH ONE ×2 (16:30→20:52)
[2018-12-30] MEDS ORDERED: FUROSEMIDE 40 MG/4 ML INJECTABLE VIAL ONE (16:39)
[2018-12-30 16:44] LABS: HYALINE CASTS 1 /lpf (0-8); URINE APPEARANCE CLEAR; URINE BACTERIA 11.2 /hpf (NEGATIVE); URINE BILIRUBIN NEGATIVE (NEGATIVE); URINE COLOR YELLOW; URINE GLUCOSE (UA) NEGATIVE (NEGATIVE); URINE KETONE NEGATIVE (NEGATIVE); URINE LEUK ESTERASE TRACE (NEGATIVE); URINE NITRITE NEGATIVE (NEGATIVE); URINE PROTEIN 2+ (NEGATIVE); URINE RBC 2 /hpf (0-4); URINE WBC 2 /hpf (0-5)
--- NOTE | 2018-12-30 16:55 | CONSULT ---
Consult - text type - Consultation Consultation Note: Renal Consult for Hyponatremia and GABY on CKD This is a 88 year old woman with hx of CKD stage 4, Afib on Eliquis, Hypertension, hypothyroidism, ischemic colitis who presented with laboratory studies that showed hyponatremia with Na of 117 and Cr of 2.8. Pt seen and examined at the bedside. Family at the bedside who provided history. Pt was on the 7th floor getting iron infusion when lab stuides were resulted. Pt noted to have SOB with orthopnea. Family reports N/V x 4-5 days. Poor oral intake but has been drinking water. Was on Lasix 40mg once daily at home. No Thiazide diuretics given. Did report some Abd pain. No fever or chills. No sick contact. No LIU, confusion or seizures. Has swelling in legs. Follow with Dr. Lisa Elliott as outpatient for CKD. PMHx: As above Allergies: NKDA Family Hx: NC Social Hx: No T/A/D Home Medications Medication Instructions Recorded Amlodipine Besylate [Norvasc -] 5 mg PO DAILY #30 tablet 05/19/17 Apixaban [Eliquis -] 2.5 mg PO BID #60 tablet 05/19/17 Donepezil HCl [Aricept -] 10 mg PO DAILY #30 tablet 05/19/17 Levothyroxine [Synthroid -] 25 mcg PO DAILY@0700 #30 tablet 05/19/17 [place]-3 Acid Ethyl Esters [Lovaza 2 gm PO BID@1000,1700 #60 cap 05/19/17 -] Atenolol [Tenormin -] 25 mg PO DAILY #30 tablet 11/05/17 Insulin Sliding Scale [Novolog 1 vial SQ ACHS #1 vial 11/05/17 Vial Sliding Scale -] Lactobacillus Acidophilus [Bacid -] 1 tab PO DAILY #30 tab 11/05/17 Lipase/Protease/Amylase [Dory Hay 1 cap PO TIDCM #90 capsule. 11/05/17 36,000 Units Capsule] Loperamide HCl [Imodium -] 2 mg PO Q8H PRN capsule 11/05/17 Multivitamins [Multivit ([facility] 1 tab PO DAILY #30 tab 11/05/17 Formulary)] Pantoprazole Sodium [Protonix -] 40 mg PO BID #60 tablet.ec 11/05/17 Simethicone [Mylicon -] 80 mg PO Q6H PRN tab.chew 11/05/17 Sodium Bicarbonate - 650 mg PO TID #30 tablet 11/05/17 Iron Sucrose Injection [Venofer] 100 mg IV ASDIR #2 vial 11/06/17 Vital Signs Temperature 97.8 F 12/30/18 15:01 Pulse Rate 67 12/30/18 15:01 Respiratory Rate 18 12/30/18 15:01 Blood Pressure 150/56 L 12/30/18 15:01 O2 Sat by Pulse Oximetry (%) 99 12/30/18 15:01 Intake & Output 12/27/18 12/28/18 12/29/18 12/30/18 23:59 23:59 23:59 23:59 Weight 56.245 kg Laboratory Tests 12/30/18 12/30/18 13:15 13:15 WBC 8.1 Hgb 9.1 L Hct 26.3 L Plt Count 263 Neutrophils % 90.1 H Sodium 117 L* Potassium 4.9 Chloride 82 L Carbon Dioxide 23 Anion Gap 11 BUN 81.7 H Creatinine 2.8 H Est GFR (CKD-EPI)NonAf 14.68 Calcium 8.3 L Phosphorus 4.0 Magnesium 2.5 H Free T4 1.77 H 88 year old woman with hx of CKD stage 4, Afib on Eliquis, Hypertension , hypothyroidism, ischemic colitis who presented with laboratory studies that showed hyponatremia with Na of 117 and Cr of 2.8. #GABY on CKD with volume over load #Hypervolemic Hyponatremia #Acute on chronic anemia #CHF/Fluid overload #Hypertension #Hypothyroidism #Abd pain with hx of ischemic colitis Urine studies show Na of 18 and indicating preserved tubular function Given clinical appearance of fluid overload/CHF will maintain on IV diuresis. Was given Lasix 40mg IV in the ED. Monitor urine output with watts catheter. Can redose Lasix 80mg if no appropriate response seen in 2-4 hours. suspect that GABY is due to renal hypoprofusion in setting of HF. 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 Dose all meds for CrCl < 15. Maintain on low salt diet. 1L fluid restriction for hyponatremia Check TSH in AM Consider GI consult if abd pain continues to pt has persistent N/V Check lactic acid levels overall prognosis is guarded Thank you Refugio Allen DO
[2018-12-30] MEDS ORDERED: SIMETHICONE 80 MG TAB.CHEW (FP) PO PRN (17:18)
[2018-12-30] MEDS ORDERED: LOPERAMIDE HCL 2 MG CAPSULE PO PRN (17:18)
[2018-12-30] MEDS ORDERED: ACETAMINOPHEN 650 MG SUPP.RECT PR PRN (17:22)
--- NOTE | 2018-12-30 17:30 | HP ---
Admitting History and Physical - Primary Care Physician PCP: Evens Chun - Admission History of Present Illness: pt seen/ examined in er Discussed with pts daughter/ son who are at bedside Discussed with Er Physician/ Resident also. Per Er records -- And I concur. 88F with a PMH of Ischemic Colitis, Chronic Abdominal Pain, Dementia, CKD Stage 4, Afib (on Eliquis), HTN, Hypothyroid who presents to the ER from the transfusion floor for sodium of 117. Pt had labs drawn today that show a sodium of 117. The patient and family state that the patient has had abdominal pain in her LLQ for the past 4-5 days. The abdominal pain is associated with nausea and vomiting but without diarrhea, fevers, or chills Pt found to have Na of 117 and volume overlaod to be admitted to icu Renal also consulted given i/v lasix pt on bipap in er drowsy but arousable. 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: Dementia Cardiovascular: Yes: AFIB, HTN, Hyperlipdemia, Mitral Insufficiency, Pulmonary Hypertension Gastrointestinal: Yes: Diverticulosis, GERD, Peptic Ulcer Disease, Other ( ischemic colitis 04/27) Hepatobiliary: Yes: Cholecystitis (s/p open cholecystectomy) Renal/: Yes: Renal Inusuff Heme/Onc: Yes: Anemia Endocrine: Yes: Diabetes Mellitus, Hypothyroidism - Past Surgical History Past Surgical History: Yes: Cataract Removal, Cholecystectomy (open), Colonoscopy - Smoking History Smoking history: Never smoked - Alcohol/Substance Use Hx Alcohol Use: No - Social History ADL: Family Assistance History of Recent Travel: Yes ([place] 11/25) Home Medications - Allergies Allergies/Adverse Reactions: Allergies Allergy/AdvReac Type Severity Reaction Status Date / Time No Known Allergies Allergy Verified 12/30/18 15:02 - Home Medications Home Medications: Ambulatory Orders Amlodipine Besylate [Norvasc -] 5 mg PO DAILY #30 tablet 05/19/17 Apixaban [Eliquis -] 2.5 mg PO BID #60 tablet 05/19/17 Donepezil HCl [Aricept -] 10 mg PO DAILY #30 tablet 05/19/17 Levothyroxine [Synthroid -] 25 mcg PO DAILY@0700 #30 tablet 05/19/17 [place]-3 Acid Ethyl Esters [Lovaza -] 2 gm PO BID@1000,1700 #60 cap 05/19/17 Atenolol [Tenormin -] 25 mg PO DAILY #30 tablet 11/05/17 Insulin Sliding Scale [Novolog Vial Sliding Scale -] 1 vial SQ ACHS #1 vial Lactobacillus Acidophilus [Bacid -] 1 tab PO DAILY #30 tab 11/05/17 Lipase/Protease/Amylase [Dory Hay 36,000 Units Capsule] 1 cap PO TIDCM #90 capsule.dr 11/05/17 Loperamide HCl [Imodium -] 2 mg PO Q8H PRN capsule 11/05/17 Multivitamins [Multivit ([facility] Formulary)] 1 tab PO DAILY #30 tab 11/05/17 Pantoprazole Sodium [Protonix -] 40 mg PO BID #60 tablet.ec 11/05/17 Simethicone [Mylicon -] 80 mg PO Q6H PRN tab.chew 11/05/17 Sodium Bicarbonate - 650 mg PO TID #30 tablet 11/05/17 Iron Sucrose Injection [Venofer] 100 mg IV ASDIR #2 vial 11/06/17 Family Disease History - Family Disease History Family Disease History: Diabetes: Brother (3 brothers, : 1 w/ prostate cancer, 1 w/ complications from asbestosis ), Son (2 sons: healthy), Other: Father ( 80's: unclear cause), Mother ( in 40's: heart problems), Brother, Son, Daughter (1, has hereditary angioedema) Review of Systems Findings/Remarks: clinical condition Physical Examination Vital Signs: Vital Signs Temperature 97.8 F 12/30/18 15:01 Pulse Rate 67 12/30/18 15:01 Respiratory Rate 18 12/30/18 15:01 Blood Pressure 150/56 L 12/30/18 15:01 O2 Sat by Pulse Oximetry (%) 99 12/30/18 15:01 Constitutional: Yes: Mild Distress Eyes: Yes: Conjunctiva Clear Neck: Yes: Supple Cardiovascular: Yes: Regular Rate and Rhythm Respiratory: Yes: Diminished Gastrointestinal: Yes: Soft, Other (mild diffuse tenderness on deep palpation. no r/r . bs +) Edema: LLE: Trace, RLE: Trace Neurological: Yes: Lethargy Imaging - Results Chest X-ray: Report Reviewed Problem List - Problems (1) Hyponatremia Code(s): E87.1 - HYPO-OSMOLALITY AND HYPONATREMIA (2) Abdominal pain Code(s): R10.9 - UNSPECIFIED ABDOMINAL PAIN Qualifiers: (3) Acute on chronic kidney failure Code(s): N17.9 - ACUTE KIDNEY FAILURE, UNSPECIFIED; N18.9 - CHRONIC KIDNEY DISEASE, UNSPECIFIED Qualifiers: Chronic kidney disease stage: stage 4 (severe) (4) Anemia Code(s): D64.9 - ANEMIA, UNSPECIFIED Qualifiers: (5) CKD (chronic kidney disease) stage 4, GFR 15-29 ml/min Code(s): N18.4 - CHRONIC KIDNEY DISEASE, STAGE 4 (SEVERE) (6) Dementia Code(s): F03.90 - UNSPECIFIED DEMENTIA WITHOUT BEHAVIORAL DISTURBANCE Qualifiers: Dementia type: unspecified type (7) Ischemic colitis Code(s): K55.9 - VASCULAR DISORDER OF INTESTINE, UNSPECIFIED (8) Paroxysmal atrial fibrillation Code(s): I48.0 - PAROXYSMAL ATRIAL FIBRILLATION (9) Type 2 diabetes mellitus Code(s): E11.9 - TYPE 2 DIABETES MELLITUS WITHOUT COMPLICATIONS Assessment/Plan Admit to icu i/v lasix meds reviewed ct abdomen-- h/o ischemic colitis check sob dvt prophylaxis with scd stocking for now monitor Electrolytes Renal on case Clinical condition gaurded Discussed in detail with pts daughter / son Discussed about advance directives also wants full code for now Also discussed with Dr. Granda Will follow cc time approx 40 min
--- NOTE | 2018-12-30 17:42 | CONSULT ---
Consultation: REQUESTING PROVIDER: CONSULT REQUEST: We have been asked to medically evaluate this patient for ICU admission. HISTORY OF PRESENT ILLNESS: Patient is an 88 year old female with history of chronic kidney disease stage IV , anemia, Afib (on Eliquis), ishcemic collitis, insulin dependent diabetes mellitus, hyperlipidemia, hypertension, hypothyroidism, mitral insufficiency presents from infusion floor noted to be hyponatremic to 117. Patient's family at bedside state that she has been complaining of shortness of breath worsening over past three- four days. Patient reports increased thirst, and admits increased fluid intake. Patient has chronic abdominal pain (noted worst at left lower quadrant), worsening over past four days with diminishing appetite. Last bowel movement yesterday, solid without aniceto blood or melena. In ED patient was noted to be hypoxic to 80s an started on BiLevel ventilation. Upon my encounter, patient not in respiratory distress. REVIEW OF SYSTEMS: As per HPI. Patient lethargic, does not endorse further history. PHYSICAL EXAMINATION Vital Signs - 24 hr 12/30/18 15:01 Temperature 97.8 F Pulse Rate 67 Respiratory 18 Rate Blood Pressure 150/56 L O2 Sat by Pulse 99 Oximetry (%) GENERAL: Sleepy, alert to person, place. No acute disress. On BiLevel ventilation. HEAD: Normocephalic, atraumaitic EYES: PERRL, extraocular movements intact, sclera anicteric, conjunctiva clear. ENT: Oropharynx clear, without erythema or exudates. Moist mucous membranes. NECK: Trachea midline. Supple without lymphadenopathy. LUNGS: Poor inspiratory effort, and air entry bilaterally. Course rhonchi auscultated bilateraly. Currently, no accessory muscle use. HEART: Regular rate and rhythm, S1, S2 without murmur, rub or gallop. ABDOMEN: Soft, nondistended, nontender to light and deep palpation x4 quadrants , no rebound tenderness, no guarding. Normoactive bowel sounds x4 quadrants. EXTREMITIES: 2+ radial, dorsalis pedis pulses bilaterally. Warm, well-perfused. 2+ lower extremity edema bilaterally. NEUROLOGICAL: Cranial nerves II through XII grossly intact. Patient moves all four extremities equally. SKIN: Warm, dry. Laboratory Results - last 24 hr 12/30/18 12/30/18 16:21 16:21 Urine Color Yellow Urine Appearance Clear Urine pH 7.0 Ur Specific [place] 1.013 Urine Protein 2+ H Urine Glucose (UA) Negative Urine Ketones Negative Urine Blood Negative Urine Nitrite Negative Urine Bilirubin Negative Urine Urobilinogen 1.0 Ur Leukocyte Esterase Trace Urine WBC (Auto) 2 Urine RBC (Auto) 2 Urine Casts (Auto) 1 U Epithel Cells (Auto) 1.0 Urine Bacteria (Auto) 11.2 U Random Total Protein 97.7 H Ur Random Sodium < 18 L Active Medications Generic Name Dose Route Start Last Admin Trade Name Freq PRN Reason Stop Dose Admin Acetaminophen 650 mg 12/30/18 17:22 Tylenol Suppository - ND Q4H PRN FEVER Amlodipine Besylate 5 mg 12/31/18 10:00 Norvasc - PO DAILY YANN Apixaban 2.5 mg 12/30/18 22:00 Eliquis - PO BID YANN Atenolol 25 mg 12/31/18 10:00 Tenormin - PO DAILY YANN Chlorhexidine Gluconate 1 applic 12/30/18 22:00 Hibiclens For Decolonization - TP HS YANN Donepezil HCl 10 mg 12/31/18 10:00 Aricept - PO DAILY YANN Furosemide 40 mg 12/31/18 10:00 Lasix Injection - IVPUSH DAILY YANN Insulin Aspart 0 vial 12/31/18 07:00 Novolog Vial Sliding Scale - SQ BIDAC YANN Protocol Lactobacillus Acidophilus 1 tab 12/31/18 10:00 Bacid - PO DAILY YANN Levothyroxine Sodium 25 mcg 12/31/18 07:00 Synthroid - PO DAILY@0700 YANN Loperamide HCl 2 mg 12/30/18 17:18 Imodium - PO Q8H PRN DIARRHEA Multivitamins/Minerals/Vitamin C 1 tab 12/31/18 10:00 Tab-A-Vit - PO DAILY YANN Mupirocin 1 applic 12/30/18 22:00 Bactroban Ointment (For Decolonization) - NS 01/04/19 21:59 BID YANN Rfmlr-4-Heul Ethyl Esters 2 gm 12/31/18 10:00 Lovaza - PO BID@1000,1700 YANN Pancrelipase 1 cap 12/30/18 17:[address] 36,000 Units Capsule PO TIDCM YANN Pantoprazole Sodium 40 mg 12/31/18 10:00 Protonix Iv IVPUSH DAILY YANN Simethicone 80 mg 12/30/18 17:18 Mylicon - PO Q6H PRN GAS ASSESSMENT/PLAN: Patient is an 88 year old female with history of chronic kidney disease stage IV , anemia, Afib (on Eliquis), ishcemic collitis, insulin dependent diabetes mellitus, hyperlipidemia, hypertension, hypothyroidism, mitral insufficiency presents from infusion floor noted to be hyponatremic to 117. Neurologic -Patient is sleepy, however, easily arrousable to voice -ABG to evaluate for CO2 narcosis -Monitor closely for signs of mental status changes -Donepezil 10mg PO daily Pulmonary -Currently on BiLevel ventilation at 40%FiO2, IPAP 10, EPAP 5, RR 14 -Chest radiograph reveals bilateral congestive changes. Follow official read. -Follow ABG -Maintain oxygen saturation greater than 90% Cardiac Afib HFpEF Hypertension Mitral insufficiency Hyperlipidemia -Atenolol 25mg PO daily -Norvasc 5mg PO daily -Eliquis 2.5mg PO BID -Follow cardiac ECHO Gastrointestinal History of ischemic collitis -Currently patient endorses no abdominal pain. -Follow CT abdomen/ pelvis -Consider gastroenterology consult Nephrologic Acute, on Chronic kidney disease IV Hyponatremia -likely hypervolemic secondary to fluid overload. -Lastix 40mg IV STAT. Will evaluate output. Consider lasix 80mg IV if no appreciable output within next two hours. -Repeat sodium within 6 hours. Not to increase sodium by more than 8-10 meq -Lasix 40mg IV daily -1L fluid restriciton -Strict intake and output -Nephrology consult Dr. Allen appreciated Endocrine Insulin dependent diabetes mellitus Hypothyroidism -Synthroid 25mcg PO daily -Insulin sliding scale ACHS -Fingerstick blood glucose ACHS Hematology Anemia- multifactoral (anemia of chronic disease, in addition secondary to chronic kidney disease) -Follow iron studies -Transfusion threshold at 8 -Hematology consult (Dr. Granda) FEN -Fluids: No IV fluids indicated. 1L fluid restriction -Hyponatremia. BMP Q8 hours -Trial of soft diet. Prophylaxis -Patient is on Eliquis 2.5mg PO BID -Protonix 40mg IV BID Disposition: We will continue to follow the patient. Thank you for this consultative opportunity. Visit type - Emergency Visit Emergency Visit: Yes ED Registration Date: 12/30/18 Care time: The patient presented to the Emergency Department on the above date and was hospitalized for further evaluation of their emergent condition. - New Patient This patient is new to me today: Yes Date on this admission: 12/31/18 - Critical Care Critical Care patient: Yes Total Critical Care Time (in minutes): 35 Critical Care Statement: The care of this patient involved high complexity decision making to prevent further life threatening deterioration of the patient 's condition and/or to evaluate & treat vital organ system(s) failure or risk of failure.
--- NOTE | 2018-12-30 17:47 | CON.CARD ---
Consult Consult Specialty:: Cardiology Referred by:: Evens Chun MD, Carlie Garay MD Reason for Consultation:: Afib - History of Present Illness Chief Complaint: Abd pain, nausea, emesis History of Present Illness: 88-year-old female with h/o Type 2 DM, chol, HTN, hypothyroidism, PUD, dementia , rate-controlled afib, CKD 4, PAD, anemia, ischemic colitis referred to hospital for hyponatremia with Na of 117 and Cr of 2.8 while undergoing iron infusion. She has been experiencing dyspnea, LE edema and orthopnea, abd pain, nausea, emesis, poor oral intake has been drinking water and maintained on Lasix [address] Sandra 04/20/2018. Received IV diuresis with symptom improvement, reports medication and diet compliance, no NSAID use. 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: Dementia Cardio/Vascular: Yes: AFIB, HTN, Hyperlipdemia, Mitral Insufficiency, Pulmonary Hypertension Gastrointestinal: Yes: Diverticulosis, GERD, Peptic Ulcer Disease, Other ( ischemic colitis 04/27) Hepatobiliary: Yes: Cholecystitis (s/p open cholecystectomy) Renal/: Yes: Renal Inusuff Endocrine: Yes: Diabetes Mellitus, Hypothyroidism - Past Surgical History Past Surgical History: Yes: Cataract Removal, Cholecystectomy (open), Colonoscopy - Alcohol/Substance Use Hx Alcohol Use: No - Smoking History Smoking history: Never smoked - Social History Usual Living Arrangement: With Child ADL: Family Assistance History of Recent Travel: Yes ([place] 11/25) Home Medications - Allergies Allergies/Adverse Reactions: Allergies Allergy/AdvReac Type Severity Reaction Status Date / Time No Known Allergies Allergy Verified 12/30/18 15:02 - Home Medications Home Medications: Ambulatory Orders Amlodipine Besylate [Norvasc -] 5 mg PO DAILY #30 tablet 05/19/17 Apixaban [Eliquis -] 2.5 mg PO BID #60 tablet 05/19/17 Donepezil HCl [Aricept -] 10 mg PO DAILY #30 tablet 05/19/17 Levothyroxine [Synthroid -] 25 mcg PO DAILY@0700 #30 tablet 05/19/17 [place]-3 Acid Ethyl Esters [Lovaza -] 2 gm PO BID@1000,1700 #60 cap 05/19/17 Atenolol [Tenormin -] 25 mg PO DAILY #30 tablet 11/05/17 Insulin Sliding Scale [Novolog Vial Sliding Scale -] 1 vial SQ ACHS #1 vial Lactobacillus Acidophilus [Bacid -] 1 tab PO DAILY #30 tab 11/05/17 Lipase/Protease/Amylase [Dory Hay 36,000 Units Capsule] 1 cap PO TIDCM #90 capsule. 11/05/17 Loperamide HCl [Imodium -] 2 mg PO Q8H PRN capsule 11/05/17 Multivitamins [Multivit ([facility] Formulary)] 1 tab PO DAILY #30 tab 11/05/17 Pantoprazole Sodium [Protonix -] 40 mg PO BID #60 tablet.ec 11/05/17 Simethicone [Mylicon -] 80 mg PO Q6H PRN tab.chew 11/05/17 Sodium Bicarbonate - 650 mg PO TID #30 tablet 11/05/17 Iron Sucrose Injection [Venofer] 100 mg IV ASDIR #2 vial 11/06/17 Family Disease History - Family Disease History Family Disease History: Diabetes: Brother (3 brothers, : 1 w/ prostate cancer, 1 w/ complications from asbestosis ), Son (2 sons: healthy), Other: Father ( 80's: unclear cause), Mother ( in 40's: heart problems), Brother, Son, Daughter (1, has hereditary angioedema) Review of Systems - Review of Systems Cardiovascular: reports: Edema, Shortness of Breath Gastrointestinal: reports: Abdominal Pain, Nausea, Vomiting Vital Signs: Vital Signs Temperature 97.8 F 12/30/18 15:01 Pulse Rate 67 12/30/18 15:01 Respiratory Rate 18 12/30/18 15:01 Blood Pressure 150/56 L 12/30/18 15:01 O2 Sat by Pulse Oximetry (%) 99 12/30/18 15:01 Constitutional: Yes: No Distress, Calm Neck: Yes: Supple Respiratory: Yes: Regular, On BiPap, SOB Gastrointestinal: Yes: Soft, Hypoactive Bowel Sounds Cardiovascular: Yes: Regular Rate and Rhythm JVD: No Carotid Bruit: No Heart Sounds: Yes: S1, S2 Edema: No - Other Data Echo: Pending Ejection Fraction %: LVEF > or = 40 % Imaging - Results Chest X-ray: Report Reviewed (CHF) Problem List - Problems (1) Acute on chronic kidney failure Code(s): N17.9 - ACUTE KIDNEY FAILURE, UNSPECIFIED; N18.9 - CHRONIC KIDNEY DISEASE, UNSPECIFIED Qualifiers: Chronic kidney disease stage: stage 4 (severe) (2) CHF (congestive heart failure) Code(s): I50.9 - HEART FAILURE, UNSPECIFIED Qualifiers: Heart failure type: diastolic Heart failure chronicity: acute on chronic Qualified Code(s): I50.33 - Acute on chronic diastolic (congestive) heart failure (3) Dementia Code(s): F03.90 - UNSPECIFIED DEMENTIA WITHOUT BEHAVIORAL DISTURBANCE Qualifiers: Dementia type: unspecified type (4) Hyperlipidemia Code(s): E78.5 - HYPERLIPIDEMIA, UNSPECIFIED Qualifiers: Hyperlipidemia type: pure hypercholesterolemia Qualified Code(s): E78.00 - Pure hypercholesterolemia, unspecified (5) Hyponatremia Code(s): E87.1 - HYPO-OSMOLALITY AND HYPONATREMIA (6) Hypothyroidism Code(s): E03.9 - HYPOTHYROIDISM, UNSPECIFIED Qualifiers: Hypothyroidism type: unspecified Qualified Code(s): E03.9 - Hypothyroidism , unspecified (7) Paroxysmal atrial fibrillation Code(s): I48.0 - PAROXYSMAL ATRIAL FIBRILLATION Assessment/Plan 05/10/2017 Echo: Normal LV size and fxn, mild LAE, mod MR, TR RVSP 30-40 mm Hg, mild AR 1. GABY on CKD with volume overload due to renal hypoprofusion in setting of HFpEF 2. Hypervolemic Hyponatremia 3. Acute on chronic diastolic LV failure 4. Abd pain with h/o ischemic colitis, mesenteric ischemia with intestinal angina post conservative medical management 5. Paroxysmal atrial fibrillation on A/C with NOAC/Eliquis [id number] score of 5, rate controlled 6. 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 HTN/HCVD 8. DM 9. Hypercholesterolemia 10. 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 Anemia PLAN: 1. IV diuresis with monitor diuretic response, renal fxn and electrolytes, check TSH, lactate levels 2. Continue Atenolol 25 qd, Norvasc 5 qd, Eliquis 2.5 bid (age > 80 and Creatinine > 1.5) 3. Resume lisinopril 20 qd when renal function improves to baseline 4. Free water restriction, bipap and FIO2 to maintain saO2>90% 5. Transfusion to maintain hemoglobin equal or greater than 8.0 6. Thank you for consultative opportunity
[2018-12-30] MEDS ORDERED: amLODIPine BESYLATE 5 MG TABLET (FP) PO ONE (20:55)
[2018-12-30 21:14] LABS: ARTERIAL BLD GAS O2 SATURATION 94.6 % (95-98); ARTERIAL BLOOD GAS BASE EXCESS -1.5 meq/l (-2-2); ARTERIAL BLOOD GAS PCO2 32.1 mmHg (35-45); ARTERIAL BLOOD GAS PO2 75.5 mmHg (80-105); ARTERIAL BLOOD GAS pH 7.44 (7.35-7.45)
[2018-12-30 21:15] LABS: ALLENS TEST POSITIVE
[2018-12-30] MEDS: LIPASE/PROTEASE/AMYLASE 36,000 UNIT CAPSULE PO SCH (21:26)
[2018-12-30] MEDS ORDERED: MUPIROCIN 2% TOPICAL OINTMENT FOR DECOLONIZATION NS SCH ×3 (22:00)
[2018-12-30] MEDS ORDERED: CHLORHEXIDINE GLUCONATE 4% CLEANSER FOR DECOLONIZATION TP SCH ×3 (22:00)
[2018-12-30] MEDS: CHLORHEXIDINE GLUCONATE 4% CLEANSER FOR DECOLONIZATION TP SCH (22:30)
[2018-12-30] MEDS: APIXABAN 2.5 MG TABLET PO SCH (22:30)
[2018-12-30] MEDS: MUPIROCIN 2% TOPICAL OINTMENT FOR DECOLONIZATION NS SCH (22:30)
[2018-12-31 01:12] LABS: CALCIUM 8.1 mg/dL (8.5-10.1); CREATININE 2.8 mg/dL (0.55-1.3); POTASSIUM 4.1 mmol/L (3.5-5.1)
[2018-12-31] MEDS: INSULIN SLIDING SCALE (NOVOLOG) 1 VIAL SQ SCH ×2 (06:10→17:00)
[2018-12-31 06:28] LABS: HEMATOCRIT 25.3 % (32.4-45.2); HEMOGLOBIN 8.7 GM/dL (10.7-15.3); MCH 29.6 pg (25.7-33.7); MCHC 34.4 g/dl (32.0-36.0); MEAN CELL VOLUME 86.1 fl (80-96); MEAN PLT VOLUME 7.8 fl (7.5-11.1); PLATELET COUNT 244 K/MM3 (134-434); RBC 2.94 M/mm3 (3.60-5.2); RDW 15.7 % (11.6-15.6)
[2018-12-31 06:49] LABS: ANION GAP 14 MMOL/L (8-16); BLOOD UREA NITROGEN 86.6 mg/dL (7-18); CALCIUM 8.1 mg/dL (8.5-10.1); CHLORIDE 84 mmol/L (98-107); CO2 24 mmol/L (21-32); CREATININE 2.8 mg/dL (0.55-1.3); GLUCOSE,RANDOM 167 mg/dL (74-106); MAGNESIUM 2.5 mg/dL (1.8-2.4); PHOSPHOROUS 5.1 mg/dL (2.5-4.9); POTASSIUM 3.9 mmol/L (3.5-5.1); SODIUM 122 mmol/L (136-145)
[2018-12-31] MEDS ORDERED: LEVOTHYROXINE NA 25 MCG TABLET (FP) PO SCH (07:00)
[2018-12-31] MEDS: LIPASE/PROTEASE/AMYLASE 36,000 UNIT CAPSULE PO SCH ×3 (08:00→17:30)
[2018-12-31] MEDS ORDERED: PT OWN MED DRAWER 7, Y5N ONE ×2 (08:20→10:21)
--- NOTE | 2018-12-31 08:50 | PN ---
Progress Note (short form) - Note Progress Note: Renal follow up for GABY/Fluid overload Pt seen and examined at the bedside on 100% NRB watts in place pt was agigated overnight BP elevated making urine Vital Signs Temperature 98 F 12/31/18 06:32 Pulse Rate 66 12/31/18 06:32 Respiratory Rate 15 12/31/18 06:32 Blood Pressure 150/48 L 12/31/18 06:32 O2 Sat by Pulse Oximetry (%) 99 12/30/18 21:00 Intake & Output 12/28/18 12/29/18 12/30/18 12/31/18 23:59 23:59 23:59 23:59 Intake Total 140 Output Total 1000 Balance -860 Weight 59.738 kg NAD awake and alert neck supple RRR + rales in lung donnelly + edema in LE CBC, BMP 12/31/18 06:05 12/31/18 06:05 Current Medications Acetaminophen (Tylenol Suppository -) 650 mg [place] Q4H PRN PRN Reason: FEVER Amlodipine Besylate (Norvasc -) 5 mg PO DAILY [facility] Apixaban (Eliquis -) 2.5 mg PO BID [facility] Last Admin: 12/30/18 22:30 Dose: 2.5 mg Atenolol (Tenormin -) 25 mg PO DAILY [facility] Chlorhexidine Gluconate (Hibiclens For Decolonization -) 1 applic TP HS [facility] Last Admin: 12/30/18 22:30 Dose: 1 applic Donepezil HCl (Aricept -) 10 mg PO DAILY [facility] Furosemide (Lasix Injection -) 80 mg IVPUSH DAILY [facility] Insulin Aspart (Novolog Vial Sliding Scale -) 0 vial SQ BIDAC [facility]; Protocol Last Admin: 12/31/18 06:10 Dose: Not Given Lactobacillus Acidophilus (Bacid -) 1 tab PO DAILY [facility] Levothyroxine Sodium (Synthroid -) 25 mcg PO DAILY@0700 [facility] Last Admin: 12/31/18 06:14 Dose: 25 mcg Loperamide HCl (Imodium -) 2 mg PO Q8H PRN PRN Reason: DIARRHEA Multivitamins/Minerals/Vitamin C (Tab-A-Vit -) 1 tab PO DAILY [facility] Mupirocin (Bactroban Ointment (For Decolonization) -) 1 applic NS BID [facility] Stop: 01/04/19 21:59 Last Admin: 12/30/18 22:30 Dose: 1 applic Unfoo-1-Wyhd Ethyl Esters (Lovaza -) 2 gm PO BID@1000,1700 YANN Pancrelipase (Creon Dr 36,000 Units Capsule) 1 cap PO TIDCM YANN Last Admin: 12/30/18 21:26 Dose: Not Given Pantoprazole Sodium (Protonix Iv) 40 mg IVPUSH DAILY YANN Simethicone (Mylicon -) 80 mg PO Q6H PRN PRN Reason: GAS 88 year old woman with hx of CKD stage 4, Afib on Eliquis, Hypertension , hypothyroidism, ischemic colitis who presented with laboratory studies that showed hyponatremia with Na of 117 and Cr of 2.8. #GABY on CKD with volume over load #Hypervolemic Hyponatremia #Acute on chronic anemia #CHF/Fluid overload #Hypertension #Hypothyroidism #Abd pain with hx of ischemic colitis suspect that GABY is due to renal hypoprofusion in setting of HF. 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 Dose all meds for CrCl < 15. Maintain on low salt diet. 1L fluid restriction for hyponatremia repeat BMP in evening Thank you Refugio Allen DO
--- NOTE | 2018-12-31 09:58 | PN ---
Progress Note (short form) - Note Progress Note: family at bedside not in distress on non rebreather-- when it is removed,, she desaturates quickly Vital Signs - 24 hr 12/30/18 12/30/18 12/30/18 15:01 17:15 19:35 Temperature 97.8 F Pulse Rate 67 Pulse Rate [ 68 Right] Respiratory 18 25 H Rate Blood Pressure 150/56 L Blood Pressure 174/56 H [Right Arm] O2 Sat by Pulse 99 96 93 L Oximetry (%) 12/30/18 12/31/18 12/31/18 21:00 01:00 03:00 Temperature 98.2 F 98.2 F 97.9 F Pulse Rate 76 64 66 Pulse Rate [ Right] Respiratory 18 18 23 H Rate Blood Pressure 168/57 L 165/51 L 164/51 L Blood Pressure [Right Arm] O2 Sat by Pulse 99 Oximetry (%) 12/31/18 12/31/18 12/31/18 05:00 06:32 08:00 Temperature 97.9 F 98 F Pulse Rate 74 66 64 Pulse Rate [ Right] Respiratory 23 H 15 15 Rate Blood Pressure 151/69 150/48 L 145/41 L Blood Pressure [Right Arm] O2 Sat by Pulse Oximetry (%) 12/31/18 09:00 Temperature Pulse Rate Pulse Rate [ Right] Respiratory 15 Rate Blood Pressure Blood Pressure [Right Arm] O2 Sat by Pulse 99 Oximetry (%) Current Medications Generic Name Dose Route Start Last Admin Trade Name Freq PRN Reason Stop Dose Admin Acetaminophen 650 mg 12/30/18 17:22 Tylenol Suppository - [place] Q4H PRN FEVER Amlodipine Besylate 5 mg 12/31/18 10:00 Norvasc - PO DAILY [facility] Apixaban 2.5 mg 12/30/18 22:00 12/30/18 22:30 Eliquis - PO 2.5 mg BID YANN Administration Atenolol 25 mg 12/31/18 10:00 Tenormin - PO DAILY YANN Chlorhexidine Gluconate 1 applic 12/30/18 22:00 12/30/18 22:30 Hibiclens For Decolonization - TP 1 applic HS YANN Administration Donepezil HCl 10 mg 12/31/18 10:00 Aricept - PO DAILY YANN Furosemide 80 mg 12/31/18 10:00 Lasix Injection - IVPUSH DAILY [facility] Insulin Aspart 0 vial 12/31/18 07:00 12/31/18 06:10 Novolog Vial Sliding Scale - SQ Not Given BIDAC [facility] Protocol Lactobacillus Acidophilus 1 tab 12/31/18 10:00 Bacid - PO DAILY YANN Levothyroxine Sodium 25 mcg 12/31/18 07:00 12/31/18 06:14 Synthroid - PO 25 mcg DAILY@0700 YANN Administration Loperamide HCl 2 mg 12/30/18 17:18 Imodium - PO Q8H PRN DIARRHEA Multivitamins/Minerals/Vitamin C 1 tab 12/31/18 10:00 Tab-A-Vit - PO DAILY YANN Mupirocin 1 applic 12/30/18 22:00 12/30/18 22:30 Bactroban Ointment (For Decolonization) - NS 01/04/19 21:59 1 applic BID YANN Administration [id number] Ethyl Esters 2 gm 12/31/18 10:00 Lovaza - PO BID@1000,1700 YANN Pancrelipase 1 cap 12/30/18 17:30 12/30/18 21:26 Creatul Hay 36,000 Units Capsule PO Not Given TIDCM [facility] Pantoprazole Sodium 40 mg 12/31/18 10:00 Protonix Iv IVPUSH DAILY [facility] Simethicone 80 mg 12/30/18 17:18 Mylicon - PO Q6H PRN GAS Laboratory Results - last 24 hr 12/30/18 12/30/18 12/30/18 16:21 16:21 21:00 WBC RBC Hgb Hct MCV MCH MCHC RDW Plt Count MPV Anticoagulation Therapy No Result Required. Puncture Site Right brachial ABG pH 7.44 ABG pCO2 at Pt Temp 32.1 L ABG pO2 at Pt Temp 75.5 L ABG HCO3 21.6 L ABG O2 Sat (Measured) 94.6 L ABG O2 Content 13.1 L ABG Base Excess -1.5 [place] Test Positive O2 Delivery Device Nonrebreather Oxygen Flow Rate 100% Vent Mode No Result Required. Vent Rate No Result Required. Mechanical Rate No Result Required. Pressure Support Vent No Result Required. Sodium Potassium Chloride Carbon Dioxide Anion Gap BUN Creatinine Est GFR (CKD-EPI)AfAm Est GFR (CKD-EPI)NonAf POC Glucometer Random Glucose Calcium Phosphorus Magnesium Creatine Kinase Troponin I Urine Color Yellow Urine Appearance Clear Urine pH 7.0 Ur Specific [place] 1.013 Urine Protein 2+ H Urine Glucose (UA) Negative Urine Ketones Negative Urine Blood Negative Urine Nitrite Negative Urine Bilirubin Negative Urine Urobilinogen 1.0 Ur Leukocyte Esterase Trace Urine WBC (Auto) 2 Urine RBC (Auto) 2 Urine Casts (Auto) 1 U Epithel Cells (Auto) 1.0 Urine Bacteria (Auto) 11.2 U Random Total Protein 97.7 H Ur Random Sodium < 18 L 12/31/18 12/31/18 12/31/18 00:01 06:03 06:05 WBC 13.0 H RBC 2.94 L Hgb 8.7 L Hct 25.3 L MCV 86.1 MCH 29.6 MCHC 34.4 RDW 15.7 H Plt Count 244 MPV 7.8 Anticoagulation Therapy Puncture Site ABG pH ABG pCO2 at Pt Temp ABG pO2 at Pt Temp ABG HCO3 ABG O2 Sat (Measured) ABG O2 Content ABG Base Excess [place] Test O2 Delivery Device Oxygen Flow Rate Vent Mode Vent Rate Mechanical Rate Pressure Support Vent Sodium 119 L Potassium 4.1 Chloride 85 L Carbon Dioxide 24 Anion Gap 11 BUN 85.0 H Creatinine 2.8 H Est GFR (CKD-EPI)AfAm 17.01 Est GFR (CKD-EPI)NonAf 14.68 POC Glucometer 161 Random Glucose 167 H Calcium 8.1 L Phosphorus Magnesium Creatine Kinase Troponin I Urine Color Urine Appearance Urine pH Ur Specific [place] Urine Protein Urine Glucose (UA) Urine Ketones Urine Blood Urine Nitrite Urine Bilirubin Urine Urobilinogen Ur Leukocyte Esterase Urine WBC (Auto) Urine RBC (Auto) Urine Casts (Auto) U Epithel Cells (Auto) Urine Bacteria (Auto) U Random Total Protein Ur Random Sodium 12/31/18 06:05 WBC RBC Hgb Hct MCV MCH MCHC RDW Plt Count MPV Anticoagulation Therapy Puncture Site ABG pH ABG pCO2 at Pt Temp ABG pO2 at Pt Temp ABG HCO3 ABG O2 Sat (Measured) ABG O2 Content ABG Base Excess [place] Test O2 Delivery Device Oxygen Flow Rate Vent Mode Vent Rate Mechanical Rate Pressure Support Vent Sodium 122 L Potassium 3.9 Chloride 84 L Carbon Dioxide 24 Anion Gap 14 BUN 86.6 H Creatinine 2.8 H Est GFR (CKD-EPI)AfAm 17.01 Est GFR (CKD-EPI)NonAf 14.68 POC Glucometer Random Glucose 167 H Calcium 8.1 L Phosphorus 5.1 H Magnesium 2.5 H Creatine Kinase 51 Troponin I < 0.02 Urine Color Urine Appearance Urine pH Ur Specific [place] Urine Protein Urine Glucose (UA) Urine Ketones Urine Blood Urine Nitrite Urine Bilirubin Urine Urobilinogen Ur Leukocyte Esterase Urine WBC (Auto) Urine RBC (Auto) Urine Casts (Auto) U Epithel Cells (Auto) Urine Bacteria (Auto) U Random Total Protein Ur Random Sodium S1 S2 RRR Lungs crackles+B/L JVD+ Abd- soft, NT no edema PLAN IV lasix Sodium improving creatinine stable continue with meds Problem List - Problems (1) Abdominal pain Code(s): R10.9 - UNSPECIFIED ABDOMINAL PAIN Qualifiers: Abdominal location: generalized Qualified Code(s): R10.84 - Generalized abdominal pain (2) CHF (congestive heart failure) Code(s): I50.9 - HEART FAILURE, UNSPECIFIED Qualifiers: Heart failure type: diastolic Heart failure chronicity: acute on chronic Qualified Code(s): I50.33 - Acute on chronic diastolic (congestive) heart failure (3) GABY (acute kidney injury) Code(s): N17.9 - ACUTE KIDNEY FAILURE, UNSPECIFIED (4) Acute on chronic kidney failure Code(s): N17.9 - ACUTE KIDNEY FAILURE, UNSPECIFIED; N18.9 - CHRONIC KIDNEY DISEASE, UNSPECIFIED Qualifiers: Chronic kidney disease stage: stage 4 (severe) (5) Anemia Code(s): D64.9 - ANEMIA, UNSPECIFIED Qualifiers: (6) CKD (chronic kidney disease) stage 4, GFR 15-29 ml/min Code(s): N18.4 - CHRONIC KIDNEY DISEASE, STAGE 4 (SEVERE)
[2018-12-31] MEDS ORDERED: PANTOPRAZOLE SODIUM 40 MG VIAL IVPUSH SCH (10:00)
[2018-12-31] MEDS ORDERED: amLODIPine BESYLATE 5 MG TABLET (FP) PO SCH (10:00)
[2018-12-31] MEDS ORDERED: MULTIVITAMINS (DAILY MVI) TABLET (FP) PO SCH (10:00)
[2018-12-31] MEDS ORDERED: LACTOBACILLUS ACIDOPHILUS 1 TABLET PO SCH (10:00)
[2018-12-31] MEDS ORDERED: ATENOLOL 25 MG TABLET (FP) PO SCH (10:00)
[2018-12-31] MEDS ORDERED: FUROSEMIDE 40 MG/4 ML INJECTABLE VIAL IVPUSH SCH ×2 (10:00)
--- NOTE | 2018-12-31 10:10 | PN ---
Physical Exam: SUBJECTIVE: Patient seen and examined at bedside. Neurologically intact. OBJECTIVE: Vital Signs Period Temp Pulse Resp BP Sys/Thompson Pulse Ox Last 24 Hr 97.8 F-98.2 F 64-76 15-25 145-174/41-69 93-99 GENERAL: A&Ox2, no acute distress EYES: PERRLA, EOMI ENT: Moist mucus membranes NECK: No JVD LUNGS: CTA, no wheezes HEART: systolic murmur auscultated on exam ABDOMEN: Soft, nontender, BS present MUSCULOSKELETAL: No CVA Tenderness EXTREMITIES: 2+ pulses, no edema. NEUROLOGICAL: Cranial nerves II-XII intact. Laboratory Results - last 24 hr 12/30/18 12/30/18 12/30/18 16:21 16:21 21:00 WBC RBC Hgb Hct MCV MCH MCHC RDW Plt Count MPV Anticoagulation Therapy No Result Required. Puncture Site Right brachial ABG pH 7.44 ABG pCO2 at Pt Temp 32.1 L ABG pO2 at Pt Temp 75.5 L ABG HCO3 21.6 L ABG O2 Sat (Measured) 94.6 L ABG O2 Content 13.1 L ABG Base Excess -1.5 [place] Test Positive O2 Delivery Device Nonrebreather Oxygen Flow Rate 100% Vent Mode No Result Required. Vent Rate No Result Required. Mechanical Rate No Result Required. Pressure Support Vent No Result Required. Sodium Potassium Chloride Carbon Dioxide Anion Gap BUN Creatinine Est GFR (CKD-EPI)AfAm Est GFR (CKD-EPI)NonAf POC Glucometer Random Glucose Calcium Phosphorus Magnesium Creatine Kinase Troponin I Urine Color Yellow Urine Appearance Clear Urine pH 7.0 Ur Specific [place] 1.013 Urine Protein 2+ H Urine Glucose (UA) Negative Urine Ketones Negative Urine Blood Negative Urine Nitrite Negative Urine Bilirubin Negative Urine Urobilinogen 1.0 Ur Leukocyte Esterase Trace Urine WBC (Auto) 2 Urine RBC (Auto) 2 Urine Casts (Auto) 1 U Epithel Cells (Auto) 1.0 Urine Bacteria (Auto) 11.2 U Random Total Protein 97.7 H Ur Random Sodium < 18 L 12/31/18 12/31/18 12/31/18 00:01 06:03 06:05 WBC 13.0 H RBC 2.94 L Hgb 8.7 L Hct 25.3 L MCV 86.1 MCH 29.6 MCHC 34.4 RDW 15.7 H Plt Count 244 MPV 7.8 Anticoagulation Therapy Puncture Site ABG pH ABG pCO2 at Pt Temp ABG pO2 at Pt Temp ABG HCO3 ABG O2 Sat (Measured) ABG O2 Content ABG Base Excess [place] Test O2 Delivery Device Oxygen Flow Rate Vent Mode Vent Rate Mechanical Rate Pressure Support Vent Sodium 119 L Potassium 4.1 Chloride 85 L Carbon Dioxide 24 Anion Gap 11 BUN 85.0 H Creatinine 2.8 H Est GFR (CKD-EPI)AfAm 17.01 Est GFR (CKD-EPI)NonAf 14.68 POC Glucometer 161 Random Glucose 167 H Calcium 8.1 L Phosphorus Magnesium Creatine Kinase Troponin I Urine Color Urine Appearance Urine pH Ur Specific [place] Urine Protein Urine Glucose (UA) Urine Ketones Urine Blood Urine Nitrite Urine Bilirubin Urine Urobilinogen Ur Leukocyte Esterase Urine WBC (Auto) Urine RBC (Auto) Urine Casts (Auto) U Epithel Cells (Auto) Urine Bacteria (Auto) U Random Total Protein Ur Random Sodium 12/31/18 06:05 WBC RBC Hgb Hct MCV MCH MCHC RDW Plt Count MPV Anticoagulation Therapy Puncture Site ABG pH ABG pCO2 at Pt Temp ABG pO2 at Pt Temp ABG HCO3 ABG O2 Sat (Measured) ABG O2 Content ABG Base Excess [place] Test O2 Delivery Device Oxygen Flow Rate Vent Mode Vent Rate Mechanical Rate Pressure Support Vent Sodium 122 L Potassium 3.9 Chloride 84 L Carbon Dioxide 24 Anion Gap 14 BUN 86.6 H Creatinine 2.8 H Est GFR (CKD-EPI)AfAm 17.01 Est GFR (CKD-EPI)NonAf 14.68 POC Glucometer Random Glucose 167 H Calcium 8.1 L Phosphorus 5.1 H Magnesium 2.5 H Creatine Kinase 51 Troponin I < 0.02 Urine Color Urine Appearance Urine pH Ur Specific [place] Urine Protein Urine Glucose (UA) Urine Ketones Urine Blood Urine Nitrite Urine Bilirubin Urine Urobilinogen Ur Leukocyte Esterase Urine WBC (Auto) Urine RBC (Auto) Urine Casts (Auto) U Epithel Cells (Auto) Urine Bacteria (Auto) U Random Total Protein Ur Random Sodium Active Medications Generic Name Dose Route Start Last Admin Trade Name Freq PRN Reason Stop Dose Admin Acetaminophen 650 mg 12/30/18 17:22 Tylenol Suppository - [place] Q4H PRN FEVER Amlodipine Besylate 5 mg 12/31/18 10:00 Norvasc - PO DAILY YANN Apixaban 2.5 mg 12/30/18 22:00 12/30/18 22:30 Eliquis - PO 2.5 mg BID YANN Administration Atenolol 25 mg 12/31/18 10:00 Tenormin - PO DAILY YANN Chlorhexidine Gluconate 1 applic 12/30/18 22:00 12/30/18 22:30 Hibiclens For Decolonization - TP 1 applic HS YANN Administration Donepezil HCl 10 mg 12/31/18 10:00 Aricept - PO DAILY YANN Furosemide 80 mg 12/31/18 10:00 Lasix Injection - IVPUSH DAILY YANN Insulin Aspart 0 vial 12/31/18 07:00 12/31/18 06:10 Novolog Vial Sliding Scale - SQ Not Given BIDAC [facility] Protocol Lactobacillus Acidophilus 1 tab 12/31/18 10:00 Bacid - PO DAILY YANN Levothyroxine Sodium 25 mcg 12/31/18 07:00 12/31/18 06:14 Synthroid - PO 25 mcg DAILY@0700 YANN Administration Loperamide HCl 2 mg 12/30/18 17:18 Imodium - PO Q8H PRN DIARRHEA Multivitamins/Minerals/Vitamin C 1 tab 12/31/18 10:00 Tab-A-Vit - PO DAILY YANN Mupirocin 1 applic 12/30/18 22:00 12/30/18 22:30 Bactroban Ointment (For Decolonization) - NS 01/04/19 21:59 1 applic BID YANN Administration [id number]-8-Akoc Ethyl Esters 2 gm 12/31/18 10:00 Lovaza - PO BID@1000,1700 YANN Pancrelipase 1 cap 12/30/18 17:30 12/30/18 21:26 Dory Hay 36,000 Units Capsule PO Not Given TIDCM [facility] Pantoprazole Sodium 40 mg 12/31/18 10:00 Protonix Iv IVPUSH DAILY [facility] Simethicone 80 mg 12/30/18 17:18 Mylicon - PO Q6H PRN GAS ASSESSMENT/PLAN: 88 year old female with history of chronic kidney disease stage IV, anemia, Afib (on Eliquis), ishcemic collitis, insulin dependent diabetes mellitus, hyperlipidemia, hypertension, hypothyroidism, mitral insufficiency admitted to the hospital for hyponatremia Neurologic -Patient is sleepy though easily arousable -Monitor closely for signs of mental status changes -Donepezil 10mg PO daily Pulmonary -on venti mas satting at 100% -Chest radiograph reveals bilateral congestive changes. Follow official read. -Follow ABG -Maintain oxygen saturation greater than 90% Cardiac -Atenolol 25mg PO daily -Norvasc 5mg PO daily -Eliquis 2.5mg PO BID -Follow cardiac ECHO Renal hyponatremia likely due to hypervolemia and CHF standing lasix 80 daily trend urine output repeat sodium level improved to 122, will recheck at 6pm 1L fluid restriciton Nephrology consult Dr. Allen appreciated Endocrine -Synthroid 25mcg PO daily -Insulin sliding scale ACHS -Fingerstick blood glucose ACHS Hematology -Transfusion threshold at 8 -Hematology consult (Dr. Granda) Prophylaxis -Patient is on Eliquis 2.5mg PO BID -Protonix 40mg IV BID Disposition: We will continue to follow the patient. Thank you for this consultative opportunity. Visit type - Emergency Visit Emergency Visit: No - New Patient This patient is new to me today: No - Critical Care Critical Care patient: Yes Total Critical Care Time (in minutes): 39 Critical Care Statement: The care of this patient involved high complexity decision making to prevent further life threatening deterioration of the patient 's condition and/or to evaluate & treat vital organ system(s) failure or risk of failure.
--- NOTE | 2018-12-31 10:34 | PN ---
Progress Note, Physician Chief Complaint: Events noted On 100% O2 NRB Dyspnea and desaturation when taken off O2 History of Present Illness: Patient was seen and examined. Awake and arousable. Chart was reviewed Denies chest pain or palpitations Remains in sinus rhythm - Current Medication List Current Medications: Active Medications Acetaminophen (Tylenol Suppository -) 650 mg [place] Q4H PRN PRN Reason: FEVER Amlodipine Besylate (Norvasc -) 5 mg PO DAILY [facility] Apixaban (Eliquis -) 2.5 mg PO BID [facility] Last Admin: 12/30/18 22:30 Dose: 2.5 mg Atenolol (Tenormin -) 25 mg PO DAILY [facility] Chlorhexidine Gluconate (Hibiclens For Decolonization -) 1 applic TP HS [facility] Last Admin: 12/30/18 22:30 Dose: 1 applic Donepezil HCl (Aricept -) 10 mg PO DAILY [facility] Furosemide (Lasix Injection -) 80 mg IVPUSH DAILY [facility] Insulin Aspart (Novolog Vial Sliding Scale -) 0 vial SQ BIDAC [facility]; Protocol Last Admin: 12/31/18 06:10 Dose: Not Given Lactobacillus Acidophilus (Bacid -) 1 tab PO DAILY [facility] Levothyroxine Sodium (Synthroid -) 25 mcg PO DAILY@0700 [facility] Last Admin: 12/31/18 06:14 Dose: 25 mcg Loperamide HCl (Imodium -) 2 mg PO Q8H PRN PRN Reason: DIARRHEA Multivitamins/Minerals/Vitamin C (Tab-A-Vit -) 1 tab PO DAILY [facility] Mupirocin (Bactroban Ointment (For Decolonization) -) 1 applic NS BID [facility] Stop: 01/04/19 21:59 Last Admin: 12/30/18 22:30 Dose: 1 applic [id number]-5-Nxln Ethyl Esters (Lovaza -) 2 gm PO BID@1000,1700 [facility] Pancrelipase (Creon Dr 36,000 Units Capsule) 1 cap PO TIDCM [facility] Last Admin: 12/30/18 21:26 Dose: Not Given Pantoprazole Sodium (Protonix Iv) 40 mg IVPUSH DAILY [facility] Simethicone (Mylicon -) 80 mg PO Q6H PRN PRN Reason: GAS - Objective Vital Signs: Vital Signs Temperature 98 F 12/31/18 06:32 Pulse Rate 64 12/31/18 08:00 Respiratory Rate 15 12/31/18 09:00 Blood Pressure 145/41 L 12/31/18 08:00 O2 Sat by Pulse Oximetry (%) 99 12/31/18 09:00 Eyes: Yes: PERRL HENT: Yes: Atraumatic Neck: Yes: Supple Cardiovascular: Yes: Regular Rate and Rhythm, S1, S2 Respiratory: Yes: Diminished Gastrointestinal: Yes: Normal Bowel Sounds, Soft. No: Tenderness Edema: No Labs: CBC, BMP 12/31/18 06:05 12/31/18 06:05 Problem List - Problems (1) Abdominal pain Code(s): R10.9 - UNSPECIFIED ABDOMINAL PAIN Qualifiers: Abdominal location: generalized Qualified Code(s): R10.84 - Generalized abdominal pain (2) CHF (congestive heart failure) Code(s): I50.9 - HEART FAILURE, UNSPECIFIED Qualifiers: Heart failure type: diastolic Heart failure chronicity: acute on chronic Qualified Code(s): I50.33 - Acute on chronic diastolic (congestive) heart failure (3) Acute on chronic kidney failure Code(s): N17.9 - ACUTE KIDNEY FAILURE, UNSPECIFIED; N18.9 - CHRONIC KIDNEY DISEASE, UNSPECIFIED Qualifiers: Chronic kidney disease stage: stage 4 (severe) (4) Anemia Code(s): D64.9 - ANEMIA, UNSPECIFIED Qualifiers: (5) CKD (chronic kidney disease) stage 4, GFR 15-29 ml/min Code(s): N18.4 - CHRONIC KIDNEY DISEASE, STAGE 4 (SEVERE) (6) Dyspnea Code(s): R06.00 - DYSPNEA, UNSPECIFIED (7) Hyperlipidemia Code(s): E78.5 - HYPERLIPIDEMIA, UNSPECIFIED (8) Hyponatremia Code(s): E87.1 - HYPO-OSMOLALITY AND HYPONATREMIA (9) Hypothyroidism Code(s): E03.9 - HYPOTHYROIDISM, UNSPECIFIED Qualifiers: Hypothyroidism type: unspecified Qualified Code(s): E03.9 - Hypothyroidism , unspecified (10) Ischemic colitis Code(s): K55.9 - VASCULAR DISORDER OF INTESTINE, UNSPECIFIED (11) Type 2 diabetes mellitus Code(s): E11.9 - TYPE 2 DIABETES MELLITUS WITHOUT COMPLICATIONS Assessment/Plan 1. GABY on CKD with volume overload in setting of HFpEF 2. Hypervolemic Hyponatremia 3. Acute on chronic diastolic LV failure 4. Abdominal pain with history of ischemic colitis, mesenteric ischemia with intestinal angina 5. Paroxysmal atrial fibrillation on DOAC/Eliquis [id number] score of 5 6. 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 HTN/HCVD 8. DM 9. Hypercholesterolemia 10. 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 Anemia PLAN: 1. IV diuresis with monitoring renal function and electrolytes. Correct NA 2. Continue Atenolol 25 mg QD, Norvasc 5 mg QD and Eliquis 2.5 mg BID (age > 80 and Creatinine > 1.5) 3. Resume Lisinopril 20 mg QD when renal function stabilizes 4. Free water restriction, BIPAP and FIO2 to maintain saO2>90% 5. Transfusion to maintain hemoglobin equal or greater than 8.0 Further plans are to follow Deejay Sandra MD
[2018-12-31] MEDS: DONEPEZIL HCL 10 MG TABLET (FP) PO SCH (10:44)
[2018-12-31] MEDS: OMEGA-3 ACID ETHYL ESTERS (FATTY-ACIDS) 1 GM CAPSULE (FP) PO SCH ×2 (10:45→17:30)
[2018-12-31] MEDS: APIXABAN 2.5 MG TABLET PO SCH ×2 (10:45→21:29)
[2018-12-31] MEDS: MUPIROCIN 2% TOPICAL OINTMENT FOR DECOLONIZATION NS SCH ×2 (10:46→21:29)
--- NOTE | 2018-12-31 10:51 | PN ---
Teaching Attending Note Name of Resident: He Sanchez ATTENDING PHYSICIAN STATEMENT I saw and evaluated the patient. I reviewed the resident's note and discussed the case with the resident. I agree with the resident's findings and plan as documented. SUBJECTIVE: Patient seen and examined in the ICU. Drowsy but arousbale. Daughter at the bedside. She reports the patient's mental status is better but not at the baseline. Mildly tachypneic on 100% NRBM. OBJECTIVE: Intake & Output 12/28/18 12/29/18 12/30/18 12/31/18 23:59 23:59 23:59 23:59 Intake Total 140 Output Total 1000 Balance -860 Weight 131 lb 11.2 oz Last Vital Signs Temp Pulse Resp BP Pulse Ox 98 F 64 15 145/41 L 99 12/31/18 06:32 12/31/18 08:00 12/31/18 09:00 12/31/18 08:00 12/31/18 09:00 Active Medications Acetaminophen (Tylenol Suppository -) 650 mg MS Q4H PRN PRN Reason: FEVER Amlodipine Besylate (Norvasc -) 5 mg PO DAILY [facility] Last Admin: 12/31/18 10:45 Dose: 5 mg Apixaban (Eliquis -) 2.5 mg PO BID [facility] Last Admin: 12/31/18 10:45 Dose: 2.5 mg Atenolol (Tenormin -) 25 mg PO DAILY [facility] Chlorhexidine Gluconate (Hibiclens For Decolonization -) 1 applic TP HS [facility] Last Admin: 12/30/18 22:30 Dose: 1 applic Donepezil HCl (Aricept -) 10 mg PO DAILY [facility] Last Admin: 12/31/18 10:44 Dose: 10 mg Furosemide (Lasix Injection -) 80 mg IVPUSH DAILY [facility] Last Admin: 12/31/18 10:38 Dose: 80 mg Insulin Aspart (Novolog Vial Sliding Scale -) [facility]; Protocol Last Admin: 12/31/18 06:10 Dose: Not Given Lactobacillus Acidophilus (Bacid -) 1 tab PO DAILY [facility] Last Admin: 12/31/18 10:45 Dose: 1 tab Levothyroxine Sodium (Synthroid -) 25 mcg PO DAILY@0700 [facility] Last Admin: 12/31/18 06:14 Dose: 25 mcg Loperamide HCl (Imodium -) 2 mg PO Q8H PRN PRN Reason: DIARRHEA Multivitamins/Minerals/Vitamin C (Tab-A-Vit -) 1 tab PO DAILY [facility] Last Admin: 12/31/18 10:44 Dose: 1 tab Mupirocin (Bactroban Ointment (For Decolonization) -) 1 applic NS BID [facility] Stop: 01/04/19 21:59 Last Admin: 12/31/18 10:46 Dose: 1 applic Husxj-9-Yblh Ethyl Esters (Lovaza -) 2 gm PO BID@1000,1700 [facility] Last Admin: 12/31/18 10:45 Dose: 2 gm Pancrelipase (Creon Dr 36,000 Units Capsule) 1 cap PO TIDCM [facility] Last Admin: 12/31/18 08:00 Dose: Not Given Pantoprazole Sodium (Protonix Iv) 40 mg IVPUSH DAILY [facility] Last Admin: 12/31/18 10:38 Dose: 40 mg Simethicone (Mylicon -) 80 mg PO Q6H PRN PRN Reason: GAS GENERAL: The patient is drowsy but arousable. HEAD: Normal with no signs of trauma. EYES: PERRL, extraocular movements intact, sclera anicteric, conjunctiva clear. No ptosis. ENT: Ears normal, nares patent, oropharynx clear without exudates, moist mucous membranes. NECK: Trachea midline, full range of motion, supple. LUNGS: Tachypneic on 100% NRBM, Bilateral rales / rhonchi HEART: S1S2, (+) ESM ABDOMEN: Soft, nontender, nondistended, normoactive bowel sounds, no guarding, no rebound, no hepatosplenomegaly, no masses. EXTREMITIES: 2+ pulses, warm, well-perfused, no edema. NEUROLOGICAL: Drowsy but arousable, non-focal SKIN: Warm, dry, normal turgor, no rashes or lesions noted Laboratory Results - last 24 hr 12/30/18 12/30/18 12/30/18 16:21 16:21 21:00 WBC RBC Hgb Hct MCV MCH MCHC RDW Plt Count MPV Anticoagulation Therapy No Result Required. Puncture Site Right brachial ABG pH 7.44 ABG pCO2 at Pt Temp 32.1 L ABG pO2 at Pt Temp 75.5 L ABG HCO3 21.6 L ABG O2 Sat (Measured) 94.6 L ABG O2 Content 13.1 L ABG Base Excess -1.5 Beka Test Positive O2 Delivery Device Nonrebreather Oxygen Flow Rate 100% Vent Mode No Result Required. Vent Rate No Result Required. Mechanical Rate No Result Required. Pressure Support Vent No Result Required. Sodium Potassium Chloride Carbon Dioxide Anion Gap BUN Creatinine Est GFR (CKD-EPI)AfAm Est GFR (CKD-EPI)NonAf POC Glucometer Random Glucose Calcium Phosphorus Magnesium Creatine Kinase Troponin I Urine Color Yellow Urine Appearance Clear Urine pH 7.0 Ur Specific [place] 1.013 Urine Protein 2+ H Urine Glucose (UA) Negative Urine Ketones Negative Urine Blood Negative Urine Nitrite Negative Urine Bilirubin Negative Urine Urobilinogen 1.0 Ur Leukocyte Esterase Trace Urine WBC (Auto) 2 Urine RBC (Auto) 2 Urine Casts (Auto) 1 U Epithel Cells (Auto) 1.0 Urine Bacteria (Auto) 11.2 U Random Total Protein 97.7 H Ur Random Sodium < 18 L 12/31/18 12/31/18 12/31/18 00:01 06:03 06:05 WBC 13.0 H RBC 2.94 L Hgb 8.7 L Hct 25.3 L MCV 86.1 MCH 29.6 MCHC 34.4 RDW 15.7 H Plt Count 244 MPV 7.8 Anticoagulation Therapy Puncture Site ABG pH ABG pCO2 at Pt Temp ABG pO2 at Pt Temp ABG HCO3 ABG O2 Sat (Measured) ABG O2 Content ABG Base Excess [place] Test O2 Delivery Device Oxygen Flow Rate Vent Mode Vent Rate Mechanical Rate Pressure Support Vent Sodium 119 L Potassium 4.1 Chloride 85 L Carbon Dioxide 24 Anion Gap 11 BUN 85.0 H Creatinine 2.8 H Est GFR (CKD-EPI)AfAm 17.01 Est GFR (CKD-EPI)NonAf 14.68 POC Glucometer 161 Random Glucose 167 H Calcium 8.1 L Phosphorus Magnesium Creatine Kinase Troponin I Urine Color Urine Appearance Urine pH Ur Specific [place] Urine Protein Urine Glucose (UA) Urine Ketones Urine Blood Urine Nitrite Urine Bilirubin Urine Urobilinogen Ur Leukocyte Esterase Urine WBC (Auto) Urine RBC (Auto) Urine Casts (Auto) U Epithel Cells (Auto) Urine Bacteria (Auto) U Random Total Protein Ur Random Sodium 12/31/18 06:05 WBC RBC Hgb Hct MCV MCH MCHC RDW Plt Count MPV Anticoagulation Therapy Puncture Site ABG pH ABG pCO2 at Pt Temp ABG pO2 at Pt Temp ABG HCO3 ABG O2 Sat (Measured) ABG O2 Content ABG Base Excess [place] Test O2 Delivery Device Oxygen Flow Rate Vent Mode Vent Rate Mechanical Rate Pressure Support Vent Sodium 122 L Potassium 3.9 Chloride 84 L Carbon Dioxide 24 Anion Gap 14 BUN 86.6 H Creatinine 2.8 H Est GFR (CKD-EPI)AfAm 17.01 Est GFR (CKD-EPI)NonAf 14.68 POC Glucometer Random Glucose 167 H Calcium 8.1 L Phosphorus 5.1 H Magnesium 2.5 H Creatine Kinase 51 Troponin I < 0.02 Urine Color Urine Appearance Urine pH Ur Specific [place] Urine Protein Urine Glucose (UA) Urine Ketones Urine Blood Urine Nitrite Urine Bilirubin Urine Urobilinogen Ur Leukocyte Esterase Urine WBC (Auto) Urine RBC (Auto) Urine Casts (Auto) U Epithel Cells (Auto) Urine Bacteria (Auto) U Random Total Protein Ur Random Sodium Problem List - Problems (1) Abdominal pain Code(s): R10.9 - UNSPECIFIED ABDOMINAL PAIN Qualifiers: Abdominal location: generalized Qualified Code(s): R10.84 - Generalized abdominal pain (2) CHF (congestive heart failure) Code(s): I50.9 - HEART FAILURE, UNSPECIFIED Qualifiers: Heart failure type: diastolic Heart failure chronicity: acute on chronic Qualified Code(s): I50.33 - Acute on chronic diastolic (congestive) heart failure (3) GABY (acute kidney injury) Code(s): N17.9 - ACUTE KIDNEY FAILURE, UNSPECIFIED (4) Acute on chronic kidney failure Code(s): N17.9 - ACUTE KIDNEY FAILURE, UNSPECIFIED; N18.9 - CHRONIC KIDNEY DISEASE, UNSPECIFIED Qualifiers: Chronic kidney disease stage: stage 4 (severe) (5) Anemia Code(s): D64.9 - ANEMIA, UNSPECIFIED Qualifiers: (6) CKD (chronic kidney disease) stage 4, GFR 15-29 ml/min Code(s): N18.4 - CHRONIC KIDNEY DISEASE, STAGE 4 (SEVERE) Acute on CKD with volume over load Hypervolemic Hyponatremia Acute on chronic anemia CHF/Fluid overload Hypertension Hypothyroidism Abdominal pain with hx of ischemic colitis Diuresis with standing Lasix Fluid restriction to 1 liter per day Close monitoring of Na Strict I & O Trend urine output, goal is to keep output > 2L in 24 hours Per Renal: no acute indication for RING STRIKER. Maintain on low salt diet. Requires ICU monitoring due to overall tenuous status Dr Harper Critical care time spent in reviewing chart, evaluating patient and formulating plan - 36 minutes.
--- NOTE | 2018-12-31 12:55 | EKG ---
Test Reason : Blood Pressure : / mmHG Vent. Rate : 070 BPM Atrial Rate : 070 BPM P-R Int : 228 ms QRS Dur : 092 ms QT Int : 452 ms P-R-T Axes : 025 -14 -17 degrees QTc Int : 488 ms SINUS RHYTHM WITH 1ST DEGREE A-V BLOCK POSSIBLE ANTERIOR INFARCT , AGE UNDETERMINED NONSPECIFIC T WAVE ABNORMALITY ABNORMAL ECG WHEN COMPARED WITH ECG OF 27-OCT-2017 12:32, T WAVE INVERSION NOW EVIDENT IN ANTERIOR LEADS Confirmed by EV ARCEO MD ([id number]) on 12/31/2018 12:55:01 PM Referred By: Confirmed By:EV ARCEO MD
[2018-12-31 19:30] LABS: BLOOD UREA NITROGEN 85.7 mg/dL (7-18); CALCIUM 8.1 mg/dL (8.5-10.1); CREATININE 2.8 mg/dL (0.55-1.3); POTASSIUM 3.7 mmol/L (3.5-5.1)
[2018-12-31] MEDS: CHLORHEXIDINE GLUCONATE 4% CLEANSER FOR DECOLONIZATION TP SCH (21:29)
--- NOTE | 2018-12-31 21:37 | PN ---
Progress Note (short form) - Note Progress Note: Patient known to Dr. Granda - receiving IV iron for anemia as outpatient. At time of infusion yesterday was noted to have had hyponatremia (day before) - sent to ER. Doing better now, with Na now 126 (from 117), with IV lasix. Inpatient Meds reviewed. Current Medications Generic Name Dose Route Start Last Admin Trade Name Freq PRN Reason Stop Dose Admin Acetaminophen 650 mg 12/30/18 17:22 Tylenol Suppository - MI Q4H PRN FEVER Amlodipine Besylate 5 mg 12/31/18 10:00 12/31/18 10:45 Norvasc - PO 5 mg DAILY YANN Administration Apixaban 2.5 mg 12/30/18 22:00 12/31/18 21:29 Eliquis - PO 2.5 mg BID YANN Administration Atenolol 25 mg 12/31/18 10:00 12/31/18 12:20 Tenormin - PO 25 mg DAILY YANN Administration Chlorhexidine Gluconate 1 applic 12/30/18 22:00 12/31/18 21:29 Hibiclens For Decolonization - TP 1 applic HS YANN Administration Donepezil HCl 10 mg 12/31/18 10:00 12/31/18 10:44 Aricept - PO 10 mg DAILY YANN Administration Furosemide 80 mg 12/31/18 10:00 12/31/18 10:38 Lasix Injection - IVPUSH 80 mg DAILY YANN Administration Insulin Aspart 0 vial 12/31/18 07:00 12/31/18 17:00 Novolog Vial Sliding Scale - SQ Not Given BIDAC [facility] Protocol Lactobacillus Acidophilus 1 tab 12/31/18 10:00 12/31/18 10:45 Bacid - PO 1 tab DAILY YANN Administration Levothyroxine Sodium 25 mcg 12/31/18 07:00 12/31/18 06:14 Synthroid - PO 25 mcg DAILY@0700 YANN Administration Loperamide HCl 2 mg 12/30/18 17:18 Imodium - PO Q8H PRN DIARRHEA Multivitamins/Minerals/Vitamin C 1 tab 12/31/18 10:00 12/31/18 10:44 Tab-A-Vit - PO 1 tab DAILY YANN Administration Mupirocin 1 applic 12/30/18 22:00 12/31/18 21:29 Bactroban Ointment (For Decolonization) - NS 01/04/19 21:59 1 applic BID YANN Administration [id number]-[id number] Ethyl Esters 2 gm 12/31/18 10:00 12/31/18 17:30 Lovaza - PO 2 gm BID@1000,1700 YANN Administration Pancrelipase 1 cap 12/30/18 17:30 12/31/18 17:30 Dory Hay 36,000 Units Capsule PO 1 cap TIDCM YANN Administration Pantoprazole Sodium 40 mg 12/31/18 10:00 12/31/18 10:38 Protonix Iv IVPUSH 40 mg DAILY YANN Administration Simethicone 80 mg 12/30/18 17:18 Mylicon - PO Q6H PRN GAS On Examination: Last Vital Signs Temp Pulse Resp BP Pulse Ox 100.0 F H 72 16 142/46 L 100 12/31/18 18:00 12/31/18 18:00 12/31/18 18:00 12/31/18 18:00 12/31/18 21:35 General: In no acute distress, lying comfortably in bed. Extremities: No pallor or icterus. No pedal edema. No palpable lymphadenopathy. CVS: S1, S2, regular, no gallop or murmur. Chest: good air entry bilaterally, clear Abdomen: Non-distended, non-tender, no palpable organomegaly. Labs: CBC, BMP 12/31/18 06:05 12/31/18 18:25 Assessment. Patient known to hematology, managed for mild normocytic anemia - Hb baseline 8- 10, CV circa 90. Was unequivocally iron deficient in 2017 when she was microcytic - unclear etiology. Less clear iron status last several months, with iron panels possibly more suggestive of anemia of chronic disease. No hematological intervention currently indicated while admitted - Hb at baseline. Will follow up with Dr Granda following discharge. Consider institution of an HEATHER to increase Hb in the future.
[2019-01-01] MEDS ORDERED: LOPERAMIDE HCL 2 MG CAPSULE PO PRN (03:13)
[2019-01-01] MEDS ORDERED: SIMETHICONE 80 MG TAB.CHEW (FP) PO PRN (03:13)
[2019-01-01] MEDS ORDERED: ACETAMINOPHEN 650 MG SUPP.RECT PR PRN (03:13)
[2019-01-01] MEDS: INSULIN SLIDING SCALE (NOVOLOG) 1 VIAL SQ SCH ×2 (06:20→17:31)
[2019-01-01] MEDS: LEVOTHYROXINE NA 25 MCG TABLET (FP) PO SCH (06:22)
[2019-01-01 06:26] LABS: BASO % 0.2 % (0-2.0); EOS % 0.5 % (0-4.5); HEMATOCRIT 25.5 % (32.4-45.2); HEMOGLOBIN 8.8 GM/dL (10.7-15.3); LYMPH % 4.8 % (8-40); MCH 29.9 pg (25.7-33.7); MCHC 34.6 g/dl (32.0-36.0); MEAN CELL VOLUME 86.3 fl (80-96); MEAN PLT VOLUME 7.8 fl (7.5-11.1); MONO % 4.7 % (3.8-10.2); NEUT % 89.8 % (42.8-82.8); PLATELET COUNT 260 K/MM3 (134-434); RBC 2.95 M/mm3 (3.60-5.2); RDW 15.7 % (11.6-15.6); WHITE BLOOD COUNT 11.3 K/mm3 (4.0-10.0)
[2019-01-01 06:47] LABS: ALBUMIN 2.9 g/dl (3.4-5.0); BILIRUBIN,TOTAL 1.1 mg/dL (0.2-1); BLOOD UREA NITROGEN 92.8 mg/dL (7-18); CALCIUM 7.8 mg/dL (8.5-10.1); CREATININE 2.8 mg/dL (0.55-1.3); MAGNESIUM 2.5 mg/dL (1.8-2.4); PHOSPHOROUS 4.9 mg/dL (2.5-4.9); POTASSIUM 3.4 mmol/L (3.5-5.1); TOT PROT 6.4 g/dl (6.4-8.2)
[2019-01-01] MEDS ORDERED: POTASSIUM CHLORIDE ORAL LIQUID 20 MEQ/15 ML PO ONE (07:31)
--- NOTE | 2019-01-01 08:13 | PN ---
Progress Note, Physician Chief Complaint: Events noted On 100% O2 NRB Still uses little accessory muscle when breathing History of Present Illness: Patient was seen and examined. Awake and arousable. Chart was reviewed Denies chest pain or palpitations Remains in sinus rhythm - Current Medication List Current Medications: Active Medications Acetaminophen (Tylenol Suppository -) 650 mg ME Q4H PRN PRN Reason: FEVER Amlodipine Besylate (Norvasc -) 5 mg PO DAILY [facility] Apixaban (Eliquis -) 2.5 mg PO BID [facility] Atenolol (Tenormin -) 25 mg PO DAILY [facility] Chlorhexidine Gluconate (Hibiclens For Decolonization -) 1 applic TP HS YANN Donepezil HCl (Aricept -) 10 mg PO DAILY [facility] Furosemide (Lasix Injection -) 80 mg IVPUSH DAILY [facility] Insulin Aspart (Novolog Vial Sliding Scale -) 1 vial SQ BIDAC [facility]; Protocol Last Admin: 01/01/19 06:20 Dose: Not Given Lactobacillus Acidophilus (Bacid -) 1 tab PO DAILY [facility] Levothyroxine Sodium (Synthroid -) 25 mcg PO DAILY@0700 [facility] Last Admin: 01/01/19 06:22 Dose: 25 mcg Loperamide HCl (Imodium -) 2 mg PO Q8H PRN PRN Reason: DIARRHEA Multivitamins/Minerals/Vitamin C (Tab-A-Vit -) 1 tab PO DAILY [facility] Mupirocin (Bactroban Ointment (For Decolonization) -) 1 applic NS BID [facility] Stop: 01/04/19 21:59 Exeob-8-Dira Ethyl Esters (Lovaza -) 2 gm PO BID@1000,1700 [facility] Pancrelipase (Creon Dr 36,000 Units Capsule) 1 cap PO TIDCM [facility] Pantoprazole Sodium (Protonix Iv) 40 mg IVPUSH DAILY [facility] Simethicone (Mylicon -) 80 mg PO Q6H PRN PRN Reason: GAS - Objective Vital Signs: Vital Signs Temperature 97.3 F L 01/01/19 04:00 Pulse Rate 59 01/01/19 04:00 Respiratory Rate 18 01/01/19 04:00 Blood Pressure 124/44 L 01/01/19 04:00 O2 Sat by Pulse Oximetry (%) 99 01/01/19 06:04 Neck: Yes: Supple Cardiovascular: Yes: Regular Rate and Rhythm, S1, S2 Respiratory: Yes: Diminished, Other (O2 via NRB) Gastrointestinal: Yes: Normal Bowel Sounds, Soft. No: Tenderness Edema: No Labs: CBC, BMP 01/01/19 05:50 01/01/19 05:50 Problem List - Problems (1) Abdominal pain Code(s): R10.9 - UNSPECIFIED ABDOMINAL PAIN Qualifiers: Abdominal location: generalized Qualified Code(s): R10.84 - Generalized abdominal pain (2) CHF (congestive heart failure) Code(s): I50.9 - HEART FAILURE, UNSPECIFIED Qualifiers: Heart failure type: diastolic Heart failure chronicity: acute on chronic Qualified Code(s): I50.33 - Acute on chronic diastolic (congestive) heart failure (3) Acute on chronic kidney failure Code(s): N17.9 - ACUTE KIDNEY FAILURE, UNSPECIFIED; N18.9 - CHRONIC KIDNEY DISEASE, UNSPECIFIED Qualifiers: Chronic kidney disease stage: stage 4 (severe) (4) Anemia Code(s): D64.9 - ANEMIA, UNSPECIFIED Qualifiers: (5) CKD (chronic kidney disease) stage 4, GFR 15-29 ml/min Code(s): N18.4 - CHRONIC KIDNEY DISEASE, STAGE 4 (SEVERE) (6) Dyspnea Code(s): R06.00 - DYSPNEA, UNSPECIFIED (7) Hyperlipidemia Code(s): E78.5 - HYPERLIPIDEMIA, UNSPECIFIED (8) Hyponatremia Code(s): E87.1 - HYPO-OSMOLALITY AND HYPONATREMIA (9) Hypothyroidism Code(s): E03.9 - HYPOTHYROIDISM, UNSPECIFIED Qualifiers: Hypothyroidism type: unspecified Qualified Code(s): E03.9 - Hypothyroidism , unspecified (10) Ischemic colitis Code(s): K55.9 - VASCULAR DISORDER OF INTESTINE, UNSPECIFIED (11) Type 2 diabetes mellitus Code(s): E11.9 - TYPE 2 DIABETES MELLITUS WITHOUT COMPLICATIONS Assessment/Plan 1. GABY on CKD with volume overload in setting of HFpEF 2. Hypervolemic Hyponatremia 3. Acute on chronic diastolic LV failure 4. Abdominal pain with history of ischemic colitis, mesenteric ischemia with intestinal angina 5. Paroxysmal atrial fibrillation on DOAC/Eliquis [id number] score of 5 6. 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 HTN/HCVD 8. DM 9. Hypercholesterolemia 10. 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 Anemia PLAN: 1. IV diuresis with monitoring renal function and electrolytes. Correct NA ( improving) 2. Continue Atenolol 25 mg QD, Norvasc 5 mg QD and Eliquis 2.5 mg BID (age > 80 and Creatinine > 1.5) 3. Resume Lisinopril 20 mg QD when renal function stabilizes 4. Free water restriction, BIPAP and FIO2 to maintain saO2>90% 5. Transfusion to maintain hemoglobin equal or greater than 8.0. Hematology follow up Further plans are to follow. Discussed care with family by bedside Deejay Sandra MD
[2019-01-01] MEDS ORDERED: PT OWN MED DRAWER 7, Y5N ONE (08:21)
--- NOTE | 2019-01-01 08:32 | PN ---
Progress Note (short form) - Note Progress Note: Renal follow up for GABY/Fluid overload Pt seen and examined at the bedside on 100% NRB sleeping daughter reports continued confusion making urine via watts BP stable Vital Signs Temperature 97.3 F L 01/01/19 04:00 Pulse Rate 100 H 01/01/19 04:00 Respiratory Rate 18 01/01/19 04:00 Blood Pressure 124/44 L 01/01/19 04:00 O2 Sat by Pulse Oximetry (%) 99 01/01/19 06:04 Intake & Output 12/29/18 12/30/18 12/31/18 01/01/19 23:59 23:59 23:59 23:59 Intake Total 490 Output Total 1900 900 Balance -1410 -900 Weight 59.738 kg NAD on NRB O2 neck supple RRR + rales in lung donnelly + edema in LE CBC, BMP 01/01/19 05:50 01/01/19 05:50 Current Medications Acetaminophen (Tylenol Suppository -) 650 mg IA Q4H PRN PRN Reason: FEVER Amlodipine Besylate (Norvasc -) 5 mg PO DAILY [facility] Apixaban (Eliquis -) 2.5 mg PO BID YANN Atenolol (Tenormin -) 25 mg PO DAILY [facility] Chlorhexidine Gluconate (Hibiclens For Decolonization -) 1 applic TP HS YANN Donepezil HCl (Aricept -) 10 mg PO DAILY [facility] Furosemide (Lasix Injection -) 80 mg IVPUSH DAILY [facility] Insulin Aspart (Novolog Vial Sliding Scale -) [facility]; Protocol Last Admin: 01/01/19 06:20 Dose: Not Given Lactobacillus Acidophilus (Bacid -) 1 tab PO DAILY [facility] Levothyroxine Sodium (Synthroid -) 25 mcg PO DAILY@0700 [facility] Last Admin: 01/01/19 06:22 Dose: 25 mcg Loperamide HCl (Imodium -) 2 mg PO Q8H PRN PRN Reason: DIARRHEA Multivitamins/Minerals/Vitamin C (Tab-A-Vit -) 1 tab PO DAILY [facility] Mupirocin (Bactroban Ointment (For Decolonization) -) 1 applic NS BID [facility] Stop: 01/04/19 21:59 Myikm-7-Lmba Ethyl Esters (Lovaza -) 2 gm PO BID@1000,1700 [facility] Pancrelipase (Creon Dr 36,000 Units Capsule) 1 cap PO TIDCM YANN Pantoprazole Sodium (Protonix Iv) 40 mg IVPUSH DAILY YANN Simethicone (Mylicon -) 80 mg PO Q6H PRN PRN Reason: GAS 88 year old woman with hx of CKD stage 4, Afib on Eliquis, Hypertension , hypothyroidism, ischemic colitis who presented with laboratory studies that showed hyponatremia with Na of 117 and Cr of 2.8. #GABY on CKD with volume over load #Hypervolemic Hyponatremia #Acute on chronic anemia #CHF/Fluid overload #Hypertension #Hypothyroidism #Abd pain with hx of ischemic colitis #hypokalemia suspect that GABY is due to renal hypoprofusion in setting of HF. Pt is non-oliguric, Renal function stable no acute need for renal replacement therapy Serum na improving with IV diuresis Urine studies show Na of 18 and indicating preserved tubular function Continue lasix 80mg IV Daily Trend urine output, goal is to keep output > 2L in 24 hours Maintain on low salt diet. 1L fluid restriction for hyponatremia supplament KCL orally repeat BMP this evening Thank you Refugio Allen DO
[2019-01-01] MEDS: LIPASE/PROTEASE/AMYLASE 36,000 UNIT CAPSULE PO SCH ×3 (08:44→17:34)
[2019-01-01] MEDS: ATENOLOL 25 MG TABLET (FP) PO SCH (09:09)
[2019-01-01] MEDS: LACTOBACILLUS ACIDOPHILUS 1 TABLET PO SCH (09:09)
[2019-01-01] MEDS: DONEPEZIL HCL 10 MG TABLET (FP) PO SCH (09:10)
[2019-01-01] MEDS: MULTIVITAMINS (DAILY MVI) TABLET (FP) PO SCH (09:10)
[2019-01-01] MEDS: APIXABAN 2.5 MG TABLET PO SCH ×2 (09:11→21:38)
[2019-01-01] MEDS: FUROSEMIDE 40 MG/4 ML INJECTABLE VIAL IVPUSH SCH (09:11)
[2019-01-01] MEDS: amLODIPine BESYLATE 5 MG TABLET (FP) PO SCH (09:11)
[2019-01-01] MEDS: PANTOPRAZOLE SODIUM 40 MG VIAL IVPUSH SCH (09:11)
[2019-01-01] MEDS: OMEGA-3 ACID ETHYL ESTERS (FATTY-ACIDS) 1 GM CAPSULE (FP) PO SCH ×2 (09:12→17:33)
[2019-01-01] MEDS ORDERED: MUPIROCIN 2% TOPICAL OINTMENT FOR DECOLONIZATION NS SCH (10:00)
--- NOTE | 2019-01-01 10:02 | PN ---
Progress Note (short form) - Note Progress Note: family at bedside not in distress on 50 % non rebreather Vital Signs - 24 hr 12/31/18 12/31/18 12/31/18 19:40 20:00 21:00 Temperature 99.7 F H Pulse Rate 66 Respiratory 22 H Rate Blood Pressure 143/51 L O2 Sat by Pulse 100 100 Oximetry (%) 12/31/18 12/31/18 01/01/19 21:35 22:00 04:00 Temperature 99.7 F H 97.3 F L Pulse Rate 66 100 H Respiratory 16 18 Rate Blood Pressure 135/45 L 124/44 L O2 Sat by Pulse 100 Oximetry (%) 01/01/19 01/01/19 01/01/19 06:04 08:59 09:00 Temperature 98.0 F Pulse Rate 70 Respiratory 24 H Rate Blood Pressure 152/43 L O2 Sat by Pulse 99 100 Oximetry (%) 01/01/19 01/01/19 01/01/19 10:05 14:26 14:53 Temperature 98.6 F Pulse Rate 74 Respiratory 24 H Rate Blood Pressure 136/39 L O2 Sat by Pulse 100 98 Oximetry (%) 01/01/19 18:00 Temperature 98.0 F Pulse Rate 83 Respiratory 16 Rate Blood Pressure 144/39 L O2 Sat by Pulse Oximetry (%) Current Medications Generic Name Dose Route Start Last Admin Trade Name Freq PRN Reason Stop Dose Admin Acetaminophen 650 mg 01/01/19 03:13 Tylenol Suppository - [place] Q4H PRN FEVER Amlodipine Besylate 5 mg 01/01/19 10:00 01/01/19 09:11 Norvasc - PO 5 mg DAILY YANN Administration Apixaban 2.5 mg 01/01/19 10:00 01/01/19 09:11 Eliquis - PO 2.5 mg BID YANN Administration Atenolol 25 mg 01/01/19 10:00 01/01/19 09:09 Tenormin - PO 25 mg DAILY YANN Administration Chlorhexidine Gluconate 1 applic 01/01/19 22:00 Hibiclens For Decolonization - TP HS YANN Donepezil HCl 10 mg 01/01/19 10:00 01/01/19 09:10 Aricept - PO 10 mg DAILY YANN Administration Furosemide 80 mg 01/01/19 10:00 01/01/19 09:11 Lasix Injection - IVPUSH 80 mg DAILY YANN Administration Ceftriaxone Sodium 1 gm/ 50 mls @ 100 mls/hr 01/01/19 11:00 01/01/19 12:31 Dextrose IVPB 100 mls/hr DAILY YANN Administration Insulin Aspart 1 vial 01/01/19 07:00 01/01/19 17:31 Novolog Vial Sliding Scale - SQ 3 units BIDAC YANN Administration Protocol Lactobacillus Acidophilus 1 tab 01/01/19 10:00 01/01/19 09:09 Bacid - PO 1 tab DAILY YANN Administration Levothyroxine Sodium 25 mcg 01/01/19 07:00 01/01/19 06:22 Synthroid - PO 25 mcg DAILY@0700 YANN Administration Loperamide HCl 2 mg 01/01/19 03:13 Imodium - PO Q8H PRN DIARRHEA Multivitamins/Minerals/Vitamin C 1 tab 01/01/19 10:00 01/01/19 09:10 Tab-A-Vit - PO 1 tab DAILY YANN Administration Mupirocin 1 applic 01/01/19 10:00 01/01/19 12:31 Bactroban Ointment (For Decolonization) - NS 01/04/19 21:59 Not Given BID YANN Ojwpr-5-Ngsy Ethyl Esters 2 gm 01/01/19 10:00 01/01/19 17:33 Lovaza - PO 2 gm BID@1000,1700 YANN Administration Pancrelipase 1 cap 01/01/19 08:00 01/01/19 17:[address] 36,000 Units Capsule PO 1 cap TIDCM YANN Administration Pantoprazole Sodium 40 mg 01/01/19 10:00 01/01/19 09:11 Protonix Iv IVPUSH 40 mg DAILY YANN Administration Simethicone 80 mg 01/01/19 03:13 Mylicon - PO Q6H PRN GAS S1 S2 RRR Lungs crackles+B/L JVD+ Abd- soft, NT no edema PLAN IV lasix Sodium improving creatinine stable continue with meds CXR-- left sided infiltrates-- start ceftriaxone repeat cxr Laboratory Results - last 24 hr 12/31/18 01/01/19 01/01/19 18:25 05:50 05:50 WBC 11.3 H RBC 2.95 L Hgb 8.8 L Hct 25.5 L MCV 86.3 MCH 29.9 MCHC 34.6 RDW 15.7 H Plt Count 260 MPV 7.8 Absolute Neuts (auto) 10.2 H Neutrophils % 89.8 H Lymphocytes % 4.8 L Monocytes % 4.7 Eosinophils % 0.5 D Basophils % 0.2 Nucleated RBC % 0 Sodium 126 L 128 L Potassium 3.7 3.4 L Chloride 88 L 89 L Carbon Dioxide 24 24 Anion Gap 14 15 BUN 85.7 H 92.8 H Creatinine 2.8 H 2.8 H Est GFR (CKD-EPI)AfAm 17.01 17.01 Est GFR (CKD-EPI)NonAf 14.68 14.68 POC Glucometer Random Glucose 134 H 109 H Calcium 8.1 L 7.8 L Phosphorus 4.9 Magnesium 2.5 H Total Bilirubin 1.1 H AST 23 ALT 21 Alkaline Phosphatase 115 Total Protein 6.4 Albumin 2.9 L 01/01/19 01/01/19 01/01/19 05:59 12:10 16:45 WBC RBC Hgb Hct MCV MCH MCHC RDW Plt Count MPV Absolute Neuts (auto) Neutrophils % Lymphocytes % Monocytes % Eosinophils % Basophils % Nucleated RBC % Sodium Potassium Chloride Carbon Dioxide Anion Gap BUN Creatinine Est GFR (CKD-EPI)AfAm Est GFR (CKD-EPI)NonAf POC Glucometer 116 80 187 Random Glucose Calcium Phosphorus Magnesium Total Bilirubin AST ALT Alkaline Phosphatase Total Protein Albumin Problem List - Problems (1) Abdominal pain Code(s): R10.9 - UNSPECIFIED ABDOMINAL PAIN Qualifiers: Abdominal location: generalized Qualified Code(s): R10.84 - Generalized abdominal pain (2) CHF (congestive heart failure) Code(s): I50.9 - HEART FAILURE, UNSPECIFIED Qualifiers: Heart failure type: diastolic Heart failure chronicity: acute on chronic Qualified Code(s): I50.33 - Acute on chronic diastolic (congestive) heart failure (3) GABY (acute kidney injury) Code(s): N17.9 - ACUTE KIDNEY FAILURE, UNSPECIFIED (4) Acute on chronic kidney failure Code(s): N17.9 - ACUTE KIDNEY FAILURE, UNSPECIFIED; N18.9 - CHRONIC KIDNEY DISEASE, UNSPECIFIED Qualifiers: Chronic kidney disease stage: stage 4 (severe) (5) Anemia Code(s): D64.9 - ANEMIA, UNSPECIFIED Qualifiers: (6) CKD (chronic kidney disease) stage 4, GFR 15-29 ml/min Code(s): N18.4 - CHRONIC KIDNEY DISEASE, STAGE 4 (SEVERE)
--- NOTE | 2019-01-01 10:18 | PN ---
Progress Note (short form) - Note Progress Note: More awake and responsive today but remains on 100% NRBM. Tolerated some PO intake. OBJECTIVE: Intake & Output 12/29/18 12/30/18 12/31/18 01/01/19 23:59 23:59 23:59 23:59 Intake Total 490 Output Total 1900 900 Balance -1410 -900 Weight 131 lb 11.2 oz Last Vital Signs Temp Pulse Resp BP Pulse Ox 98.0 F 70 24 H 152/43 L 100 01/01/19 08:59 01/01/19 08:59 01/01/19 08:59 01/01/19 08:59 01/01/19 10:05 Active Medications Acetaminophen (Tylenol Suppository -) 650 mg NV Q4H PRN PRN Reason: FEVER Amlodipine Besylate (Norvasc -) 5 mg PO DAILY [facility] Last Admin: 01/01/19 09:11 Dose: 5 mg Apixaban (Eliquis -) 2.5 mg PO BID [facility] Last Admin: 01/01/19 09:11 Dose: 2.5 mg Atenolol (Tenormin -) 25 mg PO DAILY [facility] Last Admin: 01/01/19 09:09 Dose: 25 mg Chlorhexidine Gluconate (Hibiclens For Decolonization -) 1 applic TP HS [facility] Donepezil HCl (Aricept -) 10 mg PO DAILY [facility] Last Admin: 01/01/19 09:10 Dose: 10 mg Furosemide (Lasix Injection -) 80 mg IVPUSH DAILY [facility] Last Admin: 01/01/19 09:11 Dose: 80 mg Insulin Aspart (Novolog Vial Sliding Scale -) 1 vial SQ BIDAC [facility]; Protocol Last Admin: 01/01/19 06:20 Dose: Not Given Lactobacillus Acidophilus (Bacid -) 1 tab PO DAILY [facility] Last Admin: 01/01/19 09:09 Dose: 1 tab Levothyroxine Sodium (Synthroid -) 25 mcg PO DAILY@0700 [facility] Last Admin: 01/01/19 06:22 Dose: 25 mcg Loperamide HCl (Imodium -) 2 mg PO Q8H PRN PRN Reason: DIARRHEA Multivitamins/Minerals/Vitamin C (Tab-A-Vit -) 1 tab PO DAILY [facility] Last Admin: 01/01/19 09:10 Dose: 1 tab Mupirocin (Bactroban Ointment (For Decolonization) -) 1 applic NS BID [facility] Stop: 01/04/19 21:59 Crhhw-5-[id number] Ethyl Esters (Lovaza -) 2 gm PO BID@1000,1700 [facility] Last Admin: 01/01/19 09:12 Dose: 2 gm Pancrelipase (Creon Dr 36,000 Units Capsule) 1 cap PO TIDCM [facility] Last Admin: 01/01/19 08:44 Dose: 1 cap Pantoprazole Sodium (Protonix Iv) 40 mg IVPUSH DAILY [facility] Last Admin: 01/01/19 09:11 Dose: 40 mg Simethicone (Mylicon -) 80 mg PO Q6H PRN PRN Reason: GAS GENERAL: Sleepy but more easily arousable and interactive today HEAD: Normal with no signs of trauma. EYES: PERRL, extraocular movements intact, sclera anicteric, conjunctiva clear. No ptosis. ENT: Ears normal, nares patent, oropharynx clear without exudates, moist mucous membranes. NECK: Trachea midline, full range of motion, supple. LUNGS: Tachypneic on 100% NRBM, Bilateral rales / rhonchi HEART: S1S2, (+) ESM ABDOMEN: Soft, nontender, nondistended, normoactive bowel sounds, no guarding, no rebound, no hepatosplenomegaly, no masses. EXTREMITIES: 2+ pulses, warm, well-perfused, no edema. NEUROLOGICAL: Sleepy but arousable, non-focal SKIN: Warm, dry, normal turgor, no rashes or lesions noted Laboratory Results - last 24 hr 12/31/18 12/31/18 12/31/18 14:14 16:27 18:25 WBC RBC Hgb Hct MCV MCH MCHC RDW Plt Count MPV Absolute Neuts (auto) Neutrophils % Lymphocytes % Monocytes % Eosinophils % Basophils % Nucleated RBC % Sodium 126 L Potassium 3.7 Chloride 88 L Carbon Dioxide 24 Anion Gap 14 BUN 85.7 H Creatinine 2.8 H Est GFR (CKD-EPI)AfAm 17.01 Est GFR (CKD-EPI)NonAf 14.68 POC Glucometer 148 157 Random Glucose 134 H Calcium 8.1 L Phosphorus Magnesium Total Bilirubin AST ALT Alkaline Phosphatase Total Protein Albumin 01/01/19 01/01/19 01/01/19 05:50 05:50 05:59 WBC 11.3 H RBC 2.95 L Hgb 8.8 L Hct 25.5 L MCV 86.3 MCH 29.9 MCHC 34.6 RDW 15.7 H Plt Count 260 MPV 7.8 Absolute Neuts (auto) 10.2 H Neutrophils % 89.8 H Lymphocytes % 4.8 L Monocytes % 4.7 Eosinophils % 0.5 D Basophils % 0.2 Nucleated RBC % 0 Sodium 128 L Potassium 3.4 L Chloride 89 L Carbon Dioxide 24 Anion Gap 15 BUN 92.8 H Creatinine 2.8 H Est GFR (CKD-EPI)AfAm 17.01 Est GFR (CKD-EPI)NonAf 14.68 POC Glucometer 116 Random Glucose 109 H Calcium 7.8 L Phosphorus 4.9 Magnesium 2.5 H Total Bilirubin 1.1 H AST 23 ALT 21 Alkaline Phosphatase 115 Total Protein 6.4 Albumin 2.9 L Problem List - Problems (1) Abdominal pain Code(s): R10.9 - UNSPECIFIED ABDOMINAL PAIN Qualifiers: Abdominal location: generalized Qualified Code(s): R10.84 - Generalized abdominal pain (2) CHF (congestive heart failure) Code(s): I50.9 - HEART FAILURE, UNSPECIFIED Qualifiers: Heart failure type: diastolic Heart failure chronicity: acute on chronic Qualified Code(s): I50.33 - Acute on chronic diastolic (congestive) heart failure (3) GABY (acute kidney injury) Code(s): N17.9 - ACUTE KIDNEY FAILURE, UNSPECIFIED (4) Acute on chronic kidney failure Code(s): N17.9 - ACUTE KIDNEY FAILURE, UNSPECIFIED; N18.9 - CHRONIC KIDNEY DISEASE, UNSPECIFIED Qualifiers: Chronic kidney disease stage: stage 4 (severe) (5) Anemia Code(s): D64.9 - ANEMIA, UNSPECIFIED Qualifiers: (6) CKD (chronic kidney disease) stage 4, GFR 15-29 ml/min Code(s): N18.4 - CHRONIC KIDNEY DISEASE, STAGE 4 (SEVERE) Acute on CKD with volume over load Hypervolemic Hyponatremia Acute on chronic anemia CHF/Fluid overload Hypertension Hypothyroidism Abdominal pain with hx of ischemic colitis Diuresis with Lasix Fluid restriction to 1 liter per day Close monitoring of Na Strict I & O Per Renal: no acute indication for [employer]. Maintain on low salt diet. Wean O2 as tolerated Dr Harper
[2019-01-01] MEDS ORDERED: DEXTROSE 5%-WATER - 50 ML IVPB ONE (12:04)
[2019-01-01] MEDS ORDERED: cefTRIAXone SODIUM 1 GM VIAL ONE (12:04)
[2019-01-01] MEDS: CEFTRIAXONE 1 GM in DEXTROSE 5%-WATER - 50 ML IVPB SCH (12:31)
[2019-01-01 20:13] LABS: BLOOD UREA NITROGEN 93.3 mg/dL (7-18); CALCIUM 8.1 mg/dL (8.5-10.1); POTASSIUM 3.8 mmol/L (3.5-5.1)
[2019-01-01] MEDS ORDERED: CHLORHEXIDINE GLUCONATE 4% CLEANSER FOR DECOLONIZATION TP SCH (22:00)
[2019-01-02 05:55] LABS: BASO % 0.3 % (0-2.0); EOS % 0.6 % (0-4.5); HEMATOCRIT 23.9 % (32.4-45.2); HEMOGLOBIN 8.4 GM/dL (10.7-15.3); LYMPH % 5.4 % (8-40); MCH 30.5 pg (25.7-33.7); MCHC 35.1 g/dl (32.0-36.0); MEAN CELL VOLUME 86.9 fl (80-96); MEAN PLT VOLUME 7.6 fl (7.5-11.1); MONO % 4.5 % (3.8-10.2); NEUT % 89.2 % (42.8-82.8); PLATELET COUNT 272 K/MM3 (134-434); RBC 2.75 M/mm3 (3.60-5.2); RDW 15.8 % (11.6-15.6); WHITE BLOOD COUNT 10.2 K/mm3 (4.0-10.0)
[2019-01-02] MEDS: INSULIN SLIDING SCALE (NOVOLOG) 1 VIAL SQ SCH ×2 (06:16→17:39)
[2019-01-02] MEDS: LEVOTHYROXINE NA 25 MCG TABLET (FP) PO SCH (06:16)
[2019-01-02 06:22] LABS: ALBUMIN 2.7 g/dl (3.4-5.0); BILIRUBIN,TOTAL 0.8 mg/dL (0.2-1); BLOOD UREA NITROGEN 94.6 mg/dL (7-18); CALCIUM 7.9 mg/dL (8.5-10.1); CREATININE 2.8 mg/dL (0.55-1.3); MAGNESIUM 2.3 mg/dL (1.8-2.4); PHOSPHOROUS 3.5 mg/dL (2.5-4.9); POTASSIUM 3.7 mmol/L (3.5-5.1); TOT PROT 6.2 g/dl (6.4-8.2)
--- NOTE | 2019-01-02 09:58 | PN ---
Progress Note, Physician Chief Complaint: Events noted On ventimask, tolerating therapy Clinically improving History of Present Illness: Patient was seen and examined. Awake and arousable. Chart was reviewed Denies chest pain or palpitations - Current Medication List Current Medications: Active Medications Acetaminophen (Tylenol Suppository -) 650 mg NV Q4H PRN PRN Reason: FEVER Amlodipine Besylate (Norvasc -) 5 mg PO DAILY [facility] Last Admin: 01/01/19 09:11 Dose: 5 mg Apixaban (Eliquis -) 2.5 mg PO BID [facility] Last Admin: 01/01/19 21:38 Dose: 2.5 mg Atenolol (Tenormin -) 25 mg PO DAILY [facility] Last Admin: 01/01/19 09:09 Dose: 25 mg Donepezil HCl (Aricept -) 10 mg PO DAILY [facility] Last Admin: 01/01/19 09:10 Dose: 10 mg Furosemide (Lasix Injection -) 80 mg IVPUSH DAILY [facility] Last Admin: 01/01/19 09:11 Dose: 80 mg Ceftriaxone Sodium 1 gm/ (Dextrose) 50 mls @ 100 mls/hr IVPB DAILY [facility] Last Admin: 01/01/19 12:31 Dose: 100 mls/hr Insulin Aspart (Novolog Vial Sliding Scale -) 1 vial SQ BIDAC [facility]; Protocol Last Admin: 01/02/19 06:16 Dose: 3 units Lactobacillus Acidophilus (Bacid -) 1 tab PO DAILY [facility] Last Admin: 01/01/19 09:09 Dose: 1 tab Levothyroxine Sodium (Synthroid -) 25 mcg PO DAILY@0700 [facility] Last Admin: 01/02/19 06:16 Dose: 25 mcg Loperamide HCl (Imodium -) 2 mg PO Q8H PRN PRN Reason: DIARRHEA Multivitamins/Minerals/Vitamin C (Tab-A-Vit -) 1 tab PO DAILY [facility] Last Admin: 01/01/19 09:10 Dose: 1 tab [id number] Ethyl Esters (Lovaza -) 2 gm PO BID@1000,1700 [facility] Last Admin: 01/01/19 17:33 Dose: 2 gm Pancrelipase (Creon Dr 36,000 Units Capsule) 1 cap PO TIDCM [facility] Last Admin: 01/01/19 17:34 Dose: 1 cap Pantoprazole Sodium (Protonix Iv) 40 mg IVPUSH DAILY [facility] Last Admin: 01/01/19 09:11 Dose: 40 mg Simethicone (Mylicon -) 80 mg PO Q6H PRN PRN Reason: GAS - Objective Vital Signs: Vital Signs Temperature 98.6 F 01/02/19 04:00 Pulse Rate 64 01/02/19 04:00 Respiratory Rate 19 01/02/19 04:00 Blood Pressure 153/47 L 01/02/19 04:00 O2 Sat by Pulse Oximetry (%) 98 01/01/19 20:56 Neck: Yes: Supple Cardiovascular: Yes: Regular Rate and Rhythm, S1, S2 Respiratory: Yes: Diminished, On Venti-Mask Gastrointestinal: Yes: Normal Bowel Sounds, Soft. No: Tenderness Edema: No Labs: CBC, BMP 01/02/19 05:30 01/02/19 05:30 Problem List - Problems (1) Abdominal pain Code(s): R10.9 - UNSPECIFIED ABDOMINAL PAIN Qualifiers: Abdominal location: generalized Qualified Code(s): R10.84 - Generalized abdominal pain (2) CHF (congestive heart failure) Code(s): I50.9 - HEART FAILURE, UNSPECIFIED Qualifiers: Heart failure type: diastolic Heart failure chronicity: acute on chronic Qualified Code(s): I50.33 - Acute on chronic diastolic (congestive) heart failure (3) Acute on chronic kidney failure Code(s): N17.9 - ACUTE KIDNEY FAILURE, UNSPECIFIED; N18.9 - CHRONIC KIDNEY DISEASE, UNSPECIFIED Qualifiers: Chronic kidney disease stage: stage 4 (severe) (4) Anemia Code(s): D64.9 - ANEMIA, UNSPECIFIED Qualifiers: (5) CKD (chronic kidney disease) stage 4, GFR 15-29 ml/min Code(s): N18.4 - CHRONIC KIDNEY DISEASE, STAGE 4 (SEVERE) (6) Dyspnea Code(s): R06.00 - DYSPNEA, UNSPECIFIED (7) Hyperlipidemia Code(s): E78.5 - HYPERLIPIDEMIA, UNSPECIFIED (8) Hyponatremia Code(s): E87.1 - HYPO-OSMOLALITY AND HYPONATREMIA (9) Hypothyroidism Code(s): E03.9 - HYPOTHYROIDISM, UNSPECIFIED Qualifiers: Hypothyroidism type: unspecified Qualified Code(s): E03.9 - Hypothyroidism , unspecified (10) Ischemic colitis Code(s): K55.9 - VASCULAR DISORDER OF INTESTINE, UNSPECIFIED (11) Type 2 diabetes mellitus Code(s): E11.9 - TYPE 2 DIABETES MELLITUS WITHOUT COMPLICATIONS Assessment/Plan 1. GABY on CKD with volume overload in setting of HFpEF 2. Hypervolemic Hyponatremia 3. Acute on chronic diastolic LV failure 4. Abdominal pain with history of ischemic colitis, mesenteric ischemia with intestinal angina 5. Paroxysmal atrial fibrillation on DOAC/Eliquis [id number] score of 5 6. 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 HTN/HCVD 8. DM 9. Hypercholesterolemia 10. 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 Anemia PLAN: 1. IV diuresis with monitoring renal function and electrolytes. Correct NA ( improving slowly) 2. Continue Atenolol 25 mg QD, Norvasc 5 mg QD and Eliquis 2.5 mg BID (age > 80 and Creatinine > 1.5) 3. Resume Lisinopril when renal function stabilizes 4. Free water restriction, BIPAP and FIO2 to maintain saO2>90% 5. Transfusion as needed Further plans are to follow. Discussed care with family by bedside Deejay Sandra MD
--- NOTE | 2019-01-02 10:09 | PN ---
Progress Note (short form) - Note Progress Note: Pt seen/ examined all f/u noted pt awake/ comfortable on vm 50 percent daughter at bedside Vital Signs Temp 98.6 F 01/02/19 04:00 Pulse 64 01/02/19 04:00 Resp 19 01/02/19 04:00 BP 153/47 L 01/02/19 04:00 Pulse Ox 98 01/01/19 20:56 Intake & Output 01/01/19 01/01/19 01/02/19 11:59 23:59 11:59 Intake Total 50 Output Total 900 700 Balance -900 50 -700 Weight 131 lb 132 lb 11.2 oz Intake: IVPB 50 Output: Urine 900 700 Swenson 900 700 Other: Voiding Method Indwelling Catheter Indwelling Catheter Indwelling Catheter Bowel Movement No No Height 5 ft 2 in Body Mass Index (BMI) 23.9 Weight Measurement Method Built in [facility] Active Medications Acetaminophen (Tylenol Suppository -) 650 mg MD Q4H PRN PRN Reason: FEVER Amlodipine Besylate (Norvasc -) 5 mg PO DAILY [facility] Last Admin: 01/01/19 09:11 Dose: 5 mg Apixaban (Eliquis -) 2.5 mg PO BID [facility] Last Admin: 01/01/19 21:38 Dose: 2.5 mg Atenolol (Tenormin -) 25 mg PO DAILY [facility] Last Admin: 01/01/19 09:09 Dose: 25 mg Donepezil HCl (Aricept -) 10 mg PO DAILY [facility] Last Admin: 01/01/19 09:10 Dose: 10 mg Furosemide (Lasix Injection -) 80 mg IVPUSH DAILY [facility] Last Admin: 01/01/19 09:11 Dose: 80 mg Ceftriaxone Sodium 1 gm/ (Dextrose) 50 mls @ 100 mls/hr IVPB DAILY [facility] Last Admin: 01/01/19 12:31 Dose: 100 mls/hr Insulin Aspart (Novolog Vial Sliding Scale -) 1 vial SQ BIDAC [facility]; Protocol Last Admin: 01/02/19 06:16 Dose: 3 units Lactobacillus Acidophilus (Bacid -) 1 tab PO DAILY [facility] Last Admin: 01/01/19 09:09 Dose: 1 tab Levothyroxine Sodium (Synthroid -) 25 mcg PO DAILY@0700 [facility] Last Admin: 01/02/19 06:16 Dose: 25 mcg Loperamide HCl (Imodium -) 2 mg PO Q8H PRN PRN Reason: DIARRHEA Multivitamins/Minerals/Vitamin C (Tab-A-Vit -) 1 tab PO DAILY [facility] Last Admin: 01/01/19 09:10 Dose: 1 tab Yvniq-5-Xxtm Ethyl Esters (Lovaza -) 2 gm PO BID@1000,1700 [facility] Last Admin: 01/01/19 17:33 Dose: 2 gm Pancrelipase (Creon Dr 36,000 Units Capsule) 1 cap PO TIDCM [facility] Last Admin: 01/01/19 17:34 Dose: 1 cap Pantoprazole Sodium (Protonix Iv) 40 mg IVPUSH DAILY [facility] Last Admin: 01/01/19 09:11 Dose: 40 mg Simethicone (Mylicon -) 80 mg PO Q6H PRN PRN Reason: GAS CBC, BMP 01/02/19 05:30 01/02/19 05:30 Physical Examination Constitutional: Yes: Awake/ looks better Eyes: Yes: Conjunctiva Clear Neck: Yes: Supple. no jvd Cardiovascular: Yes: Regular Rate and Rhythm Respiratory: Yes: Diminished Gastrointestinal: Yes: Soft, Edema: LLE: Trace, RLE: Trace Neurological: Yes: Awake Imaging - Results Chest X-ray: Report Reviewed Assessment/Plan Better still sob I/d consult Zosyn ? cxr - Dense infiltrate Monitor lytes eats ok Discussed with pts daughter also Will follow Problem List - Problems (1) Hyponatremia Code(s): E87.1 - HYPO-OSMOLALITY AND HYPONATREMIA (2) Abdominal pain Code(s): R10.9 - UNSPECIFIED ABDOMINAL PAIN Qualifiers: Abdominal location: generalized Qualified Code(s): R10.84 - Generalized abdominal pain (3) Acute on chronic kidney failure Code(s): N17.9 - ACUTE KIDNEY FAILURE, UNSPECIFIED; N18.9 - CHRONIC KIDNEY DISEASE, UNSPECIFIED Qualifiers: Chronic kidney disease stage: stage 4 (severe) (4) Anemia Code(s): D64.9 - ANEMIA, UNSPECIFIED Qualifiers: (5) CKD (chronic kidney disease) stage 4, GFR 15-29 ml/min Code(s): N18.4 - CHRONIC KIDNEY DISEASE, STAGE 4 (SEVERE) (6) Dementia Code(s): F03.90 - UNSPECIFIED DEMENTIA WITHOUT BEHAVIORAL DISTURBANCE Qualifiers: Dementia type: unspecified type (7) Ischemic colitis Code(s): K55.9 - VASCULAR DISORDER OF INTESTINE, UNSPECIFIED (8) Paroxysmal atrial fibrillation Code(s): I48.0 - PAROXYSMAL ATRIAL FIBRILLATION (9) Type 2 diabetes mellitus Code(s): E11.9 - TYPE 2 DIABETES MELLITUS WITHOUT COMPLICATIONS (10) Pneumonia Code(s): J18.9 - PNEUMONIA, UNSPECIFIED ORGANISM
[2019-01-02] MEDS ORDERED: cefTRIAXone SODIUM 1 GM VIAL ONE (11:13)
[2019-01-02] MEDS ORDERED: DEXTROSE 5%-WATER - 50 ML IVPB ONE (11:14)
[2019-01-02] MEDS: CEFTRIAXONE 1 GM in DEXTROSE 5%-WATER - 50 ML IVPB SCH (11:18)
[2019-01-02] MEDS: OMEGA-3 ACID ETHYL ESTERS (FATTY-ACIDS) 1 GM CAPSULE (FP) PO SCH ×2 (11:18→17:40)
[2019-01-02] MEDS: LACTOBACILLUS ACIDOPHILUS 1 TABLET PO SCH (11:19)
[2019-01-02] MEDS: DONEPEZIL HCL 10 MG TABLET (FP) PO SCH ×2 (11:19→11:21)
[2019-01-02] MEDS: amLODIPine BESYLATE 5 MG TABLET (FP) PO SCH (11:19)
[2019-01-02] MEDS: APIXABAN 2.5 MG TABLET PO SCH ×2 (11:19→22:01)
[2019-01-02] MEDS: MULTIVITAMINS (DAILY MVI) TABLET (FP) PO SCH (11:19)
[2019-01-02] MEDS: ATENOLOL 25 MG TABLET (FP) PO SCH (11:20)
[2019-01-02] MEDS: PANTOPRAZOLE SODIUM 40 MG VIAL IVPUSH SCH (11:21)
[2019-01-02] MEDS: FUROSEMIDE 40 MG/4 ML INJECTABLE VIAL IVPUSH SCH (11:24)
[2019-01-02] MEDS: LIPASE/PROTEASE/AMYLASE 36,000 UNIT CAPSULE PO SCH ×3 (11:54→17:40)
--- NOTE | 2019-01-02 12:25 | PN ---
Progress Note (short form) - Note Progress Note: ID CONSULT DICTATED CHF ? L PNEUMONIA HYPONATREMIA R/O ATYPICAL PNEUMONIA ? LEGIONELLA CKD OBTAIN C/S LEGIONELLA AG EMPIRIC LEVAQUIN/ CEFTRIAXONE
--- NOTE | 2019-01-02 12:46 | PN ---
Progress Note (short form) - Note Progress Note: PULMONARY States breathing better today. Remains on 50% ventimask. Denies cough or wheezing. No fevers or chills. Vital Signs Period Temp Pulse Resp BP Sys/Thompson Pulse Ox Last 24 Hr 98.0 F-98.6 F 64-83 16-30 118-153/39-86 98-98 Intake & Output 12/30/18 12/31/18 01/01/19 01/02/19 23:59 23:59 23:59 23:59 Intake Total 490 50 Output Total 1900 900 700 Balance -1410 -850 -700 Weight 59.738 kg 59.421 kg 60.192 kg Gen: mildly tachypneic with speaking Heart: RRR Lung: basilar rales Abd: soft, nontender Ext: no edema CBC, BMP 01/02/19 05:30 01/02/19 05:30 Active Medications Acetaminophen (Tylenol Suppository -) 650 mg [place] Q4H PRN PRN Reason: FEVER Amlodipine Besylate (Norvasc -) 5 mg PO DAILY [facility] Last Admin: 01/02/19 11:19 Dose: 5 mg Apixaban (Eliquis -) 2.5 mg PO BID [facility] Last Admin: 01/02/19 11:19 Dose: 2.5 mg Atenolol (Tenormin -) 25 mg PO DAILY [facility] Last Admin: 01/02/19 11:20 Dose: 25 mg Donepezil HCl (Aricept -) 10 mg PO DAILY [facility] Last Admin: 01/02/19 11:21 Dose: 10 mg Furosemide (Lasix Injection -) 80 mg IVPUSH DAILY [facility] Last Admin: 01/02/19 11:24 Dose: 80 mg Ceftriaxone Sodium 1 gm/ (Dextrose) 50 mls @ 100 mls/hr IVPB DAILY [facility] Last Admin: 01/02/19 11:18 Dose: 100 mls/hr Levofloxacin (Levaquin 500 Mg Premixed Ivpb -) 500 mg in 100 mls @ 100 mls/hr IVPB ONCE ONE; Protocol Stop: 01/02/19 13:29 Insulin Aspart (Novolog Vial Sliding Scale -) 1 vial SQ BIDAC [facility]; Protocol Last Admin: 01/02/19 06:16 Dose: 3 units Lactobacillus Acidophilus (Bacid -) 1 tab PO DAILY [facility] Last Admin: 01/02/19 11:19 Dose: 1 tab Levothyroxine Sodium (Synthroid -) 25 mcg PO DAILY@0700 [facility] Last Admin: 01/02/19 06:16 Dose: 25 mcg Loperamide HCl (Imodium -) 2 mg PO Q8H PRN PRN Reason: DIARRHEA Multivitamins/Minerals/Vitamin C (Tab-A-Vit -) 1 tab PO DAILY [facility] Last Admin: 01/02/19 11:19 Dose: 1 tab [id number]-[id number] Ethyl Esters (Lovaza -) 2 gm PO BID@1000,1700 [facility] Last Admin: 01/02/19 11:18 Dose: 2 gm Pancrelipase (Creon Dr 36,000 Units Capsule) 1 cap PO TIDCM [facility] Last Admin: 01/02/19 11:54 Dose: 1 cap Pantoprazole Sodium (Protonix Iv) 40 mg IVPUSH DAILY [facility] Last Admin: 01/02/19 11:21 Dose: 40 mg Simethicone (Mylicon -) 80 mg PO Q6H PRN PRN Reason: GAS A/P Acute on Chronic Diastolic Heart Failure Volume Overload Acute on Chronic Renal Failure Hyponatremia r/o Pneumonia Paroxysmal Atrial Fibrillation CAD HTN DM Hypercholesterolemia Hypothyroidism Dementia - continue lasix - monitor urine output, creatinine - daily weights - continue antibiotics - f/u cultures - O2 to keep SpO2 >90% - inhaled bronchodilators - rate control - continue anticoagulation
--- NOTE | 2019-01-02 13:46 | PN ---
Progress Note (short form) - Note Progress Note: Renal follow up for GABY/Fluid overload Pt seen and examined at the bedside on venti mask o2 tolerating oral diet making urine via watts Vital Signs Temperature 98.6 F 01/02/19 04:00 Pulse Rate 64 01/02/19 04:00 Respiratory Rate 19 01/02/19 04:00 Blood Pressure 153/47 L 01/02/19 04:00 O2 Sat by Pulse Oximetry (%) 98 01/01/19 20:56 Intake & Output 12/30/18 12/31/18 01/01/19 01/02/19 23:59 23:59 23:59 23:59 Intake Total 490 50 Output Total 1900 900 700 Balance -1410 -850 -700 Weight 59.738 kg 59.421 kg 60.192 kg NAD on NRB O2 neck supple RRR + rales in lung donnelly + edema in LE CBC, BMP 01/02/19 05:30 01/02/19 05:30 Current Medications Acetaminophen (Tylenol Suppository -) 650 mg AL Q4H PRN PRN Reason: FEVER Amlodipine Besylate (Norvasc -) 5 mg PO DAILY [facility] Last Admin: 01/02/19 11:19 Dose: 5 mg Apixaban (Eliquis -) 2.5 mg PO BID [facility] Last Admin: 01/02/19 11:19 Dose: 2.5 mg Atenolol (Tenormin -) 25 mg PO DAILY [facility] Last Admin: 01/02/19 11:20 Dose: 25 mg Donepezil HCl (Aricept -) 10 mg PO DAILY [facility] Last Admin: 01/02/19 11:21 Dose: 10 mg Furosemide (Lasix Injection -) 80 mg IVPUSH DAILY [facility] Last Admin: 01/02/19 11:24 Dose: 80 mg Ceftriaxone Sodium 1 gm/ (Dextrose) 50 mls @ 100 mls/hr IVPB DAILY [facility] Last Admin: 01/02/19 11:18 Dose: 100 mls/hr Insulin Aspart (Novolog Vial Sliding Scale -) 1 vial SQ BIDAC [facility]; Protocol Last Admin: 01/02/19 06:16 Dose: 3 units Lactobacillus Acidophilus (Bacid -) 1 tab PO DAILY [facility] Last Admin: 01/02/19 11:19 Dose: 1 tab Levothyroxine Sodium (Synthroid -) 25 mcg PO DAILY@0700 [facility] Last Admin: 01/02/19 06:16 Dose: 25 mcg Loperamide HCl (Imodium -) 2 mg PO Q8H PRN PRN Reason: DIARRHEA Multivitamins/Minerals/Vitamin C (Tab-A-Vit -) 1 tab PO DAILY [facility] Last Admin: 01/02/19 11:19 Dose: 1 tab Suvyh-3-Dnzz Ethyl Esters (Lovaza -) 2 gm PO BID@1000,1700 [facility] Last Admin: 01/02/19 11:18 Dose: 2 gm Pancrelipase (Creon Dr 36,000 Units Capsule) 1 cap PO TIDCM [facility] Last Admin: 01/02/19 11:54 Dose: 1 cap Pantoprazole Sodium (Protonix Iv) 40 mg IVPUSH DAILY [facility] Last Admin: 01/02/19 11:21 Dose: 40 mg Simethicone (Mylicon -) 80 mg PO Q6H PRN PRN Reason: GAS 88 year old woman with hx of CKD stage 4, Afib on Eliquis, Hypertension , hypothyroidism, ischemic colitis who presented with laboratory studies that showed hyponatremia with Na of 117 and Cr of 2.8. #GABY on CKD with volume over load #Hypervolemic Hyponatremia #Acute on chronic anemia #CHF/Fluid overload #Hypertension #Hypothyroidism #Abd pain with hx of ischemic colitis #hypokalemia Renal function unchanged no overt hyperkalemia or acidosis noted Pt is non-oliguric Serum na improving with IV diuresis Urine studies show Na of 18 and indicating preserved tubular function Continue lasix 80mg IV Daily, will reaccesss tomorrow if it can be converted to PO Abx as per primary team for suspected PNA Maintain on low salt diet. 1L fluid restriction for hyponatremia supplemental O2 as needed d/c watts today Thank you Refugio Allen DO
--- NOTE | 2019-01-02 19:49 | CONS ---
DATE OF CONSULTATION: DATE OF DICTATION: 01/02/2019 INFECTIOUS DISEASE CONSULTATION HISTORY OF PRESENT ILLNESS: The patient is an 88-year-old female who is evaluated for pneumonia. History was obtained from the chart and patient's son present at the time of the examination. Patient suffers from dementia and cannot give a reliable history. She was receiving an iron infusion as an outpatient when she was noted to be hyponatremic with a serum sodium of 177. She was referred for admission. The patient complained of generalized weakness and nausea. Family reported that she had vomited on one occasion but was having normal bowel movements. She was admitted to the hospital where her course was complicated by shortness of breath and cough. She was noted to be hypoxemic and was placed on a BiPAP mask. At the present time she is in the intensive care unit on a Ventimask. She complains of abdominal pain. She denies any chest pain or shortness of breath. She does have a cough. No reports of hemoptysis. No reports of high-grade fever or shaking chills. Patient lives in the community with family. No known ill contacts. No recent hospitalizations. No recent travel. She is a nonsmoker. The son reports that she is up to date with respect to influenza vaccine, was unsure about the pneumococcal vaccine. The patient was treated for congestive heart failure. Chest x-ray shows improvement; however, there were residual left-sided markings suggestive of pneumonia. She was empirically treated with ceftriaxone. PAST MEDICAL HISTORY: Positive for ischemic colitis, dementia, diabetes mellitus, hypothyroidism, hypertension, chronic kidney disease, atrial fibrillation. ALLERGIES: No known allergies. MEDICATIONS: Include Tylenol, amlodipine, Eliquis, ceftriaxone, atenolol, Aricept, Lasix, Synthroid, Protonix. SOCIAL HISTORY: As per HPI. SYSTEMS REVIEW: Neurologic: Positive for dementia. No loss of consciousness, seizure activity, focal weakness. Cardiac: Negative for chest pain or palpitations. Respiratory: As per HPI. Gastrointestinal: As per HPI. Genitourinary: Negative for urinary tract infection. LABORATORY DATA: White count 10.2 with 89 neutrophils, 5 lymphocytes, 4 monocytes. Hematocrit 23.9, platelet count 272. BUN 94, creatinine 2.8. Urinalysis: 2 white cells. Chest x-ray as described. PHYSICAL EXAMINATION: General: On examination, she is awake, she is lethargic. She is slightly short of breath at rest on Ventimask. Vital signs: Her temperature is 98.6. Blood pressure 153/47, pulse 64 regular, respirations 19 per minute. HEENT: Sclerae anicteric. Cardiovascular: Heart sounds S1, S2. Lungs: Rales mid lung donnelly to the bases bilaterally. Abdomen: Soft. There is some left lower quadrant tenderness to palpation. No rebound or rigidity. Extremities: Negative for edema. IMPRESSION: 1. Congestive heart failure possible underlying left-sided pneumonia. 2. Hyponatremia. 3. Chronic kidney disease. 4. Dementia. Concerned about possible atypical pneumonia, specifically legionella in the setting of pulmonic infiltrate and hyponatremia. Will obtain cultures. Urine, legionella, and pneumococcal antigens. Empiric antibiotic coverage with ceftriaxone and Levaquin adjusted for chronic kidney disease. Case discussed with patient's son, present at the time of examination. Thank you for the kind referral. EV BRIGGS M.D. [id number]
[2019-01-03] MEDS: INSULIN SLIDING SCALE (NOVOLOG) 1 VIAL SQ SCH ×2 (06:21→18:49)
[2019-01-03] MEDS: LEVOTHYROXINE NA 25 MCG TABLET (FP) PO SCH (06:24)
--- NOTE | 2019-01-03 06:35 | PN ---
Progress Note (short form) - Note Progress Note: Chief Complaint: Events noted, notes reviewed, resting in bed, denies any chest pain or dyspnea, sinus rhythm noted History of Present Illness: Seen and examined on telemetry. Events noted, notes reviewed, resting in bed, denies any chest pain or dyspnea, sinus rhythm noted Echocardiography 05/11/2017 revealed normal LV systolic function, left atrial dilatation, moderate MR and TR with RVSP between 30-40 mmHg - Current Medication List Current Medications Acetaminophen (Tylenol Suppository -) 650 mg [place] Q4H PRN PRN Reason: FEVER Amlodipine Besylate (Norvasc -) 5 mg PO DAILY [facility] Last Admin: 01/02/19 11:19 Dose: 5 mg Apixaban (Eliquis -) 2.5 mg PO BID [facility] Last Admin: 01/02/19 22:01 Dose: 2.5 mg Atenolol (Tenormin -) 25 mg PO DAILY [facility] Last Admin: 01/02/19 11:20 Dose: 25 mg Donepezil HCl (Aricept -) 10 mg PO DAILY [facility] Last Admin: 01/02/19 11:21 Dose: 10 mg Furosemide (Lasix Injection -) 80 mg IVPUSH DAILY [facility] Last Admin: 01/02/19 11:24 Dose: 80 mg Ceftriaxone Sodium 1 gm/ (Dextrose) 50 mls @ 100 mls/hr IVPB DAILY [facility] Last Admin: 01/02/19 11:18 Dose: 100 mls/hr Insulin Aspart (Novolog Vial Sliding Scale -) 1 vial SQ BIDAC [facility]; Protocol Last Admin: 01/03/19 06:21 Dose: 3 units Lactobacillus Acidophilus (Bacid -) 1 tab PO DAILY [facility] Last Admin: 01/02/19 11:19 Dose: 1 tab Levothyroxine Sodium (Synthroid -) 25 mcg PO DAILY@0700 [facility] Last Admin: 01/03/19 06:24 Dose: 25 mcg Loperamide HCl (Imodium -) 2 mg PO Q8H PRN PRN Reason: DIARRHEA Multivitamins/Minerals/Vitamin C (Tab-A-Vit -) 1 tab PO DAILY [facility] Last Admin: 01/02/19 11:19 Dose: 1 tab Lalhg-4-Vwjh Ethyl Esters (Lovaza -) 2 gm PO BID@1000,1700 [facility] Last Admin: 01/02/19 17:40 Dose: Not Given Pancrelipase (Creon Dr 36,000 Units Capsule) 1 cap PO TIDCM [facility] Last Admin: 01/02/19 17:40 Dose: Not Given Pantoprazole Sodium (Protonix Iv) 40 mg IVPUSH DAILY [facility] Last Admin: 01/02/19 11:21 Dose: 40 mg Simethicone (Mylicon -) 80 mg PO Q6H PRN PRN Reason: GAS Review of Systems Constitutional: denies: Chills, Fever Cardiovascular: As Noted Above Respiratory: denies: Cough or Sputum Production Gastrointestinal: denies: Nausea, Vomiting, Constipation or Abdominal Pain Genitourinary: denies: Dysuria Musculoskeletal: Degenerative Joint Disease Neurological: denies: Dizziness, Headache - Objective Vital Signs: Last Vital Signs Temp Pulse Resp BP Pulse Ox 98.3 F 71 20 151/60 96 01/03/19 02:08 01/03/19 02:08 01/03/19 02:08 01/03/19 02:08 01/02/19 21:00 Intake & Output 12/31/18 01/01/19 01/02/19 01/03/19 23:59 23:59 23:59 23:59 Intake Total 490 50 330 100 Output Total 9189 282 4432 250 Balance -1410 -850 -770 -150 Weight 131 lb 132 lb 11.2 oz Neck: Supple Negative JVD No Bruit Cardiovascular: S1 S2 Regular Rate Rhythm Grade 1-2/6 Systolic Ejection Murmur Respiratory: Diminished at the Bases Gastrointestinal: Soft Benign Normal Bowel Sounds Ext: No Edema Labs: CBC, BMP 01/02/19 05:30 01/02/19 05:30 Hepatic Panel Total Bilirubin 0.8 mg/dL (0.2-1) 01/02/19 05:30 AST 26 U/L (15-37) 01/02/19 05:30 ALT 23 U/L (13-61) 01/02/19 05:30 Alkaline Phosphatase 135 U/L (45-117) H 01/02/19 05:30 Albumin 2.7 g/dl (3.4-5.0) L 01/02/19 05:30 ABG Results ABG pH 7.44 (7.35-7.45) 12/30/18 21:00 ABG pCO2 at Pt Temp 32.1 mmHg (35-45) L 12/30/18 21:00 ABG pO2 at Pt Temp 75.5 mmHg (80-105) L 12/30/18 21:00 ABG HCO3 21.6 mmol/L (22-27) L 12/30/18 21:00 ABG O2 Sat (Measured) 94.6 % (95-98) L 12/30/18 21:00 ABG O2 Content 13.1 % vol (15-22) L 12/30/18 21:00 ABG Base Excess -1.5 meq/l (-2-2) 12/30/18 21:00 Assessment/Plan ASSESSMENT: 1. GABY on CKD with volume overload in setting of HFpEF/#3 2. Hypervolemic Hyponatremia 3. Acute on chronic class II-III NYHA classification LV failure related to diastolic LV dysfunction, resolving 4. Abdominal pain with history of ischemic colitis, mesenteric ischemia with intestinal angina 5. Paroxysmal atrial fibrillation on DOAC/Eliquis [id number] score of 5 6. 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 HTN/HCVD 8. DM 9. Hypercholesterolemia 10. 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 Anemia PLAN: 1. Continue Atenolol 2. Continue Norvasc 3. Diuretics IV Lasix with close monitoring of renal function 4. As outlined recommend resumption of ACEI/ARBS if not contraindicated, pending renal function recovery- at baseline 5. Continue Eliquis at the above noted dosage (age > 80 and Creatinine > 1.5) 6. Transfusion to maintain hemoglobin equal or greater than 8.0 Care was discussed in detail with patient's daughter who was at the bedside German Miranda M.D.
[2019-01-03] MEDS: LIPASE/PROTEASE/AMYLASE 36,000 UNIT CAPSULE PO SCH ×3 (08:17→19:30)
[2019-01-03] MEDS ORDERED: cefTRIAXone SODIUM 1 GM VIAL ONE (09:44)
[2019-01-03] MEDS ORDERED: DEXTROSE 5%-WATER - 50 ML IVPB ONE (09:44)
[2019-01-03] MEDS: CEFTRIAXONE 1 GM in DEXTROSE 5%-WATER - 50 ML IVPB SCH (10:05)
[2019-01-03] MEDS: FUROSEMIDE 40 MG/4 ML INJECTABLE VIAL IVPUSH SCH (10:05)
[2019-01-03] MEDS: LACTOBACILLUS ACIDOPHILUS 1 TABLET PO SCH (10:15)
[2019-01-03] MEDS: APIXABAN 2.5 MG TABLET PO SCH ×2 (10:15→22:32)
[2019-01-03] MEDS: MULTIVITAMINS (DAILY MVI) TABLET (FP) PO SCH (10:15)
[2019-01-03] MEDS: ATENOLOL 25 MG TABLET (FP) PO SCH (10:16)
[2019-01-03] MEDS: OMEGA-3 ACID ETHYL ESTERS (FATTY-ACIDS) 1 GM CAPSULE (FP) PO SCH ×2 (10:16→18:45)
[2019-01-03] MEDS: amLODIPine BESYLATE 5 MG TABLET (FP) PO SCH (10:16)
[2019-01-03] MEDS: PANTOPRAZOLE SODIUM 40 MG VIAL IVPUSH SCH (10:17)
[2019-01-03] MEDS: DONEPEZIL HCL 10 MG TABLET (FP) PO SCH (10:17)
--- NOTE | 2019-01-03 11:31 | PN ---
Progress Note (short form) - Note Progress Note: family at bedside not in distress on NC Vital Signs - 24 hr 01/02/19 01/02/19 01/02/19 12:00 16:00 18:13 Temperature 98.8 F Pulse Rate 70 75 Respiratory 18 18 Rate Blood Pressure 140/50 L 127/94 O2 Sat by Pulse 94 L Oximetry (%) 01/02/19 01/02/19 01/03/19 20:00 21:00 00:00 Temperature 98.2 F Pulse Rate 73 70 Respiratory 24 H 24 H 16 Rate Blood Pressure 139/43 L 129/44 L O2 Sat by Pulse 96 Oximetry (%) 01/03/19 01/03/19 02:08 08:25 Temperature 98.3 F Pulse Rate 71 Respiratory 20 Rate Blood Pressure 151/60 O2 Sat by Pulse 98 Oximetry (%) Current Medications Generic Name Dose Route Start Last Admin Trade Name Freq PRN Reason Stop Dose Admin Acetaminophen 650 mg 01/01/19 03:13 Tylenol Suppository - MT Q4H PRN FEVER Amlodipine Besylate 5 mg 01/01/19 10:00 01/03/19 10:16 Norvasc - PO 5 mg DAILY [facility] Administration Apixaban 2.5 mg 01/01/19 10:00 01/03/19 10:15 Eliquis - PO 2.5 mg BID [facility] Administration Atenolol 25 mg 01/01/19 10:00 01/03/19 10:16 Tenormin - PO 25 mg DAILY [facility] Administration Donepezil HCl 10 mg 01/01/19 10:00 01/03/19 10:17 Aricept - PO 10 mg DAILY [facility] Administration Furosemide 80 mg 01/01/19 10:00 01/03/19 10:05 Lasix Injection - IVPUSH 80 mg DAILY [facility] Administration Ceftriaxone Sodium 1 gm/ 50 mls @ 100 mls/hr 01/01/19 11:00 01/03/19 10:05 Dextrose IVPB 100 mls/hr DAILY [facility] Administration Insulin Aspart 1 vial 01/01/19 07:00 01/03/19 06:21 Novolog Vial Sliding Scale - SQ 3 units BIDAC [facility] Administration Protocol Lactobacillus Acidophilus 1 tab 01/01/19 10:00 01/03/19 10:15 Bacid - PO 1 tab DAILY [facility] Administration Levothyroxine Sodium 25 mcg 01/01/19 07:00 01/03/19 06:24 Synthroid - PO 25 mcg DAILY@0700 [facility] Administration Loperamide HCl 2 mg 01/01/19 03:13 Imodium - PO Q8H PRN DIARRHEA Multivitamins/Minerals/Vitamin C 1 tab 01/01/19 10:00 01/03/19 10:15 Tab-A-Vit - PO 1 tab DAILY [facility] Administration [id number] Ethyl Esters 2 gm 01/01/19 10:00 01/03/19 10:16 Lovaza - PO 2 gm BID@1000,1700 [facility] Administration Pancrelipase 1 cap 01/01/19 08:00 01/03/19 08:17 Creon 36,000 Units Capsule PO 1 cap TIDCM [facility] Administration Pantoprazole Sodium 40 mg 01/01/19 10:00 01/03/19 10:17 Protonix Iv IVPUSH 40 mg DAILY [facility] Administration Simethicone 80 mg 01/01/19 03:13 Mylicon - PO Q6H PRN GAS Laboratory Results - last 24 hr 01/02/19 01/02/19 01/02/19 14:15 17:31 22:04 POC Glucometer 186 214 185 S1 S2 RRR Lungs crackles+B/L-- decreased Abd- soft, tender abdomen no edema PLAN IV lasix Sodium improving creatinine stable continue with meds CXR--noted-- on ceftriaxone-- received levaquin yesterday will order sono abdomen Problem List - Problems (1) Abdominal pain Code(s): R10.9 - UNSPECIFIED ABDOMINAL PAIN Qualifiers: Abdominal location: generalized Qualified Code(s): R10.84 - Generalized abdominal pain (2) CHF (congestive heart failure) Code(s): I50.9 - HEART FAILURE, UNSPECIFIED Qualifiers: Heart failure type: diastolic Heart failure chronicity: acute on chronic Qualified Code(s): I50.33 - Acute on chronic diastolic (congestive) heart failure (3) GABY (acute kidney injury) Code(s): N17.9 - ACUTE KIDNEY FAILURE, UNSPECIFIED (4) Acute on chronic kidney failure Code(s): N17.9 - ACUTE KIDNEY FAILURE, UNSPECIFIED; N18.9 - CHRONIC KIDNEY DISEASE, UNSPECIFIED Qualifiers: Chronic kidney disease stage: stage 4 (severe) (5) Anemia Code(s): D64.9 - ANEMIA, UNSPECIFIED Qualifiers: (6) CKD (chronic kidney disease) stage 4, GFR 15-29 ml/min Code(s): N18.4 - CHRONIC KIDNEY DISEASE, STAGE 4 (SEVERE)
--- NOTE | 2019-01-03 11:40 | PN ---
Progress Note, Physician History of Present Illness: AWAKE, SUPINE IN BED BREATHING NON LABORED DENIES COUGH C/O ABDOMINAL DISCOMFORT NO N/V - Current Medication List Current Medications: Active Medications Acetaminophen (Tylenol Suppository -) 650 mg [place] Q4H PRN PRN Reason: FEVER Amlodipine Besylate (Norvasc -) 5 mg PO DAILY [facility] Last Admin: 01/03/19 10:16 Dose: 5 mg Apixaban (Eliquis -) 2.5 mg PO BID [facility] Last Admin: 01/03/19 10:15 Dose: 2.5 mg Atenolol (Tenormin -) 25 mg PO DAILY [facility] Last Admin: 01/03/19 10:16 Dose: 25 mg Donepezil HCl (Aricept -) 10 mg PO DAILY [facility] Last Admin: 01/03/19 10:17 Dose: 10 mg Furosemide (Lasix Injection -) 80 mg IVPUSH DAILY [facility] Last Admin: 01/03/19 10:05 Dose: 80 mg Ceftriaxone Sodium 1 gm/ (Dextrose) 50 mls @ 100 mls/hr IVPB DAILY [facility] Last Admin: 01/03/19 10:05 Dose: 100 mls/hr Insulin Aspart (Novolog Vial Sliding Scale -) 1 vial SQ BIDAC [facility]; Protocol Last Admin: 01/03/19 06:21 Dose: 3 units Lactobacillus Acidophilus (Bacid -) 1 tab PO DAILY [facility] Last Admin: 01/03/19 10:15 Dose: 1 tab Levothyroxine Sodium (Synthroid -) 25 mcg PO DAILY@0700 [facility] Last Admin: 01/03/19 06:24 Dose: 25 mcg Loperamide HCl (Imodium -) 2 mg PO Q8H PRN PRN Reason: DIARRHEA Multivitamins/Minerals/Vitamin C (Tab-A-Vit -) 1 tab PO DAILY [facility] Last Admin: 01/03/19 10:15 Dose: 1 tab Bzkqx-0-[id number] Ethyl Esters (Lovaza -) 2 gm PO BID@1000,1700 [facility] Last Admin: 01/03/19 10:16 Dose: 2 gm Pancrelipase (Creon Dr 36,000 Units Capsule) 1 cap PO TIDCM [facility] Last Admin: 01/03/19 08:17 Dose: 1 cap Pantoprazole Sodium (Protonix Iv) 40 mg IVPUSH DAILY [facility] Last Admin: 06/25/19 10:17 Dose: 40 mg Simethicone (Mylicon -) 80 mg PO Q6H PRN PRN Reason: GAS - Objective Vital Signs: Vital Signs Temperature 98.3 F 01/03/19 02:08 Pulse Rate 71 01/03/19 02:08 Respiratory Rate 20 01/03/19 02:08 Blood Pressure 151/60 01/03/19 02:08 O2 Sat by Pulse Oximetry (%) 98 01/03/19 08:25 Constitutional: Yes: No Distress Cardiovascular: Yes: Regular Rate and Rhythm, S1, S2 Respiratory: Yes: Other (+ BILATERAL CREPITATIONS) Gastrointestinal: Yes: Normal Bowel Sounds, Soft, Tenderness, Other (MILD TENDERNESS) Labs: CBC, BMP 01/02/19 05:30 01/02/19 05:30 Assessment/Plan CHF ? PNEUMONIA HYPONATREMIA CKD AWAIT C/S CONTINUE CEFTRIAXONE/ LEVAQUIN
--- NOTE | 2019-01-03 12:02 | PN ---
Progress Note (short form) - Note Progress Note: Renal follow up for GABY/Fluid overload Pt seen and examined at the bedside awake and alert no overnight events eating well as per family on NC O2 Vital Signs Temperature 98.6 F 01/02/19 04:00 Pulse Rate 64 01/02/19 04:00 Respiratory Rate 19 01/02/19 04:00 Blood Pressure 153/47 L 01/02/19 04:00 O2 Sat by Pulse Oximetry (%) 98 01/01/19 20:56 Intake & Output 12/30/18 12/31/18 01/01/19 01/02/19 23:59 23:59 23:59 23:59 Intake Total 490 50 Output Total 1900 900 700 Balance -1410 -850 -700 Weight 59.738 kg 59.421 kg 60.192 kg NAD on NC O2 neck supple RRR trace edema in LE CBC, BMP 01/02/19 05:30 01/02/19 05:30 Current Medications Acetaminophen (Tylenol Suppository -) 650 mg [place] Q4H PRN PRN Reason: FEVER Amlodipine Besylate (Norvasc -) 5 mg PO DAILY [facility] Last Admin: 01/03/19 10:16 Dose: 5 mg Apixaban (Eliquis -) 2.5 mg PO BID [facility] Last Admin: 01/03/19 10:15 Dose: 2.5 mg Atenolol (Tenormin -) 25 mg PO DAILY [facility] Last Admin: 01/03/19 10:16 Dose: 25 mg Donepezil HCl (Aricept -) 10 mg PO DAILY [facility] Last Admin: 01/03/19 10:17 Dose: 10 mg Furosemide (Lasix Injection -) 80 mg IVPUSH DAILY [facility] Last Admin: 01/03/19 10:05 Dose: 80 mg Ceftriaxone Sodium 1 gm/ (Dextrose) 50 mls @ 100 mls/hr IVPB DAILY [facility] Last Admin: 01/03/19 10:05 Dose: 100 mls/hr Levofloxacin (Levaquin 250 Mg Premixed Ivpb -) 250 mg in 50 mls @ 50 mls/hr IVPB Q2D@1000 [facility]; Protocol Insulin Aspart (Novolog Vial Sliding Scale -) 1 vial SQ BIDAC [facility]; Protocol Last Admin: 01/03/19 06:21 Dose: 3 units Lactobacillus Acidophilus (Bacid -) 1 tab PO DAILY [facility] Last Admin: 01/03/19 10:15 Dose: 1 tab Levothyroxine Sodium (Synthroid -) 25 mcg PO DAILY@0700 [facility] Last Admin: 01/03/19 06:24 Dose: 25 mcg Loperamide HCl (Imodium -) 2 mg PO Q8H PRN PRN Reason: DIARRHEA Multivitamins/Minerals/Vitamin C (Tab-A-Vit -) 1 tab PO DAILY [facility] Last Admin: 01/03/19 10:15 Dose: 1 tab Ngwvo-9-Juqo Ethyl Esters (Lovaza -) 2 gm PO BID@1000,1700 [facility] Last Admin: 01/03/19 10:16 Dose: 2 gm Pancrelipase (Creon Dr 36,000 Units Capsule) 1 cap PO TIDCM [facility] Last Admin: 01/03/19 08:17 Dose: 1 cap Pantoprazole Sodium (Protonix Iv) 40 mg IVPUSH DAILY [facility] Last Admin: 01/03/19 10:17 Dose: 40 mg Simethicone (Mylicon -) 80 mg PO Q6H PRN PRN Reason: GAS 88 year old woman with hx of CKD stage 4, Afib on Eliquis, Hypertension , hypothyroidism, ischemic colitis who presented with laboratory studies that showed hyponatremia with Na of 117 and Cr of 2.8. #GABY on CKD with volume over load #Hypervolemic Hyponatremia #Acute on chronic anemia #CHF/Fluid overload #Hypertension #Hypothyroidism #Abd pain with hx of ischemic colitis #hypokalemia Renal function unchanged/stable no overt hyperkalemia or acidosis noted Pt is non-oliguric given persistent chest congestion would maintain on IV Laix Urine studies show Na of 18 and indicating preserved tubular function Pulmonary and Cardiology following Abx as per primary team for possible PNA Maintain on low salt diet. 1L fluid restriction for hyponatremia supplemental O2 as needed Thank you Refugio Allen DO
--- NOTE | 2019-01-03 13:09 | PN ---
Progress Note (short form) - Note Progress Note: PULMONARY States breathing better today. Saturating well on nasal cannula. Denies cough or wheezing. No fevers or chills. Vital Signs Period Temp Pulse Resp BP Sys/Thompson Pulse Ox Last 24 Hr 98.2 F-98.8 F 70-75 16-24 127-151/43-94 94-98 Intake & Output 12/31/18 01/01/19 01/02/19 01/03/19 23:59 23:59 23:59 23:59 Intake Total 490 50 330 100 Output Total 8271 160 5563 250 Balance -1410 -850 -770 -150 Weight 59.421 kg 60.192 kg Gen: less tachypneic with speaking Heart: RRR Lung: basilar rales Abd: soft, nontender Ext: no edema CBC, BMP 01/02/19 05:30 01/02/19 05:30 Active Medications Acetaminophen (Tylenol Suppository -) 650 mg [place] Q4H PRN PRN Reason: FEVER Amlodipine Besylate (Norvasc -) 5 mg PO DAILY [facility] Last Admin: 01/03/19 10:16 Dose: 5 mg Apixaban (Eliquis -) 2.5 mg PO BID [facility] Last Admin: 01/03/19 10:15 Dose: 2.5 mg Atenolol (Tenormin -) 25 mg PO DAILY [facility] Last Admin: 01/03/19 10:16 Dose: 25 mg Donepezil HCl (Aricept -) 10 mg PO DAILY [facility] Last Admin: 01/03/19 10:17 Dose: 10 mg Furosemide (Lasix Injection -) 80 mg IVPUSH DAILY [facility] Last Admin: 01/03/19 10:05 Dose: 80 mg Ceftriaxone Sodium 1 gm/ (Dextrose) 50 mls @ 100 mls/hr IVPB DAILY [facility] Last Admin: 01/03/19 10:05 Dose: 100 mls/hr Levofloxacin (Levaquin 250 Mg Premixed Ivpb -) 250 mg in 50 mls @ 50 mls/hr IVPB Q2D@1000 [facility]; Protocol Insulin Aspart (Novolog Vial Sliding Scale -) 1 vial SQ BIDAC [facility]; Protocol Last Admin: 01/03/19 06:21 Dose: 3 units Lactobacillus Acidophilus (Bacid -) 1 tab PO DAILY [facility] Last Admin: 01/03/19 10:15 Dose: 1 tab Levothyroxine Sodium (Synthroid -) 25 mcg PO DAILY@0700 [facility] Last Admin: 01/03/19 06:24 Dose: 25 mcg Loperamide HCl (Imodium -) 2 mg PO Q8H PRN PRN Reason: DIARRHEA Multivitamins/Minerals/Vitamin C (Tab-A-Vit -) 1 tab PO DAILY [facility] Last Admin: 01/03/19 10:15 Dose: 1 tab Hgwox-8-Kgmi Ethyl Esters (Lovaza -) 2 gm PO BID@1000,1700 [facility] Last Admin: 01/03/19 10:16 Dose: 2 gm Pancrelipase (Creon Dr 36,000 Units Capsule) 1 cap PO TIDCM [facility] Last Admin: 01/03/19 08:17 Dose: 1 cap Pantoprazole Sodium (Protonix Iv) 40 mg IVPUSH DAILY [facility] Last Admin: 01/03/19 10:17 Dose: 40 mg Simethicone (Mylicon -) 80 mg PO Q6H PRN PRN Reason: GAS A/P Acute on Chronic Diastolic Heart Failure Volume Overload Acute on Chronic Renal Failure Hyponatremia r/o Pneumonia Paroxysmal Atrial Fibrillation CAD HTN DM Hypercholesterolemia Hypothyroidism Dementia - continue lasix - monitor urine output, creatinine - daily weights - continue antibiotics - f/u cultures - repeat CXR in AM - O2 to keep SpO2 >90% - inhaled bronchodilators - rate control - continue anticoagulation
[2019-01-04] MEDS: INSULIN SLIDING SCALE (NOVOLOG) 1 VIAL SQ SCH ×2 (06:21→18:04)
[2019-01-04] MEDS: LEVOTHYROXINE NA 25 MCG TABLET (FP) PO SCH (06:21)
[2019-01-04 06:23] LABS: BASO % 0.4 % (0-2.0); EOS % 3.3 % (0-4.5); HEMATOCRIT 21.2 % (32.4-45.2); HEMOGLOBIN 7.4 GM/dL (10.7-15.3); LYMPH % 11.1 % (8-40); MCH 30.3 pg (25.7-33.7); MCHC 34.6 g/dl (32.0-36.0); MEAN CELL VOLUME 87.6 fl (80-96); MEAN PLT VOLUME 7.6 fl (7.5-11.1); MONO % 4.7 % (3.8-10.2); NEUT % 80.5 % (42.8-82.8); PLATELET COUNT 277 K/MM3 (134-434); RBC 2.43 M/mm3 (3.60-5.2); RDW 15.9 % (11.6-15.6); WHITE BLOOD COUNT 7.5 K/mm3 (4.0-10.0)
[2019-01-04 06:39] LABS: BLOOD UREA NITROGEN 103.8 mg/dL (7-18); CALCIUM 8.1 mg/dL (8.5-10.1); CREATININE 2.6 mg/dL (0.55-1.3); MAGNESIUM 2.5 mg/dL (1.8-2.4); PHOSPHOROUS 3.6 mg/dL (2.5-4.9); POTASSIUM 3.6 mmol/L (3.5-5.1)
[2019-01-04] MEDS ORDERED: ALBUTEROL SO4 2.5/IPRATROPIUM 0.5 INH SOL 3 ML VIAL.NEB. NEB PRN (10:24)
--- NOTE | 2019-01-04 10:25 | PN ---
Progress Note (short form) - Note Progress Note: family at bedside not in distress on NC sitting up in chair Vital Signs - 24 hr 01/03/19 01/03/19 01/03/19 14:00 18:00 21:00 Temperature 97.8 F 97.5 F L Pulse Rate 70 76 Respiratory 17 17 20 Rate Blood Pressure 137/40 L 140/53 L O2 Sat by Pulse 97 Oximetry (%) 01/03/19 01/03/19 01/04/19 21:28 22:00 00:27 Temperature 98.7 F Pulse Rate 80 Respiratory 20 Rate Blood Pressure 143/50 L O2 Sat by Pulse 99 99 Oximetry (%) 01/04/19 01/04/19 01/04/19 02:00 06:00 06:40 Temperature 97.7 F Pulse Rate 69 69 Respiratory 18 19 Rate Blood Pressure 140/51 L 141/50 L O2 Sat by Pulse 96 Oximetry (%) 01/04/19 01/04/19 01/04/19 07:50 08:00 08:03 Temperature Pulse Rate 67 Respiratory 17 Rate Blood Pressure 146/43 L O2 Sat by Pulse 100 100 Oximetry (%) Current Medications Generic Name Dose Route Start Last Admin Trade Name Freq PRN Reason Stop Dose Admin Acetaminophen 650 mg 01/01/19 03:13 Tylenol Suppository - [place] Q4H PRN FEVER Albuterol/Ipratropium 1 amp 01/04/19 10:24 Duoneb - NEB Q6H PRN SHORTNESS OF BREATH Amlodipine Besylate 5 mg 01/01/19 10:00 01/03/19 10:16 Norvasc - PO 5 mg DAILY [facility] Administration Apixaban 2.5 mg 01/01/19 10:00 01/03/19 22:32 Eliquis - PO 2.5 mg BID [facility] Administration Atenolol 25 mg 01/01/19 10:00 01/03/19 10:16 Tenormin - PO 25 mg DAILY [facility] Administration Donepezil HCl 10 mg 01/01/19 10:00 01/03/19 10:17 Aricept - PO 10 mg DAILY [facility] Administration Furosemide 80 mg 01/01/19 10:00 01/03/19 10:05 Lasix Injection - IVPUSH 80 mg DAILY [facility] Administration Guaifenesin 10 ml 01/04/19 10:24 Robitussin - PO Q4H PRN COUGH Ceftriaxone Sodium 1 gm/ 50 mls @ 100 mls/hr 01/01/19 11:00 01/03/19 10:05 Dextrose IVPB 100 mls/hr DAILY [facility] Administration Levofloxacin 250 mg in 50 mls @ 50 mls/hr 01/05/19 10:00 Levaquin 250 Mg Premixed Ivpb - IVPB Q2D@1000 [facility] Protocol Iron Sucrose 200 mg/ Sodium 100 mls @ 100 mls/hr 01/04/19 11:00 Chloride IVPB 01/04/19 11:59 ONCE ONE Insulin Aspart 1 vial 01/01/19 07:00 01/04/19 06:21 Novolog Vial Sliding Scale - SQ Not Given BIDAC [facility] Protocol Lactobacillus Acidophilus 1 tab 01/01/19 10:00 01/03/19 10:15 Bacid - PO 1 tab DAILY [facility] Administration Levothyroxine Sodium 25 mcg 01/01/19 07:00 01/04/19 06:21 Synthroid - PO 25 mcg DAILY@0700 [facility] Administration Loperamide HCl 2 mg 01/01/19 03:13 Imodium - PO Q8H PRN DIARRHEA Multivitamins/Minerals/Vitamin C 1 tab 01/01/19 10:00 01/03/19 10:15 Tab-A-Vit - PO 1 tab DAILY [facility] Administration Xrrmp-9-Mcor Ethyl Esters 2 gm 01/01/19 10:00 01/03/19 18:45 Lovaza - PO 2 gm BID@1000,1700 [facility] Administration Pancrelipase 1 cap 01/01/19 08:00 01/03/19 19:[address] 36,000 Units Capsule PO 1 cap TIDCM [facility] Administration Pantoprazole Sodium 40 mg 01/01/19 10:00 01/03/19 10:17 Protonix Iv IVPUSH 40 mg DAILY [facility] Administration Simethicone 80 mg 01/01/19 03:13 Mylicon - PO Q6H PRN GAS Laboratory Results - last 24 hr 01/03/19 01/04/19 01/04/19 17:31 05:22 05:22 WBC 7.5 RBC 2.43 L Hgb 7.4 L Hct 21.2 L MCV 87.6 MCH 30.3 MCHC 34.6 RDW 15.9 H Plt Count 277 MPV 7.6 Absolute Neuts (auto) 6.0 Neutrophils % 80.5 Lymphocytes % 11.1 D Monocytes % 4.7 Eosinophils % 3.3 D Basophils % 0.4 Nucleated RBC % 0 Sodium 128 L Potassium 3.6 Chloride 94 L Carbon Dioxide 23 Anion Gap 12 BUN 103.8 H Creatinine 2.6 H Est GFR (CKD-EPI)AfAm 18.61 Est GFR (CKD-EPI)NonAf 16.06 POC Glucometer 221 Random Glucose 144 H Calcium 8.1 L Phosphorus 3.6 Magnesium 2.5 H S1 S2 RRR Lungs crackles+B/L-- decreased Abd- soft,not tender no edema PLAN IV lasix Sodium stable creatinine improving will give venofer-- previously was receiving venofer as outpt continue with meds CXR--noted sono abdomen -- normal nebs as needed Problem List - Problems (1) Abdominal pain Code(s): R10.9 - UNSPECIFIED ABDOMINAL PAIN Qualifiers: Abdominal location: generalized Qualified Code(s): R10.84 - Generalized abdominal pain (2) CHF (congestive heart failure) Code(s): I50.9 - HEART FAILURE, UNSPECIFIED Qualifiers: Heart failure type: diastolic Heart failure chronicity: acute on chronic Qualified Code(s): I50.33 - Acute on chronic diastolic (congestive) heart failure (3) GABY (acute kidney injury) Code(s): N17.9 - ACUTE KIDNEY FAILURE, UNSPECIFIED (4) Acute on chronic kidney failure Code(s): N17.9 - ACUTE KIDNEY FAILURE, UNSPECIFIED; N18.9 - CHRONIC KIDNEY DISEASE, UNSPECIFIED Qualifiers: Chronic kidney disease stage: stage 4 (severe) (5) Anemia Code(s): D64.9 - ANEMIA, UNSPECIFIED Qualifiers: (6) CKD (chronic kidney disease) stage 4, GFR 15-29 ml/min Code(s): N18.4 - CHRONIC KIDNEY DISEASE, STAGE 4 (SEVERE)
[2019-01-04] MEDS ORDERED: IRON SUCROSE INJECTION 200 MG in SODIUM CHLORIDE 90 ML IVPB ONE (11:00)
[2019-01-04] MEDS ORDERED: DEXTROSE 5%-WATER - 50 ML IVPB ONE (11:26)
[2019-01-04] MEDS ORDERED: cefTRIAXone SODIUM 1 GM VIAL ONE (11:26)
--- NOTE | 2019-01-04 11:35 | PN ---
Progress Note, Physician History of Present Illness: OOB IN CHAIR LETHARGIC BREATHING NON LABORED ON NASAL CANNULA DENIES COUGH/ DYSPNEA/ CP - Current Medication List Current Medications: Active Medications Acetaminophen (Tylenol Suppository -) 650 mg [place] Q4H PRN PRN Reason: FEVER Albuterol/Ipratropium (Duoneb -) 1 amp NEB Q6H PRN PRN Reason: SHORTNESS OF BREATH Amlodipine Besylate (Norvasc -) 5 mg PO DAILY [facility] Last Admin: 01/03/19 10:16 Dose: 5 mg Apixaban (Eliquis -) 2.5 mg PO BID [facility] Last Admin: 01/03/19 22:32 Dose: 2.5 mg Atenolol (Tenormin -) 25 mg PO DAILY [facility] Last Admin: 01/03/19 10:16 Dose: 25 mg Donepezil HCl (Aricept -) 10 mg PO DAILY [facility] Last Admin: 01/03/19 10:17 Dose: 10 mg Furosemide (Lasix Injection -) 80 mg IVPUSH DAILY [facility] Last Admin: 01/03/19 10:05 Dose: 80 mg Guaifenesin (Robitussin -) 10 ml PO Q4H PRN PRN Reason: COUGH Ceftriaxone Sodium 1 gm/ (Dextrose) 50 mls @ 100 mls/hr IVPB DAILY [facility] Last Admin: 01/03/19 10:05 Dose: 100 mls/hr Levofloxacin (Levaquin 250 Mg Premixed Ivpb -) 250 mg in 50 mls @ 50 mls/hr IVPB Q2D@1000 [facility]; Protocol Iron Sucrose 200 mg/ Sodium (Chloride) 100 mls @ 100 mls/hr IVPB ONCE ONE Stop: 01/04/19 11:59 Insulin Aspart (Novolog Vial Sliding Scale -) 1 vial SQ BIDAC [facility]; Protocol Last Admin: 01/04/19 06:21 Dose: Not Given Lactobacillus Acidophilus (Bacid -) 1 tab PO DAILY [facility] Last Admin: 01/03/19 10:15 Dose: 1 tab Levothyroxine Sodium (Synthroid -) 25 mcg PO DAILY@0700 [facility] Last Admin: 01/04/19 06:21 Dose: 25 mcg Loperamide HCl (Imodium -) 2 mg PO Q8H PRN PRN Reason: DIARRHEA Multivitamins/Minerals/Vitamin C (Tab-A-Vit -) 1 tab PO DAILY [facility] Last Admin: 01/03/19 10:15 Dose: 1 tab Rpbmw-1-Pojk Ethyl Esters (Lovaza -) 2 gm PO BID@1000,1700 [facility] Last Admin: 01/03/19 18:45 Dose: 2 gm Pancrelipase (Creon Dr 36,000 Units Capsule) 1 cap PO TIDCM [facility] Last Admin: 01/03/19 19:30 Dose: 1 cap Pantoprazole Sodium (Protonix Iv) 40 mg IVPUSH DAILY [facility] Last Admin: 01/03/19 10:17 Dose: 40 mg Simethicone (Mylicon -) 80 mg PO Q6H PRN PRN Reason: GAS - Objective Vital Signs: Vital Signs Temperature 97.7 F 01/04/19 06:00 Pulse Rate 67 01/04/19 08:03 Respiratory Rate 17 01/04/19 08:03 Blood Pressure 146/43 L 01/04/19 08:03 O2 Sat by Pulse Oximetry (%) 100 01/04/19 08:00 Constitutional: Yes: No Distress Eyes: Yes: Conjunctiva Clear Cardiovascular: Yes: Regular Rate and Rhythm, S1, S2 Respiratory: Yes: Other (FEW CREPITATIONS, BASES) Gastrointestinal: Yes: Normal Bowel Sounds, Soft. No: Tenderness Labs: CBC, BMP 01/04/19 05:22 01/04/19 05:22 Assessment/Plan CHF ? PNEUMONIA HYPONATREMIA CKD CONTINUE CEFTRIAXONE D/C LEVAQUIN
[2019-01-04] MEDS: MULTIVITAMINS (DAILY MVI) TABLET (FP) PO SCH (11:42)
[2019-01-04] MEDS: FUROSEMIDE 40 MG/4 ML INJECTABLE VIAL IVPUSH SCH (11:43)
[2019-01-04] MEDS: DONEPEZIL HCL 10 MG TABLET (FP) PO SCH (11:43)
[2019-01-04] MEDS: APIXABAN 2.5 MG TABLET PO SCH ×2 (11:43→21:07)
[2019-01-04] MEDS: OMEGA-3 ACID ETHYL ESTERS (FATTY-ACIDS) 1 GM CAPSULE (FP) PO SCH ×2 (11:43→17:04)
[2019-01-04] MEDS: LIPASE/PROTEASE/AMYLASE 36,000 UNIT CAPSULE PO SCH ×3 (11:43→17:05)
[2019-01-04] MEDS: LACTOBACILLUS ACIDOPHILUS 1 TABLET PO SCH (11:43)
[2019-01-04] MEDS: CEFTRIAXONE 1 GM in DEXTROSE 5%-WATER - 50 ML IVPB SCH (11:44)
[2019-01-04] MEDS: amLODIPine BESYLATE 5 MG TABLET (FP) PO SCH (11:44)
[2019-01-04] MEDS: ATENOLOL 25 MG TABLET (FP) PO SCH (11:44)
[2019-01-04] MEDS: PANTOPRAZOLE SODIUM 40 MG VIAL IVPUSH SCH (11:45)
[2019-01-04] MEDS: guaiFENesin 200 MG/10 ML 10 ML UNIT-DOSE CUPS PO PRN (11:46)
--- NOTE | 2019-01-04 11:46 | PN ---
Progress Note (short form) - Note Progress Note: Renal follow up for GABY/Fluid overload Pt seen and examined at the bedside awake and alert no overnight events eating well as per family on NC O2 sitting in a chair Vital Signs Temperature 97.7 F 01/04/19 06:00 Pulse Rate 67 01/04/19 08:03 Respiratory Rate 17 01/04/19 08:03 Blood Pressure 146/43 L 01/04/19 08:03 O2 Sat by Pulse Oximetry (%) 100 01/04/19 08:00 Intake & Output 01/01/19 01/02/19 01/03/19 01/04/19 23:59 23:59 23:59 23:59 Intake Total 50 330 825 240 Output Total 900 1100 650 Balance -850 -770 175 240 Weight 59.421 kg 60.192 kg 58.786 kg NAD on NC O2 neck supple RRR some rales at lung base trace edema in LE CBC, BMP 01/04/19 05:22 01/04/19 05:22 Current Medications Acetaminophen (Tylenol Suppository -) 650 mg [place] Q4H PRN PRN Reason: FEVER Albuterol/Ipratropium (Duoneb -) 1 amp NEB Q6H PRN PRN Reason: SHORTNESS OF BREATH Amlodipine Besylate (Norvasc -) 5 mg PO DAILY [facility] Last Admin: 01/03/19 10:16 Dose: 5 mg Apixaban (Eliquis -) 2.5 mg PO BID [facility] Last Admin: 01/03/19 22:32 Dose: 2.5 mg Atenolol (Tenormin -) 25 mg PO DAILY [facility] Last Admin: 01/03/19 10:16 Dose: 25 mg Donepezil HCl (Aricept -) 10 mg PO DAILY [facility] Last Admin: 01/03/19 10:17 Dose: 10 mg Furosemide (Lasix Injection -) 80 mg IVPUSH DAILY [facility] [place] Last Admin: 01/03/19 10:05 Dose: 80 mg Guaifenesin (Robitussin -) 10 ml PO Q4H PRN PRN Reason: COUGH Ceftriaxone Sodium 1 gm/ (Dextrose) 50 mls @ 100 mls/hr IVPB DAILY [facility] [place] Last Admin: 01/03/19 10:05 Dose: 100 mls/hr Iron Sucrose 200 mg/ Sodium (Chloride) 100 mls @ 100 mls/hr IVPB ONCE ONE Stop: 01/04/19 11:59 Insulin Aspart (Novolog Vial Sliding Scale -) 1 vial SQ BIDAC [facility] [place]; Protocol Last Admin: 01/04/19 06:21 Dose: Not Given Lactobacillus Acidophilus (Bacid -) 1 tab PO DAILY [facility] [place] Last Admin: 01/03/19 10:15 Dose: 1 tab Levothyroxine Sodium (Synthroid -) 25 mcg PO DAILY@0700 [facility] [place] Last Admin: 01/04/19 06:21 Dose: 25 mcg Loperamide HCl (Imodium -) 2 mg PO Q8H PRN PRN Reason: DIARRHEA Multivitamins/Minerals/Vitamin C (Tab-A-Vit -) 1 tab PO DAILY [facility] [place] Last Admin: 01/03/19 10:15 Dose: 1 tab Sjdlx-9-Uiqs Ethyl Esters (Lovaza -) 2 gm PO BID@1000,1700 [facility] [place] Last Admin: 01/03/19 18:45 Dose: 2 gm Pancrelipase (Creon Dr 36,000 Units Capsule) 1 cap PO TIDCM [facility] [place] Last Admin: 01/03/19 19:30 Dose: 1 cap Pantoprazole Sodium (Protonix Iv) 40 mg IVPUSH DAILY [facility] [place] Last Admin: 01/03/19 10:17 Dose: 40 mg Simethicone (Mylicon -) 80 mg PO Q6H PRN PRN Reason: GAS 88 year old woman with hx of CKD stage 4, Afib on Eliquis, Hypertension , hypothyroidism, ischemic colitis who presented with laboratory studies that showed hyponatremia with Na of 117 and Cr of 2.8. #GABY on CKD with volume over load #Hypervolemic Hyponatremia #Acute on chronic anemia #CHF/Fluid overload #Hypertension #Hypothyroidism #Abd pain with hx of ischemic colitis #hypokalemia Renal function essentially stable, BUN is elevated but likely due to continued IV diuretics no overt hyperkalemia or acidosis noted Pt is non-oliguric Clinically improving but some chest congestion remains, would maintain on IV diuretics Urine studies show Na of 18 and indicating preserved tubular function Pulmonary and Cardiology following On Ceftriaxone getting IV iron today Maintain on low salt diet. 1L fluid restriction for hyponatremia supplemental O2 as needed Thank you Refugio Allen DO
--- NOTE | 2019-01-04 12:18 | PN ---
Progress Note (short form) - Note Progress Note: PULMONARY States breathing continues to improve. Saturating well on nasal cannula. Denies cough or wheezing. No fevers or chills. CXR with less congestion. Vital Signs Period Temp Pulse Resp BP Sys/Thompson Pulse Ox Last 24 Hr 97.5 F-98.7 F 67-80 17-20 137-146/40-53 96-100 Intake & Output 01/01/19 01/02/19 01/03/19 01/04/19 23:59 23:59 23:59 23:59 Intake Total 50 330 825 240 Output Total 900 1100 650 Balance -850 -770 175 240 Weight 59.421 kg 60.192 kg 58.786 kg Gen: NAD in chair Heart: RRR Lung: basilar rales Abd: soft, nontender Ext: no edema CBC, BMP 01/04/19 05:22 01/04/19 05:22 Active Medications Acetaminophen (Tylenol Suppository -) 650 mg [place] Q4H PRN PRN Reason: FEVER Albuterol/Ipratropium (Duoneb -) 1 amp NEB Q6H PRN PRN Reason: SHORTNESS OF BREATH Amlodipine Besylate (Norvasc -) 5 mg PO DAILY [facility] Last Admin: 01/04/19 11:44 Dose: 5 mg Apixaban (Eliquis -) 2.5 mg PO BID [facility] Last Admin: 01/04/19 11:43 Dose: 2.5 mg Atenolol (Tenormin -) 25 mg PO DAILY [facility] Last Admin: 01/04/19 11:44 Dose: 25 mg Donepezil HCl (Aricept -) 10 mg PO DAILY [facility] Last Admin: 01/04/19 11:43 Dose: 10 mg Furosemide (Lasix Injection -) 80 mg IVPUSH DAILY [facility] Last Admin: 01/04/19 11:43 Dose: 80 mg Guaifenesin (Robitussin -) 10 ml PO Q4H PRN PRN Reason: COUGH Last Admin: 01/04/19 11:46 Dose: 10 ml Ceftriaxone Sodium 1 gm/ (Dextrose) 50 mls @ 100 mls/hr IVPB DAILY [facility] Last Admin: 01/04/19 11:44 Dose: 100 mls/hr Insulin Aspart (Novolog Vial Sliding Scale -) 1 vial SQ BIDAC [facility]; Protocol Last Admin: 01/04/19 06:21 Dose: Not Given Lactobacillus Acidophilus (Bacid -) 1 tab PO DAILY [facility] Last Admin: 01/04/19 11:43 Dose: 1 tab Levothyroxine Sodium (Synthroid -) 25 mcg PO DAILY@0700 [facility] Last Admin: 01/04/19 06:21 Dose: 25 mcg Loperamide HCl (Imodium -) 2 mg PO Q8H PRN PRN Reason: DIARRHEA Multivitamins/Minerals/Vitamin C (Tab-A-Vit -) 1 tab PO DAILY [facility] Last Admin: 01/04/19 11:42 Dose: 1 tab [id number]-1-[id number] Ethyl Esters (Lovaza -) 2 gm PO BID@1000,1700 [facility] Last Admin: 01/04/19 11:43 Dose: 2 gm Pancrelipase (Creon Dr 36,000 Units Capsule) 1 cap PO TIDCM [facility] Last Admin: 01/04/19 11:43 Dose: Not Given Pantoprazole Sodium (Protonix Iv) 40 mg IVPUSH DAILY [facility] Last Admin: 01/04/19 11:45 Dose: 40 mg Simethicone (Mylicon -) 80 mg PO Q6H PRN PRN Reason: GAS A/P Acute on Chronic Diastolic Heart Failure Volume Overload Acute on Chronic Renal Failure Hyponatremia r/o Pneumonia Paroxysmal Atrial Fibrillation CAD HTN DM Hypercholesterolemia Hypothyroidism Dementia - continue lasix - monitor urine output, creatinine - daily weights - continue antibiotics - O2 to keep SpO2 >90% - inhaled bronchodilators - rate control - continue anticoagulation - PT eval
--- NOTE | 2019-01-04 13:49 | PN ---
Progress Note, Physician History of Present Illness: Dyspnea, LE edema and orthopnea, improving with diuresis. - Current Medication List Current Medications: Active Medications Acetaminophen (Tylenol Suppository -) 650 mg [place] Q4H PRN PRN Reason: FEVER Albuterol/Ipratropium (Duoneb -) 1 amp NEB Q6H PRN PRN Reason: SHORTNESS OF BREATH Amlodipine Besylate (Norvasc -) 5 mg PO DAILY [facility] Last Admin: 01/04/19 11:44 Dose: 5 mg Apixaban (Eliquis -) 2.5 mg PO BID [facility] Last Admin: 01/04/19 11:43 Dose: 2.5 mg Atenolol (Tenormin -) 25 mg PO DAILY [facility] Last Admin: 01/04/19 11:44 Dose: 25 mg Donepezil HCl (Aricept -) 10 mg PO DAILY [facility] Last Admin: 01/04/19 11:43 Dose: 10 mg Furosemide (Lasix Injection -) 80 mg IVPUSH DAILY [facility] Last Admin: 01/04/19 11:43 Dose: 80 mg Guaifenesin (Robitussin -) 10 ml PO Q4H PRN PRN Reason: COUGH Last Admin: 01/04/19 11:46 Dose: 10 ml Ceftriaxone Sodium 1 gm/ (Dextrose) 50 mls @ 100 mls/hr IVPB DAILY [facility] Last Admin: 01/04/19 11:44 Dose: 100 mls/hr Insulin Aspart (Novolog Vial Sliding Scale -) 1 vial SQ BIDAC [facility]; Protocol Last Admin: 01/04/19 06:21 Dose: Not Given Lactobacillus Acidophilus (Bacid -) 1 tab PO DAILY [facility] Last Admin: 01/04/19 11:43 Dose: 1 tab Levothyroxine Sodium (Synthroid -) 25 mcg PO DAILY@0700 [facility] Last Admin: 01/04/19 06:21 Dose: 25 mcg Loperamide HCl (Imodium -) 2 mg PO Q8H PRN PRN Reason: DIARRHEA Multivitamins/Minerals/Vitamin C (Tab-A-Vit -) 1 tab PO DAILY [facility] Last Admin: 01/04/19 11:42 Dose: 1 tab Ougec-3-[id number] Ethyl Esters (Lovaza -) 2 gm PO BID@1000,1700 [facility] Last Admin: 01/04/19 11:43 Dose: 2 gm Pancrelipase (Creon Dr 36,000 Units Capsule) 1 cap PO TIDCM [facility] Last Admin: 01/04/19 11:43 Dose: Not Given Pantoprazole Sodium (Protonix Iv) 40 mg IVPUSH DAILY [facility] Last Admin: 01/04/19 11:45 Dose: 40 mg Simethicone (Mylicon -) 80 mg PO Q6H PRN PRN Reason: GAS - Objective Vital Signs: Vital Signs Temperature 98.1 F 01/04/19 12:00 Pulse Rate 70 01/04/19 12:00 Respiratory Rate 18 01/04/19 12:00 Blood Pressure 149/43 L 01/04/19 12:00 O2 Sat by Pulse Oximetry (%) 100 01/04/19 11:35 Constitutional: Yes: No Distress, Calm Neck: Yes: Supple Cardiovascular: Yes: Regular Rate and Rhythm Respiratory: Yes: Regular, Diminished, On Nasal O2 Gastrointestinal: Yes: Normal Bowel Sounds, Soft Edema: No Labs: CBC, BMP 01/04/19 05:22 01/04/19 05:22 Problem List - Problems (1) Acute on chronic kidney failure Code(s): N17.9 - ACUTE KIDNEY FAILURE, UNSPECIFIED; N18.9 - CHRONIC KIDNEY DISEASE, UNSPECIFIED Qualifiers: Chronic kidney disease stage: stage 4 (severe) (2) CHF (congestive heart failure) Code(s): I50.9 - HEART FAILURE, UNSPECIFIED Qualifiers: Heart failure type: diastolic Heart failure chronicity: acute on chronic Qualified Code(s): I50.33 - Acute on chronic diastolic (congestive) heart failure (3) Dementia Code(s): F03.90 - UNSPECIFIED DEMENTIA WITHOUT BEHAVIORAL DISTURBANCE Qualifiers: Dementia type: unspecified type (4) Hyperlipidemia Code(s): E78.5 - HYPERLIPIDEMIA, UNSPECIFIED (5) Hyponatremia Code(s): E87.1 - HYPO-OSMOLALITY AND HYPONATREMIA (6) Hypothyroidism Code(s): E03.9 - HYPOTHYROIDISM, UNSPECIFIED Qualifiers: Hypothyroidism type: unspecified Qualified Code(s): E03.9 - Hypothyroidism , unspecified (7) Paroxysmal atrial fibrillation Code(s): I48.0 - PAROXYSMAL ATRIAL FIBRILLATION Assessment/Plan 05/10/2017 Echo: Normal LV size and fxn, mild LAE, mod MR, TR RVSP 30-40 mm Hg, mild AR 1. Acute on chronic diastolic LV failure 2. GABY on CKD with volume overload due to renal hypoprofusion in setting of HFpEF 3. Hypervolemic Hyponatremia improving 4. Abd pain with h/o ischemic colitis, mesenteric ischemia with intestinal angina post conservative medical management 5. Paroxysmal atrial fibrillation on A/C with NOAC/Eliquis [id number] score of 5, rate controlled 6. 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 HTN/HCVD 8. DM 9. Hypercholesterolemia 10. 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 Anemia 13. hx of ischemic colitis PLAN: 1. IV diuresis with monitor diuretic response, renal fxn and electrolytes, check TSH, lactate levels 2. Continue Atenolol 25 qd, Norvasc 5 qd, Eliquis 2.5 bid (age > 80 and Creatinine > 1.5) 3. Resume lisinopril 20 qd when renal function improves to baseline 4. Free water restriction, bipap, BD and FIO2 to maintain saO2>90% 5. Transfusion to maintain hemoglobin equal or greater than 8.0 6. Empiric abx course for ? PNA
[2019-01-05 04:11] LABS: SERUM IRON SATURATION 18 % (15-55); TOTAL IRON BINDING CAPACITY 136 ug/dL (250-450)
[2019-01-05] MEDS: INSULIN SLIDING SCALE (NOVOLOG) 1 VIAL SQ SCH ×2 (06:12→16:40)
[2019-01-05] MEDS: LEVOTHYROXINE NA 25 MCG TABLET (FP) PO SCH (06:12)
[2019-01-05 06:23] LABS: CALCIUM 8.5 mg/dL (8.5-10.1); CREATININE 2.9 mg/dL (0.55-1.3); MAGNESIUM 2.4 mg/dL (1.8-2.4); PHOSPHOROUS 3.4 mg/dL (2.5-4.9); POTASSIUM 3.7 mmol/L (3.5-5.1)
[2019-01-05 06:25] LABS: BASO % 0.5 % (0-2.0); EOS % 4.2 % (0-4.5); HEMATOCRIT 25.2 % (32.4-45.2); HEMOGLOBIN 8.7 GM/dL (10.7-15.3); LYMPH % 10.5 % (8-40); MCH 30.2 pg (25.7-33.7); MCHC 34.6 g/dl (32.0-36.0); MEAN CELL VOLUME 87.3 fl (80-96); MEAN PLT VOLUME 7.6 fl (7.5-11.1); MONO % 5.1 % (3.8-10.2); NEUT % 79.7 % (42.8-82.8); PLATELET COUNT 336 K/MM3 (134-434); RBC 2.89 M/mm3 (3.60-5.2); RDW 15.7 % (11.6-15.6)
[2019-01-05 06:35] LABS: BLOOD UREA NITROGEN 108.1 mg/dL (7-18)
[2019-01-05] MEDS: LIPASE/PROTEASE/AMYLASE 36,000 UNIT CAPSULE PO SCH ×3 (08:30→17:45)
[2019-01-05] MEDS ORDERED: DEXTROSE 5%-WATER - 50 ML IVPB ONE (10:11)
[2019-01-05] MEDS ORDERED: cefTRIAXone SODIUM 1 GM VIAL ONE (10:11)
[2019-01-05] MEDS: APIXABAN 2.5 MG TABLET PO SCH ×2 (10:15→21:09)
[2019-01-05] MEDS: MULTIVITAMINS (DAILY MVI) TABLET (FP) PO SCH (10:15)
[2019-01-05] MEDS: LACTOBACILLUS ACIDOPHILUS 1 TABLET PO SCH (10:15)
[2019-01-05] MEDS: DONEPEZIL HCL 10 MG TABLET (FP) PO SCH (10:16)
[2019-01-05] MEDS: amLODIPine BESYLATE 5 MG TABLET (FP) PO SCH (10:16)
[2019-01-05] MEDS: ATENOLOL 25 MG TABLET (FP) PO SCH (10:16)
[2019-01-05] MEDS: OMEGA-3 ACID ETHYL ESTERS (FATTY-ACIDS) 1 GM CAPSULE (FP) PO SCH ×2 (10:16→16:36)
[2019-01-05] MEDS: CEFTRIAXONE 1 GM in DEXTROSE 5%-WATER - 50 ML IVPB SCH (10:17)
[2019-01-05] MEDS: PANTOPRAZOLE SODIUM 40 MG VIAL IVPUSH SCH (10:19)
--- NOTE | 2019-01-05 10:52 | PN ---
Progress Note (short form) - Note Progress Note: family at bedside not in distress off NC 2 Vital Signs - 24 hr 01/04/19 01/04/19 01/04/19 11:35 12:00 14:13 Temperature 98.1 F Pulse Rate 70 Respiratory 18 Rate Blood Pressure 149/43 L O2 Sat by Pulse 100 100 Oximetry (%) 01/04/19 01/04/19 01/04/19 15:33 17:12 20:02 Temperature 98.1 F Pulse Rate 70 Respiratory 22 H Rate Blood Pressure 133/51 L O2 Sat by Pulse 97 97 Oximetry (%) 01/04/19 01/05/19 01/05/19 22:00 02:00 04:00 Temperature 97.6 F 98.3 F Pulse Rate 73 70 68 Respiratory 17 17 16 Rate Blood Pressure 145/48 L 157/49 L 145/51 L O2 Sat by Pulse Oximetry (%) 01/05/19 08:04 Temperature Pulse Rate Respiratory Rate Blood Pressure O2 Sat by Pulse 99 Oximetry (%) Current Medications Generic Name Dose Route Start Last Admin Trade Name Freq PRN Reason Stop Dose Admin Acetaminophen 650 mg 01/01/19 03:13 Tylenol Suppository - [place] Q4H PRN FEVER Albuterol/Ipratropium 1 amp 01/04/19 10:24 Duoneb - NEB Q6H PRN SHORTNESS OF BREATH Amlodipine Besylate 5 mg 01/01/19 10:00 01/05/19 10:16 Norvasc - PO 5 mg DAILY YANN Administration Apixaban 2.5 mg 01/01/19 10:00 01/05/19 10:15 Eliquis - PO 2.5 mg BID YANN Administration Atenolol 25 mg 01/01/19 10:00 01/05/19 10:16 Tenormin - PO 25 mg DAILY YANN Administration Donepezil HCl 10 mg 01/01/19 10:00 01/05/19 10:16 Aricept - PO 10 mg DAILY YANN Administration Furosemide 80 mg 01/01/19 10:00 01/04/19 11:43 Lasix Injection - IVPUSH 80 mg DAILY YANN Administration Guaifenesin 10 ml 01/04/19 10:24 01/04/19 11:46 Robitussin - PO 10 ml Q4H PRN Administration COUGH Ceftriaxone Sodium 1 gm/ 50 mls @ 100 mls/hr 01/01/19 11:00 01/05/19 10:17 Dextrose IVPB 100 mls/hr DAILY YANN Administration Insulin Aspart 1 vial 01/01/19 07:00 01/05/19 06:12 Novolog Vial Sliding Scale - SQ 3 units BIDAC YANN Administration Protocol Lactobacillus Acidophilus 1 tab 01/01/19 10:00 01/05/19 10:15 Bacid - PO 1 tab DAILY YANN Administration Levothyroxine Sodium 25 mcg 01/01/19 07:00 01/05/19 06:12 Synthroid - PO 25 mcg DAILY@0700 YANN Administration Loperamide HCl 2 mg 01/01/19 03:13 Imodium - PO Q8H PRN DIARRHEA Multivitamins/Minerals/Vitamin C 1 tab 01/01/19 10:00 01/05/19 10:15 Tab-A-Vit - PO 1 tab DAILY YANN Administration Gdpff-7-Itef Ethyl Esters 2 gm 01/01/19 10:00 01/05/19 10:16 Lovaza - PO 2 gm BID@1000,1700 YANN Administration Pancrelipase 1 cap 01/01/19 08:00 01/05/19 08:[address] 36,000 Units Capsule PO 1 cap TIDCM YANN Administration Pantoprazole Sodium 40 mg 01/01/19 10:00 01/05/19 10:19 Protonix Iv IVPUSH 40 mg DAILY YANN Administration Simethicone 80 mg 01/01/19 03:13 Mylicon - PO Q6H PRN GAS Laboratory Results - last 24 hr 01/04/19 01/04/19 01/04/19 05:22 14:35 17:37 WBC RBC Hgb Hct MCV MCH MCHC RDW Plt Count MPV Absolute Neuts (auto) Neutrophils % Lymphocytes % Monocytes % Eosinophils % Basophils % Nucleated RBC % Sodium 128 L Potassium 3.6 Chloride 94 L Carbon Dioxide 23 Anion Gap 12 BUN 103.8 H Creatinine 2.6 H Est GFR (CKD-EPI)AfAm 18.61 Est GFR (CKD-EPI)NonAf 16.06 POC Glucometer 288 Random Glucose 144 H Calcium 8.1 L Phosphorus 3.6 Magnesium 2.5 H Iron 24 L TIBC 136 L Iron Saturation 18 Unsaturated IBC 112 L Ferritin 1275.4 H 01/05/19 01/05/19 01/05/19 05:20 05:20 05:29 WBC 9.0 RBC 2.89 L Hgb 8.7 L Hct 25.2 L D MCV 87.3 MCH 30.2 MCHC 34.6 RDW 15.7 H Plt Count 336 D MPV 7.6 Absolute Neuts (auto) 7.2 Neutrophils % 79.7 Lymphocytes % 10.5 Monocytes % 5.1 Eosinophils % 4.2 Basophils % 0.5 Nucleated RBC % 0 Sodium 127 L Potassium 3.7 Chloride 91 L Carbon Dioxide 24 Anion Gap 11 BUN 108.1 H* Creatinine 2.9 H Est GFR (CKD-EPI)AfAm 16.31 Est GFR (CKD-EPI)NonAf 14.07 POC Glucometer 170 Random Glucose 164 H Calcium 8.5 Phosphorus 3.4 Magnesium 2.4 Iron TIBC Iron Saturation Unsaturated IBC Ferritin S1 S2 RRR Lungs crackles+B/L-- decreased Abd- soft,not tender no edema PLAN IV lasix-- not given yet as her creatinine is elevated received venofer yesterday continue with meds CXR--noted sono abdomen -- normal nebs as needed Problem List - Problems (1) Abdominal pain Code(s): R10.9 - UNSPECIFIED ABDOMINAL PAIN Qualifiers: Abdominal location: generalized Qualified Code(s): R10.84 - Generalized abdominal pain (2) CHF (congestive heart failure) Code(s): I50.9 - HEART FAILURE, UNSPECIFIED Qualifiers: Heart failure type: diastolic Heart failure chronicity: acute on chronic Qualified Code(s): I50.33 - Acute on chronic diastolic (congestive) heart failure (3) GABY (acute kidney injury) Code(s): N17.9 - ACUTE KIDNEY FAILURE, UNSPECIFIED (4) Acute on chronic kidney failure Code(s): N17.9 - ACUTE KIDNEY FAILURE, UNSPECIFIED; N18.9 - CHRONIC KIDNEY DISEASE, UNSPECIFIED Qualifiers: Chronic kidney disease stage: stage 4 (severe) (5) Anemia Code(s): D64.9 - ANEMIA, UNSPECIFIED Qualifiers: (6) CKD (chronic kidney disease) stage 4, GFR 15-29 ml/min Code(s): N18.4 - CHRONIC KIDNEY DISEASE, STAGE 4 (SEVERE)
--- NOTE | 2019-01-05 10:59 | PN ---
Progress Note, Physician History of Present Illness: SUPINE IN BED LETHARGIC BREATHING NON LABORED ON RA DENIES COUGH/ DYSPNEA/ CP - Current Medication List Current Medications: Active Medications Acetaminophen (Tylenol Suppository -) 650 mg [place] Q4H PRN PRN Reason: FEVER Albuterol/Ipratropium (Duoneb -) 1 amp NEB Q6H PRN PRN Reason: SHORTNESS OF BREATH Amlodipine Besylate (Norvasc -) 5 mg PO DAILY [facility] Last Admin: 01/05/19 10:16 Dose: 5 mg Apixaban (Eliquis -) 2.5 mg PO BID [facility] Last Admin: 01/05/19 10:15 Dose: 2.5 mg Atenolol (Tenormin -) 25 mg PO DAILY [facility] Last Admin: 01/05/19 10:16 Dose: 25 mg Donepezil HCl (Aricept -) 10 mg PO DAILY [facility] Last Admin: 01/05/19 10:16 Dose: 10 mg Furosemide (Lasix Injection -) 80 mg IVPUSH DAILY [facility] Last Admin: 01/04/19 11:43 Dose: 80 mg Guaifenesin (Robitussin -) 10 ml PO Q4H PRN PRN Reason: COUGH Last Admin: 01/04/19 11:46 Dose: 10 ml Ceftriaxone Sodium 1 gm/ (Dextrose) 50 mls @ 100 mls/hr IVPB DAILY [facility] Last Admin: 01/05/19 10:17 Dose: 100 mls/hr Insulin Aspart (Novolog Vial Sliding Scale -) 1 vial SQ BIDAC [facility]; Protocol Last Admin: 01/05/19 06:12 Dose: 3 units Lactobacillus Acidophilus (Bacid -) 1 tab PO DAILY [facility] Last Admin: 01/05/19 10:15 Dose: 1 tab Levothyroxine Sodium (Synthroid -) 25 mcg PO DAILY@0700 [facility] Last Admin: 01/05/19 06:12 Dose: 25 mcg Loperamide HCl (Imodium -) 2 mg PO Q8H PRN PRN Reason: DIARRHEA Multivitamins/Minerals/Vitamin C (Tab-A-Vit -) 1 tab PO DAILY [facility] Last Admin: 01/05/19 10:15 Dose: 1 tab Zkyfv-6-Inse Ethyl Esters (Lovaza -) 2 gm PO BID@1000,1700 [facility] Last Admin: 06/27/19 10:16 Dose: 2 gm Pancrelipase (Creon Dr 36,000 Units Capsule) 1 cap PO TIDCM [facility] Last Admin: 01/05/19 08:30 Dose: 1 cap Pantoprazole Sodium (Protonix Iv) 40 mg IVPUSH DAILY [facility] Last Admin: 01/05/19 10:19 Dose: 40 mg Simethicone (Mylicon -) 80 mg PO Q6H PRN PRN Reason: GAS - Objective Vital Signs: Vital Signs Temperature 98.3 F 01/05/19 02:00 Pulse Rate 68 01/05/19 04:00 Respiratory Rate 16 01/05/19 04:00 Blood Pressure 145/51 L 01/05/19 04:00 O2 Sat by Pulse Oximetry (%) 99 01/05/19 08:04 Constitutional: Yes: No Distress Cardiovascular: Yes: Regular Rate and Rhythm, S1, S2 Respiratory: Yes: Diminished Gastrointestinal: Yes: Normal Bowel Sounds, Soft Edema: No Labs: CBC, BMP 01/05/19 05:20 01/05/19 05:20 Assessment/Plan CHF ? PNEUMONIA HYPONATREMIA CKD CONTINUE CEFTRIAXONE
--- NOTE | 2019-01-05 12:08 | PN ---
Progress Note, Physician History of Present Illness: Dyspnea, LE edema and orthopnea, improving with diuresis, but azotemia increasing. - Current Medication List Current Medications: Active Medications Acetaminophen (Tylenol Suppository -) 650 mg [place] Q4H PRN PRN Reason: FEVER Albuterol/Ipratropium (Duoneb -) 1 amp NEB Q6H PRN PRN Reason: SHORTNESS OF BREATH Amlodipine Besylate (Norvasc -) 5 mg PO DAILY [facility] Last Admin: 01/05/19 10:16 Dose: 5 mg Apixaban (Eliquis -) 2.5 mg PO BID [facility] Last Admin: 01/05/19 10:15 Dose: 2.5 mg Atenolol (Tenormin -) 25 mg PO DAILY [facility] Last Admin: 01/05/19 10:16 Dose: 25 mg Donepezil HCl (Aricept -) 10 mg PO DAILY [facility] Last Admin: 01/05/19 10:16 Dose: 10 mg Furosemide (Lasix Injection -) 80 mg IVPUSH DAILY [facility] Last Admin: 01/04/19 11:43 Dose: 80 mg Guaifenesin (Robitussin -) 10 ml PO Q4H PRN PRN Reason: COUGH Last Admin: 01/04/19 11:46 Dose: 10 ml Ceftriaxone Sodium 1 gm/ (Dextrose) 50 mls @ 100 mls/hr IVPB DAILY [facility] Last Admin: 01/05/19 10:17 Dose: 100 mls/hr Insulin Aspart (Novolog Vial Sliding Scale -) 1 vial SQ BIDAC [facility]; Protocol Last Admin: 01/05/19 06:12 Dose: 3 units Lactobacillus Acidophilus (Bacid -) 1 tab PO DAILY [facility] Last Admin: 01/05/19 10:15 Dose: 1 tab Levothyroxine Sodium (Synthroid -) 25 mcg PO DAILY@0700 [facility] Last Admin: 01/05/19 06:12 Dose: 25 mcg Loperamide HCl (Imodium -) 2 mg PO Q8H PRN PRN Reason: DIARRHEA Multivitamins/Minerals/Vitamin C (Tab-A-Vit -) 1 tab PO DAILY [facility] Last Admin: 01/05/19 10:15 Dose: 1 tab Fskhx-7-Cjas Ethyl Esters (Lovaza -) 2 gm PO BID@1000,1700 [facility] Last Admin: 06/27/19 10:16 Dose: 2 gm Pancrelipase (Creon Dr 36,000 Units Capsule) 1 cap PO TIDCM YANN Last Admin: 01/05/19 08:30 Dose: 1 cap Pantoprazole Sodium (Protonix Iv) 40 mg IVPUSH DAILY [facility] Last Admin: 01/05/19 10:19 Dose: 40 mg Simethicone (Mylicon -) 80 mg PO Q6H PRN PRN Reason: GAS - Objective Vital Signs: Vital Signs Temperature 97.2 F L 01/05/19 08:00 Pulse Rate 58 L 01/05/19 08:00 Respiratory Rate 18 01/05/19 08:00 Blood Pressure 124/63 01/05/19 08:00 O2 Sat by Pulse Oximetry (%) 95 01/05/19 09:00 Constitutional: Yes: No Distress, Calm, Thin Neck: Yes: Supple Cardiovascular: Yes: Regular Rate and Rhythm Respiratory: Yes: Regular, Diminished, On Nasal O2 Gastrointestinal: Yes: Soft, Hypoactive Bowel Sounds Edema: No Labs: CBC, BMP 01/05/19 05:20 01/05/19 05:20 - ....Imaging Chest X-ray: Report Reviewed (Decreased congestion) Problem List - Problems (1) Acute on chronic kidney failure Code(s): N17.9 - ACUTE KIDNEY FAILURE, UNSPECIFIED; N18.9 - CHRONIC KIDNEY DISEASE, UNSPECIFIED Qualifiers: Chronic kidney disease stage: stage 4 (severe) (2) CHF (congestive heart failure) Code(s): I50.9 - HEART FAILURE, UNSPECIFIED Qualifiers: Heart failure type: diastolic Heart failure chronicity: acute on chronic Qualified Code(s): I50.33 - Acute on chronic diastolic (congestive) heart failure (3) Dementia Code(s): F03.90 - UNSPECIFIED DEMENTIA WITHOUT BEHAVIORAL DISTURBANCE Qualifiers: Dementia type: unspecified type (4) Hyperlipidemia Code(s): E78.5 - HYPERLIPIDEMIA, UNSPECIFIED (5) Hyponatremia Code(s): E87.1 - HYPO-OSMOLALITY AND HYPONATREMIA (6) Hypothyroidism Code(s): E03.9 - HYPOTHYROIDISM, UNSPECIFIED Qualifiers: Hypothyroidism type: unspecified Qualified Code(s): E03.9 - Hypothyroidism , unspecified (7) Paroxysmal atrial fibrillation Code(s): I48.0 - PAROXYSMAL ATRIAL FIBRILLATION Assessment/Plan 05/10/2017 Echo: Normal LV size and fxn, mild LAE, mod MR, TR RVSP 30-40 mm Hg, mild AR 1. Acute on chronic diastolic LV failure improving 2. GABY on CKD with volume overload due to renal hypoprofusion in setting of HFpEF 3. Hypervolemic Hyponatremia improving 4. Abd pain with h/o ischemic colitis, mesenteric ischemia with intestinal angina post conservative medical management 5. Paroxysmal atrial fibrillation on A/C with NOAC/Eliquis [id number] score of 5, rate controlled 6. 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 HTN/HCVD 8. DM 9. Hypercholesterolemia 10. 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 Anemia 13. hx of ischemic colitis PLAN: 1. Hold diuresis with monitor renal recovery and electrolytes, check TSH, lactate levels 2. Continue Atenolol 25 qd, Norvasc 5 qd, Eliquis 2.5 bid (age > 80 and Creatinine > 1.5), Lovaza 2 bid 3. Resume lisinopril 20 qd when renal function improves to baseline 4. Free water restriction, bipap, BD and FIO2 to maintain saO2>90% 5. Transfusion to maintain hemoglobin equal or greater than 8.0 6. Empiric abx course for ? PNA
--- NOTE | 2019-01-05 12:26 | PN ---
Progress Note (short form) - Note Progress Note: PULMONARY States breathing continues to improve. Saturating well on room air. Denies cough or wheezing. No fevers or chills. Vital Signs Period Temp Pulse Resp BP Sys/Thompson Pulse Ox Last 24 Hr 97.2 F-98.3 F 58-73 16-22 124-157/43-63 95-100 Gen: NAD at rest Heart: RRR Lung: basilar rales Abd: soft, nontender Ext: no edema CBC, BMP 01/05/19 05:20 01/05/19 05:20 Active Medications Acetaminophen (Tylenol Suppository -) 650 mg MD Q4H PRN PRN Reason: FEVER Albuterol/Ipratropium (Duoneb -) 1 amp NEB Q6H PRN PRN Reason: SHORTNESS OF BREATH Amlodipine Besylate (Norvasc -) 5 mg PO DAILY [facility] Last Admin: 01/05/19 10:16 Dose: 5 mg Apixaban (Eliquis -) 2.5 mg PO BID [facility] Last Admin: 01/05/19 10:15 Dose: 2.5 mg Atenolol (Tenormin -) 25 mg PO DAILY [facility] Last Admin: 01/05/19 10:16 Dose: 25 mg Donepezil HCl (Aricept -) 10 mg PO DAILY [facility] Last Admin: 01/05/19 10:16 Dose: 10 mg Furosemide (Lasix Injection -) 80 mg IVPUSH DAILY [facility] Last Admin: 01/04/19 11:43 Dose: 80 mg Guaifenesin (Robitussin -) 10 ml PO Q4H PRN PRN Reason: COUGH Last Admin: 01/04/19 11:46 Dose: 10 ml Ceftriaxone Sodium 1 gm/ (Dextrose) 50 mls @ 100 mls/hr IVPB DAILY [facility] Last Admin: 01/05/19 10:17 Dose: 100 mls/hr Insulin Aspart (Novolog Vial Sliding Scale -) 1 vial SQ BIDAC [facility]; Protocol Last Admin: 01/05/19 06:12 Dose: 3 units Lactobacillus Acidophilus (Bacid -) 1 tab PO DAILY [facility] Last Admin: 01/05/19 10:15 Dose: 1 tab Levothyroxine Sodium (Synthroid -) 25 mcg PO DAILY@0700 [facility] Last Admin: 01/05/19 06:12 Dose: 25 mcg Loperamide HCl (Imodium -) 2 mg PO Q8H PRN PRN Reason: DIARRHEA Multivitamins/Minerals/Vitamin C (Tab-A-Vit -) 1 tab PO DAILY [facility] Last Admin: 01/05/19 10:15 Dose: 1 tab Bdcjm-3-[id number] Ethyl Esters (Lovaza -) 2 gm PO BID@1000,1700 [facility] Last Admin: 01/05/19 10:16 Dose: 2 gm Pancrelipase (Creon Dr 36,000 Units Capsule) 1 cap PO TIDCM [facility] Last Admin: 01/05/19 08:30 Dose: 1 cap Pantoprazole Sodium (Protonix Iv) 40 mg IVPUSH DAILY [facility] Last Admin: 01/05/19 10:19 Dose: 40 mg Simethicone (Mylicon -) 80 mg PO Q6H PRN PRN Reason: GAS A/P Acute on Chronic Diastolic Heart Failure Volume Overload Acute on Chronic Renal Failure Hyponatremia r/o Pneumonia Paroxysmal Atrial Fibrillation CAD HTN DM Hypercholesterolemia Hypothyroidism Dementia - continue lasix - monitor urine output, creatinine - daily weights - continue antibiotics - O2 to keep SpO2 >90% - inhaled bronchodilators - rate control - continue anticoagulation - PT eval
--- NOTE | 2019-01-05 12:37 | PN ---
Progress Note (short form) - Note Progress Note: Renal follow up for GABY/Fluid overload Pt seen and examined at the bedside awake and alert sob is much improved on chest pain, abd pain, fever or chills family reports decreased urine output Vital Signs Temperature 97.2 F L 01/05/19 08:00 Pulse Rate 60 01/05/19 12:11 Respiratory Rate 18 01/05/19 12:11 Blood Pressure 135/43 L 01/05/19 12:11 O2 Sat by Pulse Oximetry (%) 95 01/05/19 09:00 Intake & Output 01/02/19 01/03/19 01/04/19 01/05/19 23:59 23:59 23:59 23:59 Intake Total 330 825 700 200 Output Total 1100 650 200 150 Balance -770 175 500 50 Weight 60.192 kg 58.786 kg 58.786 kg NAD on NC O2 neck supple RRR CTA no edema in legs CBC, BMP 01/05/19 05:20 01/05/19 05:20 Current Medications Acetaminophen (Tylenol Suppository -) 650 mg [place] Q4H PRN PRN Reason: FEVER Albuterol/Ipratropium (Duoneb -) 1 amp NEB Q6H PRN PRN Reason: SHORTNESS OF BREATH Amlodipine Besylate (Norvasc -) 5 mg PO DAILY [facility] Last Admin: 01/05/19 10:16 Dose: 5 mg Apixaban (Eliquis -) 2.5 mg PO BID [facility] Last Admin: 01/05/19 10:15 Dose: 2.5 mg Atenolol (Tenormin -) 25 mg PO DAILY [facility] Last Admin: 01/05/19 10:16 Dose: 25 mg Donepezil HCl (Aricept -) 10 mg PO DAILY [facility] Last Admin: 01/05/19 10:16 Dose: 10 mg Furosemide (Lasix Injection -) 80 mg IVPUSH DAILY [facility] Last Admin: 01/04/19 11:43 Dose: 80 mg Guaifenesin (Robitussin -) 10 ml PO Q4H PRN PRN Reason: COUGH Last Admin: 01/04/19 11:46 Dose: 10 ml Ceftriaxone Sodium 1 gm/ (Dextrose) 50 mls @ 100 mls/hr IVPB DAILY [facility] Last Admin: 01/05/19 10:17 Dose: 100 mls/hr Insulin Aspart (Novolog Vial Sliding Scale -) 1 vial SQ BIDAC [facility]; Protocol Last Admin: 01/05/19 06:12 Dose: 3 units Lactobacillus Acidophilus (Bacid -) 1 tab PO DAILY [facility] Last Admin: 01/05/19 10:15 Dose: 1 tab Levothyroxine Sodium (Synthroid -) 25 mcg PO DAILY@0700 [facility] Last Admin: 01/05/19 06:12 Dose: 25 mcg Loperamide HCl (Imodium -) 2 mg PO Q8H PRN PRN Reason: DIARRHEA Multivitamins/Minerals/Vitamin C (Tab-A-Vit -) 1 tab PO DAILY [facility] Last Admin: 01/05/19 10:15 Dose: 1 tab Aniyr-9-Pegd Ethyl Esters (Lovaza -) 2 gm PO BID@1000,1700 [facility] Last Admin: 01/05/19 10:16 Dose: 2 gm Pancrelipase (Creon Dr 36,000 Units Capsule) 1 cap PO TIDCM [facility] Last Admin: 01/05/19 08:30 Dose: 1 cap Pantoprazole Sodium (Protonix Iv) 40 mg IVPUSH DAILY [facility] Last Admin: 01/05/19 10:19 Dose: 40 mg Simethicone (Mylicon -) 80 mg PO Q6H PRN PRN Reason: GAS 88 year old woman with hx of CKD stage 4, Afib on Eliquis, Hypertension , hypothyroidism, ischemic colitis who presented with laboratory studies that showed hyponatremia with Na of 117 and Cr of 2.8. #GABY on CKD with volume over load #Hypervolemic Hyponatremia #Acute on chronic anemia #CHF/Fluid overload #Hypertension #Hypothyroidism #Abd pain with hx of ischemic colitis #hypokalemia BUN/Cr now rising likely due to intravascular volume depletion will hold off further diuretics for the time being trend renal function and electrolytes can give Epogen 12874 units once weekly for anemia no overt hyperkalemia or acidosis noted Urine studies show Na of 18 and indicating preserved tubular function Pulmonary and Cardiology following On Ceftriaxone s/p IV iron, additional iron as per Heme Maintain on low salt diet. 1L fluid restriction for hyponatremia, solute intake as tolerated supplemental O2 as needed Thank you Refugio Allen DO
[2019-01-05 14:58] VITALS: BMI 23.6
--- NOTE | 2019-01-05 22:34 | PN ---
Progress Note (short form) - Note Progress Note: Patient seen and examined Feels OK AFVSS Cor: RSR, No murmurs, No gallops Lungs: Clear to P&A anteriorly Abd: Soft, Normal bowel sounds, No organomegaly Ext:No significant edema LAbs/Meds reviewed A/P 88 year-old female with h/o T2DM for 30 years, Hyperlipidemia, HTN, hypothyroidism, PUD, CKD,CAD, Afib on eliquis, anemia , cholecystectomy and dementia with short term memory loss who presents for elective iron infusion. Per family patients had viral gastroenteritis and she herself vomited yeterday and has had poor pO intake admitted with severe hyponatremia of 117 anemia--ckd + iron deficiency s/p venofer will transfuse for hgb < 8 /symptoms willl transfuse as needed prior to discharge discussed with daughter
[2019-01-06] MEDS: guaiFENesin 200 MG/10 ML 10 ML UNIT-DOSE CUPS PO PRN ×2 (01:07→16:45)
[2019-01-06] MEDS: FUROSEMIDE 40 MG/4 ML INJECTABLE VIAL IVPUSH SCH (04:49)
[2019-01-06 05:54] LABS: HEMOGLOBIN 8.1 GM/dL (10.7-15.3); MCH 30.3 pg (25.7-33.7); MCHC 35.3 g/dl (32.0-36.0); MEAN CELL VOLUME 85.8 fl (80-96); MEAN PLT VOLUME 7.5 fl (7.5-11.1); PLATELET COUNT 298 K/MM3 (134-434); RBC 2.68 M/mm3 (3.60-5.2); RDW 15.9 % (11.6-15.6); WHITE BLOOD COUNT 6.6 K/mm3 (4.0-10.0)
[2019-01-06] MEDS: INSULIN SLIDING SCALE (NOVOLOG) 1 VIAL SQ SCH ×2 (06:07→18:08)
[2019-01-06] MEDS: LEVOTHYROXINE NA 25 MCG TABLET (FP) PO SCH (06:07)
[2019-01-06 06:42] LABS: CALCIUM 8.3 mg/dL (8.5-10.1); CREATININE 3.3 mg/dL (0.55-1.3); MAGNESIUM 2.4 mg/dL (1.8-2.4); PHOSPHOROUS 3.6 mg/dL (2.5-4.9); POTASSIUM 3.6 mmol/L (3.5-5.1)
[2019-01-06 06:43] LABS: BLOOD UREA NITROGEN 116.3 mg/dL (7-18)
[2019-01-06] MEDS ORDERED: PT OWN MED DRAWER 7, Y5N ONE ×2 (08:21→22:20)
[2019-01-06] MEDS: LIPASE/PROTEASE/AMYLASE 36,000 UNIT CAPSULE PO SCH ×3 (08:24→16:46)
--- NOTE | 2019-01-06 09:15 | PN ---
Progress Note, Physician History of Present Illness: Dyspnea, LE edema and orthopnea, improving with diuresis, but azotemia increasing. - Current Medication List Current Medications: Active Medications Acetaminophen (Tylenol Suppository -) 650 mg OR Q4H PRN PRN Reason: FEVER Albuterol/Ipratropium (Duoneb -) 1 amp NEB Q6H PRN PRN Reason: SHORTNESS OF BREATH Amlodipine Besylate (Norvasc -) 5 mg PO DAILY [facility] Last Admin: 01/05/19 10:16 Dose: 5 mg Apixaban (Eliquis -) 2.5 mg PO BID [facility] Last Admin: 01/05/19 21:09 Dose: 2.5 mg Atenolol (Tenormin -) 25 mg PO DAILY [facility] Last Admin: 01/05/19 10:16 Dose: 25 mg Donepezil HCl (Aricept -) 10 mg PO DAILY [facility] Last Admin: 01/05/19 10:16 Dose: 10 mg Epoetin Gt (Procrit -) 20,000 unit SQ ONCE ONE Stop: 01/06/19 10:01 Guaifenesin (Robitussin -) 10 ml PO Q4H PRN PRN Reason: COUGH Last Admin: 01/06/19 01:07 Dose: 10 ml Ceftriaxone Sodium 1 gm/ (Dextrose) 50 mls @ 100 mls/hr IVPB DAILY [facility] Last Admin: 01/05/19 10:17 Dose: 100 mls/hr Insulin Aspart (Novolog Vial Sliding Scale -) 1 vial SQ BIDAC [facility]; Protocol Last Admin: 01/06/19 06:07 Dose: 3 units Lactobacillus Acidophilus (Bacid -) 1 tab PO DAILY [facility] Last Admin: 01/05/19 10:15 Dose: 1 tab Levothyroxine Sodium (Synthroid -) 25 mcg PO DAILY@0700 [facility] Last Admin: 01/06/19 06:07 Dose: 25 mcg Loperamide HCl (Imodium -) 2 mg PO Q8H PRN PRN Reason: DIARRHEA Multivitamins/Minerals/Vitamin C (Tab-A-Vit -) 1 tab PO DAILY [facility] Last Admin: 01/05/19 10:15 Dose: 1 tab [id number]-[id number] Ethyl Esters (Lovaza -) 2 gm PO BID@1000,1700 [facility] Last Admin: 01/05/19 16:36 Dose: 2 gm Pancrelipase (Creon Dr 36,000 Units Capsule) 1 cap PO TIDCM [facility] Last Admin: 01/06/19 08:24 Dose: 1 cap Pantoprazole Sodium (Protonix Iv) 40 mg IVPUSH DAILY [facility] Last Admin: 01/05/19 10:19 Dose: 40 mg Simethicone (Mylicon -) 80 mg PO Q6H PRN PRN Reason: GAS - Objective Vital Signs: Vital Signs Temperature 98.1 F 01/06/19 06:15 Pulse Rate 70 01/06/19 06:15 Respiratory Rate 23 H 01/06/19 06:15 Blood Pressure 148/52 L 01/06/19 06:15 O2 Sat by Pulse Oximetry (%) 94 L 01/05/19 19:42 Constitutional: Yes: No Distress, Calm, Thin Neck: Yes: Supple Cardiovascular: Yes: Regular Rate and Rhythm Respiratory: Yes: Regular, Diminished, On Nasal O2 Gastrointestinal: Yes: Soft, Hypoactive Bowel Sounds Edema: No Labs: CBC, BMP 01/06/19 05:30 01/06/19 05:30 - ....Imaging Chest X-ray: Report Reviewed (Congestion) Problem List - Problems (1) Acute on chronic kidney failure Code(s): N17.9 - ACUTE KIDNEY FAILURE, UNSPECIFIED; N18.9 - CHRONIC KIDNEY DISEASE, UNSPECIFIED Qualifiers: Chronic kidney disease stage: stage 4 (severe) (2) CHF (congestive heart failure) Code(s): I50.9 - HEART FAILURE, UNSPECIFIED Qualifiers: Heart failure type: diastolic Heart failure chronicity: acute on chronic Qualified Code(s): I50.33 - Acute on chronic diastolic (congestive) heart failure (3) Dementia Code(s): F03.90 - UNSPECIFIED DEMENTIA WITHOUT BEHAVIORAL DISTURBANCE Qualifiers: Dementia type: unspecified type (4) Hyperlipidemia Code(s): E78.5 - HYPERLIPIDEMIA, UNSPECIFIED (5) Hyponatremia Code(s): E87.1 - HYPO-OSMOLALITY AND HYPONATREMIA (6) Hypothyroidism Code(s): E03.9 - HYPOTHYROIDISM, UNSPECIFIED Qualifiers: Hypothyroidism type: unspecified Qualified Code(s): E03.9 - Hypothyroidism , unspecified (7) Paroxysmal atrial fibrillation Code(s): I48.0 - PAROXYSMAL ATRIAL FIBRILLATION Assessment/Plan 05/10/2017 Echo: Normal LV size and fxn, mild LAE, mod MR, TR RVSP 30-40 mm Hg, mild AR 1. Acute on chronic diastolic LV failure improving 2. GABY on CKD with volume overload due to renal hypoprofusion in setting of HFpEF 3. Hypervolemic Hyponatremia improving 4. Abd pain with h/o ischemic colitis, mesenteric ischemia with intestinal angina post conservative medical management 5. Paroxysmal atrial fibrillation on A/C with NOAC/Eliquis [id number] score of 5, rate controlled 6. 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 HTN/HCVD 8. DM 9. Hypercholesterolemia 10. 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 Anemia 13. hx of ischemic colitis PLAN: 1. Hold diuresis with monitor renal recovery and electrolytes, check TSH, lactate levels 2. Continue Atenolol 25 qd, Norvasc 5 qd, Eliquis 2.5 bid (age > 80 and Creatinine > 1.5), Lovaza 2 bid 3. Resume lisinopril 20 qd when renal function improves to baseline 4. Free water restriction, bipap, BD and FIO2 to maintain saO2>90% 5. Transfusion to maintain hemoglobin equal or greater than 8.0 6. Empiric abx course for ? PNA
[2019-01-06] MEDS ORDERED: cefTRIAXone SODIUM 1 GM VIAL ONE (09:45)
[2019-01-06] MEDS ORDERED: DEXTROSE 5%-WATER - 50 ML IVPB ONE (09:46)
[2019-01-06] MEDS: OMEGA-3 ACID ETHYL ESTERS (FATTY-ACIDS) 1 GM CAPSULE (FP) PO SCH ×2 (09:50→16:45)
[2019-01-06] MEDS: APIXABAN 2.5 MG TABLET PO SCH ×2 (09:51→21:22)
[2019-01-06] MEDS: DONEPEZIL HCL 10 MG TABLET (FP) PO SCH (09:51)
[2019-01-06] MEDS: PANTOPRAZOLE SODIUM 40 MG VIAL IVPUSH SCH (09:51)
[2019-01-06] MEDS: MULTIVITAMINS (DAILY MVI) TABLET (FP) PO SCH (09:51)
[2019-01-06] MEDS: CEFTRIAXONE 1 GM in DEXTROSE 5%-WATER - 50 ML IVPB SCH (09:51)
[2019-01-06] MEDS: amLODIPine BESYLATE 5 MG TABLET (FP) PO SCH (09:51)
[2019-01-06] MEDS: ATENOLOL 25 MG TABLET (FP) PO SCH (09:51)
[2019-01-06] MEDS: LACTOBACILLUS ACIDOPHILUS 1 TABLET PO SCH (09:51)
[2019-01-06] MEDS ORDERED: EPOETIN ALFA 20,000 UNIT/1 ML VIAL SQ ONE (10:00)
--- NOTE | 2019-01-06 10:43 | PN ---
Progress Note (short form) - Note Progress Note: pt seen/ examined chart reviewed all f/u noted family at bedside- wants to take pt home pt awake/ comfortable denies pain breathing stable watts placed yesterday for urinary retention. worsening renal function Vital Signs Temp 98.1 F 01/06/19 06:15 Pulse 65 01/06/19 10:07 Resp 18 01/06/19 10:07 BP 143/49 L 01/06/19 10:07 Pulse Ox 94 L 01/05/19 19:42 Intake & Output 01/05/19 01/05/19 01/06/19 11:59 23:59 11:59 Intake Total 200 495 200 Output Total 1400 420 Balance 200 -905 -220 Weight 129 lb 9.6 oz Intake: IVPB 100 Oral 200 395 200 Output: Urine 1400 420 Watts 950 300 Void 450 120 Other: Voiding Method Bedside Commode # Unmeasured Voids Void 2 2 Bowel Movement No No Yes Body Mass Index (BMI) 23.6 Weight Measurement [facility] Active Medications Acetaminophen (Tylenol Suppository -) 650 mg DE Q4H PRN PRN Reason: FEVER Albuterol/Ipratropium (Duoneb -) 1 amp NEB Q6H PRN PRN Reason: SHORTNESS OF BREATH Amlodipine Besylate (Norvasc -) 5 mg PO DAILY [facility] Last Admin: 01/06/19 09:51 Dose: 5 mg Apixaban (Eliquis -) 2.5 mg PO BID [facility] Last Admin: 01/06/19 09:51 Dose: 2.5 mg Atenolol (Tenormin -) 25 mg PO DAILY [facility] Last Admin: 01/06/19 09:51 Dose: 25 mg Donepezil HCl (Aricept -) 10 mg PO DAILY [facility] Last Admin: 01/06/19 09:51 Dose: 10 mg Guaifenesin (Robitussin -) 10 ml PO Q4H PRN PRN Reason: COUGH Last Admin: 01/06/19 01:07 Dose: 10 ml Ceftriaxone Sodium 1 gm/ (Dextrose) 50 mls @ 100 mls/hr IVPB DAILY [facility] Last Admin: 01/06/19 09:51 Dose: 100 mls/hr Insulin Aspart (Novolog Vial Sliding Scale -) 1 [facility] SQ [facility]; Protocol Last Admin: 06/28/19 06:07 Dose: 3 units Lactobacillus Acidophilus (Bacid -) 1 tab PO DAILY [facility] Last Admin: 01/06/19 09:51 Dose: 1 tab Levothyroxine Sodium (Synthroid -) 25 mcg PO DAILY@0700 [facility] Last Admin: 01/06/19 06:07 Dose: 25 mcg Loperamide HCl (Imodium -) 2 mg PO Q8H PRN PRN Reason: DIARRHEA Multivitamins/Minerals/Vitamin C (Tab-A-Vit -) 1 tab PO DAILY [facility] Last Admin: 01/06/19 09:51 Dose: 1 tab Wiqzu-2-Anre Ethyl Esters (Lovaza -) 2 gm PO BID@1000,1700 [facility] Last Admin: 01/06/19 09:50 Dose: 2 gm Pancrelipase (Creon Dr 36,000 Units Capsule) 1 cap PO TIDCM [facility] Last Admin: 01/06/19 08:24 Dose: 1 cap Pantoprazole Sodium (Protonix Iv) 40 mg IVPUSH DAILY [facility] Last Admin: 01/06/19 09:51 Dose: 40 mg Simethicone (Mylicon -) 80 mg PO Q6H PRN PRN Reason: GAS CBC, BMP 01/06/19 05:30 01/06/19 05:30 cxr- congestion Physical Exam S1 S2 RRR Lungs - decreased Abd- soft,not tender no edema PLAN Discussed with pts son in detail continue present care abx per i/d -- switch to po in am ? monitor renal function Renal following If stable - consider d/c in am will follow Problem List - Problems (1) Hyponatremia Code(s): E87.1 - HYPO-OSMOLALITY AND HYPONATREMIA (2) Abdominal pain Code(s): R10.9 - UNSPECIFIED ABDOMINAL PAIN Qualifiers: Abdominal location: generalized Qualified Code(s): R10.84 - Generalized abdominal pain (3) Acute on chronic kidney failure Code(s): N17.9 - ACUTE KIDNEY FAILURE, UNSPECIFIED; N18.9 - CHRONIC KIDNEY DISEASE, UNSPECIFIED Qualifiers: Chronic kidney disease stage: stage 4 (severe) (4) Anemia Code(s): D64.9 - ANEMIA, UNSPECIFIED Qualifiers: (5) CKD (chronic kidney disease) stage 4, GFR 15-29 ml/min Code(s): N18.4 - CHRONIC KIDNEY DISEASE, STAGE 4 (SEVERE) (6) Dementia Code(s): F03.90 - UNSPECIFIED DEMENTIA WITHOUT BEHAVIORAL DISTURBANCE Qualifiers: Dementia type: unspecified type (7) Ischemic colitis Code(s): K55.9 - VASCULAR DISORDER OF INTESTINE, UNSPECIFIED (8) Paroxysmal atrial fibrillation Code(s): I48.0 - PAROXYSMAL ATRIAL FIBRILLATION (9) Type 2 diabetes mellitus Code(s): E11.9 - TYPE 2 DIABETES MELLITUS WITHOUT COMPLICATIONS (10) Pneumonia Code(s): J18.9 - PNEUMONIA, UNSPECIFIED ORGANISM
--- NOTE | 2019-01-06 10:48 | PN ---
Progress Note, Physician Chief Complaint: The patient seen and examined in her bed. Son in law with her. Swenson catheter was replaced, and is putting out large amounts of urine. Denies any chest pains or shortness of breath. No palpitation. History of Present Illness: 88 year old woman with hx of CKD stage 4, Afib on Eliquis, Hypertension , hypothyroidism, ischemic colitis who presented with laboratory studies that showed hyponatremia with Na of 117 and Cr of 2.8. The Serum Sodium has improved, but the renal functions show no major improvements yet. The patient hD TO Hvw the Swenson catheter replaced last night. - Current Medication List Current Medications: Active Medications Acetaminophen (Tylenol Suppository -) 650 mg SC Q4H PRN PRN Reason: FEVER Albuterol/Ipratropium (Duoneb -) 1 amp NEB Q6H PRN PRN Reason: SHORTNESS OF BREATH Amlodipine Besylate (Norvasc -) 5 mg PO DAILY [facility] Last Admin: 01/06/19 09:51 Dose: 5 mg Apixaban (Eliquis -) 2.5 mg PO BID [facility] Last Admin: 01/06/19 09:51 Dose: 2.5 mg Atenolol (Tenormin -) 25 mg PO DAILY [facility] Last Admin: 01/06/19 09:51 Dose: 25 mg Donepezil HCl (Aricept -) 10 mg PO DAILY [facility] Last Admin: 01/06/19 09:51 Dose: 10 mg Guaifenesin (Robitussin -) 10 ml PO Q4H PRN PRN Reason: COUGH Last Admin: 01/06/19 01:07 Dose: 10 ml Ceftriaxone Sodium 1 gm/ (Dextrose) 50 mls @ 100 mls/hr IVPB DAILY [facility] Last Admin: 01/06/19 09:51 Dose: 100 mls/hr Insulin Aspart (Novolog Vial Sliding Scale -) 1 vial SQ BIDAC [facility]; Protocol Last Admin: 01/06/19 06:07 Dose: 3 units Lactobacillus Acidophilus (Bacid -) 1 tab PO DAILY [facility] Last Admin: 01/06/19 09:51 Dose: 1 tab Levothyroxine Sodium (Synthroid -) 25 mcg PO DAILY@0700 [facility] Last Admin: 01/06/19 06:07 Dose: 25 mcg Loperamide HCl (Imodium -) 2 mg PO Q8H PRN PRN Reason: DIARRHEA Multivitamins/Minerals/Vitamin C (Tab-A-Vit -) 1 tab PO DAILY [facility] Last Admin: 01/06/19 09:51 Dose: 1 tab Kdtsv-5-Ouha Ethyl Esters (Lovaza -) 2 gm PO BID@1000,1700 [facility] Last Admin: 01/06/19 09:50 Dose: 2 gm Pancrelipase (Creon Dr 36,000 Units Capsule) 1 cap PO TIDCM [facility] Last Admin: 01/06/19 08:24 Dose: 1 cap Pantoprazole Sodium (Protonix Iv) 40 mg IVPUSH DAILY [facility] Last Admin: 01/06/19 09:51 Dose: 40 mg Simethicone (Mylicon -) 80 mg PO Q6H PRN PRN Reason: GAS - Objective Vital Signs: Vital Signs Temperature 98.1 F 01/06/19 06:15 Pulse Rate 65 01/06/19 10:07 Respiratory Rate 18 01/06/19 10:07 Blood Pressure 143/49 L 01/06/19 10:07 O2 Sat by Pulse Oximetry (%) 94 L 01/05/19 19:42 Constitutional: Yes: Calm Eyes: Yes: Conjunctiva Clear HENT: Yes: Normocephalic Neck: Yes: Trachea Midline Cardiovascular: Yes: S1, S2 Respiratory: Yes: CTA Bilaterally, Diminished, Rales Gastrointestinal: Yes: Normal Bowel Sounds Genitourinary: Yes: Swenson Present Musculoskeletal: No: Joint Stiffness, Joint Swelling Edema: LLE: Trace, RLE: Trace Neurological: Yes: Alert, Oriented Labs: CBC, BMP 01/06/19 05:30 01/06/19 05:30 Problem List - Problems (1) CHF (congestive heart failure) Code(s): I50.9 - HEART FAILURE, UNSPECIFIED Qualifiers: Heart failure type: diastolic Heart failure chronicity: acute on chronic Qualified Code(s): I50.33 - Acute on chronic diastolic (congestive) heart failure (2) Acute on chronic kidney failure Code(s): N17.9 - ACUTE KIDNEY FAILURE, UNSPECIFIED; N18.9 - CHRONIC KIDNEY DISEASE, UNSPECIFIED Qualifiers: Chronic kidney disease stage: stage 4 (severe) (3) Anemia Code(s): D64.9 - ANEMIA, UNSPECIFIED Qualifiers: (4) CKD (chronic kidney disease) stage 4, GFR 15-29 ml/min Code(s): N18.4 - CHRONIC KIDNEY DISEASE, STAGE 4 (SEVERE) (5) Hyponatremia Code(s): E87.1 - HYPO-OSMOLALITY AND HYPONATREMIA (6) Paroxysmal atrial fibrillation Code(s): I48.0 - PAROXYSMAL ATRIAL FIBRILLATION Assessment/Plan 88 year old female with hx of CKD stage 4, Afib on Eliquis, Hypertension, hypothyroidism, ischemic colitis who presented with Hyponatremia with Na of 117 and Cr of 2.8. The patient had been on fluid restriction,and the Serum Sodium has improved to acceptable levels. GABY superimposed on CKD4. There is significant Renal Hemodynamic changes that explains the worsening of the azotemia. The effective Renal perfusion likely to be compromised. Acute on chronic anemia. She is receiving Epogen weekly. Hypertension . Relatively well controlled on the current regimen. Hypothyroidism ..clinically appears euthyroid. Hypokalemia..Potassium in acceptable range now. The BUN and the Cr still rising because of the unstable renal hemodynamics. Will hold off on loop diuretics at this point. Will trend renal function and electrolytes Will continue Epogen 20,000 units once weekly for anemia Will follow with you. Lisa Elliott MD
--- NOTE | 2019-01-06 11:12 | PN ---
Progress Note (short form) - Note Progress Note: Resting in NAD. Breathing continues to improve. Denies cough or wheezing. No fevers or chills. Intake & Output 01/03/19 01/04/19 01/05/19 01/06/19 23:59 23:59 23:59 23:59 Intake Total 825 700 695 200 Output Total 643 183 6877 420 Balance 175 500 -705 -220 Weight 129 lb 9.6 oz 129 lb 9.6 oz Last Vital Signs Temp Pulse Resp BP Pulse Ox 98.1 F 65 18 143/49 L 94 L 01/06/19 06:15 01/06/19 10:07 01/06/19 10:07 01/06/19 10:07 01/05/19 19:42 Active Medications Acetaminophen (Tylenol Suppository -) 650 mg DC Q4H PRN PRN Reason: FEVER Albuterol/Ipratropium (Duoneb -) 1 amp NEB Q6H PRN PRN Reason: SHORTNESS OF BREATH Amlodipine Besylate (Norvasc -) 5 mg PO DAILY [facility] Last Admin: 01/06/19 09:51 Dose: 5 mg Apixaban (Eliquis -) 2.5 mg PO BID [facility] Last Admin: 01/06/19 09:51 Dose: 2.5 mg Atenolol (Tenormin -) 25 mg PO DAILY [facility] Last Admin: 01/06/19 09:51 Dose: 25 mg Donepezil HCl (Aricept -) 10 mg PO DAILY [facility] Last Admin: 01/06/19 09:51 Dose: 10 mg Guaifenesin (Robitussin -) 10 ml PO Q4H PRN PRN Reason: COUGH Last Admin: 01/06/19 01:07 Dose: 10 ml Ceftriaxone Sodium 1 gm/ (Dextrose) 50 mls @ 100 mls/hr IVPB DAILY [facility] Last Admin: 01/06/19 09:51 Dose: 100 mls/hr Insulin Aspart (Novolog Vial Sliding Scale -) 1 vial SQ BIDAC [facility]; Protocol Last Admin: 01/06/19 06:07 Dose: 3 units Lactobacillus Acidophilus (Bacid -) 1 tab PO DAILY [facility] Last Admin: 01/06/19 09:51 Dose: 1 tab Levothyroxine Sodium (Synthroid -) 25 mcg PO DAILY@0700 [facility] Last Admin: 01/06/19 06:07 Dose: 25 mcg Loperamide HCl (Imodium -) 2 mg PO Q8H PRN PRN Reason: DIARRHEA Multivitamins/Minerals/Vitamin C (Tab-A-Vit -) 1 tab PO DAILY [facility] Last Admin: 01/06/19 09:51 Dose: 1 tab Mdoyz-7-Pvlw Ethyl Esters (Lovaza -) 2 gm PO BID@1000,1700 [facility] Last Admin: 01/06/19 09:50 Dose: 2 gm Pancrelipase (Dory Hay 36,000 Units Capsule) 1 cap PO TIDCM [facility] Last Admin: 01/06/19 08:24 Dose: 1 cap Pantoprazole Sodium (Protonix Iv) 40 mg IVPUSH DAILY [facility] Last Admin: 01/06/19 09:51 Dose: 40 mg Simethicone (Mylicon -) 80 mg PO Q6H PRN PRN Reason: GAS Gen: NAD at rest Heart: RRR Lung: basilar rales Abd: soft, nontender Ext: no edema Laboratory Results - last 24 hr 01/05/19 01/05/19 01/06/19 11:33 16:36 05:13 WBC RBC Hgb Hct MCV MCH MCHC RDW Plt Count MPV Sodium Potassium Chloride Carbon Dioxide Anion Gap BUN Creatinine Est GFR (CKD-EPI)AfAm Est GFR (CKD-EPI)NonAf POC Glucometer 216 242 168 Random Glucose Calcium Phosphorus Magnesium 01/06/19 01/06/19 05:30 05:30 WBC 6.6 RBC 2.68 L Hgb 8.1 L Hct 23.0 L MCV 85.8 MCH 30.3 MCHC 35.3 RDW 15.9 H Plt Count 298 MPV 7.5 Sodium 125 L Potassium 3.6 Chloride 90 L Carbon Dioxide 23 Anion Gap 12 BUN 116.3 H* Creatinine 3.3 H Est GFR (CKD-EPI)AfAm 13.95 Est GFR (CKD-EPI)NonAf 12.04 POC Glucometer Random Glucose 164 H Calcium 8.3 L Phosphorus 3.6 Magnesium 2.4 A/P Acute on Chronic Diastolic Heart Failure Volume Overload Acute on Chronic Renal Failure Hyponatremia r/o Pneumonia Paroxysmal Atrial Fibrillation CAD HTN DM Hypercholesterolemia Hypothyroidism Dementia - ABX per ID - monitor urine output, creatinine - O2 to keep SpO2 >90% - inhaled bronchodilators - rate control - AC - PT Dr Harper
--- NOTE | 2019-01-06 12:38 | PN ---
Progress Note, Physician History of Present Illness: SUPINE IN BED AWAKE, RESPONSIVE NO COMPLAINTS BREATHING NON LABORED ON RA - Current Medication List Current Medications: Active Medications Acetaminophen (Tylenol Suppository -) 650 mg [place] Q4H PRN PRN Reason: FEVER Albuterol/Ipratropium (Duoneb -) 1 amp NEB Q6H PRN PRN Reason: SHORTNESS OF BREATH Amlodipine Besylate (Norvasc -) 5 mg PO DAILY [facility] Last Admin: 01/06/19 09:51 Dose: 5 mg Apixaban (Eliquis -) 2.5 mg PO BID [facility] Last Admin: 01/06/19 09:51 Dose: 2.5 mg Atenolol (Tenormin -) 25 mg PO DAILY [facility] Last Admin: 01/06/19 09:51 Dose: 25 mg Donepezil HCl (Aricept -) 10 mg PO DAILY [facility] Last Admin: 01/06/19 09:51 Dose: 10 mg Guaifenesin (Robitussin -) 10 ml PO Q4H PRN PRN Reason: COUGH Last Admin: 01/06/19 01:07 Dose: 10 ml Ceftriaxone Sodium 1 gm/ (Dextrose) 50 mls @ 100 mls/hr IVPB DAILY [facility] Last Admin: 01/06/19 09:51 Dose: 100 mls/hr Insulin Aspart (Novolog Vial Sliding Scale -) 1 vial SQ BIDAC [facility]; Protocol Last Admin: 01/06/19 06:07 Dose: 3 units Lactobacillus Acidophilus (Bacid -) 1 tab PO DAILY [facility] Last Admin: 01/06/19 09:51 Dose: 1 tab Levothyroxine Sodium (Synthroid -) 25 mcg PO DAILY@0700 [facility] Last Admin: 01/06/19 06:07 Dose: 25 mcg Loperamide HCl (Imodium -) 2 mg PO Q8H PRN PRN Reason: DIARRHEA Multivitamins/Minerals/Vitamin C (Tab-A-Vit -) 1 tab PO DAILY [facility] Last Admin: 01/06/19 09:51 Dose: 1 tab [id number]-[id number] Ethyl Esters (Lovaza -) 2 gm PO BID@1000,1700 [facility] Last Admin: 01/06/19 09:50 Dose: 2 gm Pancrelipase (Creon Dr 36,000 Units Capsule) 1 cap PO TIDCM [facility] Last Admin: 01/06/19 08:24 Dose: 1 cap Pantoprazole Sodium (Protonix Iv) 40 mg IVPUSH DAILY [facility] Last Admin: 01/06/19 09:51 Dose: 40 mg Simethicone (Mylicon -) 80 mg PO Q6H PRN PRN Reason: GAS - Objective Vital Signs: Vital Signs Temperature 98.1 F 01/06/19 06:15 Pulse Rate 65 01/06/19 10:07 Respiratory Rate 18 01/06/19 10:07 Blood Pressure 143/49 L 01/06/19 10:07 O2 Sat by Pulse Oximetry (%) 94 L 01/05/19 19:42 Constitutional: Yes: No Distress Cardiovascular: Yes: Regular Rate and Rhythm, S1, S2 Respiratory: Yes: Other (FEW CREPITATIONS L BASE) Gastrointestinal: Yes: Normal Bowel Sounds, Soft. No: Tenderness Edema: No Labs: CBC, BMP 01/06/19 05:30 01/06/19 05:30 Assessment/Plan CHF ? PNEUMONIA HYPONATREMIA CKD DAY #5 IV ANTIBIOTICS SUBSTITUTE PO CEFTIN X 2D
[2019-01-06] MEDS: CEFUROXIME AXETIL 250 MG TABLET PO SCH (22:44)
[2019-01-07 05:52] LABS: HEMOGLOBIN 8.4 GM/dL (10.7-15.3); MEAN PLT VOLUME 7.5 fl (7.5-11.1)
[2019-01-07 06:01] LABS: BASO % 0.5 % (0-2.0); HEMATOCRIT 23.9 % (32.4-45.2); LYMPH % 4.7 % (8-40); MCH 30.3 pg (25.7-33.7); MEAN CELL VOLUME 86.5 fl (80-96); MONO % 4.3 % (3.8-10.2); NEUT % 89.5 % (42.8-82.8); PLATELET COUNT 332 K/MM3 (134-434); RBC 2.76 M/mm3 (3.60-5.2); RDW 15.6 % (11.6-15.6)
[2019-01-07 06:18] LABS: ALBUMIN 2.7 g/dl (3.4-5.0); BILIRUBIN,TOTAL 0.4 mg/dL (0.2-1); CALCIUM 7.9 mg/dL (8.5-10.1); CREATININE 3.3 mg/dL (0.55-1.3); POTASSIUM 3.8 mmol/L (3.5-5.1); TOT PROT 6.4 g/dl (6.4-8.2)
[2019-01-07 06:21] LABS: BLOOD UREA NITROGEN 118.1 mg/dL (7-18)
[2019-01-07] MEDS: INSULIN SLIDING SCALE (NOVOLOG) 1 VIAL SQ SCH ×2 (06:30→17:41)
[2019-01-07] MEDS: LEVOTHYROXINE NA 25 MCG TABLET (FP) PO SCH (06:31)
[2019-01-07] MEDS: LIPASE/PROTEASE/AMYLASE 36,000 UNIT CAPSULE PO SCH ×3 (08:00→17:41)
[2019-01-07] MEDS ORDERED: PT OWN MED DRAWER 7, Y5N ONE (11:02)
[2019-01-07] MEDS: APIXABAN 2.5 MG TABLET PO SCH ×2 (11:48→21:35)
[2019-01-07] MEDS: OMEGA-3 ACID ETHYL ESTERS (FATTY-ACIDS) 1 GM CAPSULE (FP) PO SCH ×2 (11:48→17:41)
[2019-01-07] MEDS: DONEPEZIL HCL 10 MG TABLET (FP) PO SCH (11:48)
[2019-01-07] MEDS: LACTOBACILLUS ACIDOPHILUS 1 TABLET PO SCH (11:48)
[2019-01-07] MEDS: CEFUROXIME AXETIL 250 MG TABLET PO SCH ×2 (11:49→21:35)
[2019-01-07] MEDS: PANTOPRAZOLE SODIUM 40 MG VIAL IVPUSH SCH (11:49)
[2019-01-07] MEDS: amLODIPine BESYLATE 5 MG TABLET (FP) PO SCH (11:49)
[2019-01-07] MEDS: ATENOLOL 25 MG TABLET (FP) PO SCH (11:50)
[2019-01-07] MEDS: MULTIVITAMINS (DAILY MVI) TABLET (FP) PO SCH (11:50)
[2019-01-07] MEDS ORDERED: FUROSEMIDE 40 MG/4 ML INJECTABLE VIAL IVPUSH ONE (13:15)
--- NOTE | 2019-01-07 13:15 | PN ---
Progress Note, Physician History of Present Illness: Pt seen and examined at bedside. She is out of bed to chair. She denies chest pain. She does get shortness of breath with exertion but not at rest. Watts was removed this morning however she did not void. I went over her care at length with her family and explained the extent of her renal disease. - Current Medication List Current Medications: Active Medications Acetaminophen (Tylenol Suppository -) 650 mg [place] Q4H PRN PRN Reason: FEVER Albuterol/Ipratropium (Duoneb -) 1 amp NEB Q6H PRN PRN Reason: SHORTNESS OF BREATH Amlodipine Besylate (Norvasc -) 5 mg PO DAILY [facility] Last Admin: 01/07/19 11:49 Dose: 5 mg Apixaban (Eliquis -) 2.5 mg PO BID [facility] Last Admin: 01/07/19 11:48 Dose: 2.5 mg Atenolol (Tenormin -) 25 mg PO DAILY [facility] Last Admin: 01/07/19 11:50 Dose: 25 mg Cefuroxime Axetil (Ceftin -) 250 mg PO BID [facility] Last Admin: 01/07/19 11:49 Dose: 250 mg Donepezil HCl (Aricept -) 10 mg PO DAILY [facility] Last Admin: 01/07/19 11:48 Dose: 10 mg Guaifenesin (Robitussin -) 10 ml PO Q4H PRN PRN Reason: COUGH Last Admin: 01/06/19 16:45 Dose: 10 ml Insulin Aspart (Novolog Vial Sliding Scale -) 1 vial SQ BIDAC [facility]; Protocol Last Admin: 01/07/19 06:30 Dose: 3 units Lactobacillus Acidophilus (Bacid -) 1 tab PO DAILY [facility] Last Admin: 01/07/19 11:48 Dose: 1 tab Levothyroxine Sodium (Synthroid -) 25 mcg PO DAILY@0700 [facility] Last Admin: 01/07/19 06:31 Dose: 25 mcg Loperamide HCl (Imodium -) 2 mg PO Q8H PRN PRN Reason: DIARRHEA Multivitamins/Minerals/Vitamin C (Tab-A-Vit -) 1 tab PO DAILY [facility] Last Admin: 01/07/19 11:50 Dose: 1 tab Rjxyq-8-Xbhk Ethyl Esters (Lovaza -) 2 gm PO BID@1000,1700 [facility] Last Admin: 01/07/19 11:48 Dose: 2 gm Pancrelipase (Creatul Dr 36,000 Units Capsule) 1 cap PO TIDCM [facility] Last Admin: 01/07/19 11:48 Dose: 1 cap Pantoprazole Sodium (Protonix Iv) 40 mg IVPUSH DAILY [facility] Last Admin: 01/07/19 11:49 Dose: 40 mg Simethicone (Mylicon -) 80 mg PO Q6H PRN PRN Reason: GAS - Objective Vital Signs: Vital Signs Temperature 97.2 F L 01/07/19 06:00 Pulse Rate 72 01/07/19 06:00 Respiratory Rate 22 H 01/07/19 06:00 Blood Pressure 152/68 01/07/19 06:00 O2 Sat by Pulse Oximetry (%) 95 01/06/19 20:32 Constitutional: Yes: Calm Eyes: Yes: Conjunctiva Clear Cardiovascular: Yes: S1, S2 Respiratory: Yes: On Nasal O2, Rhonchi Gastrointestinal: Yes: Soft Genitourinary: Yes: Other (pt on voiding trial) Musculoskeletal: Yes: WNL Edema: Yes Edema: LLE: Trace, RLE: Trace Integumentary: Yes: WNL Neurological: Yes: Oriented Psychiatric: Yes: Oriented Labs: CBC, BMP 01/07/19 05:20 01/07/19 05:20 - ....Imaging Chest X-ray: Report Reviewed Problem List - Problems (1) CHF (congestive heart failure) Code(s): I50.9 - HEART FAILURE, UNSPECIFIED Qualifiers: Heart failure type: diastolic Heart failure chronicity: acute on chronic Qualified Code(s): I50.33 - Acute on chronic diastolic (congestive) heart failure (2) Pneumonia Code(s): J18.9 - PNEUMONIA, UNSPECIFIED ORGANISM (3) CKD (chronic kidney disease) stage 4, GFR 15-29 ml/min Code(s): N18.4 - CHRONIC KIDNEY DISEASE, STAGE 4 (SEVERE) Assessment/Plan Current Medications Generic Name Dose Route Start Last Admin Trade Name Freq PRN Reason Stop Dose Admin Acetaminophen 650 mg 01/01/19 03:13 Tylenol Suppository - IL Q4H PRN FEVER Albuterol/Ipratropium 1 amp 01/04/19 10:24 Duoneb - NEB Q6H PRN SHORTNESS OF BREATH Amlodipine Besylate 5 mg 01/01/19 10:00 01/07/19 11:49 Norvasc - PO 5 mg DAILY YANN Administration Apixaban 2.5 mg 01/01/19 10:00 01/07/19 11:48 Eliquis - PO 2.5 mg BID YANN Administration Atenolol 25 mg 01/01/19 10:00 01/07/19 11:50 Tenormin - PO 25 mg DAILY [facility]ANN Administration Cefuroxime Axetil 250 mg 01/06/19 22:00 01/07/19 11:49 Ceftin - PO 250 mg BID YANN Administration Donepezil HCl 10 mg 01/01/19 10:00 01/07/19 11:48 Aricept - PO 10 mg DAILY [facility]ANN Administration Guaifenesin 10 ml 01/04/19 10:24 01/06/19 16:45 Robitussin - PO 10 ml Q4H PRN Administration COUGH Insulin Aspart 1 vial 01/01/19 07:00 01/07/19 06:30 Novolog Vial Sliding Scale - SQ 3 units BIDAC YANN Administration Protocol Lactobacillus Acidophilus 1 tab 01/01/19 10:00 01/07/19 11:48 Bacid - PO 1 tab DAILY [facility] Administration Levothyroxine Sodium 25 mcg 01/01/19 07:00 01/07/19 06:31 Synthroid - PO 25 mcg DAILY@0700 YANN Administration Loperamide HCl 2 mg 01/01/19 03:13 Imodium - PO Q8H PRN DIARRHEA Multivitamins/Minerals/Vitamin C 1 tab 01/01/19 10:00 01/07/19 11:50 Tab-A-Vit - PO 1 tab DAILY YANN Administration Krlud-7-Hsoh Ethyl Esters 2 gm 01/01/19 10:00 01/07/19 11:48 Lovaza - PO 2 gm BID@1000,1700 YANN Administration Pancrelipase 1 cap 01/01/19 08:00 01/07/19 11:48 Dory Hay 36,000 Units Capsule PO 1 cap TIDCM YANN Administration Pantoprazole Sodium 40 mg 01/01/19 10:00 01/07/19 11:49 Protonix Iv IVPUSH 40 mg DAILY YANN Administration Simethicone 80 mg 01/01/19 03:13 Mylicon - PO Q6H PRN GAS Impression #GABY on CKD with volume over load #Hypervolemic Hyponatremia #Acute on chronic anemia #CHF/Fluid overload #Hypertension #Hypothyroidism #Abd pain with hx of ischemic colitis #hypokalemia Plan - cxr wit progressive changes - will give a dose of lasix - sodium is lower - restrict free water - encourage po intake - discussed kidney disease and over status at length with family. - discussed with ICU team - if pt does ot void then place watts, spoke to nurse - check labs daily - pt is not stable for discharge today - check plasma osm - check urine osm - check urine lytes
--- NOTE | 2019-01-07 15:00 | PN ---
Progress Note, Physician History of Present Illness: Reurrent dyspnea and orthopnea, diuresis resumed, but azotemia and hyponatremia worse. Failed voiding trial and watts reinserted. - Current Medication List Current Medications: Active Medications Acetaminophen (Tylenol Suppository -) 650 mg [place] Q4H PRN PRN Reason: FEVER Albuterol/Ipratropium (Duoneb -) 1 amp NEB Q6H PRN PRN Reason: SHORTNESS OF BREATH Amlodipine Besylate (Norvasc -) 5 mg PO DAILY [facility] Last Admin: 01/07/19 11:49 Dose: 5 mg Apixaban (Eliquis -) 2.5 mg PO BID [facility] Last Admin: 01/07/19 11:48 Dose: 2.5 mg Atenolol (Tenormin -) 25 mg PO DAILY [facility] Last Admin: 01/07/19 11:50 Dose: 25 mg Cefuroxime Axetil (Ceftin -) 250 mg PO BID [facility] Last Admin: 01/07/19 11:49 Dose: 250 mg Donepezil HCl (Aricept -) 10 mg PO DAILY [facility] Last Admin: 01/07/19 11:48 Dose: 10 mg Guaifenesin (Robitussin -) 10 ml PO Q4H PRN PRN Reason: COUGH Last Admin: 01/06/19 16:45 Dose: 10 ml Insulin Aspart (Novolog Vial Sliding Scale -) 1 vial SQ BIDAC [facility]; Protocol Last Admin: 01/07/19 06:30 Dose: 3 units Lactobacillus Acidophilus (Bacid -) 1 tab PO DAILY [facility] Last Admin: 01/07/19 11:48 Dose: 1 tab Levothyroxine Sodium (Synthroid -) 25 mcg PO DAILY@0700 [facility] Last Admin: 01/07/19 06:31 Dose: 25 mcg Loperamide HCl (Imodium -) 2 mg PO Q8H PRN PRN Reason: DIARRHEA Multivitamins/Minerals/Vitamin C (Tab-A-Vit -) 1 tab PO DAILY [facility] Last Admin: 01/07/19 11:50 Dose: 1 tab Zrdwh-7-Afhn Ethyl Esters (Lovaza -) 2 gm PO BID@1000,1700 [facility] Last Admin: 01/07/19 11:48 Dose: 2 gm Pancrelipase (Creon Dr 36,000 Units Capsule) 1 cap PO TIDCM [facility] Last Admin: 01/07/19 11:48 Dose: 1 cap Pantoprazole Sodium (Protonix Iv) 40 mg IVPUSH DAILY [facility] Last Admin: 01/07/19 11:49 Dose: 40 mg Simethicone (Mylicon -) 80 mg PO Q6H PRN PRN Reason: GAS - Objective Vital Signs: Vital Signs Temperature 97.2 F L 01/07/19 06:00 Pulse Rate 72 01/07/19 06:00 Respiratory Rate 22 H 01/07/19 06:00 Blood Pressure 152/68 01/07/19 06:00 O2 Sat by Pulse Oximetry (%) 95 01/06/19 20:32 Constitutional: Yes: No Distress, Calm, Thin Neck: Yes: Supple Cardiovascular: Yes: Regular Rate and Rhythm Respiratory: Yes: Regular, Diminished, On Nasal O2 Gastrointestinal: Yes: Normal Bowel Sounds, Soft Edema: No Labs: CBC, BMP 01/07/19 05:20 01/07/19 05:20 - ....Imaging Chest X-ray: Report Reviewed (CHF) Problem List - Problems (1) Acute on chronic kidney failure Code(s): N17.9 - ACUTE KIDNEY FAILURE, UNSPECIFIED; N18.9 - CHRONIC KIDNEY DISEASE, UNSPECIFIED Qualifiers: Chronic kidney disease stage: stage 4 (severe) (2) CHF (congestive heart failure) Code(s): I50.9 - HEART FAILURE, UNSPECIFIED Qualifiers: Heart failure type: diastolic Heart failure chronicity: acute on chronic Qualified Code(s): I50.33 - Acute on chronic diastolic (congestive) heart failure (3) Dementia Code(s): F03.90 - UNSPECIFIED DEMENTIA WITHOUT BEHAVIORAL DISTURBANCE Qualifiers: Dementia type: unspecified type (4) Hyperlipidemia Code(s): E78.5 - HYPERLIPIDEMIA, UNSPECIFIED (5) Hyponatremia Code(s): E87.1 - HYPO-OSMOLALITY AND HYPONATREMIA (6) Hypothyroidism Code(s): E03.9 - HYPOTHYROIDISM, UNSPECIFIED Qualifiers: Hypothyroidism type: unspecified Qualified Code(s): E03.9 - Hypothyroidism , unspecified (7) Paroxysmal atrial fibrillation Code(s): I48.0 - PAROXYSMAL ATRIAL FIBRILLATION Assessment/Plan 05/10/2017 Echo: Normal LV size and fxn, mild LAE, mod MR, TR RVSP 30-40 mm Hg, mild AR 1. Acute on chronic diastolic LV failure 2. GABY on CKD with volume overload due to renal hypoprofusion in setting of HFpEF 3. Hypervolemic Hyponatremia improving 4. Abd pain with h/o ischemic colitis, mesenteric ischemia with intestinal angina post conservative medical management 5. Paroxysmal atrial fibrillation on A/C with NOAC/Eliquis [id number] score of 5, rate controlled 6. 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 HTN/HCVD 8. DM 9. Hypercholesterolemia 10. 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 Anemia 13. hx of ischemic colitis PLAN: 1. Resume IV diuresis with monitor renal recovery and electrolytes, check TSH, lactate levels 2. Continue Atenolol 25 qd, Norvasc 5 qd, Eliquis 2.5 bid (age > 80 and Creatinine > 1.5), Lovaza 2 bid 3. Resume lisinopril 20 qd when renal function improves to baseline 4. Free water restriction, bipap, BD and FIO2 to maintain saO2>90% 5. Transfusion to maintain hemoglobin equal or greater than 8.0 6. Empiric abx course for ? PNA
--- NOTE | 2019-01-07 15:30 | PN ---
Progress Note (short form) - Note Progress Note: pt seen/ examined chart reviewed all f/u noted worsening renal function watts has to be reinserted. Vital Signs Temp 97.2 F L 01/07/19 06:00 Pulse 72 01/07/19 06:00 Resp 22 H 01/07/19 06:00 BP 152/68 01/07/19 06:00 Pulse Ox 95 01/06/19 20:32 Intake & Output 01/06/19 01/07/19 01/07/19 23:59 11:59 23:59 Intake Total 200 50 Output Total 600 400 500 Balance -400 -350 -500 Intake: Oral 200 50 Output: Urine 600 400 500 Watts 600 400 500 Other: Voiding Method Indwelling Catheter Bowel Movement No No # Bowel Movements 1 Active Medications Acetaminophen (Tylenol Suppository -) 650 mg [place] Q4H PRN PRN Reason: FEVER Albuterol/Ipratropium (Duoneb -) 1 amp NEB Q6H PRN PRN Reason: SHORTNESS OF BREATH Amlodipine Besylate (Norvasc -) 5 mg PO DAILY [facility] Last Admin: 01/07/19 11:49 Dose: 5 mg Apixaban (Eliquis -) 2.5 mg PO BID [facility] Last Admin: 01/07/19 11:48 Dose: 2.5 mg Atenolol (Tenormin -) 25 mg PO DAILY [facility] Last Admin: 01/07/19 11:50 Dose: 25 mg Cefuroxime Axetil (Ceftin -) 250 mg PO BID [facility] Last Admin: 01/07/19 11:49 Dose: 250 mg Donepezil HCl (Aricept -) 10 mg PO DAILY [facility] Last Admin: 01/07/19 11:48 Dose: 10 mg Guaifenesin (Robitussin -) 10 ml PO Q4H PRN PRN Reason: COUGH Last Admin: 01/06/19 16:45 Dose: 10 ml Insulin Aspart ([facility] -) [facility]; Protocol Last Admin: 01/07/19 06:30 Dose: 3 units Lactobacillus Acidophilus (Bacid -) 1 tab PO DAILY [facility] Last Admin: 01/07/19 11:48 Dose: 1 tab Levothyroxine Sodium (Synthroid -) 25 mcg PO DAILY@0700 [facility] Last Admin: 01/07/19 06:31 Dose: 25 mcg Loperamide HCl (Imodium -) 2 mg PO Q8H PRN PRN Reason: DIARRHEA Multivitamins/Minerals/Vitamin C (Tab-A-Vit -) 1 tab PO DAILY [facility] Last Admin: 01/07/19 11:50 Dose: 1 tab Qtoos-2-Mclm Ethyl Esters (Lovaza -) 2 gm PO BID@1000,1700 [facility] Last Admin: 01/07/19 11:48 Dose: 2 gm Pancrelipase (Creon Dr 36,000 Units Capsule) 1 cap PO TIDCM [facility] Last Admin: 01/07/19 11:48 Dose: 1 cap Pantoprazole Sodium (Protonix Iv) 40 mg IVPUSH DAILY [facility] Last Admin: 01/07/19 11:49 Dose: 40 mg Simethicone (Mylicon -) 80 mg PO Q6H PRN PRN Reason: GAS CBC, BMP 01/07/19 05:20 01/07/19 05:20 cxr- Worsening Physical Exam S1 S2 RRR Lungs - decreased at bases Abd- soft,not tender no edema PLAN Discussed with pts family again-- worsening renal function agree with echo lasix Monitor labs will follow condition gaurded Problem List - Problems (1) Hyponatremia Code(s): E87.1 - HYPO-OSMOLALITY AND HYPONATREMIA (2) Abdominal pain Code(s): R10.9 - UNSPECIFIED ABDOMINAL PAIN Qualifiers: Abdominal location: generalized Qualified Code(s): R10.84 - Generalized abdominal pain (3) Acute on chronic kidney failure Code(s): N17.9 - ACUTE KIDNEY FAILURE, UNSPECIFIED; N18.9 - CHRONIC KIDNEY DISEASE, UNSPECIFIED Qualifiers: Chronic kidney disease stage: stage 4 (severe) (4) Anemia Code(s): D64.9 - ANEMIA, UNSPECIFIED Qualifiers: (5) CKD (chronic kidney disease) stage 4, GFR 15-29 ml/min Code(s): N18.4 - CHRONIC KIDNEY DISEASE, STAGE 4 (SEVERE) (6) Dementia Code(s): F03.90 - UNSPECIFIED DEMENTIA WITHOUT BEHAVIORAL DISTURBANCE Qualifiers: Dementia type: unspecified type (7) Ischemic colitis Code(s): K55.9 - VASCULAR DISORDER OF INTESTINE, UNSPECIFIED (8) Paroxysmal atrial fibrillation Code(s): I48.0 - PAROXYSMAL ATRIAL FIBRILLATION (9) Type 2 diabetes mellitus Code(s): E11.9 - TYPE 2 DIABETES MELLITUS WITHOUT COMPLICATIONS (10) Pneumonia Code(s): J18.9 - PNEUMONIA, UNSPECIFIED ORGANISM
[2019-01-08] MEDS ORDERED: ACETAMINOPHEN 650 MG/20.3 ML ORAL SOLUTION (CUPS) PO PRN (01:00)
[2019-01-08] MEDS ORDERED: ACETAMINOPHEN 325 MG TABLET (FP) ONE (03:29)
[2019-01-08 06:51] LABS: ALBUMIN 2.6 g/dl (3.4-5.0); BILIRUBIN,TOTAL 0.4 mg/dL (0.2-1); CALCIUM 8.2 mg/dL (8.5-10.1); CREATININE 3.3 mg/dL (0.55-1.3); POTASSIUM 3.8 mmol/L (3.5-5.1); TOT PROT 6.2 g/dl (6.4-8.2)
[2019-01-08 06:53] LABS: BLOOD UREA NITROGEN 110.5 mg/dL (7-18)
[2019-01-08] MEDS: LEVOTHYROXINE NA 25 MCG TABLET (FP) PO SCH (07:36)
[2019-01-08] MEDS: INSULIN SLIDING SCALE (NOVOLOG) 1 VIAL SQ SCH ×2 (07:37→17:19)
[2019-01-08] MEDS ORDERED: PT OWN MED DRAWER 7, Y5N ONE ×2 (08:01→12:02)
[2019-01-08] MEDS: LIPASE/PROTEASE/AMYLASE 36,000 UNIT CAPSULE PO SCH ×3 (08:05→17:19)
[2019-01-08] MEDS: LACTOBACILLUS ACIDOPHILUS 1 TABLET PO SCH (10:25)
[2019-01-08] MEDS: DONEPEZIL HCL 10 MG TABLET (FP) PO SCH (10:25)
[2019-01-08] MEDS: APIXABAN 2.5 MG TABLET PO SCH ×2 (10:25→21:34)
[2019-01-08] MEDS: MULTIVITAMINS (DAILY MVI) TABLET (FP) PO SCH (10:25)
[2019-01-08] MEDS: OMEGA-3 ACID ETHYL ESTERS (FATTY-ACIDS) 1 GM CAPSULE (FP) PO SCH ×2 (10:25→17:19)
[2019-01-08] MEDS: ATENOLOL 25 MG TABLET (FP) PO SCH (10:25)
[2019-01-08] MEDS: amLODIPine BESYLATE 5 MG TABLET (FP) PO SCH (10:26)
[2019-01-08] MEDS: PANTOPRAZOLE SODIUM 40 MG VIAL IVPUSH SCH (10:26)
[2019-01-08] MEDS: CEFUROXIME AXETIL 250 MG TABLET PO SCH ×2 (10:36→21:34)
--- NOTE | 2019-01-08 13:07 | PN ---
Progress Note (short form) - Note Progress Note: pt seen/ examined awake comfortable chronic ill appearance son at bedside Vital Signs Temp 98.8 F 01/07/19 16:00 Pulse 59 L 01/08/19 12:00 Resp 21 H 01/08/19 12:00 BP 148/46 L 01/08/19 12:00 Pulse Ox 97 01/08/19 09:00 Intake & Output 01/07/19 01/08/19 01/08/19 23:59 11:59 23:59 Intake Total 100 Output Total 620 780 Balance -620 -680 Weight 136 lb 3.2 oz Intake: Oral 100 Output: Urine 620 780 Swenson 620 Void 780 Other: Voiding Method Indwelling Catheter Indwelling Catheter # Unmeasured Voids Swenson 1 Void 1 Weight Measurement Method Built in [facility] Active Medications Acetaminophen (Tylenol Oral Solution -) 650 mg PO Q6H PRN PRN Reason: FEVER Stop: 01/14/19 23:59 Last Admin: 01/08/19 03:15 Dose: 650 mg Albuterol/Ipratropium (Duoneb -) 1 amp NEB Q6H PRN PRN Reason: SHORTNESS OF BREATH Amlodipine Besylate (Norvasc -) 5 mg PO DAILY [facility] Last Admin: 01/08/19 10:26 Dose: 5 mg Apixaban (Eliquis -) 2.5 mg PO BID [facility] Last Admin: 01/08/19 10:25 Dose: 2.5 mg Atenolol (Tenormin -) 25 mg PO DAILY [facility] Last Admin: 01/08/19 10:25 Dose: 25 mg Cefuroxime Axetil (Ceftin -) 250 mg PO BID [facility] Last Admin: 01/08/19 10:36 Dose: 250 mg Donepezil HCl (Aricept -) 10 mg PO DAILY [facility] Last Admin: 01/08/19 10:25 Dose: 10 mg Guaifenesin (Robitussin -) 10 ml PO Q4H PRN PRN Reason: COUGH Last Admin: 01/06/19 16:45 Dose: 10 ml Insulin Aspart ([facility] Sliding [facility] -) [facility] Protocol Last Admin: 01/08/19 07:37 Dose: 3 units Lactobacillus Acidophilus (Bacid -) 1 tab PO DAILY [facility] Last Admin: 01/08/19 10:25 Dose: 1 tab Levothyroxine Sodium (Synthroid -) 25 mcg PO DAILY@0700 [facility] Last Admin: 01/08/19 07:36 Dose: 25 mcg Loperamide HCl (Imodium -) 2 mg PO Q8H PRN PRN Reason: DIARRHEA Multivitamins/Minerals/Vitamin C (Tab-A-Vit -) 1 tab PO DAILY [facility] Last Admin: 01/08/19 10:25 Dose: 1 tab Eodmh-0-Emfe Ethyl Esters (Lovaza -) 2 gm PO BID@1000,1700 [facility] Last Admin: 01/08/19 10:25 Dose: 2 gm Pancrelipase (Creon Dr 36,000 Units Capsule) 1 cap PO TIDCM [facility] Last Admin: 01/08/19 12:04 Dose: 1 cap Pantoprazole Sodium (Protonix Iv) 40 mg IVPUSH DAILY [facility] Last Admin: 01/08/19 10:26 Dose: 40 mg Simethicone (Mylicon -) 80 mg PO Q6H PRN PRN Reason: GAS CBC, BMP 01/07/19 05:20 01/08/19 05:17 Physical Exam S1 S2 RRR Lungs - decreased at bases Abd- soft,not tender no edema PLAN Discussed with pts family again-- worsening renal function lasix Monitor labs will follow condition gaurded will consult palliative care also discussed with nursing staff also Problem List - Problems (1) Hyponatremia Code(s): E87.1 - HYPO-OSMOLALITY AND HYPONATREMIA (2) Abdominal pain Code(s): R10.9 - UNSPECIFIED ABDOMINAL PAIN Qualifiers: Abdominal location: generalized Qualified Code(s): R10.84 - Generalized abdominal pain (3) Acute on chronic kidney failure Code(s): N17.9 - ACUTE KIDNEY FAILURE, UNSPECIFIED; N18.9 - CHRONIC KIDNEY DISEASE, UNSPECIFIED Qualifiers: Chronic kidney disease stage: stage 4 (severe) (4) Anemia Code(s): D64.9 - ANEMIA, UNSPECIFIED Qualifiers: (5) CKD (chronic kidney disease) stage 4, GFR 15-29 ml/min Code(s): N18.4 - CHRONIC KIDNEY DISEASE, STAGE 4 (SEVERE) (6) Dementia Code(s): F03.90 - UNSPECIFIED DEMENTIA WITHOUT BEHAVIORAL DISTURBANCE Qualifiers: Dementia type: unspecified type (7) Ischemic colitis Code(s): K55.9 - VASCULAR DISORDER OF INTESTINE, UNSPECIFIED (8) Paroxysmal atrial fibrillation Code(s): I48.0 - PAROXYSMAL ATRIAL FIBRILLATION (9) Type 2 diabetes mellitus Code(s): E11.9 - TYPE 2 DIABETES MELLITUS WITHOUT COMPLICATIONS (10) Pneumonia Code(s): J18.9 - PNEUMONIA, UNSPECIFIED ORGANISM
[2019-01-08] MEDS ORDERED: FUROSEMIDE 40 MG TABLET (FP) PO ONE (13:56)
--- NOTE | 2019-01-08 13:56 | PN ---
Progress Note, Physician History of Present Illness: Pt seen and examined at bedside. She is awake and alert. She denies shortness of breath. - Current Medication List Current Medications: Active Medications Acetaminophen (Tylenol Oral Solution -) 650 mg PO Q6H PRN PRN Reason: FEVER Stop: 01/14/19 23:59 Last Admin: 01/08/19 03:15 Dose: 650 mg Albuterol/Ipratropium (Duoneb -) 1 amp NEB Q6H PRN PRN Reason: SHORTNESS OF BREATH Amlodipine Besylate (Norvasc -) 5 mg PO DAILY [facility] Last Admin: 01/08/19 10:26 Dose: 5 mg Apixaban (Eliquis -) 2.5 mg PO BID [facility] Last Admin: 01/08/19 10:25 Dose: 2.5 mg Atenolol (Tenormin -) 25 mg PO DAILY [facility] Last Admin: 01/08/19 10:25 Dose: 25 mg Cefuroxime Axetil (Ceftin -) 250 mg PO BID [facility] Last Admin: 01/08/19 10:36 Dose: 250 mg Donepezil HCl (Aricept -) 10 mg PO DAILY [facility] Last Admin: 01/08/19 10:25 Dose: 10 mg Guaifenesin (Robitussin -) 10 ml PO Q4H PRN PRN Reason: COUGH Last Admin: 01/06/19 16:45 Dose: 10 ml Insulin Aspart (Novolog Vial Sliding Scale -) [facility] Protocol Last Admin: 01/08/19 07:37 Dose: 3 units Lactobacillus Acidophilus (Bacid -) 1 tab PO DAILY [facility] Last Admin: 01/08/19 10:25 Dose: 1 tab Levothyroxine Sodium (Synthroid -) 25 mcg PO DAILY@0700 [facility] Last Admin: 01/08/19 07:36 Dose: 25 mcg Loperamide HCl (Imodium -) 2 mg PO Q8H PRN PRN Reason: DIARRHEA Multivitamins/Minerals/Vitamin C (Tab-A-Vit -) 1 tab PO DAILY [facility] Last Admin: 01/08/19 10:25 Dose: 1 tab Kuole-0-Iaek Ethyl Esters (Lovaza -) 2 gm PO BID@1000,1700 [facility] Last Admin: 01/08/19 10:25 Dose: 2 gm Pancrelipase (Creon Dr 36,000 Units Capsule) 1 cap PO TIDCM [facility] Last Admin: 01/08/19 12:04 Dose: 1 cap Pantoprazole Sodium (Protonix Iv) 40 mg IVPUSH DAILY [facility] Last Admin: 01/08/19 10:26 Dose: 40 mg Simethicone (Mylicon -) 80 mg PO Q6H PRN PRN Reason: GAS - Objective Vital Signs: Vital Signs Temperature 98.8 F 01/07/19 16:00 Pulse Rate 59 L 01/08/19 12:00 Respiratory Rate 21 H 01/08/19 12:00 Blood Pressure 148/46 L 01/08/19 12:00 O2 Sat by Pulse Oximetry (%) 97 01/08/19 09:00 Constitutional: Yes: Calm Eyes: Yes: Conjunctiva Clear HENT: Yes: Atraumatic Cardiovascular: Yes: S1, S2 Respiratory: Yes: On Nasal O2 Gastrointestinal: Yes: Soft Genitourinary: Yes: Swenson Present Musculoskeletal: Yes: Muscle Weakness Edema: No Integumentary: Yes: WNL Neurological: Yes: Oriented Psychiatric: Yes: Oriented Labs: CBC, BMP 01/07/19 05:20 01/08/19 05:17 Problem List - Problems (1) CHF (congestive heart failure) Code(s): I50.9 - HEART FAILURE, UNSPECIFIED Qualifiers: Heart failure type: diastolic Heart failure chronicity: acute on chronic Qualified Code(s): I50.33 - Acute on chronic diastolic (congestive) heart failure (2) Pneumonia Code(s): J18.9 - PNEUMONIA, UNSPECIFIED ORGANISM (3) CKD (chronic kidney disease) stage 4, GFR 15-29 ml/min Code(s): N18.4 - CHRONIC KIDNEY DISEASE, STAGE 4 (SEVERE) Assessment/Plan Current Medications Generic Name Dose Route Start Last Admin Trade Name Freq PRN Reason Stop Dose Admin Acetaminophen 650 mg 01/08/19 01:00 01/08/19 03:15 Tylenol Oral Solution - PO 01/14/19 23:59 650 mg Q6H PRN Administration FEVER Albuterol/Ipratropium 1 amp 01/04/19 10:24 Duoneb - NEB Q6H PRN SHORTNESS OF BREATH Amlodipine Besylate 5 mg 01/01/19 10:00 01/08/19 10:26 Norvasc - PO 5 mg DAILY [facility] Administration Apixaban 2.5 mg 01/01/19 10:00 01/08/19 10:25 Eliquis - PO 2.5 mg BID YANN Administration Atenolol 25 mg 01/01/19 10:00 01/08/19 10:25 Tenormin - PO 25 mg DAILY [facility] Administration Cefuroxime Axetil 250 mg 01/06/19 22:00 01/08/19 10:36 Ceftin - PO 250 mg BID YANN Administration Donepezil HCl 10 mg 01/01/19 10:00 01/08/19 10:25 Aricept - PO 10 mg DAILY [facility] Administration Guaifenesin 10 ml 01/04/19 10:24 01/06/19 16:45 Robitussin - PO 10 ml Q4H PRN Administration COUGH Insulin Aspart 1 vial 01/01/19 07:00 01/08/19 07:37 Novolog Vial Sliding Scale - SQ 3 units BIDAC YANN Administration Protocol Lactobacillus Acidophilus 1 tab 01/01/19 10:00 01/08/19 10:25 Bacid - PO 1 tab DAILY [facility] Administration Levothyroxine Sodium 25 mcg 01/01/19 07:00 01/08/19 07:36 Synthroid - PO 25 mcg DAILY@0700 [facility] Administration Loperamide HCl 2 mg 01/01/19 03:13 Imodium - PO Q8H PRN DIARRHEA Multivitamins/Minerals/Vitamin C 1 tab 01/01/19 10:00 01/08/19 10:25 Tab-A-Vit - PO 1 tab DAILY AYNN Administration Emidn-5-Tbwa Ethyl Esters 2 gm 01/01/19 10:00 01/08/19 10:25 Lovaza - PO 2 gm BID@1000,1700 YANN Administration Pancrelipase 1 cap 01/01/19 08:00 01/08/19 12:[address] 36,000 Units Capsule PO 1 cap TIDCM YANN Administration Pantoprazole Sodium 40 mg 01/01/19 10:00 01/08/19 10:26 Protonix Iv IVPUSH 40 mg DAILY YANN Administration Simethicone 80 mg 01/01/19 03:13 Mylicon - PO Q6H PRN GAS Laboratory Tests 01/07/19 01/07/19 01/08/19 17:19 17:19 05:17 Sodium 124 L Serum Osmolality 294 Urine Osmolality 207 L Ur Random Sodium 43 Impression #GABY on CKD with volume over load #Hypervolemic Hyponatremia #Acute on chronic anemia #CHF/Fluid overload #Hypertension #Hypothyroidism #Abd pain with hx of ischemic colitis #hypokalemia Plan - sodium starting to improve - no great change in renal function - restrict free water - cont lasix, pt tolerated the dose yesterday - will give a dose today - cardio follow up - check spep as plasma osm is normal
[2019-01-09] MEDS: LEVOTHYROXINE NA 25 MCG TABLET (FP) PO SCH (06:19)
[2019-01-09] MEDS: INSULIN SLIDING SCALE (NOVOLOG) 1 VIAL SQ SCH ×2 (06:19→18:07)
[2019-01-09] MEDS ORDERED: PT OWN MED DRAWER 7, Y5N ONE ×6 (06:47→20:47)
--- NOTE | 2019-01-09 09:58 | PN ---
Progress Note (short form) - Note Progress Note: pt seen/ examined daughter at bedside overall condition same. Vital Signs Temp 98.5 F 01/09/19 06:00 Pulse 59 L 01/09/19 06:00 Resp 25 H 01/09/19 06:00 BP 144/38 L 01/09/19 06:00 Pulse Ox 100 01/08/19 21:00 Intake & Output 01/08/19 01/08/19 01/09/19 11:59 23:59 11:59 Intake Total 100 30 Output Total 987 179 4452 Balance -680 -770 -1450 Weight 136 lb 3.2 oz Intake: Oral 100 30 Output: Urine 800 992 9794 Swenson 1450 Void 780 800 Other: Voiding Method Indwelling Catheter Indwelling Catheter # Unmeasured Voids Swenson 0 Void 1 Bowel Movement Yes: large No Weight Measurement Method Built in [facility] Active Medications Acetaminophen (Tylenol Oral Solution -) 650 mg PO Q6H PRN PRN Reason: FEVER Stop: 01/14/19 23:59 Last Admin: 01/08/19 03:15 Dose: 650 mg Albuterol/Ipratropium (Duoneb -) 1 amp NEB Q6H PRN PRN Reason: SHORTNESS OF BREATH Amlodipine Besylate (Norvasc -) 5 mg PO DAILY [facility] Last Admin: 01/08/19 10:26 Dose: 5 mg Apixaban (Eliquis -) 2.5 mg PO BID [facility] Last Admin: 01/08/19 21:34 Dose: 2.5 mg Atenolol (Tenormin -) 25 mg PO DAILY [facility] Last Admin: 01/08/19 10:25 Dose: 25 mg Cefuroxime Axetil (Ceftin -) 250 mg PO BID [facility] Last Admin: 01/08/19 21:34 Dose: 250 mg Donepezil HCl (Aricept -) 10 mg PO DAILY [facility] Last Admin: 01/08/19 10:25 Dose: 10 mg Guaifenesin (Robitussin -) 10 ml PO Q4H PRN PRN Reason: COUGH Last Admin: 01/06/19 16:45 Dose: 10 ml Insulin Aspart (Novolog Vial Sliding Scale -) [facility] Last Admin: 01/09/19 06:19 Dose: Not Given Lactobacillus Acidophilus (Bacid -) 1 tab PO DAILY [facility] Last Admin: 01/08/19 10:25 Dose: 1 tab Levothyroxine Sodium (Synthroid -) 25 mcg PO DAILY@0700 [facility] Last Admin: 01/09/19 06:19 Dose: 25 mcg Loperamide HCl (Imodium -) 2 mg PO Q8H PRN PRN Reason: DIARRHEA Multivitamins/Minerals/Vitamin C (Tab-A-Vit -) 1 tab PO DAILY [facility] Last Admin: 01/08/19 10:25 Dose: 1 tab [id number] Ethyl Esters (Lovaza -) 2 gm PO BID@1000,1700 [facility] Last Admin: 01/08/19 17:19 Dose: 2 gm Pancrelipase (Creon Dr 36,000 Units Capsule) 1 cap PO TIDCM [facility] Last Admin: 01/08/19 17:19 Dose: 1 cap Pantoprazole Sodium (Protonix Iv) 40 mg IVPUSH DAILY [facility] Last Admin: 01/08/19 10:26 Dose: 40 mg Simethicone (Mylicon -) 80 mg PO Q6H PRN PRN Reason: GAS CBC, BMP 01/07/19 05:20 01/08/19 05:17 Physical Exam awake. chronic ill appearance S1 S2 RRR Lungs - decreased at bases Abd- soft,not tender trace edema PLAN Discussed with pts family again-- worsening renal function lasix Monitor labs will follow condition gaurded family requesting urology consult for urinary retention-- will consult will follow Problem List - Problems (1) Hyponatremia Code(s): E87.1 - HYPO-OSMOLALITY AND HYPONATREMIA (2) Abdominal pain Code(s): R10.9 - UNSPECIFIED ABDOMINAL PAIN Qualifiers: Abdominal location: generalized Qualified Code(s): R10.84 - Generalized abdominal pain (3) Acute on chronic kidney failure Code(s): N17.9 - ACUTE KIDNEY FAILURE, UNSPECIFIED; N18.9 - CHRONIC KIDNEY DISEASE, UNSPECIFIED Qualifiers: Chronic kidney disease stage: stage 4 (severe) (4) Anemia Code(s): D64.9 - ANEMIA, UNSPECIFIED Qualifiers: (5) CKD (chronic kidney disease) stage 4, GFR 15-29 ml/min Code(s): N18.4 - CHRONIC KIDNEY DISEASE, STAGE 4 (SEVERE) (6) Dementia Code(s): F03.90 - UNSPECIFIED DEMENTIA WITHOUT BEHAVIORAL DISTURBANCE Qualifiers: Dementia type: unspecified type (7) Ischemic colitis Code(s): K55.9 - VASCULAR DISORDER OF INTESTINE, UNSPECIFIED (8) Paroxysmal atrial fibrillation Code(s): I48.0 - PAROXYSMAL ATRIAL FIBRILLATION (9) Type 2 diabetes mellitus Code(s): E11.9 - TYPE 2 DIABETES MELLITUS WITHOUT COMPLICATIONS (10) Pneumonia Code(s): J18.9 - PNEUMONIA, UNSPECIFIED ORGANISM
[2019-01-09] MEDS: CEFUROXIME AXETIL 250 MG TABLET PO SCH ×2 (10:20→21:01)
[2019-01-09] MEDS: LIPASE/PROTEASE/AMYLASE 36,000 UNIT CAPSULE PO SCH ×3 (10:20→17:21)
[2019-01-09] MEDS: DONEPEZIL HCL 10 MG TABLET (FP) PO SCH (10:22)
[2019-01-09] MEDS: amLODIPine BESYLATE 5 MG TABLET (FP) PO SCH (10:22)
[2019-01-09] MEDS: MULTIVITAMINS (DAILY MVI) TABLET (FP) PO SCH (10:22)
[2019-01-09] MEDS: ATENOLOL 25 MG TABLET (FP) PO SCH (10:22)
[2019-01-09] MEDS: APIXABAN 2.5 MG TABLET PO SCH ×2 (10:22→21:01)
[2019-01-09] MEDS: LACTOBACILLUS ACIDOPHILUS 1 TABLET PO SCH (10:22)
[2019-01-09] MEDS: OMEGA-3 ACID ETHYL ESTERS (FATTY-ACIDS) 1 GM CAPSULE (FP) PO SCH ×2 (10:23→17:20)
[2019-01-09] MEDS: PANTOPRAZOLE SODIUM 40 MG VIAL IVPUSH SCH (10:23)
--- NOTE | 2019-01-09 11:40 | PN ---
Progress Note, Physician History of Present Illness: OOB to chair, diuresis resumed, renal fxn worsened. Failed voiding trial and watts reinserted. - Current Medication List Current Medications: Active Medications Acetaminophen (Tylenol Oral Solution -) 650 mg PO Q6H PRN PRN Reason: FEVER Stop: 01/14/19 23:59 Last Admin: 01/08/19 03:15 Dose: 650 mg Amlodipine Besylate (Norvasc -) 5 mg PO DAILY [facility] Last Admin: 01/09/19 10:22 Dose: 5 mg Apixaban (Eliquis -) 2.5 mg PO BID [facility] Last Admin: 01/09/19 10:22 Dose: 2.5 mg Atenolol (Tenormin -) 25 mg PO DAILY [facility] Last Admin: 01/09/19 10:22 Dose: 25 mg Cefuroxime Axetil (Ceftin -) 250 mg PO BID [facility] Last Admin: 01/09/19 10:20 Dose: 250 mg Donepezil HCl (Aricept -) 10 mg PO DAILY [facility] Last Admin: 01/09/19 10:22 Dose: 10 mg Guaifenesin (Robitussin -) 10 ml PO Q4H PRN PRN Reason: COUGH Last Admin: 01/06/19 16:45 Dose: 10 ml Insulin Aspart (Novolog Vial Sliding Scale -) 1 vial SQ BIDAC [facility]; Protocol Last Admin: 01/09/19 06:19 Dose: Not Given Lactobacillus Acidophilus (Bacid -) 1 tab PO DAILY [facility] Last Admin: 01/09/19 10:22 Dose: 1 tab Levothyroxine Sodium (Synthroid -) 25 mcg PO DAILY@0700 [facility] Last Admin: 01/09/19 06:19 Dose: 25 mcg Loperamide HCl (Imodium -) 2 mg PO Q8H PRN PRN Reason: DIARRHEA Multivitamins/Minerals/Vitamin C (Tab-A-Vit -) 1 tab PO DAILY [facility] Last Admin: 01/09/19 10:22 Dose: 1 tab [id number] Ethyl Esters (Lovaza -) 2 gm PO BID@1000,1700 [facility] Last Admin: 01/09/19 10:23 Dose: 2 gm Pancrelipase (Creon Dr 36,000 Units Capsule) 1 cap PO TIDCM [facility] Last Admin: 01/09/19 10:20 Dose: 1 cap Pantoprazole Sodium (Protonix Iv) 40 mg IVPUSH DAILY [facility] Last Admin: 01/09/19 10:23 Dose: 40 mg Simethicone (Mylicon -) 80 mg PO Q6H PRN PRN Reason: GAS - Objective Vital Signs: Vital Signs Temperature 98.5 F 01/09/19 06:00 Pulse Rate 59 L 01/09/19 06:00 Respiratory Rate 25 H 01/09/19 06:00 Blood Pressure 144/38 L 01/09/19 06:00 O2 Sat by Pulse Oximetry (%) 100 01/08/19 21:00 Constitutional: Yes: No Distress, Calm, Thin Neck: Yes: Supple Cardiovascular: Yes: Regular Rate and Rhythm Respiratory: Yes: Regular, Diminished, On Nasal O2 Gastrointestinal: Yes: Normal Bowel Sounds, Soft Edema: No Labs: CBC, BMP 01/07/19 05:20 01/08/19 05:17 - ....Imaging Chest X-ray: Report Reviewed (CHF) Problem List - Problems (1) Acute on chronic kidney failure Code(s): N17.9 - ACUTE KIDNEY FAILURE, UNSPECIFIED; N18.9 - CHRONIC KIDNEY DISEASE, UNSPECIFIED Qualifiers: Chronic kidney disease stage: stage 4 (severe) (2) CHF (congestive heart failure) Code(s): I50.9 - HEART FAILURE, UNSPECIFIED Qualifiers: Heart failure type: diastolic Heart failure chronicity: acute on chronic Qualified Code(s): I50.33 - Acute on chronic diastolic (congestive) heart failure (3) Dementia Code(s): F03.90 - UNSPECIFIED DEMENTIA WITHOUT BEHAVIORAL DISTURBANCE Qualifiers: Dementia type: unspecified type (4) Hyperlipidemia Code(s): E78.5 - HYPERLIPIDEMIA, UNSPECIFIED (5) Hyponatremia Code(s): E87.1 - HYPO-OSMOLALITY AND HYPONATREMIA (6) Hypothyroidism Code(s): E03.9 - HYPOTHYROIDISM, UNSPECIFIED Qualifiers: Hypothyroidism type: unspecified Qualified Code(s): E03.9 - Hypothyroidism , unspecified (7) Paroxysmal atrial fibrillation Code(s): I48.0 - PAROXYSMAL ATRIAL FIBRILLATION Assessment/Plan 05/10/2017 Echo: Normal LV size and fxn, mild LAE, mod MR, TR RVSP 30-40 mm Hg, mild AR 1. Acute on chronic diastolic LV failure 2. GABY on CKD with volume overload due to renal hypoprofusion in setting of HFpEF 3. Hypervolemic Hyponatremia improving 4. Abd pain with h/o ischemic colitis, mesenteric ischemia with intestinal angina post conservative medical management 5. Paroxysmal atrial fibrillation on A/C with NOAC/Eliquis [id number] score of 5, rate controlled 6. 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 HTN/HCVD 8. DM 9. Hypercholesterolemia 10. 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 Anemia 13. hx of ischemic colitis PLAN: 1. Resume IV diuresis with monitor renal recovery and electrolytes, check TSH, lactate levels 2. Continue Atenolol 25 qd, Norvasc 5 qd, Eliquis 2.5 bid (age > 80 and Creatinine > 1.5), Lovaza 2 bid 3. Resume lisinopril 20 qd when renal function improves to baseline 4. Free water restriction, bipap, BD and FIO2 to maintain saO2>90% 5. Transfusion to maintain hemoglobin equal or greater than 8.0 6. Empiric abx course for ? PNA
--- NOTE | 2019-01-09 12:18 | ECHO ---
Name: MELLY HAMLIN Exam:Adult Echocardiogram Study Date: 01/09/2019 08:53 AM Age: 88 yrs Reason For Study: CHF Height: 62 in Weight: 129 lb BSA: 1.6 m2 MMode/2D Measurements & Calculations IVSd: 1.0 cm Ao root diam: 2.5 cm LVIDd: 4.9 cm LA dimension: 4.4 cm LVIDs: 3.3 cm LVPWd: 0.86 cm LVPWs: 1.2 cm EDV(Teich): 115.4 ml ESV(Teich): 45.6 ml LVOT diam: 1.9 cm LAV(MOD-sp2): 73.9 ml LAV(MOD-sp4): 122.8 ml LAV(MOD-bp): 109.1 ml LAV(MOD-bp) Indexed: 68.8 ml/m2 RV S Marco: 15.6 cm/sec Doppler Measurements & Calculations MV E max marco: 155.5 cm/sec Ao V2 max: 166.1 cm/sec MV A max marco: 94.4 cm/sec Ao max P.1 mmHg MV E/A: 1.6 Ao V2 mean: 109.6 cm/sec MV dec time: 0.16 sec Ao mean P.6 mmHg Ao V2 VTI: 41.8 cm TRAE(I,D): 1.4 cm2 AI P1/2t: 330.9 msec TRAE(V,D): 1.5 cm2 AI max marco: 434.4 cm/sec LV V1 max P.1 mmHg AI max P.6 mmHg LV V1 mean P.7 mmHg LV V1 max: 88.6 cm/sec AI dec slope: 384.5 cm/sec2 LV V1 mean: 61.1 cm/sec LV V1 VTI: 22.1 cm MR max marco: 611.6 cm/sec SV(LVOT): 60.2 ml MR max P.0 mmHg TR max marco: 315.1 cm/sec PA V2 max: 138.1 cm/sec TR max P.8 mmHg PA max P.6 mmHg Med Peak E' Marco: 5.4 cm/sec Med E/e': 28.6 Lat Peak E' Marco: 7.2 cm/sec Lat E/e': 21.7 Procedure A complete two-dimensional transthoracic echocardiogram was performed (2D, M-mode, Doppler and color flow Doppler). Left Ventricle The left ventricle is normal in size. Left ventricular systolic function is normal. Ejection Fraction = 60- 65%. Diastolic dysfunction, Grade III (restrictive pattern), consistent with markedly increased left atrial pressure. Tissue doppler sampling consistent with 'Restrictive physiology <8'. No regional wall motio n abnormalities noted. Right Ventricle The right ventricle is normal size. The right ventricular systolic function is normal. RV systolic TD I is 15 cm/s. Atria The left atrial size is normal. Right atrial size is normal. Mitral Valve There is moderate mitral annular calcification. There is moderate mitral regurgitation. Tricuspid Valve The tricuspid valve is normal in structure and function. There is mild to moderate tricuspid regurgit ation. Pulmonary artery systolic pressure is at least 47 mmHg assuming RA pressure of 3 mmHg. Aortic Valve There is mild aortic sclerosis.;. Mild aortic regurgitation. Pulmonic Valve The pulmonic valve is not well visualized. Mild pulmonic valvular regurgitation. Great Vessels The aortic root is normal size. Pericardium/Pleura There is no pericardial effusion. There is a pleural effusion present. Interpretation Summary The left ventricle is normal in size. Left ventricular systolic function is normal. No regional wall motion abnormalities noted. Ejection Fraction = 60-65%. Diastolic dysfunction, Grade III (restrictive pattern), consistent with markedly increased left atria l pressure. Tissue doppler sampling consistent with 'Restrictive physiology <8' The right ventricular systolic function is normal. The left atrial size is normal. Right atrial size is normal. There is moderate mitral annular calcification. There is moderate mitral regurgitation. There is mild to moderate tricuspid regurgitation. Pulmonary artery systolic pressure is at least 47 mmHg assuming RA pressure of 3 mmHg There is mild aortic sclerosis.; Mild aortic regurgitation. Mild pulmonic valvular regurgitation. There is no pericardial effusion. There is a pleural effusion present. Previous study is not available for comparison Deejay Sandra MD 01/09/2019 12:17 PM
--- NOTE | 2019-01-09 12:28 | PN ---
Progress Note (short form) - Note Progress Note: Renal follow up for GABY/Fluid overload Pt seen and examined at the bedside awake and alert sitting in the chair on NC O2 no N/V, confusion, lethargy, tremors failed voiding trial over the weekend Vital Signs Temperature 98.5 F 01/09/19 06:00 Pulse Rate 59 L 01/09/19 06:00 Respiratory Rate 25 H 01/09/19 06:00 Blood Pressure 144/38 L 01/09/19 06:00 O2 Sat by Pulse Oximetry (%) 100 01/08/19 21:00 Intake & Output 01/06/19 01/07/19 01/08/19 01/09/19 23:59 23:59 23:59 23:59 Intake Total 400 50 130 Output Total 1020 1020 1580 1450 Balance -620 -970 -1450 -1450 Weight 61.779 kg NAD on NC O2 neck supple RRR CTA no edema in legs CBC, BMP 01/07/19 05:20 01/08/19 05:17 Current Medications Acetaminophen (Tylenol Oral Solution -) 650 mg PO Q6H PRN PRN Reason: FEVER Stop: 01/14/19 23:59 Last Admin: 01/08/19 03:15 Dose: 650 mg Amlodipine Besylate (Norvasc -) 5 mg PO DAILY [facility] Last Admin: 01/09/19 10:22 Dose: 5 mg Apixaban (Eliquis -) 2.5 mg PO BID [facility] Last Admin: 01/09/19 10:22 Dose: 2.5 mg Atenolol (Tenormin -) 25 mg PO DAILY [facility] Last Admin: 01/09/19 10:22 Dose: 25 mg Cefuroxime Axetil (Ceftin -) 250 mg PO BID [facility] Last Admin: 01/09/19 10:20 Dose: 250 mg Donepezil HCl (Aricept -) 10 mg PO DAILY [facility] Last Admin: 01/09/19 10:22 Dose: 10 mg Guaifenesin (Robitussin -) 10 ml PO Q4H PRN PRN Reason: COUGH Last Admin: 01/06/19 16:45 Dose: 10 ml Insulin Aspart ([facility] Sliding Scale -) [facility] Last Admin: 01/09/19 06:19 Dose: Not Given Lactobacillus Acidophilus (Bacid -) 1 tab PO DAILY [facility] Last Admin: 01/09/19 10:22 Dose: 1 tab Levothyroxine Sodium (Synthroid -) 25 mcg PO DAILY@0700 [facility] Last Admin: 01/09/19 06:19 Dose: 25 mcg Loperamide HCl (Imodium -) 2 mg PO Q8H PRN PRN Reason: DIARRHEA Multivitamins/Minerals/Vitamin C (Tab-A-Vit -) 1 tab PO DAILY [facility] Last Admin: 01/09/19 10:22 Dose: 1 tab Fqhcz-[id number] Ethyl Esters (Lovaza -) 2 gm PO BID@1000,1700 [facility] Last Admin: 01/09/19 10:23 Dose: 2 gm Pancrelipase (Dory Hay 36,000 Units Capsule) 1 cap PO TIDCM [facility] Last Admin: 01/09/19 10:20 Dose: 1 cap Pantoprazole Sodium (Protonix Iv) 40 mg IVPUSH DAILY [facility] Last Admin: 01/09/19 10:23 Dose: 40 mg Simethicone (Mylicon -) 80 mg PO Q6H PRN PRN Reason: GAS 88 year old woman with hx of CKD stage 4, Afib on Eliquis, Hypertension , hypothyroidism, ischemic colitis who presented with laboratory studies that showed hyponatremia with Na of 117 and Cr of 2.8. #GABY on CKD with volume over load #Hypervolemic Hyponatremia #Acute on chronic anemia #CHF/Fluid overload #Hypertension #Hypothyroidism #Abd pain with hx of ischemic colitis #hypokalemia Renal function stable over the weekend, desptie high BUN no signs of uremia. Also no hyperkalemia or acidosis to warrant dialysis. Would hold further IV diuretics at this time as lung exam is improved and further diuretics likely to cause further intravascular volume depletion. Dose all meds for CrCl < 10 Serum Na remains low. Serum OSM is normal but due to high BUN. Calculated OSM is 296. Continue Epogen weekly. and IV iron as needed on ORal antibiotics CXR shows overall improvement Maintain on low salt diet. 1L fluid restriction for hyponatremia, solute intake as tolerated supplemental O2 as needed Thank you Refugio Allen DO
--- NOTE | 2019-01-09 12:30 | PN ---
Progress Note (short form) - Note Progress Note: Resting in NAD. Breathing continues to improve. Denies cough or wheezing. No fevers or chills. Intake & Output 01/06/19 01/07/19 01/08/19 01/09/19 23:59 23:59 23:59 23:59 Intake Total 400 50 130 Output Total 1020 1020 1580 1450 Balance -620 -970 -1450 -1450 Weight 136 lb 3.2 oz Last Vital Signs Temp Pulse Resp BP Pulse Ox 98.5 F 59 L 25 H 144/38 L 100 01/09/19 06:00 01/09/19 06:00 01/09/19 06:00 01/09/19 06:00 01/08/19 21:00 Active Medications Acetaminophen (Tylenol Oral Solution -) 650 mg PO Q6H PRN PRN Reason: FEVER Stop: 01/14/19 23:59 Last Admin: 01/08/19 03:15 Dose: 650 mg Amlodipine Besylate (Norvasc -) 5 mg PO DAILY [facility] Last Admin: 01/09/19 10:22 Dose: 5 mg Apixaban (Eliquis -) 2.5 mg PO BID [facility] Last Admin: 01/09/19 10:22 Dose: 2.5 mg Atenolol (Tenormin -) 25 mg PO DAILY [facility] Last Admin: 01/09/19 10:22 Dose: 25 mg Cefuroxime Axetil (Ceftin -) 250 mg PO BID [facility] Last Admin: 01/09/19 10:20 Dose: 250 mg Donepezil HCl (Aricept -) 10 mg PO DAILY [facility] Last Admin: 01/09/19 10:22 Dose: 10 mg Guaifenesin (Robitussin -) 10 ml PO Q4H PRN PRN Reason: COUGH Last Admin: 01/06/19 16:45 Dose: 10 ml Insulin Aspart (Novolog Vial Sliding Scale -) [facility] Protocol Last Admin: 01/09/19 06:19 Dose: Not Given Lactobacillus Acidophilus (Bacid -) 1 tab PO DAILY [facility] Last Admin: 01/09/19 10:22 Dose: 1 tab Levothyroxine Sodium (Synthroid -) 25 mcg PO DAILY@0700 [facility] Last Admin: 01/09/19 06:19 Dose: 25 mcg Loperamide HCl (Imodium -) 2 mg PO Q8H PRN PRN Reason: DIARRHEA Multivitamins/Minerals/Vitamin C (Tab-A-Vit -) 1 tab PO DAILY [facility] Last Admin: 01/09/19 10:22 Dose: 1 tab [id number] Ethyl Esters (Lovaza -) 2 gm PO BID@1000,1700 [facility] Last Admin: 01/09/19 10:23 Dose: 2 gm Pancrelipase (Dory Hay 36,000 Units Capsule) 1 cap PO TIDCM [facility] Last Admin: 01/09/19 10:20 Dose: 1 cap Pantoprazole Sodium (Protonix Iv) 40 mg IVPUSH DAILY [facility] Last Admin: 01/09/19 10:23 Dose: 40 mg Simethicone (Mylicon -) 80 mg PO Q6H PRN PRN Reason: GAS Gen: NAD at rest Heart: RRR Lung: basilar rales Abd: soft, nontender Ext: no edema Laboratory Results - last 24 hr 01/08/19 01/09/19 17:07 06:17 POC Glucometer 194 114 A/P Acute on Chronic Diastolic Heart Failure Volume Overload Acute on Chronic Renal Failure Hyponatremia r/o Pneumonia Paroxysmal Atrial Fibrillation CAD HTN DM Hypercholesterolemia Hypothyroidism Dementia - ABX per ID - monitor urine output, creatinine - O2 to keep SpO2 >90% - inhaled bronchodilators - rate control - AC - PT Dr Harper
[2019-01-09 13:06] LABS: BLOOD UREA NITROGEN 100.8 mg/dL (7-18); CALCIUM 8.2 mg/dL (8.5-10.1); CREATININE 2.8 mg/dL (0.55-1.3); POTASSIUM 3.6 mmol/L (3.5-5.1)
[2019-01-09] MEDS ORDERED: INSULIN (NOVOLOG) ASPART 100 UNITS/ML 10ML VIAL ONE (17:53)
[2019-01-10 06:19] LABS: BASO % 0.7 % (0-2.0); EOS % 5.2 % (0-4.5); HEMATOCRIT 23.3 % (32.4-45.2); HEMOGLOBIN 8.2 GM/dL (10.7-15.3); LYMPH % 11.6 % (8-40); MCH 30.6 pg (25.7-33.7); MEAN CELL VOLUME 87.2 fl (80-96); MEAN PLT VOLUME 7.5 fl (7.5-11.1); MONO % 5.5 % (3.8-10.2); PLATELET COUNT 350 K/MM3 (134-434); RBC 2.67 M/mm3 (3.60-5.2); RDW 15.7 % (11.6-15.6); WHITE BLOOD COUNT 5.5 K/mm3 (4.0-10.0)
[2019-01-10] MEDS: LEVOTHYROXINE NA 25 MCG TABLET (FP) PO SCH (06:24)
[2019-01-10] MEDS: INSULIN SLIDING SCALE (NOVOLOG) 1 VIAL SQ SCH (06:25)
[2019-01-10 06:46] LABS: ALBUMIN 2.6 g/dl (3.4-5.0); BILIRUBIN,TOTAL 0.4 mg/dL (0.2-1); BLOOD UREA NITROGEN 96.8 mg/dL (7-18); CREATININE 2.8 mg/dL (0.55-1.3); POTASSIUM 3.7 mmol/L (3.5-5.1); TOT PROT 6.2 g/dl (6.4-8.2)
[2019-01-10] MEDS ORDERED: PT OWN MED DRAWER 7, Y5N ONE ×2 (08:31→10:38)
[2019-01-10] MEDS: LIPASE/PROTEASE/AMYLASE 36,000 UNIT CAPSULE PO SCH ×2 (08:33→12:01)
--- NOTE | 2019-01-10 10:00 | PN ---
Progress Note, Physician Chief Complaint: Events noted Clinically improved History of Present Illness: Patient was seen and examined. Awake. Chart was reviewed Denies chest pain or palpitations - Current Medication List Current Medications: Active Medications Acetaminophen (Tylenol Oral Solution -) 650 mg PO Q6H PRN PRN Reason: FEVER Stop: 01/14/19 23:59 Last Admin: 01/08/19 03:15 Dose: 650 mg Amlodipine Besylate (Norvasc -) 5 mg PO DAILY [facility] Last Admin: 01/09/19 10:22 Dose: 5 mg Apixaban (Eliquis -) 2.5 mg PO BID [facility] Last Admin: 01/09/19 21:01 Dose: 2.5 mg Atenolol (Tenormin -) 25 mg PO DAILY [facility] Last Admin: 01/09/19 10:22 Dose: 25 mg Cefuroxime Axetil (Ceftin -) 250 mg PO BID [facility] Last Admin: 01/09/19 21:01 Dose: 250 mg Donepezil HCl (Aricept -) 10 mg PO DAILY [facility] Last Admin: 01/09/19 10:22 Dose: 10 mg Guaifenesin (Robitussin -) 10 ml PO Q4H PRN PRN Reason: COUGH Last Admin: 01/06/19 16:45 Dose: 10 ml Insulin Aspart (Novolog Vial Sliding Scale -) 1 vial SQ BIDAC [facility]; Protocol Last Admin: 01/10/19 06:25 Dose: Not Given Lactobacillus Acidophilus (Bacid -) 1 tab PO DAILY [facility] Last Admin: 01/09/19 10:22 Dose: 1 tab Levothyroxine Sodium (Synthroid -) 25 mcg PO DAILY@0700 [facility] Last Admin: 01/10/19 06:24 Dose: 25 mcg Loperamide HCl (Imodium -) 2 mg PO Q8H PRN PRN Reason: DIARRHEA Multivitamins/Minerals/Vitamin C (Tab-A-Vit -) 1 tab PO DAILY [facility] Last Admin: 01/09/19 10:22 Dose: 1 tab [id number] Ethyl Esters (Lovaza -) 2 gm PO BID@1000,1700 [facility] Last Admin: 01/09/19 17:20 Dose: 2 gm Pancrelipase (Creon Dr 36,000 Units Capsule) 1 cap PO TIDCM [facility] Last Admin: 01/10/19 08:33 Dose: 1 cap Pantoprazole Sodium (Protonix Iv) 40 mg IVPUSH DAILY YANN Last Admin: 01/09/19 10:23 Dose: 40 mg Simethicone (Mylicon -) 80 mg PO Q6H PRN PRN Reason: GAS - Objective Vital Signs: Vital Signs Temperature 98.7 F 01/10/19 06:00 Pulse Rate 67 01/10/19 06:00 Respiratory Rate 18 01/10/19 06:00 Blood Pressure 153/50 L 01/10/19 06:00 O2 Sat by Pulse Oximetry (%) 100 01/09/19 19:35 Eyes: Yes: PERRL HENT: Yes: Atraumatic Neck: Yes: Supple Cardiovascular: Yes: Regular Rate and Rhythm, S1, S2 Respiratory: Yes: CTA Bilaterally Gastrointestinal: Yes: Normal Bowel Sounds, Soft. No: Tenderness Edema: No Additional Findings/Remarks: - Review of Systems Constitutional: denies: Chills, Fever Cardiovascular: denies: Chest Pain, Palpitations, Shortness of Breath Respiratory: denies: Cough, Hemoptysis, Orthopnea, PND, SOB, SOB on Exertion Gastrointestinal: denies: Abdominal Pain, Constipation, Diarrhea, Melena, Nausea , Rectal Bleeding, Vomiting Musculoskeletal: denies: Back Pain, Joint Pain Neurological: denies Dizziness, Syncope. denies: Headache, Seizure Labs: CBC, BMP 01/10/19 05:26 01/10/19 05:26 Problem List - Problems (1) Abdominal pain Code(s): R10.9 - UNSPECIFIED ABDOMINAL PAIN Qualifiers: Abdominal location: generalized Qualified Code(s): R10.84 - Generalized abdominal pain (2) CHF (congestive heart failure) Code(s): I50.9 - HEART FAILURE, UNSPECIFIED Qualifiers: Heart failure type: diastolic Heart failure chronicity: acute on chronic Qualified Code(s): I50.33 - Acute on chronic diastolic (congestive) heart failure (3) Acute on chronic kidney failure Code(s): N17.9 - ACUTE KIDNEY FAILURE, UNSPECIFIED; N18.9 - CHRONIC KIDNEY DISEASE, UNSPECIFIED Qualifiers: Chronic kidney disease stage: stage 4 (severe) (4) Anemia Code(s): D64.9 - ANEMIA, UNSPECIFIED Qualifiers: (5) CKD (chronic kidney disease) stage 4, GFR 15-29 ml/min Code(s): N18.4 - CHRONIC KIDNEY DISEASE, STAGE 4 (SEVERE) (6) Dyspnea Code(s): R06.00 - DYSPNEA, UNSPECIFIED (7) Hyperlipidemia Code(s): E78.5 - HYPERLIPIDEMIA, UNSPECIFIED Qualifiers: Hyperlipidemia type: pure hypercholesterolemia Qualified Code(s): E78.00 - Pure hypercholesterolemia, unspecified; E78.0 - Pure hypercholesterolemia (8) Hyponatremia Code(s): E87.1 - HYPO-OSMOLALITY AND HYPONATREMIA (9) Hypothyroidism Code(s): E03.9 - HYPOTHYROIDISM, UNSPECIFIED Qualifiers: Hypothyroidism type: unspecified Qualified Code(s): E03.9 - Hypothyroidism , unspecified (10) Ischemic colitis Code(s): K55.9 - VASCULAR DISORDER OF INTESTINE, UNSPECIFIED (11) Type 2 diabetes mellitus Code(s): E11.9 - TYPE 2 DIABETES MELLITUS WITHOUT COMPLICATIONS Assessment/Plan 1. GABY on CKD with volume overload in setting of HFpEF 2. Hypervolemic Hyponatremia 3. Acute on chronic diastolic LV failure 4. Abdominal pain with history of ischemic colitis, mesenteric ischemia with intestinal angina 5. Paroxysmal atrial fibrillation on DOAC/Eliquis [id number] score of 5 6. 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 HTN/HCVD 8. DM 9. Hypercholesterolemia 10. 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 Anemia PLAN: 1. IV diuresis with monitoring renal function and electrolytes. 2. Continue Atenolol 25 mg QD, Norvasc 5 mg QD and Eliquis 2.5 mg BID (age > 80 and Creatinine > 1.5) 3. Resume Lisinopril when renal function stabilizes 4. Free water restriction, BIPAP and FIO2 to maintain saO2>90% Further plans are to follow. Discussed care with family by bedside Deejay Sandra MD
[2019-01-10] MEDS ORDERED: IRON SUCROSE INJECTION 200 MG in SODIUM CHLORIDE 90 ML IVPB ONE (10:12)
--- NOTE | 2019-01-10 10:14 | PN ---
Progress Note (short form) - Note Progress Note: family at bedside not in distress off NC could not void urine when watts removed Vital Signs - 24 hr 01/09/19 01/09/19 01/09/19 14:00 16:00 19:35 Temperature 97.8 F Pulse Rate 65 63 Respiratory 18 18 Rate Blood Pressure 134/42 L 133/38 L O2 Sat by Pulse 100 Oximetry (%) 01/09/19 01/10/19 01/10/19 20:00 00:00 02:00 Temperature 98.0 F 98.2 F Pulse Rate 68 67 65 Respiratory 20 16 18 Rate Blood Pressure 139/41 L 149/40 L 149/40 L O2 Sat by Pulse Oximetry (%) 01/10/19 06:00 Temperature 98.7 F Pulse Rate 67 Respiratory 18 Rate Blood Pressure 153/50 L O2 Sat by Pulse Oximetry (%) Current Medications Generic Name Dose Route Start Last Admin Trade Name Freq PRN Reason Stop Dose Admin Acetaminophen 650 mg 01/08/19 01:00 01/08/19 03:15 Tylenol Oral Solution - PO 01/14/19 23:59 650 mg Q6H PRN Administration FEVER Amlodipine Besylate 5 mg 01/01/19 10:00 01/09/19 10:22 Norvasc - PO 5 mg DAILY YANN Administration Apixaban 2.5 mg 01/01/19 10:00 01/09/19 21:01 Eliquis - PO 2.5 mg BID YANN Administration Atenolol 25 mg 01/01/19 10:00 01/09/19 10:22 Tenormin - PO 25 mg DAILY YANN Administration Cefuroxime Axetil 250 mg 01/06/19 22:00 01/09/19 21:01 Ceftin - PO 250 mg BID YANN Administration Donepezil HCl 10 mg 01/01/19 10:00 01/09/19 10:22 Aricept - PO 10 mg DAILY YANN Administration Guaifenesin 10 ml 01/04/19 10:24 01/06/19 16:45 Robitussin - PO 10 ml Q4H PRN Administration COUGH Iron Sucrose 200 mg/ Sodium 100 mls @ 100 mls/hr 01/10/19 10:12 Chloride IVPB 01/10/19 11:11 ONCE ONE Insulin Aspart 1 vial 01/01/19 07:00 01/10/19 06:25 Novolog Vial Sliding Scale - SQ Not Given BIDAC [facility] Protocol Lactobacillus Acidophilus 1 tab 01/01/19 10:00 01/09/19 10:22 Bacid - PO 1 tab DAILY YANN Administration Levothyroxine Sodium 25 mcg 01/01/19 07:00 01/10/19 06:24 Synthroid - PO 25 mcg DAILY@0700 YANN Administration Loperamide HCl 2 mg 01/01/19 03:13 Imodium - PO Q8H PRN DIARRHEA Multivitamins/Minerals/Vitamin C 1 tab 01/01/19 10:00 01/09/19 10:22 Tab-A-Vit - PO 1 tab DAILY YANN Administration [id number]-1-Kpbp Ethyl Esters 2 gm 01/01/19 10:00 01/09/19 17:20 Lovaza - PO 2 gm BID@1000,1700 YANN Administration Pancrelipase 1 cap 01/01/19 08:00 01/10/19 08:[address] 36,000 Units Capsule PO 1 cap TIDCM YANN Administration Pantoprazole Sodium 40 mg 01/01/19 10:00 01/09/19 10:23 Protonix Iv IVPUSH 40 mg DAILY YANN Administration Simethicone 80 mg 01/01/19 03:13 Mylicon - PO Q6H PRN GAS Laboratory Results - last 24 hr 01/09/19 01/09/19 01/10/19 12:27 17:40 05:26 WBC 5.5 RBC 2.67 L Hgb 8.2 L Hct 23.3 L MCV 87.2 MCH 30.6 MCHC 35.0 RDW 15.7 H Plt Count 350 MPV 7.5 Absolute Neuts (auto) 4.3 Neutrophils % 77.0 Lymphocytes % 11.6 D Monocytes % 5.5 Eosinophils % 5.2 H D Basophils % 0.7 Nucleated RBC % 0 Sodium 128 L Potassium 3.6 Chloride 95 L Carbon Dioxide 24 Anion Gap 9 BUN 100.8 H Creatinine 2.8 H Est GFR (CKD-EPI)AfAm 17.01 Est GFR (CKD-EPI)NonAf 14.68 POC Glucometer 199 Random Glucose 210 H Calcium 8.2 L Total Bilirubin AST ALT Alkaline Phosphatase Total Protein Albumin 01/10/19 01/10/19 05:26 06:01 WBC RBC Hgb Hct MCV MCH MCHC RDW Plt Count MPV Absolute Neuts (auto) Neutrophils % Lymphocytes % Monocytes % Eosinophils % Basophils % Nucleated RBC % Sodium 131 L Potassium 3.7 Chloride 98 Carbon Dioxide 22 Anion Gap 12 BUN 96.8 H Creatinine 2.8 H Est GFR (CKD-EPI)AfAm 17.01 Est GFR (CKD-EPI)NonAf 14.68 POC Glucometer 101 Random Glucose 119 H Calcium 8.0 L Total Bilirubin 0.4 AST 24 ALT 29 Alkaline Phosphatase 85 Total Protein 6.2 L Albumin 2.6 L S1 S2 RRR Lungs crackles+B/L-- decreased Abd- soft,not tender no edema PLAN holding lasix creatinine same continue with meds CXR--noted sono abdomen -- normal nebs as needed clinically improving dc bicarb Problem List - Problems (1) Abdominal pain Code(s): R10.9 - UNSPECIFIED ABDOMINAL PAIN Qualifiers: Abdominal location: generalized Qualified Code(s): R10.84 - Generalized abdominal pain (2) CHF (congestive heart failure) Code(s): I50.9 - HEART FAILURE, UNSPECIFIED Qualifiers: Heart failure type: diastolic Heart failure chronicity: acute on chronic Qualified Code(s): I50.33 - Acute on chronic diastolic (congestive) heart failure (3) GABY (acute kidney injury) Code(s): N17.9 - ACUTE KIDNEY FAILURE, UNSPECIFIED (4) Acute on chronic kidney failure Code(s): N17.9 - ACUTE KIDNEY FAILURE, UNSPECIFIED; N18.9 - CHRONIC KIDNEY DISEASE, UNSPECIFIED Qualifiers: Chronic kidney disease stage: stage 4 (severe) (5) Anemia Code(s): D64.9 - ANEMIA, UNSPECIFIED Qualifiers: (6) CKD (chronic kidney disease) stage 4, GFR 15-29 ml/min Code(s): N18.4 - CHRONIC KIDNEY DISEASE, STAGE 4 (SEVERE)
[2019-01-10] MEDS: DONEPEZIL HCL 10 MG TABLET (FP) PO SCH (10:46)
[2019-01-10] MEDS: MULTIVITAMINS (DAILY MVI) TABLET (FP) PO SCH (10:46)
[2019-01-10] MEDS: ATENOLOL 25 MG TABLET (FP) PO SCH (10:46)
[2019-01-10] MEDS: LACTOBACILLUS ACIDOPHILUS 1 TABLET PO SCH (10:46)
[2019-01-10] MEDS: amLODIPine BESYLATE 5 MG TABLET (FP) PO SCH (10:46)
[2019-01-10] MEDS: OMEGA-3 ACID ETHYL ESTERS (FATTY-ACIDS) 1 GM CAPSULE (FP) PO SCH (10:46)
[2019-01-10] MEDS: APIXABAN 2.5 MG TABLET PO SCH (10:46)
[2019-01-10] MEDS: CEFUROXIME AXETIL 250 MG TABLET PO SCH (10:47)
[2019-01-10] MEDS: PANTOPRAZOLE SODIUM 40 MG VIAL IVPUSH SCH (10:47)
--- NOTE | 2019-01-10 11:43 | PN ---
Progress Note (short form) - Note Progress Note: Pt will require the use of transport chair safely complete ADLs and family / care worker will be able to provide proper care for pt Problem List - Problems (1) Abdominal pain Code(s): R10.9 - UNSPECIFIED ABDOMINAL PAIN Qualifiers: Abdominal location: generalized Qualified Code(s): R10.84 - Generalized abdominal pain (2) CHF (congestive heart failure) Code(s): I50.9 - HEART FAILURE, UNSPECIFIED Qualifiers: Heart failure type: diastolic Heart failure chronicity: acute on chronic Qualified Code(s): I50.33 - Acute on chronic diastolic (congestive) heart failure (3) GABY (acute kidney injury) Code(s): N17.9 - ACUTE KIDNEY FAILURE, UNSPECIFIED (4) Acute on chronic kidney failure Code(s): N17.9 - ACUTE KIDNEY FAILURE, UNSPECIFIED; N18.9 - CHRONIC KIDNEY DISEASE, UNSPECIFIED Qualifiers: Chronic kidney disease stage: stage 4 (severe) (5) Anemia Code(s): D64.9 - ANEMIA, UNSPECIFIED Qualifiers: (6) CKD (chronic kidney disease) stage 4, GFR 15-29 ml/min Code(s): N18.4 - CHRONIC KIDNEY DISEASE, STAGE 4 (SEVERE)
--- NOTE | 2019-01-10 13:34 | PN ---
Progress Note (short form) - Note Progress Note: Resting in NAD. Overall appears improved. No acute events overnight. Intake & Output 01/07/19 01/08/19 01/09/19 01/10/19 23:59 23:59 23:59 23:59 Intake Total 50 130 Output Total 1020 1580 2150 1000 Balance -970 -1450 -2150 -1000 Weight 136 lb 3.2 oz Last Vital Signs Temp Pulse Resp BP Pulse Ox 98.8 F 61 18 137/37 L 100 01/10/19 10:00 01/10/19 10:00 01/10/19 10:00 01/10/19 10:00 01/10/19 09:00 Active Medications Acetaminophen (Tylenol Oral Solution -) 650 mg PO Q6H PRN PRN Reason: FEVER Stop: 01/14/19 23:59 Last Admin: 01/08/19 03:15 Dose: 650 mg Amlodipine Besylate (Norvasc -) 5 mg PO DAILY [facility] Last Admin: 01/10/19 10:46 Dose: 5 mg Apixaban (Eliquis -) 2.5 mg PO BID [facility] Last Admin: 01/10/19 10:46 Dose: 2.5 mg Atenolol (Tenormin -) 25 mg PO DAILY [facility] Last Admin: 01/10/19 10:46 Dose: 25 mg Cefuroxime Axetil (Ceftin -) 250 mg PO BID [facility] Last Admin: 01/10/19 10:47 Dose: 250 mg Donepezil HCl (Aricept -) 10 mg PO DAILY [facility] Last Admin: 01/10/19 10:46 Dose: 10 mg Guaifenesin (Robitussin -) 10 ml PO Q4H PRN PRN Reason: COUGH Last Admin: 01/06/19 16:45 Dose: 10 ml Insulin Aspart ([facility] -[facility] Last Admin: 01/10/19 06:25 Dose: Not Given Lactobacillus Acidophilus (Bacid -) 1 tab PO DAILY [facility] Last Admin: 01/10/19 10:46 Dose: 1 tab Levothyroxine Sodium (Synthroid -) 25 mcg PO DAILY@0700 [facility] Last Admin: 01/10/19 06:24 Dose: 25 mcg Loperamide HCl (Imodium -) 2 mg PO Q8H PRN PRN Reason: DIARRHEA Multivitamins/Minerals/Vitamin C (Tab-A-Vit -) 1 tab PO DAILY [facility] Last Admin: 01/10/19 10:46 Dose: 1 tab Bdfuz-1-Bhzg Ethyl Esters (Lovaza -) 2 gm PO BID@1000,1700 [facility] Last Admin: 01/10/19 10:46 Dose: 2 gm Pancrelipase (Creon Dr 36,000 Units Capsule) 1 cap PO TIDCM [facility] Last Admin: 01/10/19 12:01 Dose: 1 cap Pantoprazole Sodium (Protonix Iv) 40 mg IVPUSH DAILY [facility] Last Admin: 01/10/19 10:47 Dose: 40 mg Simethicone (Mylicon -) 80 mg PO Q6H PRN PRN Reason: GAS Gen: NAD at rest Heart: RRR Lung: basilar rales Abd: soft, nontender Ext: no edema Laboratory Results - last 24 hr 01/09/19 01/10/19 01/10/19 17:40 05:26 05:26 WBC 5.5 RBC 2.67 L Hgb 8.2 L Hct 23.3 L MCV 87.2 MCH 30.6 MCHC 35.0 RDW 15.7 H Plt Count 350 MPV 7.5 Absolute Neuts (auto) 4.3 Neutrophils % 77.0 Lymphocytes % 11.6 D Monocytes % 5.5 Eosinophils % 5.2 H D Basophils % 0.7 Nucleated RBC % 0 Sodium 131 L Potassium 3.7 Chloride 98 Carbon Dioxide 22 Anion Gap 12 BUN 96.8 H Creatinine 2.8 H Est GFR (CKD-EPI)AfAm 17.01 Est GFR (CKD-EPI)NonAf 14.68 POC Glucometer 199 Random Glucose 119 H Calcium 8.0 L Total Bilirubin 0.4 AST 24 ALT 29 Alkaline Phosphatase 85 Total Protein 6.2 L Albumin 2.6 L 01/10/19 01/10/19 06:01 11:43 WBC RBC Hgb Hct MCV MCH MCHC RDW Plt Count MPV Absolute Neuts (auto) Neutrophils % Lymphocytes % Monocytes % Eosinophils % Basophils % Nucleated RBC % Sodium Potassium Chloride Carbon Dioxide Anion Gap BUN Creatinine Est GFR (CKD-EPI)AfAm Est GFR (CKD-EPI)NonAf POC Glucometer 101 204 Random Glucose Calcium Total Bilirubin AST ALT Alkaline Phosphatase Total Protein Albumin A/P Acute on Chronic Diastolic Heart Failure Volume Overload Acute on Chronic Renal Failure Hyponatremia r/o Pneumonia Paroxysmal Atrial Fibrillation CAD HTN DM Hypercholesterolemia Hypothyroidism Dementia - PO ABX - AC - PT - D/C planning Dr Harper
--- NOTE | 2019-01-10 13:34 | DS ---
Physical Examination Vital Signs: Vital Signs Temperature 98.8 F 01/10/19 10:00 Pulse Rate 61 01/10/19 10:00 Respiratory Rate 18 01/10/19 10:00 Blood Pressure 137/37 L 01/10/19 10:00 O2 Sat by Pulse Oximetry (%) 100 01/10/19 09:00 Constitutional: Yes: No Distress, Calm Cardiovascular: Yes: Regular Rate and Rhythm Respiratory: Yes: Diminished Gastrointestinal: Yes: Normal Bowel Sounds, Soft. No: Tenderness Edema: No Labs: CBC, BMP 01/10/19 05:26 01/10/19 05:26 Discharge Summary Reason For Visit: STAGE 4 CHRONIC KIDNEY DISEASE Current Active Problems Abdominal pain (Acute) CHF (congestive heart failure) (Acute) Pneumonia (Acute) Hospital Course: Admitted for decompensated CHF, acute on chronic renal failure admission history-- - Primary Care Physician PCP: Evens Chun - Admission History of Present Illness: pt seen/ examined in er Discussed with pts daughter/ son who are at bedside Discussed with Er Physician/ Resident also. Per Er records -- And I concur. 88F with a PMH of Ischemic Colitis, Chronic Abdominal Pain, Dementia, CKD Stage 4, Afib (on Eliquis), HTN, Hypothyroid who presents to the ER from the transfusion floor for sodium of 117. Pt had labs drawn today that show a sodium of 117. The patient and family state that the patient has had abdominal pain in her LLQ for the past 4-5 days. The abdominal pain is associated with nausea and vomiting but without diarrhea, fevers, or chills Pt found to have Na of 117 and volume overlaod to be admitted to icu Renal also consulted given i/v lasix pt on bipap in er drowsy but arousable. HOSPITAL COURSE-- pt admitted to Tele ICU Evaluated by Cardiology, Renal , ID, Pulmonary She was started on IV lasix Sodium slowly improved to 130 renal function better pt weaned off Oxygen Was found to have pneumonia-- started on iv antibiotics clinically improved received Epogen and iv venofer HCT stable Unfortunately had retention of urine and voiding trial was done twice but failed both attempts -- evaluated by Urology today- started on Floamx and can be dc home with leg bag-watts-- will do voiding trial in his office as outpt she also has been doing physical therapy here in hospital She is stable for dc home dc Bicarb continue po lasix complete PO antibiotics-- ceftin follow up with PMD, Renal, Hematology, urology repeat CXR in one month to ensure resolution of infiltrates Condition: Good - Instructions Referrals: Kalee Rodriguez MD [Staff Physician] - Steve Sim MD [Staff Physician] - Refugio Allen MD [Staff Physician] - Evens Chun MD [Primary Care Provider] - Disposition: HOME - Home Medications Comprehensive Discharge Medication List: Ambulatory Orders Amlodipine Besylate [Norvasc -] 5 mg PO DAILY #30 tablet 05/19/17 Apixaban [Eliquis -] 2.5 mg PO BID #60 tablet 05/19/17 Donepezil HCl [Aricept -] 10 mg PO DAILY #30 tablet 05/19/17 Levothyroxine [Synthroid -] 25 mcg PO DAILY@0700 #30 tablet 05/19/17 [place]-3 Acid Ethyl Esters [Lovaza -] 2 gm PO BID@1000,1700 #60 cap 05/19/17 Atenolol [Tenormin -] 25 mg PO DAILY #30 tablet 11/05/17 Insulin Sliding Scale [Novolog Vial Sliding Scale -] 1 vial SQ ACHS #1 vial Lactobacillus Acidophilus [Bacid -] 1 tab PO DAILY #30 tab 11/05/17 Lipase/Protease/Amylase [Creon Dr 36,000 Units Capsule] 1 cap PO TIDCM #90 capsule.dr 11/05/17 Loperamide HCl [Imodium -] 2 mg PO Q8H PRN capsule 11/05/17 Multivitamins [Multivit ([facility] Formulary)] 1 tab PO DAILY #30 tab 11/05/17 Pantoprazole Sodium [Protonix -] 40 mg PO BID #60 tablet.ec 11/05/17 Simethicone [Mylicon -] 80 mg PO Q6H PRN tab.chew 11/05/17 Iron Sucrose Injection [Venofer Injection -] 100 mg IV ASDIR #2 vial 11/06/17 Cefuroxime Axetil [Ceftin -] 250 mg PO BID #10 tablet 01/10/19 Tamsulosin HCl [Flomax] 0.4 mg PO DAILY #30 cap.er.24h 01/10/19
--- NOTE | 2019-01-10 13:47 | CON.GU ---
Consult Consult Specialty:: Referred by:: Byron Reason for Consultation:: urinary retention - History of Present Illness Chief Complaint: urinary retention History of Present Illness: 88 year old woman with CHF was admitted and reported that she was having difficulty emptying her bladder over several weeks. She has failed TOV x 2 with residuals at least 600ml. 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 Cardio/Vascular: Yes: AFIB, HTN, Hyperlipdemia, Mitral Insufficiency, Pulmonary Hypertension Gastrointestinal: Yes: Diverticulosis, GERD, Peptic Ulcer Disease, Other ( ischemic colitis 04/27) Hepatobiliary: Yes: Cholecystitis (s/p open cholecystectomy) Renal/: Yes: Renal Inusuff, Neurogenic Bladder, Other Endocrine: Yes: Diabetes Mellitus, Hypothyroidism - Past Surgical History Past Surgical History: Yes: Cataract Removal, Cholecystectomy (open), Colonoscopy - Alcohol/Substance Use Hx Alcohol Use: No - Smoking History Smoking history: Never smoked Have you smoked in the past 12 months: No - Social History Usual Living Arrangement: With Child ADL: Family Assistance History of Recent Travel: Yes ([place] 11/25) Home Medications - Allergies Allergies/Adverse Reactions: Allergies Allergy/AdvReac Type Severity Reaction Status Date / Time No Known Allergies Allergy Verified 12/30/18 15:02 - Home Medications Home Medications: Ambulatory Orders Amlodipine Besylate [Norvasc -] 5 mg PO DAILY #30 tablet 05/19/17 Apixaban [Eliquis -] 2.5 mg PO BID #60 tablet 05/19/17 Donepezil HCl [Aricept -] 10 mg PO DAILY #30 tablet 05/19/17 Levothyroxine [Synthroid -] 25 mcg PO DAILY@0700 #30 tablet 05/19/17 [place]-3 Acid Ethyl Esters [Lovaza -] 2 gm PO BID@1000,1700 #60 cap 05/19/17 Atenolol [Tenormin -] 25 mg PO DAILY #30 tablet 11/05/17 Insulin Sliding Scale [Novolog Vial Sliding Scale -] 1 vial SQ ACHS #1 vial Lactobacillus Acidophilus [Bacid -] 1 tab PO DAILY #30 tab 11/05/17 Lipase/Protease/Amylase [Dory Hay 36,000 Units Capsule] 1 cap PO TIDCM #90 capsule. 11/05/17 Loperamide HCl [Imodium -] 2 mg PO Q8H PRN capsule 11/05/17 Multivitamins [Multivit ([facility] Formulary)] 1 tab PO DAILY #30 tab 11/05/17 Pantoprazole Sodium [Protonix -] 40 mg PO BID #60 tablet.ec 11/05/17 Simethicone [Mylicon -] 80 mg PO Q6H PRN tab.chew 11/05/17 Iron Sucrose Injection [Venofer Injection -] 100 mg IV ASDIR #2 vial 11/06/17 Cefuroxime Axetil [Ceftin -] 250 mg PO BID #10 tablet 01/10/19 Tamsulosin HCl [Flomax] 0.4 mg PO DAILY #30 cap.er.24h 01/10/19 Family Disease History - Family Disease History Family Disease History: Diabetes: Brother (3 brothers, : 1 w/ prostate cancer, 1 w/ complications from asbestosis ), Son (2 sons: healthy), Other: Father ( 80's: unclear cause), Mother ( in 40's: heart problems), Brother, Son, Daughter (1, has hereditary angioedema) Review of Systems - Review of Systems Genitourinary: reports: Frequency. denies: Flank Pain, Hematuria, Incontinence Physical Exam- Vital Signs: Vital Signs Temperature 98.8 F 01/10/19 10:00 Pulse Rate 61 01/10/19 10:00 Respiratory Rate 18 01/10/19 10:00 Blood Pressure 137/37 L 01/10/19 10:00 O2 Sat by Pulse Oximetry (%) 100 01/10/19 09:00 Renal/: Yes: Watts Present. No: Bladder Distention, CVA Tenderness - Left, CVA Tenderness - Right, Hematuria, Incontinence Labs: CBC, BMP 01/10/19 05:26 01/10/19 05:26 Problem List - Problems (1) Acute urinary retention Assessment/Plan: add flomax. maintain watts on discharge. Follow up in office for Urodynamics Code(s): R33.8 - OTHER RETENTION OF URINE
[2019-01-10] MEDS ORDERED: EPOETIN ALFA 20,000 UNIT/1 ML VIAL SQ ONE (14:15)
--- NOTE | 2019-01-10 15:15 | PN ---
Progress Note (short form) - Note Progress Note: Renal follow up for GABY/Fluid overload Pt seen and examined at the bedside awake and alert on room air no overnight events making urine via watts for discharge home today Vital Signs Temperature 98.8 F 01/10/19 10:00 Pulse Rate 61 01/10/19 10:00 Respiratory Rate 18 01/10/19 10:00 Blood Pressure 137/37 L 01/10/19 10:00 O2 Sat by Pulse Oximetry (%) 100 01/10/19 09:00 Intake & Output 01/07/19 01/08/19 01/09/19 01/10/19 23:59 23:59 23:59 23:59 Intake Total 50 130 Output Total 1020 1580 2150 1000 Balance -970 -1450 -2150 -1000 Weight 61.779 kg NAD on NC O2 neck supple Dec BS but no rales RRR CTA no edema in legs CBC, BMP 01/10/19 05:26 01/10/19 05:26 Current Medications Acetaminophen (Tylenol Oral Solution -) 650 mg PO Q6H PRN PRN Reason: FEVER Stop: 01/14/19 23:59 Last Admin: 01/08/19 03:15 Dose: 650 mg Amlodipine Besylate (Norvasc -) 5 mg PO DAILY [facility] Last Admin: 01/10/19 10:46 Dose: 5 mg Apixaban (Eliquis -) 2.5 mg PO BID [facility] Last Admin: 01/10/19 10:46 Dose: 2.5 mg Atenolol (Tenormin -) 25 mg PO DAILY [facility] Last Admin: 01/10/19 10:46 Dose: 25 mg Cefuroxime Axetil (Ceftin -) 250 mg PO BID [facility] Last Admin: 01/10/19 10:47 Dose: 250 mg Donepezil HCl (Aricept -) 10 mg PO DAILY [facility] Last Admin: 01/10/19 10:46 Dose: 10 mg Guaifenesin (Robitussin -) 10 ml PO Q4H PRN PRN Reason: COUGH Last Admin: 01/06/19 16:45 Dose: 10 ml Insulin Aspart (Novolog Vial Sliding Scale -) [facility] Protocol Last Admin: 01/10/19 06:25 Dose: Not Given Lactobacillus Acidophilus (Bacid -) 1 tab PO DAILY [facility] Last Admin: 01/10/19 10:46 Dose: 1 tab Levothyroxine Sodium (Synthroid -) 25 mcg PO DAILY@0700 [facility] Last Admin: 01/10/19 06:24 Dose: 25 mcg Loperamide HCl (Imodium -) 2 mg PO Q8H PRN PRN Reason: DIARRHEA Multivitamins/Minerals/Vitamin C (Tab-A-Vit -) 1 tab PO DAILY [facility] Last Admin: 01/10/19 10:46 Dose: 1 tab Tcmki-2-Mlao Ethyl Esters (Lovaza -) 2 gm PO BID@1000,1700 [facility] Last Admin: 01/10/19 10:46 Dose: 2 gm Pancrelipase (Creon Dr 36,000 Units Capsule) 1 cap PO TIDCM [facility] Last Admin: 01/10/19 12:01 Dose: 1 cap Pantoprazole Sodium (Protonix Iv) 40 mg IVPUSH DAILY [facility] Last Admin: 01/10/19 10:47 Dose: 40 mg Simethicone (Mylicon -) 80 mg PO Q6H PRN PRN Reason: GAS 88 year old woman with hx of CKD stage 4, Afib on Eliquis, Hypertension , hypothyroidism, ischemic colitis who presented with laboratory studies that showed hyponatremia with Na of 117 and Cr of 2.8. #GABY on CKD with volume over load #Hypervolemic Hyponatremia #Acute on chronic anemia #CHF/Fluid overload #Hypertension #Hypothyroidism #Abd pain with hx of ischemic colitis #hypokalemia Renal function with moderate improvement off diuretics Serum Na is improved Overall clinically improved Serum Na remains low. Serum OSM is normal but due to high BUN. Calculated OSM is 296. Continue Epogen weekly. and IV iron as needed on ORal antibiotics as per ID Maintain on low salt diet. 1.25L fluid restriction for hyponatremia, solute intake as tolerated can resume oral Lasix 40mg PO daily on discharge to follow up in the office on Wednesday. Thank you Refugio Allen DO
[2019-01-10 17:59] VITALS: BP 150/51; PULSE 61; TEMP 98
== END 2019-01-10 18:00 | disposition home or self-care (01) | DRG 682 ==
LOC: JER 14:46 → JERBED 16:40 → UNDODISIN 17:05 → JICU 20:22 → J2W 01-01 00:51
PROVIDERS: ADMIT Internal Medicine; ATTEND Internal Medicine
DX: N17.8 Other acute kidney failure (principal); I50.33 Acute on chronic diastolic (congestive) heart failure; J18.9 Pneumonia, unspecified organism; I13.0 Hypertensive heart and chronic kidney disease with heart failure and stage 1 through stage 4 chronic kidney disease, or unspecified chronic kidney disease; E87.1 Hypo-osmolality and hyponatremia; K55.9 Vascular disorder of intestine, unspecified; N18.4 Chronic kidney disease, stage 4 (severe); E11.22 Type 2 diabetes mellitus with diabetic chronic kidney disease; E03.9 Hypothyroidism, unspecified; F03.90 Unspecified dementia, unspecified severity, without behavioral disturbance, psychotic disturbance, mood disturbance, and anxiety; I48.91 Unspecified atrial fibrillation; R11.2 Nausea with vomiting, unspecified; E78.00 Pure hypercholesterolemia, unspecified; D64.9 Anemia, unspecified; R33.8 Other retention of urine; I48.0 Paroxysmal atrial fibrillation; R10.84 Generalized abdominal pain; E87.79 Other fluid overload; D50.9 Iron deficiency anemia, unspecified; I34.0 Nonrheumatic mitral (valve) insufficiency; N31.9 Neuromuscular dysfunction of bladder, unspecified; I27.20 Pulmonary hypertension, unspecified; K57.90 Diverticulosis of intestine, part unspecified, without perforation or abscess without bleeding; E87.6 Hypokalemia; K21.9 Gastro-esophageal reflux disease without esophagitis; I25.119 Atherosclerotic heart disease of native coronary artery with unspecified angina pectoris; R06.00 Dyspnea, unspecified; D63.8 Anemia in other chronic diseases classified elsewhere; Z87.11 Personal history of peptic ulcer disease
CPT/HCPCS: 36415; 36600; 71045-TC-FY; 74150-TC; 76700-TC; 80048; 80053; 81003; 82436; 82550; 82728; 82803; 82962; 83540; 83550; 83735; 83930; 83935; 84100; 84133; 84155; 84156; 84165; 84300; 84484; 85025; 85027; 87040; 87899; 93005; 93010; 93306-TC; 94660; 97116-GP; 97161-GP; 99283-25; J0885; J1756

== ENCOUNTER → 2019-02-08 | Day surgery (SDC) | payer OTHER ==
[2019-02-08 10:17] LABS: EOS % 1.6 % (0-4.5); HEMATOCRIT 31.6 % (32.4-45.2); HEMOGLOBIN 10.9 GM/dL (10.7-15.3); LYMPH % 15.5 % (8-40); MCH 29.8 pg (25.7-33.7); MCHC 34.4 g/dl (32.0-36.0); MEAN CELL VOLUME 86.4 fl (80-96); MEAN PLT VOLUME 7.1 fl (7.5-11.1); MONO % 5.4 % (3.8-10.2); NEUT % 76.5 % (42.8-82.8); PLATELET COUNT 187 K/MM3 (134-434); RBC 3.65 M/mm3 (3.60-5.2); RDW 15.2 % (11.6-15.6); WHITE BLOOD COUNT 5.3 K/mm3 (4.0-10.0)
[2019-02-08 10:44] LABS: ALBUMIN 3.3 g/dl (3.4-5.0); BILIRUBIN,TOTAL 0.5 mg/dL (0.2-1); BLOOD UREA NITROGEN 30.5 mg/dL (7-18); CALCIUM 8.5 mg/dL (8.5-10.1); POTASSIUM 4.5 mmol/L (3.5-5.1); TOT PROT 6.8 g/dl (6.4-8.2); URIC ACID 9.2 mg/dL (2.6-7.2)
== END | disposition home or self-care (01) ==
LOC: JONCNONCHE 05:37
PROVIDERS: ATTEND Internal Medicine Hematology & Oncology
DX: Z53.8 Procedure and treatment not carried out for other reasons (principal)
CPT/HCPCS: 36415; 80053; 82728; 83540; 83550; 84550; 85025; 86850; 86900; 86901

== ENCOUNTER → 2019-03-03 | Day surgery (SDC) | payer OTHER ==
[2019-03-03 10:07] LABS: BASO % 1.4 % (0-2.0); EOS % 3.2 % (0-4.5); HEMATOCRIT 28.1 % (32.4-45.2); HEMOGLOBIN 9.9 GM/dL (10.7-15.3); LYMPH % 19.4 % (8-40); MCH 30.3 pg (25.7-33.7); MCHC 35.4 g/dl (32.0-36.0); MEAN CELL VOLUME 85.6 fl (80-96); MEAN PLT VOLUME 6.9 fl (7.5-11.1); MONO % 7.3 % (3.8-10.2); NEUT % 68.7 % (42.8-82.8); PLATELET COUNT 188 K/MM3 (134-434); RBC 3.28 M/mm3 (3.60-5.2); RDW 14.9 % (11.6-15.6); WHITE BLOOD COUNT 3.8 K/mm3 (4.0-10.0)
[2019-03-03 10:52] LABS: BLOOD UREA NITROGEN 51.8 mg/dL (7-18); CALCIUM 8.6 mg/dL (8.5-10.1); CREATININE 2.2 mg/dL (0.55-1.3); POTASSIUM 3.9 mmol/L (3.5-5.1)
== END | disposition home or self-care (01) ==
LOC: JONCNONCHE 07:01
PROVIDERS: ATTEND Internal Medicine Hematology & Oncology
DX: Z53.8 Procedure and treatment not carried out for other reasons (principal)
CPT/HCPCS: 36415; 80048; 82607; 82728; 83540; 83550; 85025; 96365

== ENCOUNTER 2019-06-02 10:40 | Day surgery (SDC) | payer OTHER ==
[2019-06-02 10:00] LABS: EOS % 6.1 % (0-4.5); HEMATOCRIT 28.9 % (32.4-45.2); HEMOGLOBIN 9.7 GM/dL (10.7-15.3); LYMPH % 23.1 % (8-40); MCH 31.8 pg (25.7-33.7); MCHC 33.8 g/dl (32.0-36.0); MEAN PLT VOLUME 8.4 fl (7.5-11.1); MONO % 7.5 % (3.8-10.2); NEUT % 62.3 % (42.8-82.8); PLATELET COUNT 181 K/MM3 (134-434); RBC 3.07 M/mm3 (3.60-5.2); RDW 15.1 % (11.6-15.6); WHITE BLOOD COUNT 4.9 K/mm3 (4.0-10.0)
[2019-06-02 10:52] LABS: ALBUMIN 3.5 g/dl (3.4-5.0); BILIRUBIN,TOTAL 0.2 mg/dL (0.2-1); BLOOD UREA NITROGEN 73.1 mg/dL (7-18); CALCIUM 8.6 mg/dL (8.5-10.1); CREATININE 2.8 mg/dL (0.55-1.3); POTASSIUM 4.7 mmol/L (3.5-5.1); TOT PROT 6.9 g/dl (6.4-8.2)
[2019-06-02] MEDS ORDERED: IRON SUCROSE INJECTION 200 MG in SODIUM CHLORIDE 100 ML IVPB ONE (11:00)
[2019-06-02 12:50] VITALS: TEMP 97.5
[2019-06-02 12:51] VITALS: BP 114/64; PULSE 80
== END 2019-06-02 12:00 | disposition home or self-care (01) ==
LOC: JONCNONCHE 10:40 → J7W 10:52 → JONCNONCHE 12:00
PROVIDERS: ATTEND Internal Medicine Hematology & Oncology
CPT/HCPCS: 36415; 80053; 82607; 82728; 82747; 83540; 83550; 85014; 85025; 96365; J1756

== ENCOUNTER 2019-07-03 14:31 | Emergency (ER) | payer OTHER ==
[2019-07-03] MEDS ORDERED: ONDANSETRON 4 MG/2 ML VIAL IVPUSH ONE (14:37)
[2019-07-03 14:40] VITALS: TEMP 97.3; BMI 21.5
--- NOTE | 2019-07-03 14:40 | PDOC ---
Rapid Medical Evaluation Time Seen by Provider: 07/03/19 14:35 Medical Evaluation: Allergies Allergy/AdvReac Type Severity Reaction Status Date / Time No Known Allergies Allergy Verified 12/30/18 15:02 07/03/19 14:38 I performed a brief in-person evaluation of this patient. 89-year-old female with Afib on Eliquis, CHF, CKD, IDDM, started levofloxacin today for UTI. Brought in by family for SOB, abd pain, vomiting today. No fevers. Pertinent physical exam findings: Dry heaving. RUQ pain to gentle palpation. Pt is s/p cholecystectomy. I have ordered the following: EKG Cardiac labs Infectious workup Lipase Zofran for nausea Patient will proceed to: Main ED for further evaluation Discharge Disposition - Diagnosis Shortness of breath - Referrals - Patient Instructions - Post Discharge Activity
[2019-07-03] MEDS ORDERED: ONDANSETRON 4 MG/2 ML VIAL ONE (14:48)
[2019-07-03] MEDS ORDERED: FAMOTIDINE 20 MG/50 ML IVPB 20 MG/50 ML MG IVPB ONE ×2 (15:00→15:07)
--- NOTE | 2019-07-03 15:06 | PDOC ---
Attending Attestation - Resident Resident Name: Sa Prettyira - ED Attending Attestation I have performed the following: I have examined & evaluated the patient, The case was reviewed & discussed with the resident, I agree w/resident's findings & plan, Exceptions are as noted - HPI HPI: 07/03/19 16:18 89y F hx of afib (on eliquis), CAD, CKD, DM, HTN, HLD, Hypothyroidism, PUD, anemia, IBD presents to the for sob - per daugther, the pt appeared to breathing slightly rapidliy while sitting in a chair, so brought pt to the ED for evluation. Family also notes pt has been having mild upper abd discomfort/ burping. Pt dneies any associated cp, velazquez, current sob, cough, hemoptysis, diarrhea, melena, bpr. P - Physicial Exam PE: Exam: General: No acute disres, well appearing Chest: no focal tenderness, eminished breath sounds at bases with scant rales, no acut respiratory distress Abd: soft nontender Card: RRR, no MRG - Medical Decision Making 07/03/19 19:36 pts cxr noted for cardiomegaly, fullness of arjun but with slight decrease of congestive/infiltrative changes relative to prior cxr. pts ct chest noted for pleural effusion - discussed with patient and family regarding admitting the pt for further management, but family and pt refuse, state that she is feeling fine and would prefer to be managed as an outpatient. [facility] of hypoxia or tachypnea - when reviewing her CXR relative to previous, it appears chronic. as pt and family understands the risk of departing, will dc with supportive care and PMD fu with strict return precautions Heart Score/ECG Review - ECG Impressions Comment:: 07/03/19 15:05 Twelve-lead EKG was performed and reviewed by me. There is normal sinus rhythm with a normal rate. rate of 61 1st degree av blockqtc interval of 495
--- NOTE | 2019-07-03 15:09 | PDOC ---
History of Present Illness - General Chief Complaint: Shortness of Breath Stated Complaint: DIFFICULTY BREATHING Time Seen by Provider: 07/03/19 14:35 History Source: Patient, Family Exam Limitations: Language Barrier - History of Present Illness Initial Comments: 07/03/19 15:05 89y F with PMH of Afib (Eliquis), CAD, CKD, DM, HTN, HLD, Hypothyroidism, PUD, Anemia, IBD presenting to ED for SOB. Daughter states that this morning, patient was breathing rapidly while sitting in the chair. Due to her history, family was worried. Patient has also been burping frequently today and she is complaining of upper abdominal pain today. Daughter states that patient has had a problem with abdominal pain and bloating. Patient denies chest pain, cough, fevers, chills, diarrhea, vomiting, constipation, dizziness. Daughter states that patient has been using the bathroom more frequently and started taking Levaqin today. PMD: Lay Renal: Alejandro Heme: Kalee PMH: see hpi PSH: cholecystectomy Meds: see med rec Allergies: nkda Past History - Past Medical History Allergies/Adverse Reactions: Allergies Allergy/AdvReac Type Severity Reaction Status Date / Time No Known Allergies Allergy Verified 07/03/19 14:40 Home Medications: Ambulatory Orders Amlodipine Besylate [Norvasc -] 5 mg PO DAILY #30 tablet 05/19/17 Apixaban [Eliquis -] 2.5 mg PO BID #60 tablet 05/19/17 Donepezil HCl [Aricept -] 10 mg PO DAILY #30 tablet 05/19/17 Levothyroxine [Synthroid -] 25 mcg PO DAILY@0700 #30 tablet 05/19/17 [place]-3 Acid Ethyl Esters [Lovaza -] 2 gm PO BID@1000,1700 #60 cap 05/19/17 Atenolol [Tenormin -] 25 mg PO DAILY #30 tablet 11/05/17 Insulin Sliding Scale [Novolog Vial Sliding Scale -] 1 vial SQ ACHS #1 vial Lactobacillus Acidophilus [Bacid -] 1 tab PO DAILY #30 tab 11/05/17 Lipase/Protease/Amylase [Dory Hay 36,000 Units Capsule] 1 cap PO TIDCM #90 capsule. 11/05/17 Loperamide HCl [Imodium -] 2 mg PO Q8H PRN capsule 11/05/17 Multivitamins [Multivit ([facility] Formulary)] 1 tab PO DAILY #30 tab 11/05/17 Pantoprazole Sodium [Protonix -] 40 mg PO BID #60 tablet.ec 11/05/17 Simethicone [Mylicon -] 80 mg PO Q6H PRN tab.chew 11/05/17 Iron Sucrose Injection [Venofer Injection -] 100 mg IV ASDIR #2 vial 11/06/17 Cefuroxime Axetil [Ceftin -] 250 mg PO BID #10 tablet 01/10/19 Furosemide [Lasix] 40 mg PO DAILY #30 tablet 01/10/19 Tamsulosin HCl [Flomax] 0.4 mg PO DAILY #30 cap.er.24h 01/10/19 Anemia: No Asthma: No Cancer: No Cardiac Disorders: No CVA: No COPD: No CHF: No Dementia: Yes Diabetes: Yes GI Disorders: (bleeding ulcers) Disorders: No HTN: Yes Hypercholesterolemia: Yes Liver Disease: No Seizures: No Thyroid Disease: No - Surgical History Abdominal Surgery: Yes (Cholecystectomy) Appendectomy: No Cardiac Surgery: No Cholecystectomy: Yes Lung Surgery: No Neurologic Surgery: No Orthopedic Surgery: No - Psycho Social/Smoking Cessation Hx Smoking History: Never smoked Have you smoked in the past 12 months: No Hx Alcohol Use: No Drug/Substance Use Hx: No Substance Use Type: Alcohol Hx Substance Use Treatment: No Review of Systems - Review of Systems Constitutional: No: Symptoms Reported HEENTM: No: Symptoms Reported Respiratory: Yes: See HPI Cardiac (ROS): No: Symptoms Reported ABD/GI: Yes: See HPI : No: Symptoms Reported Musculoskeletal: No: Symptoms Reported Integumentary: No: Symptoms Reported Neurological: No: Symptoms reported *Physical Exam - Vital Signs Last Vital Signs Temp Pulse Resp BP Pulse Ox 97.3 F L 57 L 18 159/42 L 98 07/03/19 14:34 07/03/19 14:34 07/03/19 14:34 07/03/19 14:34 07/03/19 14:34 - Physical Exam General Appearance: Yes: Nourished, Appropriately Dressed. No: Apparent Distress HEENT: positive: EOMI, ELISA, Normal ENT Inspection Neck: positive: Trachea midline, Supple Respiratory/Chest: positive: Lungs Clear, Normal Breath Sounds. negative: Crackles, Rales, Rhonchi, Stridor, Wheezing, Dullness Cardiovascular: positive: Regular Rhythm, Regular Rate, S1, S2. negative: Edema , JVD, Murmur Vascular Pulses: Dorsalis-Pedis (R): 2+, Doralis-Pedis (L): 2+ Gastrointestinal/Abdominal: positive: Normal Bowel Sounds, Soft. negative: Tender Musculoskeletal: negative: CVA Tenderness Extremity: positive: Normal Capillary Refill. negative: Swelling, Calf Tenderness, Erythema Integumentary: positive: Normal Color, Dry, Warm Neurologic: positive: bookkeeper assistant II-XII NML intact, Fully Oriented, Alert, Normal Mood/ Affect, Normal Response, Motor Strength 11/13 ED Treatment Course - LABORATORY CBC & Chemistry Diagram: 07/03/19 15:00 07/03/19 15:00 - RADIOLOGY Radiology Studies Ordered: Category Date Time Status CHEST X-RAY PORTABLE* [RAD] Stat Radiology 07/03/19 15:02 Ordered Medical Decision Making - Medical Decision Making 07/04/19 00:40 89y F presenting for SOB which has now resolved. No active complaints at this time. vitals wnl ddx includes but not limited to acs, pe, pna, ptx, dissection, mass/malignancy, chf will order labs, cardiac labs, cxr, ekg labs show anema at baseline, hyponatremia at baseline, cr at baseline. elevated bnp, negative trop. cxr shows congestion which is similar to prior Xrays however this was not worked up; will obtain chest CT to get better visualization. CT shows R pleural effusion small to moderate. and L pleural effusion (stable). bilateral upper alnd lower septal thickening suggestive of vascular conbestion. LA dilatation. no pericardial effusion. mild patchy opacity in pulmonary apices likely atelectasis/vascular congesstion. patient is asymptomatic at this time. patient is walking to bathroom without difficulty, no sob or chest pain. patient has close f/u with library assistant and will f/u. does not need to stay in hospital at this time. can be dc home. given strict return precautions. Discharge - Discharge Information Problems reviewed: Yes Clinical Impression/Diagnosis: Shortness of breath Condition: Good Disposition: HOME - Follow up/Referral Referrals: Evens Chun MD [Primary Care Provider] - Deejay Sandra MD [Staff Physician] - - Patient Discharge Instructions Patient Printed Discharge Instructions: DI for Shortness of Breath Additional Instructions: You were seen here for shortness of breath. There is some fluid in your lungs but this seems to be a chronic finding. The other blood work is normal. I recommend that you follow up with your library assistant, glass science engineer and primary care doctor this week if you can. Please let them know you were seen in the emergency room. Come back to the emergency room for worsening symptoms, fever, cough, chest pain or if any new or concerning symptom develops. Thank you - Post Discharge Activity
[2019-07-03 15:18] LABS: BASO % 1.6 % (0-2.0); EOS % 0.9 % (0-4.5); HEMATOCRIT 26.9 % (32.4-45.2); HEMOGLOBIN 9.5 GM/dL (10.7-15.3); LYMPH % 10.6 % (8-40); MCH 32.5 pg (25.7-33.7); MCHC 35.2 g/dl (32.0-36.0); MEAN CELL VOLUME 92.5 fl (80-96); MONO % 4.9 % (3.8-10.2); PLATELET COUNT 190 K/MM3 (134-434); RBC 2.91 M/mm3 (3.60-5.2); RDW 13.2 % (11.6-15.6); WHITE BLOOD COUNT 5.3 K/mm3 (4.0-10.0)
[2019-07-03 15:35] LABS: INR 1.18 (0.83-1.09); PROTHROMBIN TIME (PATIENT) 13.9 SEC (9.7-13.0)
[2019-07-03 15:44] LABS: ALBUMIN 3.7 g/dl (3.4-5.0); BILIRUBIN,TOTAL 0.5 mg/dL (0.2-1); BLOOD UREA NITROGEN 58.1 mg/dL (7-18); CALCIUM 8.4 mg/dL (8.5-10.1); CREATININE 2.5 mg/dL (0.55-1.3); TOT PROT 7.4 g/dl (6.4-8.2)
[2019-07-03 18:01] LABS: N-TERMINAL BNP 9615.5 pg/ml (5-450)
[2019-07-03 19:35] VITALS: BP 148/55; PULSE 62
--- NOTE | 2019-07-04 10:16 | EKG ---
Test Reason : Blood Pressure : / mmHG Vent. Rate : 061 BPM Atrial Rate : 061 BPM P-R Int : 250 ms QRS Dur : 092 ms QT Int : 492 ms P-R-T Axes : 005 -21 -24 degrees QTc Int : 495 ms SINUS RHYTHM WITH 1ST DEGREE A-V BLOCK NONSPECIFIC T WAVE ABNORMALITY PROLONGED QT ABNORMAL ECG WHEN COMPARED WITH ECG OF 30-DEC-2018 15:22, NO SIGNIFICANT CHANGE WAS FOUND Confirmed by Riki Rosen MD ([id number]) on 07/04/2019 10:15:34 AM Referred By: Confirmed By:Riki Rosen MD
== END 2019-07-03 19:25 | disposition home or self-care (01) ==
LOC: JER 14:31
PROC: 3E033GC Introduction of Other Therapeutic Substance into Peripheral Vein, Percutaneous Approach (ICD-10-PCS; principal; 2019-07-03)
DX: I25.10 Atherosclerotic heart disease of native coronary artery without angina pectoris (principal); R06.02 Shortness of breath; I13.0 Hypertensive heart and chronic kidney disease with heart failure and stage 1 through stage 4 chronic kidney disease, or unspecified chronic kidney disease; N18.9 Chronic kidney disease, unspecified; I50.89 Other heart failure; I48.91 Unspecified atrial fibrillation; Z79.01 Long term (current) use of anticoagulants; E11.9 Type 2 diabetes mellitus without complications; Z79.4 Long term (current) use of insulin; E78.5 Hyperlipidemia, unspecified; E03.9 Hypothyroidism, unspecified; K27.9 Peptic ulcer, site unspecified, unspecified as acute or chronic, without hemorrhage or perforation; D64.9 Anemia, unspecified
CPT/HCPCS: 36415; 71045-TC-FY; 71250-TC; 80053; 82550; 82553; 83605; 83690; 83880; 84484; 85025; 85610; 87040; 93005; 93010; 99282-25

== ENCOUNTER 2019-09-01 10:27 | Day surgery (SDC) | payer OTHER ==
[2019-09-01 10:21] LABS: BASO % 1.3 % (0-2.0); EOS % 3.9 % (0-4.5); HEMATOCRIT 25.1 % (32.4-45.2); HEMOGLOBIN 8.7 GM/dL (10.7-15.3); LYMPH % 12.9 % (8-40); MCH 31.9 pg (25.7-33.7); MCHC 34.7 g/dl (32.0-36.0); MONO % 6.3 % (3.8-10.2); NEUT % 75.6 % (42.8-82.8); PLATELET COUNT 175 K/MM3 (134-434); RBC 2.73 M/mm3 (3.60-5.2); RDW 13.7 % (11.6-15.6); WHITE BLOOD COUNT 3.8 K/mm3 (4.0-10.0)
[2019-09-01 10:38] LABS: EPI CELLS 1.3 /HPF (0-5/HPF); HYALINE CASTS 4 /lpf (0-8); URINE APPEARANCE CLEAR; URINE BACTERIA 3.4 /hpf (NEGATIVE); URINE BILIRUBIN NEGATIVE (NEGATIVE); URINE COLOR YELLOW; URINE GLUCOSE (UA) NEGATIVE (NEGATIVE); URINE KETONE NEGATIVE (NEGATIVE); URINE LEUK ESTERASE 1+ (NEGATIVE); URINE NITRITE NEGATIVE (NEGATIVE); URINE PROTEIN 1+ (NEGATIVE); URINE RBC 8 /hpf (0-4); URINE UROBILINOGEN 0.2 mg/dL (0.2-1.0); URINE WBC 0 /hpf (0-5)
[2019-09-01 10:46] LABS: IRON SERUM 35 ug/dL (50-175); TOTAL IRON BINDING CAPACITY 202 ug/dL (250-450)
[2019-09-01 10:57] LABS: ALBUMIN 3.4 g/dl (3.4-5.0); BILIRUBIN,TOTAL 0.4 mg/dL (0.2-1); BLOOD UREA NITROGEN 78.2 mg/dL (7-18); CALCIUM 8.1 mg/dL (8.5-10.1); CREATININE 3.6 mg/dL (0.55-1.3); PHOSPHOROUS 5.2 mg/dL (2.5-4.9); POTASSIUM 4.7 mmol/L (3.5-5.1); TOT PROT 7.2 g/dl (6.4-8.2); URIC ACID 11.5 mg/dL (2.6-7.2)
[2019-09-01] MEDS ORDERED: IRON SUCROSE INJECTION 200 MG in SODIUM CHLORIDE 100 ML IVPB ONE (12:00)
--- NOTE | 2019-09-01 13:19 | CONSULT ---
Consult Consult Specialty:: Nephrology Reason for Consultation:: Advanced chronic kidney disease - History of Present Illness Chief Complaint: Patient is admitted for iron infusion. History of Present Illness: The patient has history of advanced chronic kidney disease stage V, hypertension , type 2 diabetes mellitus, hyperlipidemia, gastroparesis with constant belching. Chronic anemia. The patient is admitted for an infusion. Patient had had long history of advanced chronic kidney disease, and there have been extensive discussions in the past about renal replacement therapy. But the patient and the family had declined those options. She denies any chest pain, shortness of breath or any urinary symptoms. Her dietary intake of food had been minimal. She has tendency for hyponatremia. 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 Cardio/Vascular: Yes: AFIB, HTN, Hyperlipdemia, Mitral Insufficiency, Pulmonary Hypertension Gastrointestinal: Yes: Diverticulosis, GERD, Peptic Ulcer Disease, Other ( ischemic colitis 04/27) Hepatobiliary: Yes: Cholecystitis (s/p open cholecystectomy) Renal/: Yes: Renal Inusuff, Neurogenic Bladder, Other Endocrine: Yes: Diabetes Mellitus, Hypothyroidism - Past Surgical History Past Surgical History: Yes: Cataract Removal, Cholecystectomy (open), Colonoscopy - Alcohol/Substance Use Hx Alcohol Use: No - Smoking History Smoking history: Never smoked Have you smoked in the past 12 months: No - Social History Usual Living Arrangement: With Child ADL: Family Assistance History of Recent Travel: Yes ([place] 11/25) Home Medications - Allergies Allergies/Adverse Reactions: Allergies Allergy/AdvReac Type Severity Reaction Status Date / Time No Known Allergies Allergy Verified 07/03/19 14:40 - Home Medications Home Medications: Ambulatory Orders Amlodipine Besylate [Norvasc -] 5 mg PO DAILY #30 tablet 05/19/17 Apixaban [Eliquis -] 2.5 mg PO BID #60 tablet 05/19/17 Donepezil HCl [Aricept -] 10 mg PO DAILY #30 tablet 05/19/17 Levothyroxine [Synthroid -] 25 mcg PO DAILY@0700 #30 tablet 05/19/17 Dexter-3 Acid Ethyl Esters [Lovaza -] 2 gm PO BID@1000,1700 #60 cap 05/19/17 Atenolol [Tenormin -] 25 mg PO DAILY #30 tablet 11/05/17 Insulin Sliding Scale [Novolog Vial Sliding Scale -] 1 vial SQ ACHS #1 vial Lactobacillus Acidophilus [Bacid -] 1 tab PO DAILY #30 tab 11/05/17 Lipase/Protease/Amylase [Dory Hay 36,000 Units Capsule] 1 cap PO TIDCM #90 capsule.dr 11/05/17 Loperamide HCl [Imodium -] 2 mg PO Q8H PRN capsule 11/05/17 Multivitamins [Multivit ([facility] Formulary)] 1 tab PO DAILY #30 tab 11/05/17 Pantoprazole Sodium [Protonix -] 40 mg PO BID #60 tablet.ec 11/05/17 Simethicone [Mylicon -] 80 mg PO Q6H PRN tab.chew 11/05/17 Iron Sucrose Injection [Venofer Injection -] 100 mg IV ASDIR #2 vial 11/06/17 Cefuroxime Axetil [Ceftin -] 250 mg PO BID #10 tablet 01/10/19 Furosemide [Lasix] 40 mg PO DAILY #30 tablet 01/10/19 Tamsulosin HCl [Flomax] 0.4 mg PO DAILY #30 cap.er.24h 01/10/19 Review of Systems - Review of Systems Constitutional: reports: Loss of Appetite, Malaise Eyes: reports: Blurred Vision HENT: reports: No Symptoms Neck: reports: Stiffness Cardiovascular: denies: Chest Pain Respiratory: denies: Cough Gastrointestinal: reports: Bloating, Indigestion Genitourinary: denies: Burning Musculoskeletal: reports: Back Pain Endocrine: denies: Unexplained Weight Gain Physical Exam Constitutional: Yes: No Distress, Anxious Eyes: Yes: Conjunctiva Clear HENT: Yes: Normocephalic Neck: Yes: Trachea Midline Cardiovascular: Yes: Regular Rate and Rhythm, S1, S2 Respiratory: Yes: Regular, CTA Bilaterally Renal/: No: Bladder Distention, CVA Tenderness - Left, CVA Tenderness - Right Labs: CBC, BMP 09/01/19 09:40 09/01/19 09:40 Problem List - Problems (1) Abdominal pain Code(s): R10.9 - UNSPECIFIED ABDOMINAL PAIN Qualifiers: (2) Anemia Code(s): D64.9 - ANEMIA, UNSPECIFIED Qualifiers: (3) CKD (chronic kidney disease) stage 4, GFR 15-29 ml/min Code(s): N18.4 - CHRONIC KIDNEY DISEASE, STAGE 4 (SEVERE) (4) Dementia Code(s): F03.90 - UNSPECIFIED DEMENTIA WITHOUT BEHAVIORAL DISTURBANCE (5) Hyperlipidemia Code(s): E78.5 - HYPERLIPIDEMIA, UNSPECIFIED Qualifiers: (6) Hyponatremia Code(s): E87.1 - HYPO-OSMOLALITY AND HYPONATREMIA (7) Type 2 diabetes mellitus Code(s): E11.9 - TYPE 2 DIABETES MELLITUS WITHOUT COMPLICATIONS Assessment/Plan 89 or-year-old female with advanced chronic kidney disease stage V who is admitted for intravenous iron infusion. The patient has advanced anemia which is refractory to oral and supplements. She has no overt blood loss. Patient tolerating iron infusion well. Discussed in detailWith the patient's family about further management. No renal replacement therapy to be entertained. Will discharge she will follow-up in the office with blood work as ordered. Lisa Elliott MD
[2019-09-01 14:32] VITALS: PULSE 50; TEMP 97.5
[2019-09-01 14:33] VITALS: BP 139/43
== END 2019-09-01 12:25 | disposition home or self-care (01) ==
LOC: JONCNONCHE 10:27 → J7W 10:42 → JONCNONCHE 12:25
PROVIDERS: ATTEND Internal Medicine Hematology & Oncology
PROC: 3E033GC Introduction of Other Therapeutic Substance into Peripheral Vein, Percutaneous Approach (ICD-10-PCS; principal; 2019-09-01)
DX: D50.9 Iron deficiency anemia, unspecified (principal); E11.22 Type 2 diabetes mellitus with diabetic chronic kidney disease; I13.2 Hypertensive heart and chronic kidney disease with heart failure and with stage 5 chronic kidney disease, or end stage renal disease; N18.5 Chronic kidney disease, stage 5; I50.9 Heart failure, unspecified; Z79.4 Long term (current) use of insulin; F03.90 Unspecified dementia, unspecified severity, without behavioral disturbance, psychotic disturbance, mood disturbance, and anxiety; I25.10 Atherosclerotic heart disease of native coronary artery without angina pectoris
CPT/HCPCS: 36415; 80048; 80053; 81003; 82306; 82565; 82728; 83036; 83540; 83550; 84100; 84439; 84443; 84550; 85025; 96365; J1756

== ENCOUNTER 2020-01-11 07:21 | Day surgery (SDC) | payer OTHER ==
[2020-01-11] MEDS ORDERED: IRON SUCROSE INJECTION 200 MG in SODIUM CHLORIDE 100 ML IVPB ONE (13:00)
[2020-01-11 13:56] LABS: HEMATOCRIT 23.3 % (32.4-45.2); HEMOGLOBIN 7.8 GM/dL (10.7-15.3); LYMPH % 12.7 % (8-40); MCH 30.3 pg (25.7-33.7); MCHC 33.7 g/dl (32.0-36.0); MEAN PLT VOLUME 7.3 fl (7.5-11.1); MONO % 4.8 % (3.8-10.2); NEUT % 79.5 % (42.8-82.8); PLATELET COUNT 192 K/MM3 (134-434); RBC 2.59 M/mm3 (3.60-5.2); RDW 14.3 % (11.6-15.6); WHITE BLOOD COUNT 3.6 K/mm3 (4.0-10.0)
[2020-01-11 14:17] LABS: PHOSPHOROUS 5.2 mg/dL (2.5-4.9)
[2020-01-11 14:23] LABS: ALBUMIN 3.2 g/dl (3.4-5.0); BILIRUBIN,TOTAL 0.4 mg/dL (0.2-1); BLOOD UREA NITROGEN 84.8 mg/dL (7-18); CALCIUM 8.1 mg/dL (8.5-10.1); CREATININE 4.5 mg/dL (0.55-1.3); POTASSIUM 4.7 mmol/L (3.5-5.1); TOT PROT 6.8 g/dl (6.4-8.2)
[2020-01-11 14:24] LABS: URIC ACID 13.7 mg/dL (2.6-7.2)
[2020-01-11 14:28] LABS: IRON SERUM 26 ug/dL (50-175); TOTAL IRON BINDING CAPACITY 213 ug/dL (250-450)
[2020-01-11 15:08] VITALS: PULSE 52; TEMP 98.1
[2020-01-11 15:09] VITALS: BP 133/54
== END 2020-01-11 15:10 | disposition home or self-care (01) ==
LOC: JONCNONCHE 07:21
PROVIDERS: ATTEND Internal Medicine Hematology & Oncology
PROC: 3E033GC Introduction of Other Therapeutic Substance into Peripheral Vein, Percutaneous Approach (ICD-10-PCS; principal; 2020-01-11)
DX: D50.9 Iron deficiency anemia, unspecified (principal)
CPT/HCPCS: 36415; 80053; 82728; 83540; 83550; 84100; 84550; 85025; 96365; J1756

== ENCOUNTER 2020-01-18 08:41 | Day surgery (SDC) | payer OTHER ==
[2020-01-18 09:10] LABS: BASO % 0.8 % (0-2.0); EOS % 2.2 % (0-4.5); HEMATOCRIT 22.3 % (32.4-45.2); HEMOGLOBIN 7.5 GM/dL (10.7-15.3); LYMPH % 10.9 % (8-40); MCH 30.6 pg (25.7-33.7); MCHC 33.6 g/dl (32.0-36.0); MEAN CELL VOLUME 91.3 fl (80-96); MEAN PLT VOLUME 7.7 fl (7.5-11.1); MONO % 4.8 % (3.8-10.2); NEUT % 81.3 % (42.8-82.8); PLATELET COUNT 189 K/MM3 (134-434); RBC 2.44 M/mm3 (3.60-5.2); RDW 14.4 % (11.6-15.6); WHITE BLOOD COUNT 3.8 K/mm3 (4.0-10.0)
[2020-01-18 09:34] LABS: ALBUMIN 3.1 g/dl (3.4-5.0); BILIRUBIN,TOTAL 0.4 mg/dL (0.2-1); BLOOD UREA NITROGEN 86.5 mg/dL (7-18); CALCIUM 7.8 mg/dL (8.5-10.1); CREATININE 4.5 mg/dL (0.55-1.3); POTASSIUM 4.8 mmol/L (3.5-5.1); TOT PROT 6.5 g/dl (6.4-8.2)
[2020-01-18] MEDS ORDERED: EPOETIN ALFA 20,000 UNIT/1 ML VIAL SQ ONE (14:00)
[2020-01-18 17:07] VITALS: BP 125/68; PULSE 56; TEMP 97.4
== END 2020-01-18 15:15 | disposition home or self-care (01) ==
LOC: JONCBLOOD 08:41
PROVIDERS: ATTEND Internal Medicine Hematology & Oncology
PROC: 30233N1 Transfusion of Nonautologous Red Blood Cells into Peripheral Vein, Percutaneous Approach (ICD-10-PCS; principal; 2020-01-18)
DX: D50.9 Iron deficiency anemia, unspecified (principal); E11.9 Type 2 diabetes mellitus without complications; F03.90 Unspecified dementia, unspecified severity, without behavioral disturbance, psychotic disturbance, mood disturbance, and anxiety; I10 Essential (primary) hypertension; E03.9 Hypothyroidism, unspecified
CPT/HCPCS: 36415; 36430; 36511; 80053; 85025; 86850; 86900; 86901; 86922; J0885; P9038; P9058